=== PATIENT | female | born 1940 | race Caucasian/White ===

== ENCOUNTER 2019-02-17 14:20 | Emergency (ER) | payer MEDICARE, BC ==
[2019-02-17 14:28] VITALS: TEMP 98.3
[2019-02-17] MEDS ORDERED: MORPHINE SULFATE 4 MG/ML SYRINGE IV STA (14:51)
[2019-02-17] MEDS ORDERED: ONDANSETRON 4 MG/2 ML VIAL IVP STA (14:51)
[2019-02-17] MEDS ORDERED: SODIUM CHLORIDE 0.9% 1,000 ML IV STA ×2 (14:51)
[2019-02-17 15:17] LABS: Basophils # (A) 0.1 k/uL (0-0.2); Basophils % (A) 2 %; Eosinophils # (A) 0.2 k/uL (0-0.7); Eosinophils % (A) 4 %; HCT 33.6 % (34.0-46.0); HGB 11.4 gm/dL (11.4-16.0); Lymphocytes # (A) 0.8 k/uL (1.0-4.8); Lymphocytes % (A) 13 %; MCH 28.1 pg (25.0-35.0); MCHC 33.8 g/dL (31.0-37.0); Mean Platelet Volume 5.8; Monocytes # (A) 0.7 k/uL (0-1.0); Monocytes % (A) 10 %; Neutrophils # (A) 4.2 k/uL (1.3-7.7); Neutrophils % (A) 67 %; Platelet Count 335 k/uL (150-450); RBC 4.05 m/uL (3.80-5.40); RDW 13.7 % (11.5-15.5); WBC 6.2 k/uL (3.8-10.6)
--- NOTE | 2019-02-17 15:23 | ED ---
Abdominal Pain HPI - General Chief Complaint: Abdominal Pain Stated Complaint: Abd pain Source: patient, RN notes reviewed, old records reviewed Mode of arrival: ambulatory Limitations: no limitations - History of Present Illness Initial Comments: Patient is a 78-year-old female, reece. She presents emergency department today with upper abdominal pain for one week. Patient prefers to be called "[place]". Patient reports that she seems to be feeling full very early. Patient states that she did have a bowel movement yesterday which seemed to be normal. She states she questions if she could be mildly constipated. She has been taking stool softeners, MiraLAX with no significant bowel movement afterwards. Patient states that she has had no specific fevers or chills. She does have a indwelling suprapubic catheter, with a history of chronic urinary tract infections. She reports that she recently moved here from [place], [place] to be closer to family. Patient urologist is Dr. Espino. Patient denies any recent fever, chills, shortness of breath, chest pain, back pain, numbness or tingling, dysuria or hematuria, diarrhea, headaches or visual changes, or any other current symptoms - Related Data Previous Rx's Medication Instructions Recorded Bisacodyl [Dulcolax] 10 mg PO ONCE #20 tablet. 02/17/19 Nitrofurantoin Monohyd/M-Cryst 100 mg PO Q12HR #14 cap 02/17/19 [Macrobid] Allergies Allergy/AdvReac Type Severity Reaction Status Date / Time atorvastatin [From Lipitor] Allergy Unknown Verified 02/17/19 14:29 Benzodiazepines Allergy Unknown Verified 02/17/19 14:29 Sulfa (Sulfonamide Allergy Unknown Verified 02/17/19 14:29 Antibiotics) Review of Systems ROS Statement: Those systems with pertinent positive or pertinent negative responses have been documented in the HPI. ROS Other: All systems not noted in ROS Statement are negative. Past Medical History Past Medical History: GERD/Reflux, Hyperlipidemia, Hypertension, Thyroid Disorder History of Any Multi-Drug Resistant Organisms: None Reported Past Surgical History: Unable to Obtain, Joint Replacement Additional Past Surgical History / Comment(s): parathyroid gland, suprapubic tube insertion Past Psychological History: Depression Smoking Status: Never smoker Past Alcohol Use History: None Reported Past Drug Use History: None Reported General Exam - General Exam Comments Initial Comments: Alert and oriented 78-year-old female. Pleasant. Patient appears in no distress. General: Well appearing, well nourished, in no distress. Oriented x 3, normal mood and affect . Ambulating without difficulty. Skin: Good turgor, no rash, unusual bruising or prominent lesions Hair: Normal texture and distribution. HEENT: Head: Normocephalic, atraumatic, no visible or palpable masses, depressions, or scaring. Eyes: Visual acuity intact, conjunctiva clear, sclera non-icteric, EOM intact, PERRL. Ears: EACs clear, TMs translucent & cone of light visualized. hearing intact. Nose: No external lesions, mucosa non-inflamed, septum and turbinates normal Mouth: Mucous membranes moist, no mucosal lesions. Neck: Supple, without lesions, bruits, or adenopathy, thyroid non-enlarged and non-tender Heart: No cardiomegaly or thrills; regular rate and rhythm, no murmur or gallop Lungs: Clear to auscultation and percussion Abdomen: Bowel sounds normal, epigastric tenderness. Indwelling suprapubic catheter. No erythema around the site. Catheter appears well. Back: Spine normal without deformity or tenderness, no CVA tenderness Extremities: No amputations or deformities, cyanosis, edema or varicosities, peripheral pulses intact Musculoskeletal: Normal gait and station. No misalignment, asymmetry, crepitation, defects, tenderness, masses, effusions, decreased range of motion, instability, atrophy or abnormal strength or tone in the head, neck, spine, ribs, pelvis or extremities. Neurologic: CN 2-12 normal. Sensation to pain, touch, and proprioception normal. DTRs normal in upper and lower extremities. No pathologic reflexes. Psychiatric: Oriented X3, intact recent and remote memory, judgment and insight, normal mood and affect. Limitations: no limitations General appearance: alert, in no apparent distress Head exam: Present: atraumatic, normocephalic, normal inspection Course Vital Signs 02/17/19 02/17/19 02/17/19 14:23 16:07 17:47 Temperature 98.3 F Pulse Rate 76 75 89 Respiratory 18 18 19 Rate Blood Pressure 121/57 158/76 124/56 O2 Sat by Pulse 97 98 94 L Oximetry 02/17/19 18:10 Temperature 98.3 F Pulse Rate 89 Respiratory 19 Rate Blood Pressure 124/56 O2 Sat by Pulse 94 L Oximetry Medical Decision Making - Medical Decision Making 78-year-old female. Presents today for epigastric abdominal pain times one week. Patient reports that she has an indwelling suprapubic catheter due to history of chronic urinary tract infections. At this time Patient was given IV fluids and lab work are obtained. At this time Patient labwork was reviewed. Blood work was unremarkable. Urinalysis obtained from patient's indwelling catheter is positive for infection. We will culture this. She is given 1 g of Rocephin and ED. KUB shows evidence of mild to moderate constipation with some dilated air-fluid levels possible ileus. Computed tomography scan was performed. There is negative for any acute injury or abdominal abnormality. I discussed patient's pain is likely secondary to some constipation. Given a dose of mag citrate to take home as well as stool softeners. Patient will be started on Macrobid and she states that has worked well for her urinary tract infections in the past. I discussed the Patient is follow-up with her urologist have indwelling catheter removed and replaced. Patient understands treatment plan will comply. Return parameters were discussed. Discussed the case with Dr. Johnston. - Lab Data Result diagrams: 02/17/19 15:04 02/17/19 15:04 Lab Results 02/17/19 02/17/19 02/17/19 Range/Units 15:04 15:04 15:04 WBC 6.2 (3.8-10.6) k/uL RBC 4.05 (3.80-5.40) m/uL Hgb 11.4 (11.4-16.0) gm/dL Hct 33.6 L (34.0-46.0) % MCV 83.0 (80.0-100.0) fL MCH 28.1 (25.0-35.0) pg MCHC 33.8 (31.0-37.0) g/dL RDW 13.7 (11.5-15.5) % Plt Count 335 (150-450) k/uL Neutrophils % 67 % Lymphocytes % 13 % Monocytes % 10 % Eosinophils % 4 % Basophils % 2 % Neutrophils # 4.2 (1.3-7.7) k/uL Lymphocytes # 0.8 L (1.0-4.8) k/uL Monocytes # 0.7 (0-1.0) k/uL Eosinophils # 0.2 (0-0.7) k/uL Basophils # 0.1 (0-0.2) k/uL PT (9.0-12.0) sec INR (<1.2) APTT (22.0-30.0) sec Sodium 133 L (137-145) mmol/L Potassium 3.9 (3.5-5.1) mmol/L Chloride 96 L (98-107) mmol/L Carbon Dioxide 28 (22-30) mmol/L Anion Gap 9 mmol/L BUN 11 (7-17) mg/dL Creatinine 0.61 (0.52-1.04) mg/dL Est GFR (CKD-EPI)AfAm >90 (>60 ml/min/1.73 sqM) Est GFR (CKD-EPI)NonAf 87 (>60 ml/min/1.73 sqM) Glucose 91 (74-99) mg/dL Plasma Lactic Acid Christian 1.2 (0.7-2.0) mmol/L Calcium 9.4 (8.4-10.2) mg/dL Total Bilirubin 0.5 (0.2-1.3) mg/dL AST 34 (14-36) U/L ALT 29 (9-52) U/L Alkaline Phosphatase 106 (38-126) U/L Total Protein 7.7 (6.3-8.2) g/dL Albumin 4.1 (3.5-5.0) g/dL Amylase 32 (30-110) U/L Lipase 97 (23-300) U/L Urine Color Urine Appearance (Clear) Urine pH (5.0-8.0) Ur Specific Jefferson (1.001-1.035) Urine Protein (Negative) Urine Glucose (UA) (Negative) Urine Ketones (Negative) Urine Blood (Negative) Urine Nitrite (Negative) Urine Bilirubin (Negative) Urine Urobilinogen (<2.0) mg/dL Ur Leukocyte Esterase (Negative) Urine RBC (0-5) /hpf Urine WBC (0-5) /hpf Urine WBC Clumps (None) /hpf Urine Bacteria (None) /hpf Urine Mucus (None) /hpf Urine Yeast (Budding) (None) /hpf 02/17/19 02/17/19 Range/Units 15:04 15:46 WBC (3.8-10.6) k/uL RBC (3.80-5.40) m/uL Hgb (11.4-16.0) gm/dL Hct (34.0-46.0) % MCV (80.0-100.0) fL MCH (25.0-35.0) pg MCHC (31.0-37.0) g/dL RDW (11.5-15.5) % Plt Count (150-450) k/uL Neutrophils % % Lymphocytes % % Monocytes % % Eosinophils % % Basophils % % Neutrophils # (1.3-7.7) k/uL Lymphocytes # (1.0-4.8) k/uL Monocytes # (0-1.0) k/uL Eosinophils # (0-0.7) k/uL Basophils # (0-0.2) k/uL PT 9.4 (9.0-12.0) sec INR 0.8 (<1.2) APTT 23.2 (22.0-30.0) sec Sodium (137-145) mmol/L Potassium (3.5-5.1) mmol/L Chloride (98-107) mmol/L Carbon Dioxide (22-30) mmol/L Anion Gap mmol/L BUN (7-17) mg/dL Creatinine (0.52-1.04) mg/dL Est GFR (CKD-EPI)AfAm (>60 ml/min/1.73 sqM) Est GFR (CKD-EPI)NonAf (>60 ml/min/1.73 sqM) Glucose (74-99) mg/dL Plasma Lactic Acid Christian (0.7-2.0) mmol/L Calcium (8.4-10.2) mg/dL Total Bilirubin (0.2-1.3) mg/dL AST (14-36) U/L ALT (9-52) U/L Alkaline Phosphatase (38-126) U/L Total Protein (6.3-8.2) g/dL Albumin (3.5-5.0) g/dL Amylase (30-110) U/L Lipase (23-300) U/L Urine Color Yellow Urine Appearance Cloudy H (Clear) Urine pH 7.5 (5.0-8.0) Ur Specific Jefferson 1.013 (1.001-1.035) Urine Protein 1+ H (Negative) Urine Glucose (UA) Negative (Negative) Urine Ketones Negative (Negative) Urine Blood Small H (Negative) Urine Nitrite Positive H (Negative) Urine Bilirubin Negative (Negative) Urine Urobilinogen <2.0 (<2.0) mg/dL Ur Leukocyte Esterase Large H (Negative) Urine RBC 15 H (0-5) /hpf Urine WBC >182 H (0-5) /hpf Urine WBC Clumps Moderate H (None) /hpf Urine Bacteria Moderate H (None) /hpf Urine Mucus Rare H (None) /hpf Urine Yeast (Budding) Few H (None) /hpf - Radiology Data Radiology results: report reviewed CT of the abdomen and pelvis shows no acute intra-abdominal process. No obstruction. Read by Kati Springer DO. KUB shows distended small bowel without evidence of small bowel traction may relate ileus. Greater than average colonic stool burn. Disposition Clinical Impression: UTI (urinary tract infection), Constipation Disposition: HOME SELF-CARE Condition: Good Instructions (If sedation given, give patient instructions): Constipation (ED), Catheter-associated Urinary Tract Infection (ED) Additional Instructions: Please use medication as discussed. Follow up With urologist to have the catheter replaced. Please follow up with family doctor if symptoms have not improved over the next two days. Please return to the emergency room if your symptoms increase or worsen or for any other concerns. Prescriptions: Bisacodyl [Dulcolax] 10 mg PO ONCE #20 tablet. Nitrofurantoin Monohyd/M-Cryst [Macrobid] 100 mg PO Q12HR #14 cap Is patient prescribed a controlled substance at d/c from ED?: No Referrals: Franki Bright MD [Primary Care Provider] - 1-2 days James Espino MD [STAFF PHYSICIAN] - 1-2 days Time of Disposition: 17:45
[2019-02-17 15:29] LABS: ALT 29 U/L (9-52); AST 34 U/L (14-36); African American GFR (CKD) >90 (>60 ml/min/1.73 sqM); Albumin 4.1 g/dL (3.5-5.0); Alkaline Phosphatase 106 U/L (38-126); Amylase 32 U/L (30-110); Anion Gap 9 mmol/L; Blood Urea Nitrogen 11 mg/dL (7-17); Calcium 9.4 mg/dL (8.4-10.2); Carbon Dioxide 28 mmol/L (22-30); Chloride 96 mmol/L (98-107); Glucose 91 mg/dL (74-99); Non-African American GFR(CKD) 87 (>60 ml/min/1.73 sqM); Potassium 3.9 mmol/L (3.5-5.1); Sodium 133 mmol/L (137-145); Total Bilirubin 0.5 mg/dL (0.2-1.3); Total Protein 7.7 g/dL (6.3-8.2)
[2019-02-17 16:02] LABS: INR 0.8 (<1.2); Partial Thromboplastin Time 23.2 sec (22.0-30.0); Prothrombin Time 9.4 sec (9.0-12.0)
--- NOTE | 2019-02-17 16:03 | XR ---
EXAMINATION TYPE: XR KUB DATE OF EXAM: 02/17/2019 3:29 PM CLINICAL HISTORY: Abdominal pain, nausea TECHNIQUE: Single upright KUB image of the abdomen is obtained. COMPARISON: None. FINDINGS: Scattered gas is seen in mildly distended small bowel loops, notably left lower quadrant me asuring up to 3 cm in diameter. Gas and fecal material is seen in non-distended colon. Greater than a verage stool burden. There is no visceromegaly, pneumoperitoneum, or abnormal calcification appreciat ed. Degenerative changes of the axial spine. Left total hip prosthesis. IMPRESSION: 1. Distended small bowel loops without evidence of small bowel obstruction may relate to ileus. 2. Greater than average colonic stool burden.
[2019-02-17 16:07] LABS: Appearance,Urine Cloudy (Clear); Bacteria,Urine Moderate /hpf; Bilirubin,Urine Negative (Negative); Blood,Urine Small (Negative); Budding Yeast,Urine Few /hpf; Color,Urine Yellow; Glucose,Urine (UA) Negative (Negative); Ketones,Urine Negative (Negative); Leukocyte Esterase,Urine Large (Negative); Mucus,Urine Rare /hpf; Nitrite,Urine Positive (Negative); PH, Urine 7.5 (5.0-8.0); Protein,Urine 1+ (Negative); RBC,Urine 15 /hpf (0-5); Specific Gravity,Urine 1.013 (1.001-1.035); Urobilinogen,Urine <2.0 mg/dL (<2.0); WBC,Urine >182 /hpf (0-5)
[2019-02-17] MEDS ORDERED: cefTRIAXone IN SWFI 1,000 MG/10 ML SYRINGE IVP STA (16:12)
[2019-02-17] MEDS ORDERED: MAGNESIUM CITRATE 296 ML BOTTLE PO ONE (16:50)
--- NOTE | 2019-02-17 17:18 | CT ---
EXAMINATION TYPE: CT abdomen pelvis w con DATE OF EXAM: 02/17/2019 COMPARISON: KUB same day. HISTORY: Abdominal pain and distention with nausea. CT DLP: 905.7 mGycm Automated exposure control for dose reduction was used. TECHNIQUE: Helical acquisition of images was performed from the lung bases through the pelvis. CONTRAST: Performed without Oral Contrast and with IV Contrast, patient injected with 100 mL of Isovue 300. FINDINGS: LUNG BASES: Bibasilar subsegmental atelectasis. LIVER/GB: Scattered subcentimeter hypoattenuation hypoattenuated hepatic lesions are too small to act ually characterize. No calcified gallstones. No intra or retroperitoneal ductal dilatation. PANCREAS: No significant abnormality is seen. SPLEEN: No significant abnormality is seen. ADRENALS: No significant abnormality is seen. KIDNEYS AND URINARY BLADDER: Left renal hypoattenuating lesion measuring 3.3 cm measures internal flu id density, compatible with cyst. There are additional bilateral subcentimeter renal lesions which ar e too small to accurately characterize. No hydronephrosis. Suprapubic catheter terminates in the urin fabiola bladder. REPRODUCTIVE ORGANS: The uterus is not definitively visualized. No adnexal mass. RETROPERITONEAL ADENOPATHY: None visualized. BOWEL AND MESENTERY: No dilated bowel, free air, or suspicious free fluid. No mesenteric inflammator y changes. OSSEOUS STRUCTURES: Left total hip prosthesis. Degenerative changes throughout the imaged spine. Gra de 1 anterolisthesis of L3 over L4, likely degenerative in etiology. IMPRESSION: No acute intra-abdominal process. No bowel obstruction.
[2019-02-17 17:50] VITALS: BP 124/56; PULSE 89; RESP 19
== END 2019-02-17 18:10 | disposition home or self-care (01) ==
LOC: EC 14:20
DX: K59.00 Constipation, unspecified (principal); N39.0 Urinary tract infection, site not specified; Z96.0 Presence of urogenital implants; Z88.2 Allergy status to sulfonamides; Z88.8 Allergy status to other drugs, medicaments and biological substances; Z87.19 Personal history of other diseases of the digestive system
CPT/HCPCS: 99285; 96374; 96375 ×2; 96361 ×3; 36415; 80053; 82150; 83605; 83690; 85025; 85610; 85730; 81001; 87086; 87077; 87186; 74018; 74177; J2270; J2405; J0696; Q9967

== ENCOUNTER 2020-04-10 11:42 | Emergency (ER) | payer MEDICARE ==
[2020-04-10 11:54] VITALS: RESP 18; TEMP 98.2
[2020-04-10] MEDS ORDERED: DEXAMETHASONE SOD PHOSPHATE 10 MG/ML 1 ML VIAL IV STA (12:24)
[2020-04-10] MEDS ORDERED: hydrOXYzine HCL 25 MG TAB PO STA (12:26)
--- NOTE | 2020-04-10 12:28 | ED ---
General Adult HPI - General Chief complaint: Chest Pain Stated complaint: chest pain/itchy all over Time Seen by Provider: 04/10/20 12:08 Source: patient Mode of arrival: wheelchair Limitations: no limitations - History of Present Illness Initial comments: Dictation was produced using [employer] dictation software. please excuse any grammatical, word or spelling errors. This patient was cared for during a federal and state declared state of emergen cy secondary to Covid 19 Chief Complaint: 80-year-old female past medical history dyslipidemia hypertension and thyroid disorder presents with itching and chest pain. History of Present Illness: She is 80-year-old female she is here today for total body itching. She reports that her symptoms are so bad from medical to the emergency department. Last week patient was seen by results technician where she was told that her symptoms may be secondary to psoriasis. She was prescribed ointment for triamcinolone. She states that over the course of the last couple days her symptoms of pruritus have been exponentially worse from. To the emergency department. She was not given any antipruritic medications by her results technician. She has a follow-up appointment scheduled for next Monday. She states that the rash is localized to her upper back, upper chest. She also complains of some mild chest pain. She states is like a pressure. She has history of anxiety. She denies any associated diaphoresis. No nausea or vomiting. She does not have any history of cardiac disease. She reports that she gets chest symptoms whenever she feels anxious. She takes anxiolytic medications on a regular basis. Denies any shortness of breath. The ROS documented in this emergency department record has been reviewed and confirmed by me. Those systems with pertinent positive or negative responses have been documented in the HPI. All other systems are other negative and/or noncontributory. PHYSICAL EXAM: General Impression: Alert and oriented x3, not in acute distress HEENT: Normocephalic atraumatic, extra-ocular movements intact, pupils equal and reactive to light bilaterally, mucous membranes moist. Cardiovascular: Heart regular rate and rhythm Chest: Able to complete full sentences, no retractions, no tachypnea Abdomen: abdomen soft, non-tender, non-distended, no organomegaly Musculoskeletal: Pulses present and equal in all extremities, no peripheral edema Motor: no focal deficits noted Neurological: CN II-XII grossly intact, no focal motor or sensory deficits noted Skin: Erythematous macular rash localized to the upper back, upper chest. Palms and soles are spared. Conjunctivae were clear. Psych: Anxious ED course: 80 yo Female presents to the emergency department for atypical chest pain and total body pruritus. She's been managed outpatient by dermatology. Return evaluation obtained. CBC unremarkable. Coag panel is unremarkable. Sodium is 128. Patient is generally hyponatremic at baseline. Rest of labs unremarkable. Troponins negative. Chest x-ray is nonacute. Patient reevaluated after administration of Atarax, Ativan and Decadron. She reports s ymptoms are significantly improved. Patient given prescription for Atarax per she is told to follow-up with her results technician. EKG interpretation: Ventricular rate 82, normal sinus rhythm, PA interval 202, QRS 104, QTC 511. No PA prolongation, no ST or T-wave changes noted. No old EKG for comparison. - Related Data Home Medications Medication Instructions Recorded Confirmed Aspirin EC [Ecotrin Low Dose] 81 mg PO DAILY 04/10/20 04/10/20 Escitalopram [Lexapro] 10 mg PO DAILY 04/10/20 04/10/20 Esomeprazole Magnesium [NexIUM] 40 mg PO BID 04/10/20 04/10/20 Latanoprost/Pf [Latanoprost 0.005% 1 drop BOTH EYES HS 04/10/20 04/10/20 Eye Drop] Levothyroxine Sodium [Synthroid] 75 mcg PO DAILY 04/10/20 04/10/20 Losartan/Hydrochlorothiazide 1 tab PO DAILY 04/10/20 04/10/20 [Losartan-Hctz 100-25 mg Tab] Mirtazapine 30 mg PO HS 04/10/20 04/10/20 Polyethylene Glycol 3350 [Miralax] 17 gm PO DAILY 04/10/20 04/10/20 Zolpidem [Ambien] 5 mg PO HS PRN 04/10/20 04/10/20 Previous Rx's Medication Instructions Recorded hydrOXYzine HCL [Atarax] 25 mg PO TID PRN #20 tab 04/10/20 Allergies Allergy/AdvReac Type Severity Reaction Status Date / Time atorvastatin [From Lipitor] Allergy Unknown-brand Verified 04/10/20 13:50 OK brimonidine [From Combigan] Allergy Itching Verified 04/10/20 13:50 dicyclomine [From Bentyl] Allergy Dyspnea Verified 04/10/20 13:50 Sulfa (Sulfonamide Allergy Unknown Verified 04/10/20 13:50 Antibiotics) timolol [From Combigan] Allergy Itching Verified 04/10/20 13:50 Review of Systems ROS Statement: Those systems with pertinent positive or pertinent negative responses have been documented in the HPI. ROS Other: All systems not noted in ROS Statement are negative. Past Medical History Past Medical History: GERD/Reflux, Hyperlipidemia, Hypertension, Thyroid Disorder History of Any Multi-Drug Resistant Organisms: None Reported Past Surgical History: Unable to Obtain, Joint Replacement Additional Past Surgical History / Comment(s): parathyroid gland, suprapubic tube insertion Past Psychological History: Depression Past Alcohol Use History: None Reported Past Drug Use History: None Reported General Exam Limitations: no limitations Course Vital Signs 04/10/20 04/10/20 04/10/20 11:50 12:41 13:51 Temperature 98.2 F Pulse Rate 82 81 Pulse Rate [ 81 [employer] ] Respiratory 18 18 Rate Blood Pressure 133/69 146/72 O2 Sat by Pulse 97 93 L Oximetry Medical Decision Making - Lab Data Result diagrams: 04/10/20 12:15 04/10/20 12:15 Lab Results 04/10/20 04/10/20 04/10/20 Range/Units 12:15 12:15 12:15 WBC 7.6 (3.8-10.6) k/uL RBC 4.37 (3.80-5.40) m/uL Hgb 11.4 (11.4-16.0) gm/dL Hct 33.9 L (34.0-46.0) % MCV 77.6 L (80.0-100.0) fL MCH 26.0 (25.0-35.0) pg MCHC 33.6 (31.0-37.0) g/dL RDW 16.0 H (11.5-15.5) % Plt Count 374 (150-450) k/uL MPV 6.3 Neutrophils % 68 % Lymphocytes % 11 % Monocytes % 10 % Eosinophils % 5 % Basophils % 1 % Neutrophils # 5.2 (1.3-7.7) k/uL Lymphocytes # 0.8 L (1.0-4.8) k/uL Monocytes # 0.7 (0-1.0) k/uL Eosinophils # 0.4 (0-0.7) k/uL Basophils # 0.1 (0-0.2) k/uL Microcytosis Slight PT 9.5 (9.0-12.0) sec INR 0.9 (<1.2) APTT 21.4 L (22.0-30.0) sec Sodium 128 L (137-145) mmol/L Potassium 3.7 (3.5-5.1) mmol/L Chloride 94 L (98-107) mmol/L Carbon Dioxide 28 (22-30) mmol/L Anion Gap 6 mmol/L BUN 19 H (7-17) mg/dL Creatinine 1.04 (0.52-1.04) mg/dL Est GFR (CKD-EPI)AfAm 58 (>60 ml/min/1.73 sqM) Est GFR (CKD-EPI)NonAf 51 (>60 ml/min/1.73 sqM) Glucose 106 H (74-99) mg/dL Calcium 9.2 (8.4-10.2) mg/dL Magnesium 2.2 (1.6-2.3) mg/dL Total Bilirubin 0.5 (0.2-1.3) mg/dL AST 26 (14-36) U/L ALT 23 (4-34) U/L Alkaline Phosphatase 85 (38-126) U/L Troponin I (0.000-0.034) ng/mL Total Protein 7.4 (6.3-8.2) g/dL Albumin 4.0 (3.5-5.0) g/dL 04/10/20 Range/Units 12:15 WBC (3.8-10.6) k/uL RBC (3.80-5.40) m/uL Hgb (11.4-16.0) gm/dL Hct (34.0-46.0) % MCV (80.0-100.0) fL MCH (25.0-35.0) pg MCHC (31.0-37.0) g/dL RDW (11.5-15.5) % Plt Count (150-450) k/uL MPV Neutrophils % % Lymphocytes % % Monocytes % % Eosinophils % % Basophils % % Neutrophils # (1.3-7.7) k/uL Lymphocytes # (1.0-4.8) k/uL Monocytes # (0-1.0) k/uL Eosinophils # (0-0.7) k/uL Basophils # (0-0.2) k/uL Microcytosis PT (9.0-12.0) sec INR (<1.2) APTT (22.0-30.0) sec Sodium (137-145) mmol/L Potassium (3.5-5.1) mmol/L Chloride (98-107) mmol/L Carbon Dioxide (22-30) mmol/L Anion Gap mmol/L BUN (7-17) mg/dL Creatinine (0.52-1.04) mg/dL Est GFR (CKD-EPI)AfAm (>60 ml/min/1.73 sqM) Est GFR (CKD-EPI)NonAf (>60 ml/min/1.73 sqM) Glucose (74-99) mg/dL Calcium (8.4-10.2) mg/dL Magnesium (1.6-2.3) mg/dL Total Bilirubin (0.2-1.3) mg/dL AST (14-36) U/L ALT (4-34) U/L Alkaline Phosphatase (38-126) U/L Troponin I <0.012 (0.000-0.034) ng/mL Total Protein (6.3-8.2) g/dL Albumin (3.5-5.0) g/dL Disposition Clinical Impression: Pruritus Disposition: HOME SELF-CARE Condition: Good Instructions (If sedation given, give patient instructions): Itchy Skin (ED) Additional Instructions: Today your sodium level was found to be slightly depressed at 128. It is secondary to some mild dehydration. Please maintain hydration and lighly salt your foods Prescriptions: hydrOXYzine HCL [Atarax] 25 mg PO TID PRN #20 tab PRN Reason: skin itching Is patient prescribed a controlled substance at d/c from ED?: No Referrals: Salvatore Marcano MD [Primary Care Provider] - 1-2 days Time of Disposition: 14:04
[2020-04-10] MEDS ORDERED: LORazepam 2 MG/ML INJ IV STA (12:31)
[2020-04-10 12:43] VITALS: PULSE 81
[2020-04-10 12:43] LABS: Basophils # (A) 0.1 k/uL (0-0.2); Basophils % (A) 1 %; Eosinophils # (A) 0.4 k/uL (0-0.7); Eosinophils % (A) 5 %; HCT 33.9 % (34.0-46.0); HGB 11.4 gm/dL (11.4-16.0); Lymphocytes # (A) 0.8 k/uL (1.0-4.8); Lymphocytes % (A) 11 %; MCHC 33.6 g/dL (31.0-37.0); MCV 77.6 fL (80.0-100.0); Mean Platelet Volume 6.3; Microcytosis Slight; Monocytes # (A) 0.7 k/uL (0-1.0); Monocytes % (A) 10 %; Neutrophils # (A) 5.2 k/uL (1.3-7.7); Neutrophils % (A) 68 %; Platelet Count 374 k/uL (150-450); RBC 4.37 m/uL (3.80-5.40); WBC 7.6 k/uL (3.8-10.6)
[2020-04-10 13:00] LABS: Calcium 9.2 mg/dL (8.4-10.2); Magnesium 2.2 mg/dL (1.6-2.3); Potassium 3.7 mmol/L (3.5-5.1); Total Bilirubin 0.5 mg/dL (0.2-1.3); Total Protein 7.4 g/dL (6.3-8.2)
--- NOTE | 2020-04-10 13:11 | XR ---
EXAMINATION TYPE: XR chest 1V portable DATE OF EXAM: 04/10/2020 COMPARISON: NONE HISTORY: Chest pain. TECHNIQUE: Single AP portable frontal upright view of the chest is obtained. FINDINGS: There is chronic parenchymal change with bibasilar opacities. The cardiac silhouette size is mildly enlarged and atherosclerotic thoracic aorta. Retrocardiac opacity consistent with moderat e to large size hiatal hernia. The osseous structures are demineralized. IMPRESSION: Chronic parenchymal changes and cardiomegaly with bibasilar acute infiltrate and/or atel ectasis.
[2020-04-10 13:28] LABS: INR 0.9 (<1.2); Partial Thromboplastin Time 21.4 sec (22.0-30.0); Prothrombin Time 9.5 sec (9.0-12.0)
[2020-04-10 14:05] VITALS: BP 136/69
--- NOTE | 2020-04-10 14:06 | ED ---
Medical Decision Making - Lab Data Result diagrams: 04/10/20 12:15 12 12:15 Lab Results 04/10/20 04/10/20 04/10/20 Range/Units 12:15 12:15 12:15 WBC 7.6 (3.8-10.6) k/uL RBC 4.37 (3.80-5.40) m/uL Hgb 11.4 (11.4-16.0) gm/dL Hct 33.9 L (34.0-46.0) % MCV 77.6 L (80.0-100.0) fL MCH 26.0 (25.0-35.0) pg MCHC 33.6 (31.0-37.0) g/dL RDW 16.0 H (11.5-15.5) % Plt Count 374 (150-450) k/uL MPV 6.3 Neutrophils % 68 % Lymphocytes % 11 % Monocytes % 10 % Eosinophils % 5 % Basophils % 1 % Neutrophils # 5.2 (1.3-7.7) k/uL Lymphocytes # 0.8 L (1.0-4.8) k/uL Monocytes # 0.7 (0-1.0) k/uL Eosinophils # 0.4 (0-0.7) k/uL Basophils # 0.1 (0-0.2) k/uL Microcytosis Slight PT 9.5 (9.0-12.0) sec INR 0.9 (<1.2) APTT 21.4 L (22.0-30.0) sec Sodium 128 L (137-145) mmol/L Potassium 3.7 (3.5-5.1) mmol/L Chloride 94 L (98-107) mmol/L Carbon Dioxide 28 (22-30) mmol/L Anion Gap 6 mmol/L BUN 19 H (7-17) mg/dL Creatinine 1.04 (0.52-1.04) mg/dL Est GFR (CKD-EPI)AfAm 58 (>60 ml/min/1.73 sqM) Est GFR (CKD-EPI)NonAf 51 (>60 ml/min/1.73 sqM) Glucose 106 H (74-99) mg/dL Calcium 9.2 (8.4-10.2) mg/dL Magnesium 2.2 (1.6-2.3) mg/dL Total Bilirubin 0.5 (0.2-1.3) mg/dL AST 26 (14-36) U/L ALT 23 (4-34) U/L Alkaline Phosphatase 85 (38-126) U/L Troponin I (0.000-0.034) ng/mL Total Protein 7.4 (6.3-8.2) g/dL Albumin 4.0 (3.5-5.0) g/dL 04/10/20 Range/Units 12:15 WBC (3.8-10.6) k/uL RBC (3.80-5.40) m/uL Hgb (11.4-16.0) gm/dL Hct (34.0-46.0) % MCV (80.0-100.0) fL MCH (25.0-35.0) pg MCHC (31.0-37.0) g/dL RDW (11.5-15.5) % Plt Count (150-450) k/uL MPV Neutrophils % % Lymphocytes % % Monocytes % % Eosinophils % % Basophils % % Neutrophils # (1.3-7.7) k/uL Lymphocytes # (1.0-4.8) k/uL Monocytes # (0-1.0) k/uL Eosinophils # (0-0.7) k/uL Basophils # (0-0.2) k/uL Microcytosis PT (9.0-12.0) sec INR (<1.2) APTT (22.0-30.0) sec Sodium (137-145) mmol/L Potassium (3.5-5.1) mmol/L Chloride (98-107) mmol/L Carbon Dioxide (22-30) mmol/L Anion Gap mmol/L BUN (7-17) mg/dL Creatinine (0.52-1.04) mg/dL Est GFR (CKD-EPI)AfAm (>60 ml/min/1.73 sqM) Est GFR (CKD-EPI)NonAf (>60 ml/min/1.73 sqM) Glucose (74-99) mg/dL Calcium (8.4-10.2) mg/dL Magnesium (1.6-2.3) mg/dL Total Bilirubin (0.2-1.3) mg/dL AST (14-36) U/L ALT (4-34) U/L Alkaline Phosphatase (38-126) U/L Troponin I <0.012 (0.000-0.034) ng/mL Total Protein (6.3-8.2) g/dL Albumin (3.5-5.0) g/dL Disposition Clinical Impression: Pruritus Disposition: HOME SELF-CARE Condition: Good Instructions (If sedation given, give patient instructions): Itchy Skin (ED) Additional Instructions: Today your sodium level was found to be slightly depressed at 128. It is secondary to some mild dehydration. Please maintain hydration and lighly salt your foods Prescriptions: hydrOXYzine HCL [Atarax] 25 mg PO TID PRN #20 tab PRN Reason: skin itching Triamcinolone 0.1% Ointment [Kenalog 0.1% Ointment] 1 applic TOPICAL BID #1 tube Is patient prescribed a controlled substance at d/c from ED?: No Referrals: Salvatore Marcano MD [Primary Care Provider] - 1-2 days Time of Disposition: 14:06
== END 2020-04-10 14:15 | disposition home or self-care (01) ==
LOC: EC 11:42
DX: L29.9 Pruritus, unspecified (principal); R07.89 Other chest pain; E87.1 Hypo-osmolality and hyponatremia; F41.9 Anxiety disorder, unspecified; I10 Essential (primary) hypertension; K21.9 Gastro-esophageal reflux disease without esophagitis; E78.5 Hyperlipidemia, unspecified; E07.9 Disorder of thyroid, unspecified; F32.9 Major depressive disorder, single episode, unspecified; Z79.82 Long term (current) use of aspirin; Z79.899 Other long term (current) drug therapy; Z79.890 Hormone replacement therapy
CPT/HCPCS: 36415; 93005; 80053; 83735; 84484; 85025; 85610; 85730; 71045; 99285; 96374; 96375; J2060; J1100

== ENCOUNTER 2020-04-13 18:26 | Emergency (ER) | payer MEDICARE ==
[2020-04-13 18:33] VITALS: PULSE 85
[2020-04-13] MEDS ORDERED: methylPREDNISolone SOD SUCCI 125 MG/2 ML VIAL IM ONE (19:13)
[2020-04-13] MEDS ORDERED: diphenhydrAMINE 50 MG/ML 1 ML VIAL IM STA (19:13)
--- NOTE | 2020-04-13 19:29 | ED ---
Skin/Abscess/FB HPI - General Chief complaint: Skin/Abscess/Foreign Body Stated complaint: Poss Rash on back Time Seen by Provider: 04/13/20 18:37 Source: patient Mode of arrival: wheelchair Limitations: no limitations - History of Present Illness Initial comments: Patient is an 80-year-old female presenting to the emergency Department with complaints of itchy rash on her back that has been going on for 2 weeks now. Patient states she was in the ER a few days ago for same complaint. Patient states she was given a medicine but it is not helping. She states she has been also trying Benadryl at home without relief. She states the rash is not painful itches super itchy and she cannot stand it any longer. She denies any fever, chills, nausea, vomiting, diarrhea. She denies any chest pain or shortness of breath. She states she did call her lace tearing supervisor and has an appointment at the end of this week. Patient states she has not changed any wound or detergent, soaps, lotions. She has not been taking any new medications. The patient's states he has nothing like this on him. Patient has no further complaints at this time. Upon arrival to the ER, her vitals are stable. - Related Data Home Medications Medication Instructions Recorded Confirmed Aspirin EC [Ecotrin Low Dose] 81 mg PO DAILY 04/10/20 04/13/20 Atorvastatin Calcium [Lipitor] 40 mg PO DAILY 04/10/20 04/13/20 Escitalopram [Lexapro] 10 mg PO DAILY 04/10/20 04/13/20 Esomeprazole Magnesium [NexIUM] 40 mg PO BID 04/10/20 04/13/20 Istalol 0.5% 1 drop BOTH EYES DAILY 04/10/20 04/13/20 Latanoprost/Pf [Latanoprost 0.005% 1 drop BOTH EYES HS 04/10/20 04/13/20 Eye Drop] Levothyroxine Sodium [Synthroid] 75 mcg PO DAILY 04/10/20 04/13/20 Losartan/Hydrochlorothiazide 1 tab PO DAILY 04/10/20 04/13/20 [Losartan-Hctz 100-25 mg Tab] Mirtazapine 30 mg PO HS 04/10/20 04/13/20 NIFEdipine [Procardia XL] 30 mg PO DAILY 04/10/20 04/13/20 Polyethylene Glycol 3350 [Miralax] 17 gm PO DAILY 04/10/20 04/13/20 Zolpidem [Ambien] 5 mg PO HS PRN 04/10/20 04/13/20 Previous Rx's Medication Instructions Recorded Triamcinolone 0.1% Ointment 1 applic TOPICAL BID #1 tube 04/10/20 [Kenalog 0.1% Ointment] hydrOXYzine HCL [Atarax] 25 mg PO TID PRN #20 tab 04/10/20 predniSONE [Deltasone] 20 mg PO BID 5 Days #10 tab 04/13/20 Allergies Allergy/AdvReac Type Severity Reaction Status Date / Time atorvastatin [From Lipitor] Allergy Unknown-brand Verified 04/13/20 19:01 OK brimonidine [From Combigan] Allergy Itching Verified 04/13/20 19:01 dicyclomine [From Bentyl] Allergy Dyspnea Verified 04/13/20 19:01 Sulfa (Sulfonamide Allergy Unknown Verified 04/13/20 19:01 Antibiotics) timolol [From Combigan] Allergy Itching Verified 04/13/20 19:01 Review of Systems ROS Statement: Those systems with pertinent positive or pertinent negative responses have been documented in the HPI. ROS Other: All systems not noted in ROS Statement are negative. Past Medical History Past Medical History: GERD/Reflux, Hyperlipidemia, Hypertension, Thyroid Disorder History of Any Multi-Drug Resistant Organisms: None Reported Past Surgical History: Unable to Obtain, Joint Replacement Additional Past Surgical History / Comment(s): parathyroid gland, suprapubic tube insertion Past Psychological History: Depression Smoking Status: Never smoker Past Alcohol Use History: None Reported Past Drug Use History: None Reported General Exam - General Exam Comments Initial Comments: GENERAL: Patient is well-developed and well-nourished. Patient is nontoxic and in no acute distress. HEAD: Atraumatic, normocephalic. EYES: Pupils equal round and reactive to light, extraocular movements intact, sclera anicteric, conjunctiva are normal. Eyelids were unremarkable. ENT: TMs normal, nares patent, oropharynx clear without exudates. Moist mucous membranes. NECK: Normal range of motion, supple without lymphadenopathy or JVD. LUNGS: Unlabored respirations. Breath sounds clear to auscultation bilaterally and equal. No wheezes rales or rhonchi. HEART: Regular rate and rhythm without murmurs, rubs or gallops. ABDOMEN: Soft, nontender, normoactive bowel sounds. No guarding, no rebound. No masses appreciated. : Deferred MUSCULOSKELETAL: Normal extremities with adequate strength and normal range of motion, no pitting or edema. No clubbing or cyanosis. NEUROLOGICAL: Patient is alert and oriented x 3. Motor and sensory are also intact. Cranial nerves II through XII grossly intact. Symmetrical smile. Normal speech, normal gait. PSYCH: Normal mood, normal affect. SKIN: Warm, Dry, normal turgor. Patient has a few small erythematous, macules papules on her upper back, bilateral as well as a few small little papules on her chest. This is not appear infectious, does not resemble shingles. Limitations: no limitations Course Vital Signs 04/13/20 04/13/20 18:31 20:30 Temperature 98.5 F 98.4 F Pulse Rate 85 85 Respiratory 18 16 Rate Blood Pressure 124/72 136/67 O2 Sat by Pulse 99 96 Oximetry Medical Decision Making - Medical Decision Making Patient is an 80-year-old female here with a rash is extremely itchy on her upper back and chest for the past 2 weeks. She was here in the ER a few days ago for same complaint. She states the oral medications he is trying is not helping. She has an appointment with a lace tearing supervisor and of this week. Her vitals are stable. She does not appear to be infectious or shingles. I gave patient a dose of Benadryl and Solu-Medrol in the ER, she reports very mild improvement, so complaining about itching. I discussed with patient that she needs follow-up with her lace tearing supervisor, continue with Atarax that she has at home. I also recommended making sure she is moisturizing twice a day with the Eucerin or Aquaphor. Patient is demanding to see a lace tearing supervisor, I did explain that we do not have a lace tearing supervisor in the ER and this is not an urgent condition where we need to keep the patient in the hospital. Patient is stable for discharge. Patient is in agreement with this plan of care. She was given 2 referrals for local lace tearing supervisor. I also sent patient home with a prescription for a small dose of steroids over the next few days. Case discussed with Dr. Johnston. Disposition Clinical Impression: Pruritus Disposition: HOME SELF-CARE Condition: Stable Instructions (If sedation given, give patient instructions): Itchy Skin (ED) Additional Instructions: Please return to the Emergency Department if symptoms worsen or any other concerns. Continue with already prescribed medications. Trial of a steroid to start tomorrow. Make sure to moisturize the skin twice daily with a simple moisturizer, such as Eucerin and Aquaphor with no dyes. Follow-up with dermatology as discussed. Prescriptions: predniSONE [Deltasone] 20 mg PO BID 5 Days #10 tab Is patient prescribed a controlled substance at d/c from ED?: No Referrals: Salvatore Marcano MD [Primary Care Provider] - 1-2 days Jen Richey MD [STAFF PHYSICIAN] - 1-2 days Jatinder Bazzi MD [STAFF PHYSICIAN] - 1-2 days
[2020-04-13 20:32] VITALS: BP 136/67; RESP 16; TEMP 98.4
[2020-04-13] MEDS ORDERED: ONDANSETRON 4 MG ODT STARTER PACK 2 TAB BTL PO STA (21:05)
== END 2020-04-13 21:15 | disposition home or self-care (01) ==
LOC: EC 18:26
DX: L29.9 Pruritus, unspecified (principal); I10 Essential (primary) hypertension; E78.5 Hyperlipidemia, unspecified; F32.9 Major depressive disorder, single episode, unspecified; K21.9 Gastro-esophageal reflux disease without esophagitis; Z79.82 Long term (current) use of aspirin; Z79.899 Other long term (current) drug therapy; Z88.2 Allergy status to sulfonamides; Z88.8 Allergy status to other drugs, medicaments and biological substances
CPT/HCPCS: 99282 ×2; 96372 ×3; J1200; J2930; S0119

== ENCOUNTER 2020-08-15 16:50 | Emergency (ER) | payer MEDICARE ==
[2020-08-15 17:05] VITALS: BP 106/54; PULSE 86; RESP 18; TEMP 97.8
--- NOTE | 2020-08-15 18:13 | XR ---
Result: History: Pain. Comparison: None available. Technique: 3 views of the left foot. Findings: The bone mineralization is appropriate for age. No acute fracture or dislocation is seen. Hallux valgus is seen. There is lesser toe claw deformity. Otherwise the joint spaces are preserved. Impression: No acute fracture.
--- NOTE | 2020-08-15 18:23 | ED ---
General Adult HPI - General Chief complaint: Extremity Injury, Lower Stated complaint: Fall, ankle pain Time Seen by Provider: 08/15/20 17:50 Source: patient Mode of arrival: ambulatory Limitations: no limitations - History of Present Illness Initial comments: 80-year-old female with a past medical history of hyperlipidemia, hypertension presents to the emergency room for a chief complaint of left ankle pain. Patient reports that she was getting out of the shower yesterday and slipped and fell. No dizziness or lightheadedness preceding this fall. Fall was mechanical. Patient fell on her left ankle. She did not hit her head neck or back. She has no other complaints. There was no loss of consciousness. Patient does not take blood thinners. Patient's only complaint is her left ankle.Patient has no other complaints at this time including shortness of breath, chest pain, abdominal pain, nausea or vomiting, headache, or visual changes. - Related Data Home Medications Medication Instructions Recorded Confirmed Aspirin EC [Ecotrin Low Dose] 81 mg PO DAILY 04/10/20 04/13/20 Atorvastatin Calcium [Lipitor] 40 mg PO DAILY 04/10/20 04/13/20 Escitalopram [Lexapro] 10 mg PO DAILY 04/10/20 04/13/20 Esomeprazole Magnesium [NexIUM] 40 mg PO BID 04/10/20 04/13/20 Istalol 0.5% 1 drop BOTH EYES DAILY 04/10/20 04/13/20 Latanoprost/Pf [Latanoprost 0.005% 1 drop BOTH EYES HS 04/10/20 04/13/20 Eye Drop] Levothyroxine Sodium [Synthroid] 75 mcg PO DAILY 04/10/20 04/13/20 Losartan/Hydrochlorothiazide 1 tab PO DAILY 04/10/20 04/13/20 [Losartan-Hctz 100-25 mg Tab] Mirtazapine 30 mg PO HS 04/10/20 04/13/20 NIFEdipine [Procardia XL] 30 mg PO DAILY 04/10/20 04/13/20 Polyethylene Glycol 3350 [Miralax] 17 gm PO DAILY 04/10/20 04/13/20 Zolpidem [Ambien] 5 mg PO HS PRN 04/10/20 04/13/20 Previous Rx's Medication Instructions Recorded Triamcinolone 0.1% Ointment 1 applic TOPICAL BID #1 tube 04/10/20 [Kenalog 0.1% Ointment] hydrOXYzine HCL [Atarax] 25 mg PO TID PRN #20 tab 04/10/20 predniSONE [Deltasone] 20 mg PO BID 5 Days #10 tab 04/13/20 Allergies Allergy/AdvReac Type Severity Reaction Status Date / Time atorvastatin [From Lipitor] Allergy Unknown-brand Verified 08/15/20 17:06 [place] brimonidine [From Combigan] Allergy Itching Verified 08/15/20 17:06 dicyclomine [From Bentyl] Allergy Dyspnea Verified 08/15/20 17:06 Sulfa (Sulfonamide Allergy Unknown Verified 08/15/20 17:06 Antibiotics) timolol [From Combigan] Allergy Itching Verified 08/15/20 17:06 Review of Systems ROS Statement: Those systems with pertinent positive or pertinent negative responses have been documented in the HPI. ROS Other: All systems not noted in ROS Statement are negative. Past Medical History Past Medical History: GERD/Reflux, Hyperlipidemia, Hypertension, Thyroid Disorder History of Any Multi-Drug Resistant Organisms: None Reported Past Surgical History: Unable to Obtain, Joint Replacement Additional Past Surgical History / Comment(s): parathyroid gland, suprapubic tube insertion Past Psychological History: Depression Smoking Status: Never smoker Past Alcohol Use History: None Reported Past Drug Use History: None Reported General Exam Limitations: no limitations General appearance: alert, in no apparent distress Head exam: Present: atraumatic, normocephalic, normal inspection Eye exam: Present: normal appearance, PERRL, EOMI. Absent: scleral icterus, conjunctival injection, periorbital swelling ENT exam: Present: normal exam, mucous membranes moist Neck exam: Present: normal inspection. Absent: tenderness, meningismus, lymphadenopathy Respiratory exam: Present: normal lung sounds bilaterally. Absent: respiratory distress, wheezes, rales, rhonchi, stridor Cardiovascular Exam: Present: regular rate, normal rhythm, normal heart sounds. Absent: systolic murmur, diastolic murmur, rubs, gallop, clicks GI/Abdominal exam: Present: soft, normal bowel sounds. Absent: distended, tenderness, guarding, rebound, rigid Extremities exam: Present: full ROM (Full range of motion of the left ankle), tenderness (Tenderness to the lateral malleolus of the left ankle. No foot tenderness.), normal capillary refill (Capillary refill less than 2 seconds, DP pulse 2+ in the left lower extremity), joint swelling (Mild edema noted of the l eft ankle.), other (Sensation intact left lower extremity.). Absent: calf tenderness (Negative Homans sign, no calf tenderness or edema.) Back exam: Absent: CVA tenderness (R), CVA tenderness (L), vertebral tenderness Course Vital Signs 08/15/20 17:02 Temperature 97.8 F Pulse Rate 86 Respiratory 18 Rate Blood Pressure 106/54 O2 Sat by Pulse 95 Oximetry Procedures - Orthopedic Splinting/Casting Injury #1 Side: left Lower Extremity Injury Location: ankle Lower Extremity Immobilizer: stirrup splint Medical Decision Making - Medical Decision Making HPI physical exam is documented. Pertinent for tenderness to the lateral malleolus with mild edema of the left ankle. Neurovascular status intact in the left lower extremity. X-ray of the left foot is negative.X-ray of the left ankle does show suspicion for a small fracture of the lateral malleoli are tender. Patient placed in an ankle stirrup OCL. Referred to orthopedics. She will return here for any worsening symptoms. Disposition Clinical Impression: Fracture of lateral malleolus Disposition: HOME SELF-CARE Condition: Good Instructions (If sedation given, give patient instructions): Ankle Fracture (ED) Additional Instructions: Please take Motrin and Tylenol for pain. Please rest ice and elevate the left ankle. Follow-up with orthopedics in 1 to 2 days. Return to the emergency room for any worsening symptoms. Is patient prescribed a controlled substance at d/c from ED?: No Referrals: Salvatore Marcano MD [Primary Care Provider] - 1-2 days Gallito Zhu DO [Doctor of Osteopathic Medicine] - 1-2 days Time of Disposition: 18:37
--- NOTE | 2020-08-15 18:34 | XR ---
Result: History: Pain. Comparison: None available. Technique: 3 views of the left ankle. Findings: There is mild cortical irregularity of the lateral malleolus tip with overlying soft tissue edema. No evidence of dislocation. The joint spaces are otherwise preserved. Impression: Suspicious small fracture of the lateral malleolar tip.
== END 2020-08-15 18:51 | disposition home or self-care (01) ==
LOC: EC 16:50
DX: S82.62XA Displaced fracture of lateral malleolus of left fibula, initial encounter for closed fracture (principal); I10 Essential (primary) hypertension; E78.5 Hyperlipidemia, unspecified; K21.9 Gastro-esophageal reflux disease without esophagitis; F32.9 Major depressive disorder, single episode, unspecified; Z79.82 Long term (current) use of aspirin; Z79.899 Other long term (current) drug therapy; W01.0XXA Fall on same level from slipping, tripping and stumbling without subsequent striking against object, initial encounter
CPT/HCPCS: 99284

== ENCOUNTER → 2020-09-11 | Outpatient (CLI) | payer MEDICARE ==
--- NOTE | 2020-09-11 08:36 | US ---
EXAMINATION TYPE: US venous doppler duplex LE RT DATE OF EXAM: 09/11/2020 8:07 AM COMPARISON: NONE CLINICAL HISTORY: R22.41 Swelling right leg. SIDE PERFORMED: Right TECHNIQUE: The lower extremity deep venous system is examined utilizing real time linear array sonog laruel with graded compression, doppler sonography and color-flow sonography. VESSELS IMAGED: Common Femoral Vein Deep Femoral Vein Greater Saphenous Vein * Femoral Vein Popliteal Vein Small Saphenous Vein * Proximal Calf Veins (* superficial vessels) Right Leg: Negative for DVT Grayscale, color doppler, spectral doppler imaging performed of the deep veins of the right lower ext remity. There is normal flow, compressibility, vascular waveforms. IMPRESSION: No ultrasound evidence for acute DVT in the right lower extremity.
== END | disposition home or self-care (01) ==
LOC: RADUSWWP 07:41
PROVIDERS: ATTEND Family Medicine
DX: R22.41 Localized swelling, mass and lump, right lower limb (principal)

== ENCOUNTER → 2020-10-14 | Outpatient (CLI) | payer MEDICARE ==
--- NOTE | 2020-10-14 08:43 | XR ---
EXAMINATION TYPE: XR abdomen 1V DATE OF EXAM: 10/14/2020 COMPARISON: 02/17/2019 HISTORY: Pain TECHNIQUE: One view abdominal series FINDINGS: The osseous structures are intact. The bowel gas pattern is nonspecific. Hypertrophic and degenerati ve change of the spine. There is a right paraspinal calcification is indeterminate. Vascular calcific ations in pelvis. Severe arthropathy right hip and postsurgical change left. Severe degenerative wells ge lumbar spine. Bilateral subsegmental areas of infiltrate. Nodular contour of the right superior pu bic ramus could be positional or related to trauma correlate clinically. IMPRESSION: 1. Nonspecific abdomen correlate for constipation. 2. Bibasilar infiltrate or atelectasis. 3. Right paraspinal calcification could be in the course of the right ureter correlate with CT scan a s clinically warranted.
== END | disposition home or self-care (01) ==
LOC: LABWHC1 07:57
PROVIDERS: ATTEND Nurse Practitioner Family
DX: R10.9 Unspecified abdominal pain (principal)
CPT/HCPCS: 74018

== ENCOUNTER → 2020-10-27 | Outpatient (CLI) | payer MEDICARE ==
--- NOTE | 2020-10-27 10:17 | US ---
EXAMINATION TYPE: US carotid duplex BILAT DATE OF EXAM: 10/27/2020 COMPARISON: NONE CLINICAL HISTORY: I65.23 ADALBERTO CAROTID ARTERY STENOSIS. no h/o stroke, stenosis EXAM MEASUREMENTS: RIGHT: Peak Systolic Velocity (PSV) cm/sec ----- Right CCA: 66.44 ----- Right ICA: 92.2 ----- Right ECA: 66.4 ICA/CCA ratio: 1.4 RIGHT: End Diastole cm/sec ----- Right CCA: 20.1 ----- Right ICA: 31.1 ----- Right ECA: 10.2 LEFT: Peak Systolic Velocity (PSV) cm/sec ----- Left CCA: 66.7 ----- Left ICA: 93.0 ----- Left ECA: 79.1 ICA/CCA ratio: 1.4 LEFT: End Diastole cm/sec ----- Left CCA: 30.4 ----- Left ICA: 32.0 ----- Left ECA: 11.9 VERTEBRALS (direction of flow): Right Vertebral: Antegrade Left Vertebral: Antegrade Rhythm: Normal Heterogenous plaque of the bilateral bulbs with no significant stenosis IMPRESSION: No sonographic evidence for hemodynamically significant stenosis of the carotid arteries. Criteria for Assigning % of Stenosis / Diameter reduction (Estimation based on the indirect measurements of the internal carotid artery velocities (ICA PSV). 1. Normal (no stenosis)=ICA PSV < 125 cm/s: ratio < 2.0: ICA EDV<40 cm/s. 2. Less than 50% stenosis=ICA PSV < 125 cm/s: ratio < 2.0: ICA EDV<40 cm/s. 3. 50 to 69% stenosis=ICA PSV of 125 to 230 cm/s: ration 2.0 ? 4.0: ICA EDV 40-100 cm/s. 4. Greater than 70% stenosis to near occlusion= ICA PSV > 230 cm/s: ratio > 4.0: ICA EDV > 100 cm/s. 5. Near occlusion= ICA PSV velocities may be low or undetectable: variable ratio and ICA EDV. 6. Total occlusion=unable to detect flow.
== END | disposition home or self-care (01) ==
LOC: RADUSWWP 09:35
PROVIDERS: ATTEND Internal Medicine
DX: I65.23 Occlusion and stenosis of bilateral carotid arteries (principal)
CPT/HCPCS: 93880

== ENCOUNTER 2020-12-06 15:20 | Emergency (ER) | payer MEDICARE, OTHER ==
[2020-12-06] MEDS ORDERED: SODIUM CHLORIDE 0.9% 500 ML 500 ML IV STA (15:39)
--- NOTE | 2020-12-06 15:40 | ED ---
General Adult HPI - General Chief complaint: Dizziness Stated complaint: Dizziness Time Seen by Provider: 12/06/20 15:24 Source: patient, EMS Mode of arrival: EMS Limitations: no limitations - History of Present Illness Initial comments: Dictation was produced using [employer] dictation software. please excuse any grammatical, word or spelling errors. Chief Complaint: 80-year-old female with past medical history of GERD dyslipidemia hypertension this emergency department for dizziness and left shoulder pain History of Present Illness: 80-year-old female she states for the last several days she's been experiencing worsening dizziness. Patient is a poor historian. at the bedside also a poor historian. States that she denies symptoms of the room spinning. She does feel lightheaded. She also has some left-sided shoulder pain it's worse with movement of the left shoulder palpation to the area. Patient denies any chest pressure. No associated diaphoresis or nausea. Denies any vomiting. No diarrhea. Denies any respiratory infectious symptoms. The ROS documented in this emergency department record has been reviewed and confirmed by me. Those systems with pertinent positive or negative responses have been documented in the HPI. All other systems are other negative and/or noncontributory. PHYSICAL EXAM: General Impression: Alert and oriented x3, not in acute distress HEENT: Normocephalic atraumatic, extra-ocular movements intact, pupils equal and reactive to light bilaterally, mucous membranes moist. Cardiovascular: Heart regular rate and rhythm Chest: Able to complete full sentences, no retractions, no tachypnea Abdomen: abdomen soft, non-tender, non-distended, no organomegaly Musculoskeletal: Pulses present and equal in all extremities, no peripheral edema, tenderness to palpation of the left anterior shoulder and left pectoralis muscle area. Denies any symptoms with manipulation of the right shoulder Motor: no focal deficits noted Neurological: CN II-XII grossly intact, no focal motor or sensory deficits noted Skin: Intact with no visualized rashes Psych: Normal affect and mood ED course: 80-year-old feel presents to the emergency department with dizziness and left shoulder pain. Vital signs upon arrival shows 93% on room air, rest of vital signs within acceptable limits. EKGs benign. Laboratory evaluation obtained. CBC, coag panel, metabolic panel is unremarkable. Urinalysis positive for nitrates with 12 white blood cells. Clinical presentation consistent with urinary tract infection. Patient's well- appearing at the bedside. Patient given 1 g of ceftriaxone. Patient has history of polymicrobial. Tract infections in the past. Urine will be sent for culture. Patient reevaluated at 5 PM 5 in stable medical condition. EKG interpretation: Ventricular rate 80, sinus rhythm,. Interval to 4, care is 90, QTC 465. No CO prolongation, no QTC prolongation, no ST or T-wave changes noted. EKG compared to April showing no changes. Overall, this EKG is unremarkable Patient given prescription for oral analgesics to treat her musculoskeletal shoulder pain. As I was trying to exit the room patient began complaining of forehead twitching. Denies any headache.. She is told to follow-up with her primary care doctor regarding this. - Related Data Home Medications Medication Instructions Recorded Confirmed Aspirin EC [Ecotrin Low Dose] 81 mg PO DAILY 04/10/20 04/13/20 Atorvastatin Calcium [Lipitor] 40 mg PO DAILY 04/10/20 04/13/20 Escitalopram [Lexapro] 10 mg PO DAILY 04/10/20 04/13/20 Esomeprazole Magnesium [NexIUM] 40 mg PO BID 04/10/20 04/13/20 Istalol 0.5% 1 drop BOTH EYES DAILY 04/10/20 04/13/20 Latanoprost/Pf [Latanoprost 0.005% 1 drop BOTH EYES HS 04/10/20 04/13/20 Eye Drop] Levothyroxine Sodium [Synthroid] 75 mcg PO DAILY 04/10/20 04/13/20 Losartan/Hydrochlorothiazide 1 tab PO DAILY 04/10/20 04/13/20 [Losartan-Hctz 100-25 mg Tab] Mirtazapine 30 mg PO HS 04/10/20 04/13/20 NIFEdipine [Procardia XL] 30 mg PO DAILY 04/10/20 04/13/20 Polyethylene Glycol 3350 [Miralax] 17 gm PO DAILY 04/10/20 04/13/20 Zolpidem [Ambien] 5 mg PO HS PRN 04/10/20 04/13/20 Previous Rx's Medication Instructions Recorded Triamcinolone 0.1% Ointment 1 applic TOPICAL BID #1 tube 04/10/20 [Kenalog 0.1% Ointment] hydrOXYzine HCL [Atarax] 25 mg PO TID PRN #20 tab 04/10/20 predniSONE [Deltasone] 20 mg PO BID 5 Days #10 tab 04/13/20 Cephalexin [Keflex] 500 mg PO Q6HR 7 Days #28 cap 12/06/20 HYDROcodone/APAP 5-325MG [[place] 1 tab PO Q6HR PRN 3 Days #12 tab 12/06/20 5-325] Allergies Allergy/AdvReac Type Severity Reaction Status Date / Time atorvastatin [From Lipitor] Allergy Unknown-brand Verified 08/15/20 17:06 OK brimonidine [From Combigan] Allergy Itching Verified 08/15/20 17:06 dicyclomine [From Bentyl] Allergy Dyspnea Verified 08/15/20 17:06 Sulfa (Sulfonamide Allergy Unknown Verified 08/15/20 17:06 Antibiotics) timolol [From Combigan] Allergy Itching Verified 08/15/20 17:06 Review of Systems ROS Statement: Those systems with pertinent positive or pertinent negative responses have been documented in the HPI. ROS Other: All systems not noted in ROS Statement are negative. Past Medical History Past Medical History: GERD/Reflux, Hyperlipidemia, Hypertension, Thyroid Disorder History of Any Multi-Drug Resistant Organisms: None Reported Past Surgical History: Unable to Obtain, Joint Replacement Additional Past Surgical History / Comment(s): parathyroid gland, suprapubic tube insertion Past Psychological History: Depression Smoking Status: Never smoker Past Alcohol Use History: None Reported Past Drug Use History: None Reported General Exam Limitations: no limitations Course Vital Signs 12/06/20 15:24 Temperature 98.2 F Pulse Rate 81 Respiratory 16 Rate Blood Pressure 164/82 O2 Sat by Pulse 93 L Oximetry Medical Decision Making - Lab Data Result diagrams: 12/06/20 15:50 12/06/20 15:50 Lab Results 12/06/20 12/06/20 12/06/20 Range/Units 15:50 15:50 15:50 WBC 9.6 (3.8-10.6) k/uL RBC 4.23 (3.80-5.40) m/uL Hgb 10.7 L (11.4-16.0) gm/dL Hct 33.9 L (34.0-46.0) % MCV 80.3 (80.0-100.0) fL MCH 25.4 (25.0-35.0) pg MCHC 31.6 (31.0-37.0) g/dL RDW 15.3 (11.5-15.5) % Plt Count 361 (150-450) k/uL MPV 7.4 Neutrophils % 77 % Lymphocytes % 10 % Monocytes % 9 % Eosinophils % 2 % Basophils % 0 % Neutrophils # 7.5 (1.3-7.7) k/uL Lymphocytes # 0.9 L (1.0-4.8) k/uL Monocytes # 0.8 (0-1.0) k/uL Eosinophils # 0.2 (0-0.7) k/uL Basophils # 0.0 (0-0.2) k/uL Hypochromasia Slight PT 9.7 (9.0-12.0) sec INR 0.9 (<1.2) APTT 20.7 L (22.0-30.0) sec Sodium (137-145) mmol/L Potassium (3.5-5.1) mmol/L Chloride (98-107) mmol/L Carbon Dioxide (22-30) mmol/L Anion Gap mmol/L BUN (7-17) mg/dL Creatinine (0.52-1.04) mg/dL Est GFR (CKD-EPI)AfAm (>60 ml/min/1.73 sqM) Est GFR (CKD-EPI)NonAf (>60 ml/min/1.73 sqM) Glucose (74-99) mg/dL Plasma Lactic Acid Christian (0.7-2.0) mmol/L Calcium (8.4-10.2) mg/dL Magnesium (1.6-2.3) mg/dL Troponin I (0.000-0.034) ng/mL Urine Color Light Yellow Urine Appearance Cloudy H (Clear) Urine pH 7.5 (5.0-8.0) Ur Specific [place] 1.007 (1.001-1.035) Urine Protein Negative (Negative) Urine Glucose (UA) Negative (Negative) Urine Ketones Negative (Negative) Urine Blood Negative (Negative) Urine Nitrite Positive H (Negative) Urine Bilirubin Negative (Negative) Urine Urobilinogen <2.0 (<2.0) mg/dL Ur Leukocyte Esterase Large H (Negative) Urine RBC 2 (0-5) /hpf Urine WBC 12 H (0-5) /hpf Ur Squamous Epith Cells <1 (0-4) /hpf Triple Phos Crystals Occasional H (None) /hpf Amorphous Sediment Rare H (None) /hpf Urine Mucus Rare H (None) /hpf 12/06/20 12/06/20 12/06/20 Range/Units 15:50 15:50 15:50 WBC (3.8-10.6) k/uL RBC (3.80-5.40) m/uL Hgb (11.4-16.0) gm/dL Hct (34.0-46.0) % MCV (80.0-100.0) fL MCH (25.0-35.0) pg MCHC (31.0-37.0) g/dL RDW (11.5-15.5) % Plt Count (150-450) k/uL MPV Neutrophils % % Lymphocytes % % Monocytes % % Eosinophils % % Basophils % % Neutrophils # (1.3-7.7) k/uL Lymphocytes # (1.0-4.8) k/uL Monocytes # (0-1.0) k/uL Eosinophils # (0-0.7) k/uL Basophils # (0-0.2) k/uL Hypochromasia PT (9.0-12.0) sec INR (<1.2) APTT (22.0-30.0) sec Sodium 138 (137-145) mmol/L Potassium 3.9 (3.5-5.1) mmol/L Chloride 103 (98-107) mmol/L Carbon Dioxide 26 (22-30) mmol/L Anion Gap 9 mmol/L BUN 15 (7-17) mg/dL Creatinine 0.77 (0.52-1.04) mg/dL Est GFR (CKD-EPI)AfAm 84 (>60 ml/min/1.73 sqM) Est GFR (CKD-EPI)NonAf 73 (>60 ml/min/1.73 sqM) Glucose 100 H (74-99) mg/dL Plasma Lactic Acid Hcristian 0.9 (0.7-2.0) mmol/L Calcium 9.4 (8.4-10.2) mg/dL Magnesium 2.2 (1.6-2.3) mg/dL Troponin I <0.012 (0.000-0.034) ng/mL Urine Color Urine Appearance (Clear) Urine pH (5.0-8.0) Ur Specific [place] (1.001-1.035) Urine Protein (Negative) Urine Glucose (UA) (Negative) Urine Ketones (Negative) Urine Blood (Negative) Urine Nitrite (Negative) Urine Bilirubin (Negative) Urine Urobilinogen (<2.0) mg/dL Ur Leukocyte Esterase (Negative) Urine RBC (0-5) /hpf Urine WBC (0-5) /hpf Ur Squamous Epith Cells (0-4) /hpf Triple Phos Crystals (None) /hpf Amorphous Sediment (None) /hpf Urine Mucus (None) /hpf Disposition Clinical Impression: UTI (urinary tract infection) Disposition: HOME SELF-CARE Condition: Fair Instructions (If sedation given, give patient instructions): Dizziness (ED), Urinary Tract Infection in Women (DC) Prescriptions: Cephalexin [Keflex] 500 mg PO Q6HR 7 Days #28 cap HYDROcodone/APAP 5-325MG [[place] 5-325] 1 tab PO Q6HR PRN 3 Days #12 tab PRN Reason: Severe Pain Is patient prescribed a controlled substance at d/c from ED?: Yes If prescribed controlled substance>3 days was MAPS reviewed?: Prescribed <3 Days Referrals: Naseem Motley MD [Primary Care Provider] - 1-2 days Time of Disposition: 16:53
[2020-12-06] MEDS ORDERED: MORPHINE SULFATE 4 MG/ML SYRINGE IV STA (16:04)
[2020-12-06] MEDS ORDERED: METOCLOPRAMIDE 5 MG/ML 2 ML VIAL IVP STA (16:04)
[2020-12-06 16:09] LABS: Basophils % (A) 0 %; Eosinophils # (A) 0.2 k/uL (0-0.7); Eosinophils % (A) 2 %; HCT 33.9 % (34.0-46.0); HGB 10.7 gm/dL (11.4-16.0); Hypochromasia Slight; Lymphocytes # (A) 0.9 k/uL (1.0-4.8); Lymphocytes % (A) 10 %; MCH 25.4 pg (25.0-35.0); MCHC 31.6 g/dL (31.0-37.0); MCV 80.3 fL (80.0-100.0); Mean Platelet Volume 7.4; Monocytes # (A) 0.8 k/uL (0-1.0); Monocytes % (A) 9 %; Neutrophils # (A) 7.5 k/uL (1.3-7.7); Neutrophils % (A) 77 %; Platelet Count 361 k/uL (150-450); RBC 4.23 m/uL (3.80-5.40); RDW 15.3 % (11.5-15.5); WBC 9.6 k/uL (3.8-10.6)
[2020-12-06 16:21] LABS: Amorphous Sediment,Urine Rare /hpf; Appearance,Urine Cloudy (Clear); Bilirubin,Urine Negative (Negative); Blood,Urine Negative (Negative); Color,Urine Light Yellow; Glucose,Urine (UA) Negative (Negative); Ketones,Urine Negative (Negative); Leukocyte Esterase,Urine Large (Negative); Mucus,Urine Rare /hpf; Nitrite,Urine Positive (Negative); PH, Urine 7.5 (5.0-8.0); Protein,Urine Negative (Negative); RBC,Urine 2 /hpf (0-5); Specific Gravity,Urine 1.007 (1.001-1.035); Squamous Epithelial Cell,Urine <1 /hpf (0-4); Triple Phosphate Crystal,Urine Occasional /hpf; Urobilinogen,Urine <2.0 mg/dL (<2.0); WBC,Urine 12 /hpf (0-5)
[2020-12-06 16:25] LABS: INR 0.9 (<1.2)
[2020-12-06 16:26] LABS: Calcium 9.4 mg/dL (8.4-10.2); Magnesium 2.2 mg/dL (1.6-2.3); Potassium 3.9 mmol/L (3.5-5.1); Prothrombin Time 9.7 sec (9.0-12.0)
[2020-12-06 16:28] LABS: Partial Thromboplastin Time 20.7 sec (22.0-30.0)
[2020-12-06] MEDS ORDERED: cefTRIAXone IN SWFI 1,000 MG/10 ML SYRINGE IVP STA (16:43)
[2020-12-06 17:35] VITALS: BP 146/78; PULSE 79; RESP 18; TEMP 97.9
== END 2020-12-06 17:35 | disposition home or self-care (01) ==
LOC: EC 15:20
DX: N39.0 Urinary tract infection, site not specified (principal); R42 Dizziness and giddiness; M25.512 Pain in left shoulder; I10 Essential (primary) hypertension; E78.5 Hyperlipidemia, unspecified; E07.9 Disorder of thyroid, unspecified; K21.9 Gastro-esophageal reflux disease without esophagitis; Z79.899 Other long term (current) drug therapy; Z88.8 Allergy status to other drugs, medicaments and biological substances; Z88.2 Allergy status to sulfonamides; Z79.890 Hormone replacement therapy
CPT/HCPCS: 36415; 93005; 80048; 83605; 83735; 84484; 85025; 85610; 85730; 81001; 87086; 96374; 96375; 96361; 99284; J2270; J2765; J0696

== ENCOUNTER 2020-12-07 10:20 | Inpatient (IN) | payer MEDICARE ==
[2020-12-07] MEDS ORDERED: HYDROcodone/APAP 5-325MG 1 EACH TAB PO STA (10:46)
--- NOTE | 2020-12-07 10:57 | ED ---
General Adult HPI - General Chief complaint: Neck Pain/Injury Stated complaint: Neck Pain Time Seen by Provider: 12/07/20 10:28 Source: patient, EMS Mode of arrival: EMS - History of Present Illness Initial comments: Patient is a 80-year-old female with history of hypertension, thyroid disorder, presenting to the emergency department via EMS with complaints of neck pain after falling asleep in her chair last night. Patient was in the ER yesterday, diagnosed with the UTI, is currently on Keflex for an infection. She has a Oliver. She denies any chest pain or shortness of breath, no abdominal pain, nausea or vomiting. She is complaining of feeling a little weakness had a hard time holding her water bottle today. She states when she holds her water bottle she feels more pain in the right side of her neck. She describes as tightness. She denies any previous neck injuries or surgeries. She denies any fevers or chills. She has no further complaints. Patient's son arrived and provided more history, patient has been having confusion episodes that started yesterday and again throughout today, not knowing where she sat or that she does not live in [place] anymore. She has not been eating or drinking very well either. Even though patient is complaining of neck pain and there has been confusion aspect. Her vitals are stable upon arrival. - Related Data Home Medications Medication Instructions Recorded Confirmed Aspirin EC [Ecotrin Low Dose] 81 mg PO DAILY 04/10/20 12/07/20 Atorvastatin Calcium [Lipitor] 40 mg PO HS 04/10/20 12/07/20 Esomeprazole Magnesium [NexIUM] 40 mg PO BID 04/10/20 12/07/20 Istalol 0.5% 1 drop BOTH EYES DAILY 04/10/20 12/07/20 Levothyroxine Sodium [Synthroid] 75 mcg PO DAILY 04/10/20 12/07/20 Losartan/Hydrochlorothiazide 1 tab PO DAILY 04/10/20 12/07/20 [Losartan-Hctz 100-25 mg Tab] Mirtazapine 30 mg PO HS 04/10/20 12/07/20 NIFEdipine [Procardia XL] 30 mg PO DAILY 04/10/20 12/07/20 Zolpidem [Ambien] 5 mg PO HS PRN 04/10/20 12/07/20 Baclofen [Lioresal] 10 mg PO TID PRN 12/07/20 12/07/20 Dupilumab [Dupixent Syringe] 300 mg SQ Q14D 12/07/20 12/07/20 Gabapentin 300 mg PO BID 12/07/20 12/07/20 Mirabegron [Myrbetriq] 25 mg PO DAILY 12/07/20 12/07/20 Montelukast [Singulair] 10 mg PO HS 12/07/20 12/07/20 Tolterodine Tartrate [Detrol LA] 4 mg PO HS 12/07/20 12/07/20 Previous Rx's Medication Instructions Recorded Cephalexin [Keflex] 500 mg PO Q6HR 7 Days #28 cap 12/06/20 HYDROcodone/APAP 5-325MG [[place] 1 tab PO Q6HR PRN 3 Days #12 tab 12/06/20 5-325] Allergies Allergy/AdvReac Type Severity Reaction Status Date / Time atorvastatin [From Lipitor] Allergy Migraine--brand Verified 12/07/20 13:23 OK brimonidine [From Combigan] Allergy Itching Verified 12/07/20 13:23 dicyclomine [From Bentyl] Allergy Swelling Verified 12/07/20 13:23 Sulfa (Sulfonamide Allergy Swelling Verified 12/07/20 13:23 Antibiotics) timolol [From Combigan] Allergy Itching Verified 12/07/20 13:23 Review of Systems ROS Statement: Those systems with pertinent positive or pertinent negative responses have been documented in the HPI. ROS Other: All systems not noted in ROS Statement are negative. Past Medical History Past Medical History: GERD/Reflux, Hyperlipidemia, Hypertension, Thyroid Disorder History of Any Multi-Drug Resistant Organisms: None Reported Past Surgical History: Unable to Obtain, Joint Replacement Additional Past Surgical History / Comment(s): parathyroid gland, suprapubic t ube insertion Past Psychological History: Depression Smoking Status: Never smoker Past Alcohol Use History: None Reported Past Drug Use History: None Reported General Exam - General Exam Comments Initial Comments: GENERAL: Patient is well-developed and well-nourished. Patient is nontoxic and in no acute distress. HEAD: Atraumatic, normocephalic. EYES: Pupils equal round and reactive to light, extraocular movements intact, sclera anicteric, conjunctiva are normal. Eyelids were unremarkable. ENT: TMs normal, nares patent, oropharynx clear without exudates. Moist mucous membranes. NECK: Normal range of motion, supple without lymphadenopathy or JVD. Patient has tenderness with palpation of the right side of the neck, cervical paraspinals. LUNGS: Unlabored respirations. Breath sounds clear to auscultation bilaterally and equal. No wheezes rales or rhonchi. HEART: Regular rate and rhythm without murmurs, rubs or gallops. ABDOMEN: Soft, nontender, normoactive bowel sounds. No guarding, no rebound. No masses appreciated. : Deferred MUSCULOSKELETAL: Normal extremities with adequate strength and normal range of motion, no pitting or edema. No clubbing or cyanosis. NEUROLOGICAL: Patient is alert and oriented x 3. Motor and sensory are also intact. Cranial nerves II through XII grossly intact. Symmetrical smile. Normal speech, normal gait. PSYCH: Normal mood, normal affect. SKIN: Warm, Dry, normal turgor, no rashes or lesions noted. Course Vital Signs 12/07/20 12/07/20 12/07/20 10:22 15:21 15:34 Temperature 98.0 F Pulse Rate 95 84 Respiratory 20 18 Rate Blood Pressure 145/77 133/51 O2 Sat by Pulse 96 92 L 86 L Oximetry 12/07/20 15:40 Temperature Pulse Rate Respiratory Rate Blood Pressure O2 Sat by Pulse 94 L Oximetry - Reevaluation(s) Reevaluation #1: 12/07/20 16:24 Patient was going to be discharged home with close follow-up with PCP tomorrow morning. Patient and patient's family were on board with this plan of care. Upon discharging the patient, her oxygen levels have been falling into the 80s, 80% on room air. She is not normally on home O2. I did order a chest x-ray which is pending at this time. She is currently on 2 L at 96%. 12/07/20 18:43 X-ray showed minimal pleural fluid, no other acute abnormalities, no signs of heart failure. Rapid Covid is negative. We did another trial of patient without oxygen, she dropped down to 8485%. She is asymptomatic, no shortness of breath, no chest pain no coughing. She is afebrile still. Patient will be admitted for hypoxia. EKG Findings - EKG Comments: EKG Findings:: Sinus rhythm with premature atrial complexes, inferior infarct, age undetermined, no signs of acute ST segment elevation. This is similar to previous on 12/06/2020. Ventricular rate 81, NV interval 182, QTC 420. Medical Decision Making - Medical Decision Making Patient is an 80-year-old female here with complaints of some right-sided neck pain started after she fell asleep in her chair last night. Patient was seen in the ER yesterday diagnosed with a UTI started on Keflex also given pain med ication which she had not picked up yet. Patient's initial vitals were stable, lab work showed no acute abnormalities. Patient's son was worried that she had some confusion yesterday morning and again this morning. During patient's stay in the ER, she's had no confusion she has no acute neuro deficits on exam, she has had negative Kernig's, negative Brudzinski sign. Patient was going to be sent home and follow up with PCP tomorrow. I did speak to her PCP who was agreeable to this. Upon checking patient's vital signs at discharge, she was hypoxic in the low 80s. We put her on 2 L and she is comfortable at 94%. Chest x-ray shows minimal fluid, no signs of heart failure or pneumonia. Rapid Covid is negative. Patient continued to be hypoxic without oxygen. Patient will be admitted for hypoxia. I will continue her on her Keflex for UTI. Dr. Edwards is accepting. We did add oon D-dimer and BNP which are pending at this time. Case discussed with Dr. Siegel. - Lab Data Result diagrams: 12/07/20 12:10 12/07/20 12:10 Lab Results 12/07/20 12/07/20 12/07/20 Range/Units 12:10 12:10 17:17 WBC 11.7 H (3.8-10.6) k/uL RBC 4.20 (3.80-5.40) m/uL Hgb 10.5 L (11.4-16.0) gm/dL Hct 34.1 (34.0-46.0) % MCV 81.1 (80.0-100.0) fL MCH 25.0 (25.0-35.0) pg MCHC 30.8 L (31.0-37.0) g/dL RDW 15.3 (11.5-15.5) % Plt Count 324 (150-450) k/uL MPV 7.4 Neutrophils % 82 % Lymphocytes % 6 % Monocytes % 9 % Eosinophils % 1 % Basophils % 0 % Neutrophils # 9.5 H (1.3-7.7) k/uL Lymphocytes # 0.7 L (1.0-4.8) k/uL Monocytes # 1.0 (0-1.0) k/uL Eosinophils # 0.1 (0-0.7) k/uL Basophils # 0.0 (0-0.2) k/uL Hypochromasia Moderate Sodium 138 (137-145) mmol/L Potassium 3.7 (3.5-5.1) mmol/L Chloride 104 (98-107) mmol/L Carbon Dioxide 24 (22-30) mmol/L Anion Gap 10 mmol/L BUN 16 (7-17) mg/dL Creatinine 0.78 (0.52-1.04) mg/dL Est GFR (CKD-EPI)AfAm 83 (>60 ml/min/1.73 sqM) Est GFR (CKD-EPI)NonAf 72 (>60 ml/min/1.73 sqM) Glucose 112 H (74-99) mg/dL Calcium 9.4 (8.4-10.2) mg/dL Total Bilirubin 0.4 (0.2-1.3) mg/dL AST 27 (14-36) U/L ALT 13 (4-34) U/L Alkaline Phosphatase 85 (38-126) U/L Total Protein 7.5 (6.3-8.2) g/dL Albumin 4.2 (3.5-5.0) g/dL Coronavirus (PCR) Not Detected (Not Detectd) Disposition Clinical Impression: UTI (urinary tract infection), Hypoxia Disposition: ADMITTED IP TO THIS HOSP Condition: Stable Is patient prescribed a controlled substance at d/c from ED?: No Decision Date: 12/07/20 Decision Time: 18:09
--- NOTE | 2020-12-07 11:46 | XR ---
EXAMINATION TYPE: XR cervical spine comp DATE OF EXAM: 12/07/2020 COMPARISON: NONE HISTORY: Stiff neck with pain TECHNIQUE: Four views are submitted. FINDINGS: The odontoid is intact. There are no compression deformities. The prevertebral soft tissue structur es are within normal limits. Severe degenerative disc disease levels C3-T1. Multilevel facet arthrop athy and posterior spondylosis. Anterior hypertrophic spur formation. Multilevel foraminal encroachme nt suspected. Calcifications in the soft tissue the neck is incidentally noted. IMPRESSION: 1. Multilevel severe degenerative disc disease and facet arthropathy. Suspect multilevel foraminal en croachment and canal stenosis recommend follow-up MRI..
[2020-12-07 12:35] LABS: Basophils % (A) 0 %; Eosinophils # (A) 0.1 k/uL (0-0.7); Eosinophils % (A) 1 %; HCT 34.1 % (34.0-46.0); HGB 10.5 gm/dL (11.4-16.0); Hypochromasia Moderate; Lymphocytes # (A) 0.7 k/uL (1.0-4.8); Lymphocytes % (A) 6 %; MCHC 30.8 g/dL (31.0-37.0); MCV 81.1 fL (80.0-100.0); Mean Platelet Volume 7.4; Monocytes % (A) 9 %; Neutrophils # (A) 9.5 k/uL (1.3-7.7); Neutrophils % (A) 82 %; Platelet Count 324 k/uL (150-450); RDW 15.3 % (11.5-15.5); WBC 11.7 k/uL (3.8-10.6)
[2020-12-07 12:49] LABS: Albumin 4.2 g/dL (3.5-5.0); Calcium 9.4 mg/dL (8.4-10.2); Potassium 3.7 mmol/L (3.5-5.1); Total Bilirubin 0.4 mg/dL (0.2-1.3); Total Protein 7.5 g/dL (6.3-8.2)
[2020-12-07] MEDS ORDERED: KETOROLAC 15 MG/ML 1 ML VIAL IVP STA (14:30)
--- NOTE | 2020-12-07 16:49 | XR ---
EXAMINATION TYPE: XR chest 2V DATE OF EXAM: 12/07/2020 COMPARISON: 04/10/2020 HISTORY: Difficulty breathing TECHNIQUE: 2 views FINDINGS: There is large hiatal hernia. There is no gross heart failure. There is slight blunting of the costophrenic angles. There is linear density at the lung bases. IMPRESSION: Basilar atelectasis and minimal pleural fluid is improved compared to old exam. No obviou s heart failure.
[2020-12-07] MEDS ORDERED: IBUPROFEN 400 MG TAB PO PRN (18:06)
[2020-12-07] MEDS ORDERED: KETOROLAC 15 MG/ML 1 ML VIAL IVP PRN (18:06)
[2020-12-07] MEDS ORDERED: ACETAMINOPHEN TAB 325 MG TAB PO PRN (18:06)
[2020-12-07] MEDS ORDERED: ONDANSETRON 4 MG/2 ML VIAL IVP PRN (18:06)
[2020-12-07] MEDS ORDERED: NALOXONE 0.4 MG/ML 1 ML VIAL IV PRN (18:06)
[2020-12-07] MEDS ORDERED: CEPHALEXIN 500 MG CAP PO SCH (18:15)
[2020-12-07] MEDS: SODIUM CHLORIDE 0.9% 1,000 ML IV SCH (19:13)
--- NOTE | 2020-12-07 20:30 | P.HPIM ---
History of Present Illness H&P Date: 12/07/20 Patient is an 80-year-old female with a PMH of hypertension, hyperlipidemia, hypothyroidism who presented to the emergency room with complaints of neck pain. The patient reports that last night she fell asleep in her chair, and upon waking up, she noticed that the right side of her neck was tight and painful. She reports that performing any strenuous tasks with her upper extremities cause her neck to hurt more. The patient however denied fever, chills, headaches, visual disturbances, extremity numbness or tingling. As per the ED documentation, the patient's son had reported that the patient has been intermittently confused at home, not knowing where she was. Of note, the patient had presented to the emergency room yesterday and was diagnosed with UTI and discharged home on Keflex. At time of interview, the patient denied experiencing urinary complaints or abdominal pain. She reports chronic unchanged bilateral lower extremity pitting edema. She however denied lower extremity pain or redness. Also denied prolonged immobilization or recent travel. Denied chest pain, shortness of breath, cough, nausea, vomiting. In the emergency room, the patient was noted to be hypoxic with SpO2 86% on room air, pulse 95, BP 145/77, and temp 98.0F. EKG had revealed sinus rhythm with APCs at 81 bpm with no acute ST/T-wave changes noted as reviewed by me. Chest x-ray had revealed bibasilar atelectasis with no obvious heart failure noted. Cervical spine x-ray revealed severe degenerative disc disease with multilevel foraminal encroachment and canal stenosis with follow-up MRI recommended. Laboratory evaluation was remarkable for leukocytosis of 11.7, hemoglobin 10.5, d-dimer 1.3, proBNP 774, and coronavirus PCR negative. Review of systems: Pertinent positives and negatives as discussed in HPI, a complete review of systems was performed and all other systems are negative. Physical examination: General: non toxic, no distress, appears at stated age, normal weight Derm: no unusual rashes/lesions no unusual ecchymoses, warm, dry Head: atraumatic, normocephalic, symmetric Eyes: EOMI, no lid lag, anicteric sclera, pupils equal round reactive to light ENT: Nose and ears atraumatic, no thrush, no pharyngeal erythema Neck: No thyromegaly, no cervical lymphadenopathy, trachea midline, supple, right cervical paravertebral tenderness Mouth: no lip lesion, mucus membranes moist Cardiovascular: S1S2 reg, no murmur, positive posterior tibial pulse bilateral, 1+ bilateral lower extremity pitting edema, capillary refill less than 2 seconds Lungs: CTA bilateral, no rhonchi, no rales , no accessory muscle use Abdominal: soft, nontender to palpation, no guarding, no appreciable organomegaly, normal bowel sounds Ext: no gross muscle atrophy, muscle strength 5 out of 5 in all 4 extremities grossly, no contractures, no calf erythema or tenderness noted Neuro: CN II-XI grossly intact, light touch intact all 4 extremities, finger to nose within normal limits, negative kernigs and brudzinskis Psych: Alert, oriented, appropriate affect Assessment/plan Hypoxia, unclear etiology -D-dimer elevated. CT angiogram of chest ordered -Borderline proBNP with bilateral lower extremity pitting edema. Obtain echocardiogram -Patient may need outpatient PFTs and sleep study if no clear etiology found R side neck pain, likely musculoskeletal in nature -C/w NSAIDs for pain control -Baclofen prn -PT consult Leukocytosis -No clear signs of active infection -Likely due to recent UTI and acute stressors -Monitor for now Chronic conditions: HTN, HLD, Hypothyroidism -C/w home meds DVT prophylaxis -Heparin subq The patient is admitted with an anticipated greater than 2 midnight stay for evaluation of hypoxia CODE STATUS: No Code Discussed with: Patient Anticipated discharge date: 2-[address]: Home Past Medical History Past Medical History: GERD/Reflux, Hyperlipidemia, Hypertension, Thyroid Disorder History of Any Multi-Drug Resistant Organisms: None Reported Past Surgical History: Unable to Obtain, Joint Replacement Additional Past Surgical History / Comment(s): parathyroid gland, suprapubic tube insertion Past Psychological History: Depression Smoking Status: Never smoker Past Alcohol Use History: None Reported Past Drug Use History: None Reported - Past Family History Sister(s) Family Medical History: Myocardial Infarction ([place]) Medications and Allergies Home Medications Medication Instructions Recorded Confirmed Type Aspirin EC [Ecotrin Low Dose] 81 mg PO DAILY 04/10/20 12/07/20 History Atorvastatin Calcium [Lipitor] 40 mg PO HS 04/10/20 12/07/20 History Esomeprazole Magnesium [NexIUM] 40 mg PO BID 04/10/20 12/07/20 History Istalol 0.5% 1 drop BOTH EYES DAILY 04/10/20 12/07/20 History Levothyroxine Sodium [Synthroid] 75 mcg PO DAILY 04/10/20 12/07/20 History Losartan/Hydrochlorothiazide 1 tab PO DAILY 04/10/20 12/07/20 History [Losartan-Hctz 100-25 mg Tab] Mirtazapine 30 mg PO HS 04/10/20 12/07/20 History NIFEdipine [Procardia XL] 30 mg PO DAILY 04/10/20 12/07/20 History Zolpidem [Ambien] 5 mg PO HS PRN 04/10/20 12/07/20 History Cephalexin [Keflex] 500 mg PO Q6HR 7 Days #28 cap 12/06/20 12/07/20 Rx HYDROcodone/APAP 5-325MG [[place] 1 tab PO Q6HR PRN 3 Days #12 tab 12/06/20 12/07/20 Rx 5-325] Baclofen [Lioresal] 10 mg PO TID PRN 12/07/20 12/07/20 History Dupilumab [Dupixent Syringe] 300 mg SQ Q14D 12/07/20 12/07/20 History Gabapentin 300 mg PO BID 12/07/20 12/07/20 History Mirabegron [Myrbetriq] 25 mg PO DAILY 12/07/20 12/07/20 History Montelukast [Singulair] 10 mg PO HS 12/07/20 12/07/20 History Tolterodine Tartrate [Detrol LA] 4 mg PO HS 12/07/20 12/07/20 History Allergies Allergy/AdvReac Type Severity Reaction Status Date / Time atorvastatin [From Lipitor] Allergy Migraine--brand Verified 12/07/20 13:23 [place] brimonidine [From Combigan] Allergy Itching Verified 12/07/20 13:23 dicyclomine [From Bentyl] Allergy Swelling Verified 12/07/20 13:23 Sulfa (Sulfonamide Allergy Swelling Verified 12/07/20 13:23 Antibiotics) timolol [From Combigan] Allergy Itching Verified 12/07/20 13:23 Physical Exam Vitals: Vital Signs Temp Pulse Resp BP Pulse Ox 12/07/20 19:00 74 18 127/89 98 12/07/20 15:40 94 L 12/07/20 15:34 86 L 12/07/20 15:21 84 18 133/51 92 L 12/07/20 10:22 98.0 F 95 20 145/77 96 Intake and Output 12/07/20 12/07/20 12/07/20 06:59 14:59 22:59 Other: Weight 63.503 kg Results CBC & Chem 7: 12/07/20 12:10 12/07/20 12:10 Labs: Abnormal Lab Results - Last 24 Hours (Table) 12/07/20 12/07/20 12/07/20 Range/Units 12:10 12:10 19:00 WBC 11.7 H (3.8-10.6) k/uL Hgb 10.5 L (11.4-16.0) gm/dL MCHC 30.8 L (31.0-37.0) g/dL Neutrophils # 9.5 H (1.3-7.7) k/uL Lymphocytes # 0.7 L (1.0-4.8) k/uL D-Dimer 1.30 H (<0.60) mg/L FEU Glucose 112 H (74-99) mg/dL
--- NOTE | 2020-12-07 20:34 | P.PN ---
Progress Note - Text Progress Note Date: 12/07/20 Advanced Care Planning: Diagnoses: Hypoxia Discussion: Person(s) present and participating in discussion: Patient Summary: Discussed the patient's goals of care in detail. The patient notes that she has previously filled out paperwork outlining her wishes. She reports that she does not wish to undergo CPR or be placed on any form of life support for any reason. She explicitly stated that she does not wish to be placed on dialysis, ventilators, IV pressors, or have feeding tubes. She notes that her family is well aware of her wishes. Discussed the different forms of life- support offered and the caveats of CPR. Will make the patient No-Code. A total of 16 minutes of face to face time was spent discussing advanced care planning.
--- NOTE | 2020-12-07 22:32 | CT ---
EXAMINATION TYPE: CT angio chest DATE OF EXAM: 12/07/2020 COMPARISON: None HISTORY: elevated d-dimer CT DLP: 409.7 mGycm Automated exposure control for dose reduction was used. CONTRAST: Performed with IV Contrast, patient injected with 80 mL of Isovue 370. There are 3-D post processed images. There is bilateral lower lobe pulmonary airspace infiltrate and atelectasis. There is large hiatal he rnia. There are mild bilateral pleural effusions. Heart size is normal. There is no pericardial effus ion. Thoracic aorta is atheromatous. There are enlarged right bronchial lymph nodes measuring 13 mm. There is no mediastinal adenopathy. T horacic aorta is atheromatous. Ascending aorta measures 3.3 cm. There is no aneurysm or dissection. There is no evidence of filling defect in the pulmonary arteries. There is intact thoracic spine. The re is no compression fracture of the thoracic vertebra. The sternum is intact. IMPRESSION: Large hiatal hernia. No evidence of pulmonary embolism. Bilateral lower lobe pneumonia and atelectasis.
[2020-12-07] MEDS: GABAPENTIN 300 MG CAP PO SCH (22:56)
[2020-12-07] MEDS: MONTELUKAST 10 MG TAB PO SCH (22:57)
[2020-12-07] MEDS ORDERED: AZITHROMYCIN 500 MG TAB PO ONE (23:30)
[2020-12-08] MEDS: ZOLPIDEM 5 MG TAB PO PRN (00:53)
[2020-12-08] MEDS: HEPARIN SODIUM,PORCINE/PF 5,000 UNIT/0.5 ML SYRINGE SQ SCH ×3 (01:09→14:59)
[2020-12-08] MEDS: ATORVASTATIN PO SCH ×2 (01:27→22:35)
[2020-12-08] MEDS: LEVOTHYROXINE 75 MCG TAB PO SCH (06:15)
[2020-12-08] MEDS: ASPIRIN 81 MG PO SCH (09:09)
[2020-12-08] MEDS: GABAPENTIN 300 MG CAP PO SCH ×2 (09:09→21:11)
[2020-12-08] MEDS: AZITHROMYCIN 250 MG TAB PO SCH (09:09)
[2020-12-08] MEDS: LOSARTAN-HCTZ 50-12.5 MG 1 EACH TAB PO SCH (09:10)
[2020-12-08] MEDS: NIFEdipine XL 30 MG TAB.ER.24 PO SCH (09:11)
[2020-12-08] MEDS: BACLOFEN 10 MG TAB PO PRN ×2 (09:14→14:59)
[2020-12-08] MEDS: TIMOLOL 0.5% OPHTH DROPS 5 ML BTL BOTH EYES SCH (09:18)
[2020-12-08] MEDS: SODIUM CHLORIDE 0.9% 1,000 ML IV SCH ×2 (10:31→21:11)
[2020-12-08 11:43] LABS: HCT 28.4 % (37.2-46.3); HGB 8.4 g/dL (12.0-15.0); MCH 24.3 pg (27.0-32.0); MCHC 29.6 g/dL (32.0-37.0); MCV 82.1 fL (80.0-97.0); Mean Platelet Volume 10.3 fL (9.5-12.2); Platelet Count 282 X 10*3/uL (140-440); RBC 3.46 X 10*6/uL (4.10-5.20); RDW 15.7 % (11.5-14.5); WBC 8.33 X 10*3/uL (4.50-10.00)
--- NOTE | 2020-12-08 13:53 | P.PN ---
Subjective Progress Note Date: 12/08/[address] complaints today. CT angio found evidence of pneumonia yesterday in b/l lower lobes. Stared on ceftriaxone/azithromycin. Objective - Vital Signs Vital signs: Vital Signs Temp 98.5 F 12/08/20 07:57 Pulse 77 12/08/20 07:57 Resp 17 12/08/20 07:57 BP 147/70 12/08/20 07:57 Pulse Ox 95 12/08/20 07:57 Intake & Output 12/07/20 12/08/20 12/08/20 18:59 06:59 18:59 Output Total 1300 Balance -1300 Weight 63.503 kg 63.503 kg Output: Urine 1300 Other: Voiding Method Ileal Conduit (Left) - Exam Acute Hypoxemic Respiratory Failure Community Acquired Pneumonia -D-dimer elevated. CT angiogram of chest ordered -Borderline proBNP with bilateral lower extremity pitting edema. Obtain echocardiogram -ceftriaxone/azithromycin day 05/14 R side neck pain, likely musculoskeletal in nature -C/w NSAIDs for pain control -Baclofen prn -PT consult Chronic conditions: HTN, HLD, Hypothyroidism -C/w home meds DVT prophylaxis -Heparin subq The patient is admitted with an anticipated greater than 2 midnight stay for evaluation of hypoxia CODE STATUS: No Code Discussed with: Patient Anticipated discharge date: 2-[address]: Home - Labs CBC & Chem 7: 12/08/20 06:53 12/07/20 12:10 Labs: Abnormal Lab Results - Last 24 Hours (Table) 12/07/20 12/08/20 Range/Units 19:00 06:53 RBC 3.46 L (4.10-5.20) X 10*6/uL Hgb 8.4 L (12.0-15.0) g/dL Hct 28.4 L (37.2-46.3) % MCH 24.3 L (27.0-32.0) pg MCHC 29.6 L (32.0-37.0) g/dL RDW 15.7 H (11.5-14.5) % D-Dimer 1.30 H (<0.60) mg/L FEU
[2020-12-08 14:32] LABS: African American GFR (CKD) 80.1 (60.0-200.0); Anion Gap 9.5 mmol/L (4.00-12.00); BUN/Creat Ratio 17.5 Ratio (12.00-20.00); Calcium 8.5 mg/dL (8.7-10.3); Carbon Dioxide 26.5 mmol/L (21.6-31.8); Non-African American GFR(CKD) 69.1 (60.0-200.0); Potassium 3.4 mmol/L (3.5-5.5)
[2020-12-08] MEDS: MONTELUKAST 10 MG TAB PO SCH (21:11)
[2020-12-08] MEDS: HYDROcodone/APAP 5-325MG 1 EACH TAB PO PRN (21:15)
[2020-12-09] MEDS: HEPARIN SODIUM,PORCINE/PF 5,000 UNIT/0.5 ML SYRINGE SQ SCH ×3 (01:00→15:22)
[2020-12-09] MEDS: ZOLPIDEM 5 MG TAB PO PRN (01:56)
[2020-12-09] MEDS: LEVOTHYROXINE 75 MCG TAB PO SCH (05:52)
[2020-12-09] MEDS: BACLOFEN 10 MG TAB PO PRN ×2 (08:31→15:22)
[2020-12-09] MEDS: ASPIRIN 81 MG PO SCH (08:47)
[2020-12-09] MEDS: TIMOLOL 0.5% OPHTH DROPS 5 ML BTL BOTH EYES SCH (08:47)
[2020-12-09] MEDS: LOSARTAN-HCTZ 50-12.5 MG 1 EACH TAB PO SCH (08:48)
[2020-12-09] MEDS: AZITHROMYCIN 250 MG TAB PO SCH (08:48)
[2020-12-09] MEDS: NIFEdipine XL 30 MG TAB.ER.24 PO SCH (08:48)
[2020-12-09] MEDS: GABAPENTIN 300 MG CAP PO SCH ×2 (08:48→21:51)
[2020-12-09] MEDS: HYDROcodone/APAP 5-325MG 1 EACH TAB PO PRN ×2 (12:32→17:54)
[2020-12-09] MEDS: SODIUM CHLORIDE 0.9% 1,000 ML IV SCH (12:33)
[2020-12-09] MEDS ORDERED: POTASSIUM CHLORIDE ER 20 MEQ TAB.ER PO STA (17:30)
--- NOTE | 2020-12-09 17:30 | P.PN ---
Subjective Progress Note Date: 12/09/20 Hospital course: Patient is a very pleasant 80-year-old female with a past medical history of hypertension, hyperlipidemia, and hypothyroidism. she presented to the hospital on 12/07/20 with a chief complaint of neck pain and was found to be hypoxic at 86% on room air requiring oxygen supplementation. An EKG was completed revealing normal sinus rhythm at 81 bpm with no noted T-wave or ST abnormalities. Chest x-ray revealed basilar atelectasis. Cervical spine x-ray revealing severe degenerative disc disease. CTA chest negative for PE showing large hiatal hernia and bilateral lower lobe pneumonia. Patient being treated for bilateral lower lobe pneumonia with Rocephin and azithromycin. Orthospine specialist consulted for persistent neck pain. Physical exam: Patient seen and fully evaluated at the bedside this morning. She reports continued persistent neck pain. Order placed for lidocaine patch along with consult to Dr. Gannon, orthospine specialist. Patient denies having any headache, lightheadedness, dizziness, changes in vision or hearing, dysphagia or sore throat, chest pain or palpitations, shortness of breath, abdominal pain, nausea, vomiting, or experiencing any numbness/tingling/weakness in her extremities. Vital signs reviewed and stable. General: Nontoxic, no distress and appears stated age. Derm: Skin warm and dry, normal coloration for ethnicity. Head: Atraumatic, normocephalic and symmetric. Eyes: EOMs intact, no lid lag, and anicteric sclera Mouth: no lip lesions, mucus membranes moist Cardiovascular: regular rate and rhythm with normal S1S2, no murmur, positive posterior tibial pulses bilaterally, and cap refill < 2 seconds. Lungs: Respirations even, regular, and unlabored on room air. Lungs CTA bilaterally, no rhonchi, no rales, no wheezing, and no accessory muscle usage. Abdominal: soft, nontender to palpation, no guarding, no appreciable organomegaly Ext: ROM intact. No gross muscle atrophy, no edema, no contractures Neuro: Speech clear, face symmetrical and CN II-XII grossly intact with no noted focal neuro deficits Psych: Alert and oriented to person, place, time, and situation. Appropriate and pleasant affect. Assessment and Plan of Care: Acute hypoxic respiratory failure secondary to community acquired pneumonia -Oxygenation to be administered and titrated as needed to maintain SPO2 equal to or greater than 92% -Telemetry monitoring. -Jose Martinbs as needed for SOB and/or wheezing -Incentive Spirometry -Antibiotics: Rocephin and azithromycin Neck pain -Symptomatic care and pain management with NSAIDs and as needed baclofen, add lidocaine patch -Consult PT -Consult orthospine specialist Hypertension -monitor vital signs and continue daily medication regimen. Hyperlipidemia -Continue daily medication regimen. Hypothyroidism -Continue daily medication regimen with Synthroid 75 g each morning. CODE STATUS: Full code DVT prophylaxis: heparin Discussed with: patient and RN Anticipated discharge date: clinical course to determine Anticipated discharge place: home A total of 45 minutes was spent on the care of this complex patient more than 50% of the time was spent in counseling and care coordination. Objective - Vital Signs Vital signs: Vital Signs Temp 98.5 F 12/09/20 07:52 Pulse 69 12/09/20 07:52 Resp 16 12/09/20 07:52 BP 132/73 12/09/20 07:52 Pulse Ox 96 12/09/20 08:53 Intake & Output 12/08/20 12/09/20 12/09/20 18:59 06:59 18:59 Intake Total 1960 Output Total 1200 2500 Balance -1200 -540 Intake: Intake, IV Titration 1000 Amount Sodium Chloride 0.9% 1, 900 000 ml @ 75 mls/hr IV . [id number] [facility] Rx#:[id number] 1 gm In 100 Sodium Chloride 0.9% 50 ml @ 100 mls/hr IVPB Q24H [facility] Rx#:[id number] Oral 960 Output: Urine 1200 2500 Suprapubic 1950 Other: Voiding Method Ileal Conduit (Left) Ileal Conduit (Left) - Labs CBC & Chem 7: 12/08/20 06:53 12/08/20 06:53 Labs: Abnormal Lab Results - Last 24 Hours (Table) 12/08/20 12/08/20 Range/Units 06:53 06:53 RBC 3.46 L (4.10-5.20) X 10*6/uL Hgb 8.4 L (12.0-15.0) g/dL Hct 28.4 L (37.2-46.3) % MCH 24.3 L (27.0-32.0) pg MCHC 29.6 L (32.0-37.0) g/dL RDW 15.7 H (11.5-14.5) % Potassium 3.4 L (3.5-5.5) mmol/L Glucose 133 H (70-110) mg/dL Calcium 8.5 L (8.7-10.3) mg/dL
[2020-12-09] MEDS: LIDOCAINE 5% PATCH TOPICAL SCH (17:56)
[2020-12-09] MEDS: MONTELUKAST 10 MG TAB PO SCH (21:51)
[2020-12-09] MEDS: ATORVASTATIN PO SCH (21:52)
[2020-12-10] MEDS: PANTOPRAZOLE 40 MG TABLET PO SCH ×2 (01:02→08:23)
[2020-12-10] MEDS: ZOLPIDEM 5 MG TAB PO PRN (01:03)
[2020-12-10] MEDS: HEPARIN SODIUM,PORCINE/PF 5,000 UNIT/0.5 ML SYRINGE SQ SCH ×3 (01:03→15:37)
[2020-12-10] MEDS: HYDROcodone/APAP 5-325MG 1 EACH TAB PO PRN ×3 (01:05→19:55)
[2020-12-10] MEDS: SODIUM CHLORIDE 0.9% 1,000 ML IV SCH (04:48)
[2020-12-10] MEDS: LEVOTHYROXINE 75 MCG TAB PO SCH (05:52)
[2020-12-10] MEDS: GABAPENTIN 300 MG CAP PO SCH ×2 (08:20→19:55)
[2020-12-10] MEDS: TIMOLOL 0.5% OPHTH DROPS 5 ML BTL BOTH EYES SCH (08:20)
[2020-12-10] MEDS: NIFEdipine XL 30 MG TAB.ER.24 PO SCH (08:20)
[2020-12-10] MEDS: AZITHROMYCIN 250 MG TAB PO SCH (08:20)
[2020-12-10] MEDS: ASPIRIN 81 MG PO SCH (08:20)
[2020-12-10] MEDS: LOSARTAN-HCTZ 50-12.5 MG 1 EACH TAB PO SCH (08:20)
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
[2020-12-10 11:44] LABS: HGB 8.5 g/dL (12.0-15.0); MCH 23.9 pg (27.0-32.0); MCHC 29.3 g/dL (32.0-37.0); MCV 81.7 fL (80.0-97.0); Mean Platelet Volume 11.1 fL (9.5-12.2); Platelet Count 259 X 10*3/uL (140-440); RBC 3.55 X 10*6/uL (4.10-5.20); RDW 15.3 % (11.5-14.5); WBC 5.94 X 10*3/uL (4.50-10.00)
[2020-12-10] MEDS: LIDOCAINE 5% PATCH TOPICAL SCH (12:03)
--- NOTE | 2020-12-10 13:49 | P.PN ---
Subjective Progress Note Date: 12/10/20 Hospital course: Patient is a very pleasant 80-year-old female with a past medical history of hypertension, hyperlipidemia, and hypothyroidism. she presented to the hospital on 12/07/20 with a chief complaint of neck pain and was found to be hypoxic at 86% on room air requiring oxygen supplementation. An EKG was completed revealing normal sinus rhythm at 81 bpm with no noted T-wave or ST abnormalities. Chest x-ray revealed basilar atelectasis. Cervical spine x-ray revealing severe degenerative disc disease. CTA chest negative for PE showing large hiatal hernia and bilateral lower lobe pneumonia. Patient being treated for bilateral lower lobe pneumonia with Rocephin and azithromycin. Orthospine specialist consulted for persistent neck pain recommended conservative treatment at this time with anti-inflammatory pain medications, physical therapy, and muscle relaxers. They discussed with patient to follow-up outpatient if pain persists for possible MRI or CT for further evaluation and possible future surgical intervention. Physical exam: Patient seen and fully evaluated at the bedside this morning. She reports continued persistent neck pain. Order placed for lidocaine patch along with consult to Dr. Gannon, orthospine specialist. Patient denies having any headache, lightheadedness, dizziness, changes in vision or hearing, dysphagia or sore throat, chest pain or palpitations, shortness of breath, abdominal pain, nausea, vomiting, or experiencing any numbness/tingling/weakness in her extremit ies. Vital signs reviewed and stable. General: Nontoxic, no distress and appears stated age. Derm: Skin warm and dry, normal coloration for ethnicity. Head: Atraumatic, normocephalic and symmetric. Eyes: EOMs intact, no lid lag, and anicteric sclera Mouth: no lip lesions, mucus membranes moist Cardiovascular: regular rate and rhythm with normal S1S2, no murmur, positive posterior tibial pulses bilaterally, and cap refill < 2 seconds. Lungs: Respirations even, regular, and unlabored on room air. Lungs CTA bilaterally, no rhonchi, no rales, no wheezing, and no accessory muscle usage. Abdominal: soft, nontender to palpation, no guarding, no appreciable organomegaly. Suprapubic catheter in place. Ext: ROM intact. No gross muscle atrophy, trace edema on bilateral lower extremities, no contractures Neuro: Speech clear, face symmetrical and CN II-XII grossly intact with no noted focal neuro deficits Psych: Alert and oriented to person, place, time, and situation. Appropriate and pleasant affect. Assessment and Plan of Care: Acute hypoxic respiratory failure secondary to community acquired pneumonia -Oxygenation to be administered and titrated as needed to maintain SPO2 equal to or greater than 92% -Telemetry monitoring. -Duonebs as needed for SOB and/or wheezing -Incentive Spirometry -Antibiotics: Rocephin and azithromycin Neck pain -Symptomatic care and pain management with NSAIDs and as needed baclofen, add lidocaine patch -Consult PT -Orthospine specialist consulted for persistent neck pain recommended conservative treatment at this time with anti-inflammatory pain medications, physical therapy, and muscle relaxers. They discussed with patient to follow-up outpatient if pain persists for possible MRI or CT for further evaluation and p ossible future surgical intervention. Hypertension -monitor vital signs and continue daily medication regimen. Hyperlipidemia -Continue daily medication regimen. Hypothyroidism -Continue daily medication regimen with Synthroid 75 g each morning. CODE STATUS: Full code DVT prophylaxis: heparin Discussed with: patient and RN Anticipated discharge date: Likely tomorrow morning Anticipated discharge place: home/return to assisted living facility A total of 45 minutes was spent on the care of this complex patient more than 50% of the time was spent in counseling and care coordination. Objective - Vital Signs Vital signs: Vital Signs Temp 97.6 F 12/10/20 07:35 Pulse 78 12/10/20 08:20 Resp 15 12/10/20 08:20 BP 136/87 12/10/20 07:35 Pulse Ox 94 L 12/10/20 07:36 Intake & Output 12/09/20 12/10/20 12/10/20 18:59 06:59 18:59 Output Total 1500 1000 Balance -1500 -1000 Output: Urine 1500 1000 Other: Voiding Method Ileal Conduit (Left) Ileal Conduit (Left) Ileal Conduit (Left) - Labs CBC & Chem 7: 12/10/20 07:10 12/08/20 06:53 Labs: Abnormal Lab Results - Last 24 Hours (Table) 12/10/20 Range/Units 07:10 RBC 3.55 L (4.10-5.20) X 10*6/uL Hgb 8.5 L (12.0-15.0) g/dL Hct 29.0 L (37.2-46.3) % MCH 23.9 L (27.0-32.0) pg MCHC 29.3 L (32.0-37.0) g/dL RDW 15.3 H (11.5-14.5) %
[2020-12-10 14:16] LABS: African American GFR (CKD) 99.1 (60.0-200.0); Anion Gap 8.6 mmol/L (4.00-12.00); BUN/Creat Ratio 16.67 Ratio (12.00-20.00); Calcium 8.8 mg/dL (8.7-10.3); Carbon Dioxide 23.4 mmol/L (21.6-31.8); Magnesium 1.6 mg/dL (1.5-2.4); Non-African American GFR(CKD) 85.5 (60.0-200.0); Potassium 3.9 mmol/L (3.5-5.5)
[2020-12-10] MEDS: MONTELUKAST 10 MG TAB PO SCH (19:55)
[2020-12-10] MEDS: ATORVASTATIN PO SCH (19:55)
[2020-12-10] MEDS: CEFDINIR 300 MG CAP PO SCH (19:55)
[2020-12-11] MEDS: ZOLPIDEM 5 MG TAB PO PRN (00:31)
[2020-12-11] MEDS: HEPARIN SODIUM,PORCINE/PF 5,000 UNIT/0.5 ML SYRINGE SQ SCH ×2 (00:31→07:43)
[2020-12-11] MEDS: HYDROcodone/APAP 5-325MG 1 EACH TAB PO PRN ×2 (02:08→07:43)
[2020-12-11 03:20] VITALS: RESP 16
[2020-12-11] MEDS: LEVOTHYROXINE 75 MCG TAB PO SCH (05:51)
[2020-12-11] MEDS: ASPIRIN 81 MG PO SCH (07:43)
[2020-12-11] MEDS: PANTOPRAZOLE 40 MG TABLET PO SCH (07:43)
[2020-12-11] MEDS: CEFDINIR 300 MG CAP PO SCH (07:43)
[2020-12-11] MEDS: GABAPENTIN 300 MG CAP PO SCH (07:43)
[2020-12-11] MEDS: AZITHROMYCIN 250 MG TAB PO SCH (07:44)
[2020-12-11] MEDS: LOSARTAN-HCTZ 50-12.5 MG 1 EACH TAB PO SCH (07:44)
[2020-12-11] MEDS: TIMOLOL 0.5% OPHTH DROPS 5 ML BTL BOTH EYES SCH (07:44)
[2020-12-11] MEDS: NIFEdipine XL 30 MG TAB.ER.24 PO SCH (07:44)
[2020-12-11 08:23] VITALS: TEMP 97.9
--- NOTE | 2020-12-11 13:03 | P.DS ---
Providers Date of admission: 12/07/20 18:08 Expected date of discharge: 12/11/20 Attending physician: Ashanti Pan DO Consults: 12/09/20 17:16 Consult Physician Routine Consulting Provider: Roby Gannon Consult Reason/Comments: PERSISTENT NECK PAIN Do you want consulting provider notified?: Yes Primary care physician: Naseem Motley MD Hospital Course: Discharge Diagnosis: Community-acquired pneumonia Acute hypoxic respiratory failure secondary to community acquired pneumonia, patient has been successfully weaned from oxygen and was 92% on room air at rest and 95% on room air with activity Neck pain resulting from severe degenerative disc disease of cervical spine Hiatal hernia Hypertension Hyperlipidemia Hypothyroidism Hospital Course: Patient is a very pleasant 80-year-old female with a past medical history of hypertension, hyperlipidemia, and hypothyroidism. She presented to the hospital on 12/07/20 with a chief complaint of neck pain and was found to be hypoxic at 86% on room air requiring oxygen supplementation. An EKG was completed revealing normal sinus rhythm at 81 bpm with no noted T-wave or ST abnormalities. Chest x-ray revealed basilar atelectasis. Cervical spine x-ray revealing severe degenerative disc disease . CTA chest negative for PE showing large hiatal hernia and bilateral lower lobe pneumonia. Patient being treated for bilateral lower lobe pneumonia with Rocephin and azithromycin. Orthospine specialist consulted for persistent neck pain and after evaluation they recommended continued conservative treatment at this time with anti-inflammatory pain medications, physical therapy, and muscle relaxers. They discussed with patient to follow-up outpatient in their office if pain persists for possible MRI or CT as well as further evaluation and possible future surgical intervention. During hospitalization patient received treatment for her community-acquired pneumonia with antibiotics Rocephin and azithromycin. She initially required supplemental oxygenation, but has since been weaned off oxygen and was 92% on room air at r est and upon ambulation and pulse ox was 95% on room air with activity. Patient is stable for discharge home at this time. She is being discharged home on oral antibiotics azithromycin and Cefidiner for an additional 6 days totaling a treatment course of 10 days of antibiotic therapy. Patient instructed she will need to follow up outpatient with her PCP and if neck pain does not improve she will need to follow up outpatient with orthospine specialist as discussed. Physical exam: Patient seen and fully evaluated at the bedside this morning. She reports improvement in her neck pain and feeling ready to go home. She continues to deny having any headache, lightheadedness, dizziness, changes in vision or hearing, dysphagia or sore throat, chest pain or palpitations, shortness of breath, abdominal pain, nausea, vomiting, or experiencing any numbness/tingling/weakness in her extremities. Patient has been successfully weaned off oxygen and is stable for discharge home. Vital signs reviewed and stable. General: Nontoxic, no distress and appears stated age. Derm: Skin warm and dry, normal coloration for ethnicity. Head: Atraumatic, normocephalic and symmetric. Eyes: EOMs intact, no lid lag, and anicteric sclera Mouth: no lip lesions, mucus membranes moist Cardiovascular: regular rate and rhythm with normal S1S2, no murmur, positive posterior tibial pulses bilaterally, and cap refill < 2 seconds. Lungs: Respirations even, regular, and unlabored on room air. Lungs CTA bilaterally, no rhonchi, no rales, no wheezing, and no accessory muscle usage. Abdominal: soft, nontender to palpation, no guarding, no appreciable organomegaly. Suprapubic catheter in place. Ext: ROM intact. No gross muscle atrophy, trace edema on bilateral lower extremities, no contractures Neuro: Speech clear, face symmetrical and CN II-XII grossly intact with no noted focal neuro deficits Psych: Alert and oriented to person, place, time, and situation. Appropriate and pleasant affect. A total of 45 minutes of time were spent preparing this complex discharge summary. Patient Condition at Discharge: Stable Plan - Discharge Summary Discharge Rx Participant: Yes New Discharge Prescriptions: New Lidocaine 5% Patch [Lidoderm 5% Patch] 1 patch TOPICAL Q24H 30 Days #30 patch Cefdinir [Omnicef] 300 mg PO BID 6 Days #12 cap Acetaminophen Tab [Tylenol] 650 mg PO Q6HR PRN tab PRN Reason: Mild Pain Or Fever > 100.5 Azithromycin [Zithromax] 250 mg PO DAILY 6 Days #6 tab Levothyroxine Sodium [Synthroid] 75 mcg PO DAILY 30 Days #30 tab Ibuprofen [Motrin] 400 mg PO Q6HR PRN tab PRN Reason: Mild Pain Or Fever > 100.5 Continue Esomeprazole Magnesium [NexIUM] 40 mg PO BID Aspirin EC [Ecotrin Low Dose] 81 mg PO DAILY Zolpidem [Ambien] 5 mg PO HS PRN PRN Reason: Insomnia Losartan/Hydrochlorothiazide [Losartan-Hctz 100-25 mg Tab] 1 tab PO DAILY Mirtazapine 30 mg PO HS NIFEdipine [Procardia XL] 30 mg PO DAILY Atorvastatin Calcium [Lipitor] 40 mg PO HS Istalol 0.5% 1 drop BOTH EYES DAILY Montelukast [Singulair] 10 mg PO HS Mirabegron [Myrbetriq] 25 mg PO DAILY Tolterodine Tartrate [Detrol LA] 4 mg PO HS Dupilumab [Dupixent Syringe] 300 mg SQ Q14D Gabapentin 300 mg PO BID Baclofen [Lioresal] 10 mg PO TID PRN PRN Reason: Muscle Spasm Discontinued Levothyroxine Sodium [Synthroid] 75 mcg PO DAILY Cephalexin [Keflex] 500 mg PO Q6HR 7 Days #28 cap No Action HYDROcodone/APAP 5-325MG [[place] 5-325] 1 tab PO Q6HR PRN 3 Days #12 tab PRN Reason: Severe Pain Discharge Medication List Aspirin EC [Ecotrin Low Dose] 81 mg PO DAILY 04/10/20 [History] Atorvastatin Calcium [Lipitor] 40 mg PO HS 04/10/20 [History] Esomeprazole Magnesium [NexIUM] 40 mg PO BID 04/10/20 [History] Istalol 0.5% 1 drop BOTH EYES DAILY 04/10/20 [History] Losartan/Hydrochlorothiazide [Losartan-Hctz 100-25 mg Tab] 1 tab PO DAILY 04/10/20 [History] Mirtazapine 30 mg PO HS 04/10/20 [History] NIFEdipine [Procardia XL] 30 mg PO DAILY 04/10/20 [History] Zolpidem [Ambien] 5 mg PO HS PRN 04/10/20 [History] HYDROcodone/APAP 5-325MG [[place] 5-325] 1 tab PO Q6HR PRN 3 Days #12 tab 12/06/20 [Rx] Baclofen [Lioresal] 10 mg PO TID PRN 12/07/20 [History] Dupilumab [Dupixent Syringe] 300 mg SQ Q14D 12/07/20 [History] Gabapentin 300 mg PO BID 12/07/20 [History] Mirabegron [Myrbetriq] 25 mg PO DAILY 12/07/20 [History] Montelukast [Singulair] 10 mg PO HS 12/07/20 [History] Tolterodine Tartrate [Detrol LA] 4 mg PO HS 12/07/20 [History] Acetaminophen Tab [Tylenol] 650 mg PO Q6HR PRN tab 12/11/20 [Rx] Azithromycin [Zithromax] 250 mg PO DAILY 6 Days #6 tab 12/11/20 [Rx] Cefdinir [Omnicef] 300 mg PO BID 6 Days #12 cap 12/11/20 [Rx] Ibuprofen [Motrin] 400 mg PO Q6HR PRN tab 12/11/20 [Rx] Levothyroxine Sodium [Synthroid] 75 mcg PO DAILY 30 Days #30 tab 12/11/20 [Rx] Lidocaine 5% Patch [Lidoderm 5% Patch] 1 patch TOPICAL Q24H 30 Days #30 patch 12/11/20 [Rx] Follow up Appointment(s)/Referral(s): Naseem Motley MD [Primary Care Provider] - 1-2 days Roby Gannon DO [Doctor of Osteopathic Medicine] - 2 Weeks Activity/Diet/Wound Care/Special Instructions: Activity: As tolerated, take breaks as needed. Diet: Continue with your heart healthy diet. Special Instructions: You are being discharged home on antibiotics, azithromycin and Cefdiner for treatment of her pneumonia. It is very important to take these medications as directed. He will need to take these medications for the next 6 days for a total of 10 days of antibiotic therapy. It is important to follow-up with your primary care doctor, Dr. Motley in his office early next week. You were evaluated by the orthospine specialist, Dr. Gannon for your neck pain, he has recommended that you continue taking anti-inflammatory pain medications such as Motrin for treatment along with muscle relaxers and follow- up outpatient in his office if this pain persists for possible further testing such as MRI or CT to evaluate further for potential future surgical interventions. Thank you for allowing us to participate in your care, it was a pleasure having used for our patient. Discharge Disposition: HOME SELF-CARE
--- NOTE | 2020-12-11 13:31 | P.PN ---
Progress Note - Text Progress Note Date: 12/11/20 Patient seen and examined she is doing well seated in her bed. She complains of no new issues at this time due to some neck pain. She states no other issues. Be discharged today. Exam is stable she has good motion and motor of her upper extremities bilaterally as well as lower extremity is bilaterally at this time. No pathologic reflexes sensation is intact in all facets she is neurovascular intact distally. We will see patient in follow-up post hospitalization. At this point we can d iscuss further imaging as well as treatment. She was comfortable with this plan of care.
[2020-12-11 15:59] VITALS: BP 117/66; PULSE 74
== END 2020-12-11 16:21 | disposition home or self-care (01) | DRG 193 ==
LOC: EC 10:20 → 4SSUR 18:08
PROVIDERS: ADMIT Internal Medicine; ATTEND Internal Medicine
DX: J18.9 Pneumonia, unspecified organism (principal); J96.01 Acute respiratory failure with hypoxia; N39.0 Urinary tract infection, site not specified; J98.11 Atelectasis; Z66 Do not resuscitate; Z20.822 Contact with and (suspected) exposure to COVID-19; M50.30 Other cervical disc degeneration, unspecified cervical region; M47.813 Spondylosis without myelopathy or radiculopathy, cervicothoracic region; G89.29 Other chronic pain; K44.9 Diaphragmatic hernia without obstruction or gangrene; I10 Essential (primary) hypertension; E78.5 Hyperlipidemia, unspecified; E03.9 Hypothyroidism, unspecified; K21.9 Gastro-esophageal reflux disease without esophagitis; Z79.82 Long term (current) use of aspirin; Z79.890 Hormone replacement therapy; Z79.899 Other long term (current) drug therapy; Z86.19 Personal history of other infectious and parasitic diseases; Z96.642 Presence of left artificial hip joint; Z90.710 Acquired absence of both cervix and uterus; Z87.42 Personal history of other diseases of the female genital tract; Z86.59 Personal history of other mental and behavioral disorders; Z98.890 Other specified postprocedural states; Z88.2 Allergy status to sulfonamides; Z88.8 Allergy status to other drugs, medicaments and biological substances; Z82.49 Family history of ischemic heart disease and other diseases of the circulatory system
CPT/HCPCS: 36415; 71046; 71275; 72050; 80048; 80053; 81001; 83605; 83735; 83880; 84484; 85025; 85027; 85379; 85610; 85730; 87077; 87086; 87186; 87635; 93005; 94760; 96361; 96374; 96375; 99284; 99285

== ENCOUNTER 2021-03-29 11:47 | Observation (INO) | payer BC ==
[2021-03-29 12:25] LABS: Basophils % (A) 1 %; Eosinophils # (A) 0.1 k/uL (0-0.7); Eosinophils % (A) 2 %; HCT 33.1 % (34.0-46.0); HGB 10.2 gm/dL (11.4-16.0); Hypochromasia Slight; Lymphocytes # (A) 0.7 k/uL (1.0-4.8); Lymphocytes % (A) 13 %; MCH 23.8 pg (25.0-35.0); MCHC 30.9 g/dL (31.0-37.0); MCV 77.2 fL (80.0-100.0); Mean Platelet Volume 7.2; Microcytosis Slight; Monocytes # (A) 0.5 k/uL (0-1.0); Monocytes % (A) 8 %; Neutrophils # (A) 4.1 k/uL (1.3-7.7); Neutrophils % (A) 73 %; Platelet Count 312 k/uL (150-450); RBC 4.28 m/uL (3.80-5.40); RDW 15.2 % (11.5-15.5); WBC 5.6 k/uL (3.8-10.6)
[2021-03-29 12:37] LABS: Calcium 9.2 mg/dL (8.4-10.2); Potassium 4.2 mmol/L (3.5-5.1)
--- NOTE | 2021-03-29 12:40 | ED ---
General Adult HPI - General Chief complaint: Shortness of Breath Stated complaint: SOB Time Seen by Provider: 03/29/21 11:55 Source: patient Mode of arrival: ambulatory Limitations: no limitations - History of Present Illness Initial comments: Dictation was produced using mYwindow dictation software. please excuse any grammatical, word or spelling errors. Chief Complaint: 81-year-old female presents with episodes of shortness of breat h History of Present Illness: 81-year-old female last night she was sleeping when all of a sudden she felt really short of breath. It was approximately 3:30 AM. Patient felt like she couldn't catch her breath and was gasping. Rollover tell about it. This morning she took her to his primary care doctor appointment for checkup. While there she mentioned to the office staff that she had these episodes. They ambulated her on the office and patient decided to 80-85% with ambulation. At rest patient denies any issues. Is not short of breath at rest. The ROS documented in this emergency department record has been reviewed and confirmed by me. Those systems with pertinent positive or negative responses have been documented in the HPI. All other systems are other negative and/or noncontributory. PHYSICAL EXAM: General Impression: Alert and oriented x3, not in acute distress HEENT: Normocephalic atraumatic, extra-ocular movements intact, pupils equal and reactive to light bilaterally, mucous membranes moist. Cardiovascular: Heart regular rate and rhythm Chest: Able to complete full sentences, no retractions, no tachypnea Abdomen: abdomen soft, non-tender, non-distended, no organomegaly Musculoskeletal: Pulses present and equal in all extremities, no peripheral edema Motor: no focal deficits noted Neurological: CN II-XII grossly intact, no focal motor or sensory deficits noted Skin: Intact with no visualized rashes Psych: Normal affect and mood ED course: 81-year-old well-appearing female presents with episode of dyspnea 3:30 AM last night and alleged ambulatory hypoxia at primary care physician's office. Vital signs upon arrival are within acceptable limits. Ambulatory pulse ox dropped down to 88%. laboratory evaluation obtained. CBC and BMP within exceptablel limits. trop and bnp negative.. elevated d-dimer. Covid [address] angios shows no CT evidence for acute pulmonary embolism. There is a large hiatal hernia or intrathoracic stomach redemonstrated. Is concerned that perhaps this is causing limited expansion of the lungs causing hypoxia. Nonetheless with supplemental oxygen she is well-appearing. it is not entirely clear what is causing patient desaturations. she will be admitted to [facility]. spoke with Dr. Espinoza. pulmonology on consult. EKG interpretation: Ventricular rate 66, normal sinus rhythm,. Interval to 4, QRS 106, QTC 467. No FL prolongation, no QTC prolongation, no ST or T-wave changes noted. . Overall, this EKG is unremarkable - Related Data Home Medications Medication Instructions Recorded Confirmed Aspirin EC [Ecotrin Low Dose] 81 mg PO DAILY 04/10/20 12/07/20 Atorvastatin Calcium [Lipitor] 40 mg PO HS 04/10/20 12/07/20 Esomeprazole Magnesium [NexIUM] 40 mg PO BID 04/10/20 12/07/20 Istalol 0.5% 1 drop BOTH EYES DAILY 04/10/20 12/07/20 Losartan/Hydrochlorothiazide 1 tab PO DAILY 04/10/20 12/07/20 [Losartan-Hctz 100-25 mg Tab] Mirtazapine 30 mg PO HS 04/10/20 12/07/20 NIFEdipine [Procardia XL] 30 mg PO DAILY 04/10/20 12/07/20 Zolpidem [Ambien] 5 mg PO HS PRN 04/10/20 12/07/20 Baclofen [Lioresal] 10 mg PO TID PRN 12/07/20 12/07/20 Dupilumab [Dupixent Syringe] 300 mg SQ Q14D 12/07/20 12/07/20 Gabapentin 300 mg PO BID 12/07/20 12/07/20 Mirabegron [Myrbetriq] 25 mg PO DAILY 12/07/20 12/07/20 Montelukast [Singulair] 10 mg PO HS 12/07/20 12/07/20 Tolterodine Tartrate [Detrol LA] 4 mg PO HS 12/07/20 12/07/20 Previous Rx's Medication Instructions Recorded HYDROcodone/APAP 5-325MG [[place] 1 tab PO Q6HR PRN 3 Days #12 tab 12/06/20 5-325] Acetaminophen Tab [Tylenol] 650 mg PO Q6HR PRN tab 08/06/21 Azithromycin [Zithromax] 250 mg PO DAILY 6 Days #6 tab 12/11/20 Cefdinir [Omnicef] 300 mg PO BID 6 Days #12 cap 12/11/20 Ibuprofen [Motrin] 400 mg PO Q6HR PRN tab 12/11/20 Levothyroxine Sodium [Synthroid] 75 mcg PO DAILY 30 Days #30 tab 12/11/20 Lidocaine 5% Patch [Lidoderm 5% 1 patch TOPICAL Q24H 30 Days #30 12/11/20 Patch] patch Allergies Allergy/AdvReac Type Severity Reaction Status Date / Time atorvastatin [From Lipitor] Allergy Migraine--brand Verified 12/07/20 13:23 [place] brimonidine [From Combigan] Allergy Itching Verified 12/07/20 13:23 dicyclomine [From Bentyl] Allergy Swelling Verified 12/07/20 13:23 Sulfa (Sulfonamide Allergy Swelling Verified 12/07/20 13:23 Antibiotics) timolol [From Combigan] Allergy Itching Verified 12/07/20 13:23 Review of Systems ROS Statement: Those systems with pertinent positive or pertinent negative responses have been documented in the HPI. ROS Other: All systems not noted in ROS Statement are negative. Past Medical History Past Medical History: GERD/Reflux, Hyperlipidemia, Hypertension, Thyroid Disorder History of Any Multi-Drug Resistant Organisms: ESBL Date of last positivie culture/infection: 12/06/20 MDRO Source:: ESBL URINE Past Surgical History: Unable to Obtain, Joint Replacement Additional Past Surgical History / Comment(s): parathyroid gland, suprapubic tube insertion Past Anesthesia/Blood Transfusion Reactions: No Reported Reaction Past Psychological History: Depression Smoking Status: Never smoker Past Alcohol Use History: None Reported Past Drug Use History: None Reported - Past Family History Sister(s) Family Medical History: Myocardial Infarction (SC) General Exam Limitations: no limitations Course Vital Signs 03/29/21 03/29/21 03/29/21 11:51 11:55 14:13 Temperature 97.6 F Pulse Rate 72 78 Respiratory 20 20 Rate Blood Pressure 157/71 O2 Sat by Pulse 97 97 99 Oximetry Medical Decision Making - Lab Data Result diagrams: 03/29/21 12:19 03/29/21 12:19 Lab Results 03/29/21 03/29/21 03/29/21 Range/Units 12:10 12:19 12:19 WBC 5.6 (3.8-10.6) k/uL RBC 4.28 (3.80-5.40) m/uL Hgb 10.2 L (11.4-16.0) gm/dL Hct 33.1 L (34.0-46.0) % MCV 77.2 L (80.0-100.0) fL MCH 23.8 L (25.0-35.0) pg MCHC 30.9 L (31.0-37.0) g/dL RDW 15.2 (11.5-15.5) % Plt Count 312 (150-450) k/uL MPV 7.2 Neutrophils % 73 % Lymphocytes % 13 % Monocytes % 8 % Eosinophils % 2 % Basophils % 1 % Neutrophils # 4.1 (1.3-7.7) k/uL Lymphocytes # 0.7 L (1.0-4.8) k/uL Monocytes # 0.5 (0-1.0) k/uL Eosinophils # 0.1 (0-0.7) k/uL Basophils # 0.0 (0-0.2) k/uL Hypochromasia Slight Microcytosis Slight D-Dimer (<0.60) mg/L FEU Sodium 135 L (137-145) mmol/L Potassium 4.2 (3.5-5.1) mmol/L Chloride 100 (98-107) mmol/L Carbon Dioxide 28 (22-30) mmol/L Anion Gap 7 mmol/L BUN 16 (7-17) mg/dL Creatinine 0.74 (0.52-1.04) mg/dL Est GFR (CKD-EPI)AfAm 88 (>60 ml/min/1.73 sqM) Est GFR (CKD-EPI)NonAf 76 (>60 ml/min/1.73 sqM) Glucose 90 (74-99) mg/dL Calcium 9.2 (8.4-10.2) mg/dL Troponin I (0.000-0.034) ng/mL NT-Pro-B Natriuret Pep pg/mL Coronavirus (PCR) Not Detected (Not Detectd) 03/29/21 03/29/21 03/29/21 Range/Units 12:19 12:19 12:19 WBC (3.8-10.6) k/uL RBC (3.80-5.40) m/uL Hgb (11.4-16.0) gm/dL Hct (34.0-46.0) % MCV (80.0-100.0) fL MCH (25.0-35.0) pg MCHC (31.0-37.0) g/dL RDW (11.5-15.5) % Plt Count (150-450) k/uL MPV Neutrophils % % Lymphocytes % % Monocytes % % Eosinophils % % Basophils % % Neutrophils # (1.3-7.7) k/uL Lymphocytes # (1.0-4.8) k/uL Monocytes # (0-1.0) k/uL Eosinophils # (0-0.7) k/uL Basophils # (0-0.2) k/uL Hypochromasia Microcytosis D-Dimer 1.25 H (<0.60) mg/L FEU Sodium (137-145) mmol/L Potassium (3.5-5.1) mmol/L Chloride (98-107) mmol/L Carbon Dioxide (22-30) mmol/L Anion Gap mmol/L BUN (7-17) mg/dL Creatinine (0.52-1.04) mg/dL Est GFR (CKD-EPI)AfAm (>60 ml/min/1.73 sqM) Est GFR (CKD-EPI)NonAf (>60 ml/min/1.73 sqM) Glucose (74-99) mg/dL Calcium (8.4-10.2) mg/dL Troponin I <0.012 (0.000-0.034) ng/mL NT-Pro-B Natriuret Pep 429 pg/mL Coronavirus (PCR) (Not Detectd) Disposition Clinical Impression: Acute respiratory failure with hypoxia Disposition: ADMITTED IP TO THIS HOSP Condition: Critical Referrals: Naseem Motley MD [Primary Care Provider] - 1-2 days
--- NOTE | 2021-03-29 12:43 | XR ---
EXAMINATION TYPE: XR chest 2V DATE OF EXAM: 03/29/2021 COMPARISON: Chest x-ray and CTA chest December 07, 2020 HISTORY: Dyspnea TECHNIQUE: Frontal and lateral views of the chest are obtained. FINDINGS: There are chronic parenchymal changes without suspicious new focal air space opacity, pleu ral effusion, or pneumothorax seen. The cardiac silhouette size is stable and enlarged with large hi atal hernia or intrathoracic stomach and atherosclerotic thoracic aorta redemonstrated. The osseous structures are intact. IMPRESSION: Chronic changes and cardiomegaly without new acute pulmonary process.
[2021-03-29] MEDS ORDERED: PANTOPRAZOLE 40 MG/10 ML VIAL IVP SCH (14:30)
[2021-03-29] MEDS ORDERED: NALOXONE 0.4 MG/ML 1 ML VIAL IV PRN (15:09)
--- NOTE | 2021-03-29 15:09 | CT ---
EXAMINATION TYPE: CT angio chest DATE OF EXAM: 03/29/2021 COMPARISON: CTA chest December 07, 2020 HISTORY: Mid Chest pain and shortness of breath. CT DLP: 310.7 mGycm. Automated Exposure Control for Dose Reduction was Utilized. CONTRAST: CTA scan of the thorax is performed with IV Contrast, patient injected with 100 mL of Isovue 370, pul monary embolism protocol. MIP Images are created on CT scanner and reviewed. 3D reconstructed image s are created on an independent workstation and reviewed. FINDINGS: LUNGS: Atelectasis and/or consolidation surrounding large hiatal hernia are less prominent than prior study. There is additional [id number] linear atelectasis and/or scarring slightly more promine nt on current study. Upper lungs remain clear There is no pleural effusion or pneumothorax seen. Th e tracheobronchial tree is patent. MEDIASTINUM: There is satisfactory enhancement of the pulmonary artery and its branches, there is no CT evidence for pulmonary embolism. There are and stable prominent but subcentimeter bilateral hilar lymph nodes. Stable mild cardiomegaly. No pericardial effusion is seen. Stable large hiatal hernia o r intrathoracic stomach with abnormal twisting and air-fluid level. The esophagus proximal to this sh ows mild to moderate wall thickening without suspicious dilatation or air-fluid level currently. Mode rate calcified plaque of the descending aorta. OTHER: Underlying scoliotic curvature redemonstrated. IMPRESSION: No CT evidence for acute pulmonary embolism. Large hiatal hernia or intrathoracic stoma ch with abnormal twisting redemonstrated. Associated bibasilar atelectasis and/or consolidation less prominent from prior.
[2021-03-29] MEDS ORDERED: HYDROcodone/APAP 5-325MG 1 EACH TAB PO PRN (16:22)
[2021-03-29] MEDS ORDERED: BACLOFEN 10 MG TAB PO PRN (16:41)
--- NOTE | 2021-03-29 16:41 | P.HPIM ---
<Ever Merritt - Last Filed: 03/29/21 15:48> History of Present Illness H&P Date: 03/29/21 History of Presenting Illness: Patient is a very pleasant 81-year-old female with a past medical history of hypertension, hyperlipidemia, hypothyroidism, GERD, and chronic neck pain secondary to severe degenerative disc disease of cervical spine. She presented to the hospital on 03/29/21 with a chief complaint of shortness of breath/dyspnea with exertion. Patient reports that this shortness of breath came on suddenly and awoken her from sleep around 3:30 this morning. Patient states she was lying flat with a single towel rolled up beneath her neck and suddenly awoken feeling as though she was gasping for air and unable to catch her breath. She reports that up until this occurred this morning, she has been in her typical good health with the exception of pretty significant gastric reflux in which she states that she takes Nexium to treat and a bout of pneumonia back in December in which she reports having had a full recovery. Pt states that she notified her when this occurred and later that morning he took her to her PCPs for evaluation. During her appointment with her primary doctor, the office staff attempted to obtain an ambulatory pulse ox in which patient's oxygen saturations reportedly dropped to 80%. Patient states prior to awakening with this shortness of breath she had not had any dyspnea with exertion and has been functioning at her normal baseline level. She denies having recent any recent infections or exposure to known ill contacts, fevers, chills, diaphoresis, headache, lightheadedness, dizziness, chest pain, cough, congestion, palpitations, nausea, vomiting, abdominal pain, or experiencing any numbness/tingling/swelling of her extremities. She denies history of chronic pulmonary or cardiac disease including CHF. Patient reports she received Moderna Covid vaccination x2, but has not yet received the booster. She is currently on room air with SpO2 of 99%. She underwent a full evaluation in the emergency department. CBC revealed macrocytic microchromic anemia with hemoglobin of 10.2 above baseline levels and slightly elevated d-dimer of 1.25. Troponin negative at less than 0.012 and pro-BNP 429. Covid PCR negative. Chest x-ray showing chronic changes and cardiomegaly and negative for acute cardiopulmonary process. CTA negative for acute PE revealing stable large hiatal hernia or intrathoracic stomach with abnormal twisting redemonstrated as well as mild to moderate wall thickening of proximal esophagus without susp icious dilation, and moderate calcified plaque of the descending aorta. EKG showing normal sinus rhythm at 66 bpm with no noted T-wave or ST abnormalities. Patient was admitted to our services with consultation to pulmonology secondary to hypoxic respiratory failure of unclear etiology and consult to Gen. surgery secondary to large hiatal hernia with recurrent episodes of reflux and concerns of possible aspiration. Review of systems: Pertinent positives and negatives as discussed in HPI, a complete review of systems was performed and all other systems are negative. Physical exam: Vital signs reviewed and stable. General: Nontoxic, no distress and appears stated age. Derm: Skin warm and dry, normal coloration for ethnicity. Head: Atraumatic, normocephalic and symmetric. Decreased ROM with neck s econdary to chronic pain and severe DDD of cervical spine. Eyes: EOMs intact, no lid lag, and anicteric sclera Mouth: no lip lesions, mucus membranes moist Cardiovascular: regular rate and rhythm with normal S1S2, no murmur, positive posterior tibial pulses bilaterally, and cap refill < 2 seconds. Lungs: Respirations even, regular, and unlabored on room air. Lungs CTA bilaterally, no rhonchi, no rales, no wheezing, and no accessory muscle usage. Abdominal: soft, nontender to palpation, no guarding, no appreciable organomegaly Ext: ROM intact. No gross muscle atrophy, no edema, no contractures Neuro: Speech clear, face symmetrical and CN II-XII grossly intact with no noted focal neuro deficits Psych: Alert and oriented to person, place, time, and situation. Appropriate and pleasant affect. Assessment and Plan of Care: Acute hypoxic respiratory failure, etiology unclear -Chest x-ray showing chronic changes and cardiomegaly and negative for acute cardiopulmonary process. -CTA negative for acute PE revealing stable large hiatal hernia or intrathoracic stomach with abnormal twisting redemonstrated as well as mild to moderate wall thickening of proximal esophagus without suspicious dilation, and moderate calcified plaque of the descending aorta. -Oxygenation to be administered and titrated as needed to maintain SPO2 equal to or greater than 92%, patient currently on room air with SpO2 of 99% and reportedly desaturating down into low 80's with ambulation. -Orders placed for repeat ambulatory pulse ox to be obtained. -Consultation to pulmonology secondary to hypoxic respiratory failure of unclear etiology -Consult to Gen. surgery secondary to large hiatal hernia with reported recurrent episodes of reflux and concerns of possible aspiration. -Telemetry monitoring. -Duonebs as needed for SOB and/or wheezing -Encourage use of Incentive Spirometry 10-15 times hourly while awake. GERD with reports of "significant" gastric reflux -Protonix 40 mg IVP twice daily -Consult to Gen. surgery secondary to large hiatal hernia with reported recurrent episodes of reflux and concerns of possible aspiration Chronic Neck pain secondary to severe degenerative disc disease of cervical spine -Symptomatic care and pain management. Hypertension -Monitor vital signs and continue daily medication regimen. Hyperlipidemia -Continue daily medication regimen. Hypothyroidism -Continue daily medication regimen with Synthroid 75 g each morning. The patient is admitted with an anticipated less than 2 midnight stay for evaluation of acute hypoxic respiratory failure. CODE STATUS: DO NOT RESUSCITATE/DO NOT INTUBATE DVT prophylaxis: heparin Discussed with: patient and RN Anticipated discharge date: clinical course to determine Anticipated discharge place: home A total of 45 minutes was spent on the care of this complex patient more than 50% of the time was spent in counseling and care coordination. Past Medical History Past Medical History: GERD/Reflux, Hyperlipidemia, Hypertension, Thyroid Disorder History of Any Multi-Drug Resistant Organisms: ESBL Date of last positivie culture/infection: 12/06/20 MDRO Source:: ESBL URINE Past Surgical History: Unable to Obtain, Joint Replacement Additional Past Surgical History / Comment(s): parathyroid gland, suprapubic tube insertion Past Anesthesia/Blood Transfusion Reactions: No Reported Reaction Past Psychological History: Depression Smoking Status: Never smoker Past Alcohol Use History: None Reported Past Drug Use History: None Reported - Past Family History Sister(s) Family Medical History: Myocardial Infarction ([place]) Medications and Allergies Home Medications Medication Instructions Recorded Confirmed Type Aspirin EC [Ecotrin Low Dose] 81 mg PO DAILY 04/10/20 03/29/21 History Atorvastatin Calcium [Lipitor] 40 mg PO HS 04/10/20 03/29/21 History Esomeprazole Magnesium [NexIUM] 40 mg PO BID 04/10/20 03/29/21 History Istalol 0.5% 1 drop BOTH EYES DAILY 04/10/20 03/29/21 History Losartan/Hydrochlorothiazide 1 tab PO DAILY 04/10/20 03/29/21 History [Losartan-Hctz 100-25 mg Tab] Mirtazapine 30 mg PO HS 04/10/20 03/29/21 History NIFEdipine [Procardia XL] 30 mg PO DAILY 04/10/20 03/29/21 History Zolpidem [Ambien] 5 mg PO HS PRN 04/10/20 03/29/21 History Baclofen [Lioresal] 10 mg PO TID PRN 12/07/20 03/29/21 History Gabapentin 300 mg PO BID 12/07/20 03/29/21 History Mirabegron [Myrbetriq] 25 mg PO DAILY 12/07/20 03/29/21 History Montelukast [Singulair] 10 mg PO HS 12/07/20 03/29/21 History Tolterodine Tartrate [Detrol LA] 4 mg PO HS 12/07/20 03/29/21 History Levothyroxine Sodium [Synthroid] 75 mcg PO DAILY 30 Days #30 tab 12/11/20 03/29/21 Rx Escitalopram [Lexapro] 20 mg PO DAILY 03/29/21 03/29/21 History dexAMETHasone [Decadron Elixir] 0.5 mg PO TID 03/29/21 03/29/21 History Allergies Allergy/AdvReac Type Severity Reaction Status Date / Time atorvastatin [From Lipitor] Allergy Migraine--brand Verified 12/07/20 13:23 [place] brimonidine [From Combigan] Allergy Itching Verified 12/07/20 13:23 dicyclomine [From Bentyl] Allergy Swelling Verified 12/07/20 13:23 Sulfa (Sulfonamide Allergy Swelling Verified 12/07/20 13:23 Antibiotics) timolol [From Combigan] Allergy Itching Verified 12/07/20 13:23 Physical Exam Vitals: Vital Signs Temp Pulse Resp BP Pulse Ox 03/29/21 14:13 78 20 99 03/29/21 11:55 97 03/29/21 11:51 97.6 F 72 20 157/71 97 Intake and Output 03/29/21 03/29/21 03/29/21 06:59 14:59 22:59 Other: Weight 68.946 kg Results CBC & Chem 7: 03/29/21 12:19 03/29/21 12:19 Labs: Abnormal Lab Results - Last 24 Hours (Table) 1103/29/21 03/29/21 Range/Units 12:19 12:19 12:19 Hgb 10.2 L (11.4-16.0) gm/dL Hct 33.1 L (34.0-46.0) % MCV 77.2 L (80.0-100.0) fL MCH 23.8 L (25.0-35.0) pg MCHC 30.9 L (31.0-37.0) g/dL Lymphocytes # 0.7 L (1.0-4.8) k/uL D-Dimer 1.25 H (<0.60) mg/L FEU Sodium 135 L (137-145) mmol/L <Nhung Espinoza - Last Filed: 03/29/21 17:25> Physical Exam Vitals: Vital Signs Temp Pulse Resp BP Pulse Ox 03/29/21 15:00 20 95 03/29/21 14:13 78 20 99 03/29/21 13:00 18 160/77 99 03/29/21 11:55 97 03/29/21 11:51 97.6 F 72 20 157/71 97 Intake and Output 03/29/21 03/29/21 03/29/21 06:59 14:59 22:59 Other: Weight 68.946 kg Results CBC & Chem 7: 03/29/21 12:19 03/29/21 12:19 Labs: Abnormal Lab Results - Last 24 Hours (Table) 03/29/21 03/29/21 03/29/21 Range/Units 12:19 12:19 12:19 Hgb 10.2 L (11.4-16.0) gm/dL Hct 33.1 L (34.0-46.0) % MCV 77.2 L (80.0-100.0) fL MCH 23.8 L (25.0-35.0) pg MCHC 30.9 L (31.0-37.0) g/dL Lymphocytes # 0.7 L (1.0-4.8) k/uL D-Dimer 1.25 H (<0.60) mg/L FEU Sodium 135 L (137-145) mmol/L
[2021-03-29] MEDS: SODIUM CHLORIDE 0.9% 1,000 ML IV SCH (18:18)
[2021-03-29] MEDS: LIPITOR 40 MG PO SCH (19:41)
[2021-03-29] MEDS: MIRTAZAPINE 15 MG TAB PO SCH (20:14)
[2021-03-29] MEDS: GABAPENTIN 300 MG CAP PO SCH (20:14)
[2021-03-29] MEDS: OXYBUTYNIN 10 MG TAB.ER.24 PO SCH (20:14)
[2021-03-29] MEDS: MONTELUKAST 10 MG TAB PO SCH (20:14)
[2021-03-29] MEDS: PANTOPRAZOLE 40 MG/10 ML VIAL IVP SCH (20:15)
[2021-03-29] MEDS: prednisoLONE ACETATE 1% OPHTH DROPS 5 ML BTL LEFT EYE SCH (20:15)
[2021-03-29] MEDS: HEPARIN SODIUM,PORCINE/PF 5,000 UNIT/0.5 ML SYRINGE SQ SCH (20:15)
[2021-03-29] MEDS: LATANOPROST 0.005% OPHTH DROPS 2.5 ML BTL BOTH EYES SCH (20:16)
[2021-03-29] MEDS ORDERED: FLUTICASONE 50MCG/SPRAY NASAL 16GM EA NOSTRIL PRN (21:53)
[2021-03-29] MEDS: ZOLPIDEM 5 MG TAB PO PRN (22:11)
[2021-03-30] MEDS: LEVOTHYROXINE 75 MCG TAB PO SCH (05:48)
[2021-03-30] MEDS: HEPARIN SODIUM,PORCINE/PF 5,000 UNIT/0.5 ML SYRINGE SQ SCH ×2 (07:51→20:03)
[2021-03-30] MEDS: GABAPENTIN 300 MG CAP PO SCH ×2 (07:52→23:05)
[2021-03-30] MEDS: NIFEdipine XL 30 MG TAB.ER.24 PO SCH (07:52)
[2021-03-30] MEDS: ASPIRIN 81 MG PO SCH (07:52)
[2021-03-30] MEDS: ESCITALOPRAM 20 MG TAB PO SCH (07:52)
[2021-03-30] MEDS: PANTOPRAZOLE 40 MG/10 ML VIAL IVP SCH (07:52)
[2021-03-30] MEDS: LOSARTAN-HCTZ 50-12.5 MG 1 EACH TAB PO SCH (07:52)
[2021-03-30] MEDS: prednisoLONE ACETATE 1% OPHTH DROPS 5 ML BTL LEFT EYE SCH ×3 (07:53→20:06)
[2021-03-30] MEDS: TIMOLOL 0.5% OPHTH DROPS 5 ML BTL BOTH EYES SCH (07:53)
[2021-03-30] MEDS: NON FORMULARY DRUG (Mirabegron [Myrbetriq] 25 MG Tab.Er.24h) PO SCH (08:06)
[2021-03-30 09:20] LABS: HGB 9.9 g/dL (12.0-15.0); MCH 23.2 pg (27.0-32.0); MCHC 29.1 g/dL (32.0-37.0); MCV 79.6 fL (80.0-97.0); Mean Platelet Volume 9.8 fL (9.5-12.2); Platelet Count 309 X 10*3/uL (140-440); RBC 4.27 X 10*6/uL (4.10-5.20); RDW 15.8 % (11.5-14.5); WBC 4.65 X 10*3/uL (4.50-10.00)
[2021-03-30 10:00] LABS: African American GFR (CKD) 93.5 (60.0-200.0); Anion Gap 11.2 mmol/L (4.00-12.00); BUN/Creat Ratio 14.14 Ratio (12.00-20.00); Blood Urea Nitrogen 9.9 mg/dL (9.0-27.0); Calcium 9.3 mg/dL (8.7-10.3); Carbon Dioxide 27.8 mmol/L (21.6-31.8); Magnesium 2.6 mg/dL (1.5-2.4); Non-African American GFR(CKD) 80.7 (60.0-200.0); Potassium 3.9 mmol/L (3.5-5.5)
--- NOTE | 2021-03-30 14:21 | P.CNPUL ---
History of Present Illness Consult date: 03/30/21 Requesting physician: Nhung Espinoza Reason for consult: dyspnea Chief complaint: Shortness of breath History of present illness: This is a very pleasant 81-year-old female patient with a known history of hypertension, hyperlipidemia, hypothyroidism, gastroesophageal reflux disease, ESBL in urine with a history of suprapubic tube placement. She is a lifelong nonsmoker. No history of asthma. No oxygen or inhalers in the outpatient setting. She came into the emergency room yesterday from her PCPs office after being found to be heart cocci make with O2 saturations in the 80s while ambulati ng in the office. She had gone to see her doctor because at 3:30 that same morning she woke up gasping. She had difficulty and catching her breath. No cough or congestion. No fever chills or night sweats. No hemoptysis. No chest pain or palpitations. He's to 7 onset of occult heme breathing. CT angiogram ruled out pulmonary embolism. There is a large hiatal hernia or intrathoracic stomach with abnormal twisting noted in the thoracic cavity. There is some mild linear atelectasis or scarring. No acute pulmonary process. She is seen today in the regular medical floor. She is currently sitting up in bed. Awake and alert in no acute distress. No further episodes of shortness of breath. No cough or congestion. No pulmonary complaints. He is maintaining O2 saturations in the 90s on room air. She's been afebrile. White count 4.6. Hemoglobin 9.9. Sodium 138. Potassium 3.9. Creatinine 0.7. Gu virus by PCR not detected. Review of Systems REVIEW OF SYSTEMS: CONSTITUTIONAL: Denies any recent significant weight loss or weight gain. EYES: Denies change in vision. EARS, NOSE, MOUTH, THROAT: Denies headaches, denies sore throat. CARDIOVASCULAR: Denies chest pain, palpitations or syncopal episodes. RESPIRATORY: Positive for shortness of breath, no cough, congestion or hemoptysis. GASTROINTESTINAL: Denies change in appetite, denies abdominal pain GENITOURINARY: Denies hematuria, denies infections. MUSKULOSKELETAL: Denies pain, denies swelling. INTEGUMENTARY: Denies rash, denies eczema. NEUROLOGICAL: Denies recent memory loss, no recent seizure activity. PSYCHIATRIC: Denies anxiety, denies depression. HEMATOLOGIC/LYMPHATIC: Denies anemia, denies enlarged lymph nodes. Past Medical History Past Medical History: GERD/Reflux, Hyperlipidemia, Hypertension, Thyroid Disorder History of Any Multi-Drug Resistant Organisms: ESBL Date of last positivie culture/infection: 12/06/20 MDRO Source:: ESBL URINE Past Surgical History: Unable to Obtain, Joint Replacement Additional Past Surgical History / Comment(s): parathyroid gland, suprapubic tube insertion Past Anesthesia/Blood Transfusion Reactions: No Reported Reaction Past Psychological History: Depression Smoking Status: Never smoker Past Alcohol Use History: None Reported Past Drug Use History: None Reported - Past Family History Sister(s) Family Medical History: Myocardial Infarction ([place]) Medications and Allergies Home Medications Medication Instructions Recorded Confirmed Type Aspirin EC [Ecotrin Low Dose] 81 mg PO DAILY 04/10/20 03/29/21 History Atorvastatin Calcium [Lipitor] 40 mg PO HS 04/10/20 03/29/21 History Esomeprazole Magnesium [NexIUM] 40 mg PO BID 04/10/20 03/29/21 History Istalol 0.5% 1 drop BOTH EYES DAILY 04/10/20 03/29/21 History Losartan/Hydrochlorothiazide 1 tab PO DAILY 04/10/20 03/29/21 History [Losartan-Hctz 100-25 mg Tab] Mirtazapine 30 mg PO HS 04/10/20 03/29/21 History NIFEdipine [Procardia XL] 30 mg PO DAILY 04/10/20 03/29/21 History Zolpidem [Ambien] 5 mg PO HS PRN 04/10/20 03/29/21 History Baclofen [Lioresal] 10 mg PO TID PRN 12/07/20 03/29/21 History Gabapentin 300 mg PO BID 12/07/20 03/29/21 History Mirabegron [Myrbetriq] 25 mg PO DAILY 12/07/20 03/29/21 History Montelukast [Singulair] 10 mg PO HS 12/07/20 03/29/21 History Tolterodine Tartrate [Detrol LA] 4 mg PO HS 12/07/20 03/29/21 History Levothyroxine Sodium [Synthroid] 75 mcg PO DAILY 30 Days #30 tab 12/11/20 03/29/21 Rx Escitalopram [Lexapro] 20 mg PO DAILY 03/29/21 03/29/21 History Travoprost [Travoprost 0.004%] 1 drop BOTH EYES HS 03/29/21 03/29/21 History dexAMETHasone [Decadron Elixir] 0.5 mg PO TID 03/29/21 03/29/21 History prednisoLONE ACETATE 1% OPHTH 1 drop LEFT EYE TID 03/29/21 03/29/21 History [Pred Forte 1%] Allergies Allergy/AdvReac Type Severity Reaction Status Date / Time atorvastatin [From Lipitor] Allergy Migraine--brand Verified 03/29/21 17:55 [place] brimonidine [From Combigan] Allergy Itching Verified 03/29/21 17:55 dicyclomine [From Bentyl] Allergy Swelling Verified 03/29/21 17:55 Sulfa (Sulfonamide Allergy Swelling Verified 03/29/21 17:55 Antibiotics) timolol [From Combigan] Allergy Itching Verified 03/29/21 17:55 Physical Exam Vitals: Vital Signs Temp Pulse Pulse Resp BP Pulse Ox 03/30/21 08:00 63 18 03/30/21 07:00 97.5 F L 63 18 186/72 99 03/30/21 02:00 17 03/30/21 01:24 96.3 F L 61 14 137/75 91 L 03/29/21 20:00 18 03/29/21 19:35 98.4 F 77 18 153/80 94 L 03/29/21 17:18 17 03/29/21 15:00 20 95 03/29/21 14:13 78 20 99 Intake and Output 03/29/21 03/30/21 03/30/21 22:59 06:59 14:59 Intake Total 222 Output Total 200 Balance 222 -200 Intake: Oral 222 Output: Urine 200 Other: Voiding Method Indwelling Catheter # Voids 1 Weight 68.946 kg GENERAL EXAM: Alert, active, pleasant 81-year-old female patient, on room air, comfortable in no apparent distress. HEAD: Normocephalic. EYES: Normal reaction of pupils, equal size. NOSE: Clear with pink turbinates. THROAT: No erythema or exudates. NECK: No masses, no JVD. CHEST: No chest wall deformity. LUNGS: Equal air entry with no crackles, wheeze, rhonchi or dullness. CVS: S1 and S2 normal with no audible murmur, regular rhythm. ABDOMEN: No hepatosplenomegaly, normal bowel sounds, no guarding or rigidity. SPINE: No scoliosis or deformity SKIN: No rashes CENTRAL NERVOUS SYSTEM: No focal deficits, tone is normal in all 4 extremities. EXTREMITIES: There is no peripheral edema. No clubbing, no cyanosis. Peripheral pulses are intact. Results - Laboratory Findings CBC and BMP: 03/30/21 06:11 03/30/21 06:11 PT/INR, D-dimer D-Dimer 1.25 mg/L FEU (<0.60) H 03/29/21 12:19 Abnormal lab findings: Abnormal Labs 03/29/21 03/29/21 03/29/21 12:19 12:19 12:19 Hgb 10.2 L Hct 33.1 L MCV 77.2 L MCH 23.8 L MCHC 30.9 L RDW Lymphocytes # 0.7 L D-Dimer 1.25 H Sodium 135 L Magnesium 03/30/21 03/30/21 06:11 06:11 Hgb 9.9 L Hct 34.0 L MCV 79.6 L MCH 23.2 L MCHC 29.1 L RDW 15.8 H Lymphocytes # D-Dimer Sodium Magnesium 2.6 H - Diagnostic Findings Chest x-ray: image reviewed CT scan - chest: image reviewed Assessment and Plan Assessment: 1 Acute episode of dyspnea at 3:30 in the morning on 03/29/2021. CT angiogram here ruled out any acute pulmonary process. There was however a large hiatal hernia or intrathoracic stomach twisted into the thoracic cavity. 2 History of gastroesophageal reflux disease related to above 3 Hypertension 4 Hyperlipidemia 5 Hypothyroidism 6 History of ESBL in the urine with previous suprapubic catheter insertion 7 History of depression 8 Lifelong nonsmoker and no previous pulmonary issues 9 Anemia Plan: The patient was seen and evaluated by Dr. Santiago Chest x-ray, CAT scan and labs reviewed Acute dyspnea secondary to suspected hiatal hernia Instructed to sleep with head of the bed elevated May be considered for laparoscopic Niesen fundoplication Continue Protonix twice a day I, the cosigning physician, performed a history & physical examination of the patient. Lungs sounds are clear. Maintaining good O2 saturations in the 90s on room air. I discussed the assessment and plan of care with my nurse practitioner, Zarina Guthrie. I attest to the above consultation as dictated by her. Time with Patient: Greater than 30
--- NOTE | 2021-03-30 14:41 | P.GSCN ---
History of Present Illness Consult date: 03/30/21 History of present illness: CHIEF COMPLAINT: Shortness of breath HISTORY OF PRESENT ILLNESS: This is a 81-year-old female with a known history of hiatal hernia. She presented to the emergency room with complaints of waking up Monday night and unable to catch her breath. Patient went to see her PCP. They checked her oxygen saturation with ambulating which was down to 80-85%. And recommended that she comes into the ER to be evaluated. Patient does have issues with acid reflux. She has been taking Nexium at home. She admits that at times she will have some coughing or choking after eating. She reports being diagnosed with a hiatal hernia over 10 years ago. Patient had a CTA of the chest done which was negative for PE but did show a large hiatal hernia with abnormal twisting of the stomach. Surgical services consult in regards to patient's large hiatal hernia. She denies any nausea or vomiting. Patient had swallow evaluation with no signs of aspiration. Speech therapy did recommend regular diet with thin liquids. Patient seen and examined with Dr. murrell PAST MEDICAL HISTORY: GERD, hyperlipidemia, hypertension, thyroid disorder, depression PAST SURGICAL HISTORY: Suprapubic tube insertion MEDICATIONS: See list. ALLERGIES: See list. SOCIAL HISTORY: No illicit drug use. REVIEW OF SYSTEMS: CONSTITUTIONAL: Denies fever or chills. HEENT: Denies blurred vision, vision changes, or eye pain. Denies hemoptysis CARDIOVASCULAR: Denies chest pain or pressure. RESPIRATORY: No shortness of breath. GASTROINTESTINAL: See HPI for pertinent findings HEMATOLOGIC: Denies bleeding disorders. GENITOURINARY: Denies any blood in urine or increased urinary frequency. SKIN: Denies pruitis. Denies rash. PHYSICAL EXAM: VITAL SIGNS: Reviewed GENERAL: Well-developed in no acute distress. HEENT: No sclera icterus. Extraocular movements grossly intact. Moist buccal mucosa. Head is atraumatic, normocephalic. No nasal drainage. ABDOMEN: Soft. Nondistended. Mild tenderness to palpation of epigastric area NEUROLOGIC: Alert and oriented. Cranial nerves II through XII grossly intact. LABORATORY DATA: WBC 4.65 Hgb 9.9 platelets 309 Sodium 138 potassium 3.9 creatinine 0.7 Troponin negative IMAGING: Chest CTA no evidence of acute pulmonary embolism. Large hiatal hernia or intrathoracic stomach with abnormal twisting redemonstrated. Associated bibasilar atelectasis and/or consolidation less prominent from primary care ASSESSMENT: 1. Large hiatal hernia with intrathoracic stomach and abnormal twisting. Patient's hiatal hernia likely contributed to dyspnea episode PLAN: -check esophagram -EGD scheduled for 04/05/[address] Murrell -Patient can continue regular diet -Continue Protonix -Further recommendations forthcoming per esophagram results Thank you for this consultation Physician Boat Loader Helper note has been reviewed by physician. Signing provider agrees with the documented findings, assessment, and plan of care. Past Medical History Past Medical History: GERD/Reflux, Hyperlipidemia, Hypertension, Thyroid Disorder History of Any Multi-Drug Resistant Organisms: ESBL Year Discovered:: 12/06/20 MDRO Source:: ESBL URINE Past Surgical History: Unable to Obtain, Joint Replacement Additional Past Surgical History / Comment(s): parathyroid gland, suprapubic tube insertion Past Anesthesia/Blood Transfusion Reactions: No Reported Reaction Past Psychological History: Depression Smoking Status: Never smoker Past Alcohol Use History: None Reported Past Drug Use History: None Reported - Past Family History Sister(s) Family Medical History: Myocardial Infarction ([place]) Medications and Allergies Home Medications Medication Instructions Recorded Confirmed Type Aspirin EC [Ecotrin Low Dose] 81 mg PO DAILY 04/10/20 03/29/21 History Atorvastatin Calcium [Lipitor] 40 mg PO HS 04/10/20 03/29/21 History Esomeprazole Magnesium [NexIUM] 40 mg PO BID 04/10/20 03/29/21 History Istalol 0.5% 1 drop BOTH EYES DAILY 04/10/20 03/29/21 History Losartan/Hydrochlorothiazide 1 tab PO DAILY 04/10/20 03/29/21 History [Losartan-Hctz 100-25 mg Tab] Mirtazapine 30 mg PO HS 04/10/20 03/29/21 History NIFEdipine [Procardia XL] 30 mg PO DAILY 04/10/20 03/29/21 History Zolpidem [Ambien] 5 mg PO HS PRN 04/10/20 03/29/21 History Baclofen [Lioresal] 10 mg PO TID PRN 12/07/20 03/29/21 History Gabapentin 300 mg PO BID 12/07/20 03/29/21 History Mirabegron [Myrbetriq] 25 mg PO DAILY 12/07/20 03/29/21 History Montelukast [Singulair] 10 mg PO HS 12/07/20 03/29/21 History Tolterodine Tartrate [Detrol LA] 4 mg PO HS 12/07/20 03/29/21 History Levothyroxine Sodium [Synthroid] 75 mcg PO DAILY 30 Days #30 tab 12/11/20 03/29/21 Rx Escitalopram [Lexapro] 20 mg PO DAILY 03/29/21 03/29/21 History Travoprost [Travoprost 0.004%] 1 drop BOTH EYES HS 03/29/21 03/29/21 History dexAMETHasone [Decadron Elixir] 0.5 mg PO TID 03/29/21 03/29/21 History prednisoLONE ACETATE 1% OPHTH 1 drop LEFT EYE TID 03/29/21 03/29/21 History [Pred Forte 1%] Allergies Allergy/AdvReac Type Severity Reaction Status Date / Time atorvastatin [From Lipitor] Allergy Migraine--brand Verified 03/29/21 17:55 OK brimonidine [From Combigan] Allergy Itching Verified 03/29/21 17:55 dicyclomine [From Bentyl] Allergy Swelling Verified 03/29/21 17:55 Sulfa (Sulfonamide Allergy Swelling Verified 03/29/21 17:55 Antibiotics) timolol [From Combigan] Allergy Itching Verified 03/29/21 17:55 Surgical - Exam Vital Signs Temp Pulse Resp BP Pulse Ox 97.6 F 72 20 157/71 97 03/29/21 11:51 03/29/21 11:51 03/29/21 11:51 03/29/21 11:51 03/29/21 11:51 Results - Labs 03/30/21 06:11 03/30/21 06:11 Abnormal Lab Results - Last 24 Hours (Table) 03/30/21 03/30/21 Range/Units 06:11 06:11 Hgb 9.9 L (12.0-15.0) g/dL Hct 34.0 L (37.2-46.3) % MCV 79.6 L (80.0-97.0) fL MCH 23.2 L (27.0-32.0) pg MCHC 29.1 L (32.0-37.0) g/dL RDW 15.8 H (11.5-14.5) % Magnesium 2.6 H (1.5-2.4) mg/dL Diabetes panel 03/30/21 Range/Units 06:11 Sodium 138 (135-145) mmol/L Potassium 3.9 (3.5-5.5) mmol/L Chloride 99 (96-109) mmol/L Carbon Dioxide 27.8 (21.6-31.8) mmol/L BUN 9.9 (9.0-27.0) mg/dL Creatinine 0.7 (0.6-1.5) mg/dL Glucose 84 (70-110) mg/dL Calcium 9.3 (8.7-10.3) mg/dL Calcium panel 03/30/21 Range/Units 06:11 Calcium 9.3 (8.7-10.3) mg/dL Pituitary panel 03/30/21 Range/Units 06:11 Sodium 138 (135-145) mmol/L Potassium 3.9 (3.5-5.5) mmol/L Chloride 99 (96-109) mmol/L Carbon Dioxide 27.8 (21.6-31.8) mmol/L BUN 9.9 (9.0-27.0) mg/dL Creatinine 0.7 (0.6-1.5) mg/dL Glucose 84 (70-110) mg/dL Calcium 9.3 (8.7-10.3) mg/dL Adrenal panel 03/30/21 Range/Units 06:11 Sodium 138 (135-145) mmol/L Potassium 3.9 (3.5-5.5) mmol/L Chloride 99 (96-109) mmol/L Carbon Dioxide 27.8 (21.6-31.8) mmol/L BUN 9.9 (9.0-27.0) mg/dL Creatinine 0.7 (0.6-1.5) mg/dL Glucose 84 (70-110) mg/dL Calcium 9.3 (8.7-10.3) mg/dL
[2021-03-30 16:14] VITALS: RESP 16
--- NOTE | 2021-03-30 16:16 | FL ---
EXAMINATION TYPE: FL UGI w esophagus DATE OF EXAM: 03/30/2021 COMPARISON: CTA chest from yesterday. CT abdomen and pelvis from 2019 HISTORY: Large hiatal hernia with reflux symptoms, rule out obstruction TECHNIQUE: A double contrast UGI study is performed. A total of 22 seconds of fluoroscopic time was utilized during procedure and 45 images obtained. FINDINGS: Laborer Operator image of the abdomen deferred. Patient is able to drink contrast. The esophagus shows normal motility and emptying into the known la rge hiatal hernia or intrathoracic stomach with abnormal twisting redemonstrated. There is good flow of contrast through the diaphragmatic hiatus into small portion of stomach below diaphragm extending into duodenal sweep. At this point exam is terminated. IMPRESSION: Redemonstration of known large hiatal hernia or intrathoracic stomach. No obstruction.
[2021-03-30] MEDS: PANTOPRAZOLE 40 MG TABLET PO SCH (18:01)
[2021-03-30] MEDS: SODIUM CHLORIDE 0.9% 1,000 ML IV SCH (18:09)
--- NOTE | 2021-03-30 19:02 | P.PN ---
Subjective Progress Note Date: 03/30/21 81-year-old female patient with a known history of hypertension, hyperlipidemia, hypothyroidism, gastroesophageal reflux disease, ESBL in urine with a history of suprapubic tube placement. She is a lifelong nonsmoker. No history of asthma. No oxygen or inhalers in the outpatient setting. She came into the emergency room yesterday from her PCPs office after being found to be heart cocci make with O2 saturations in the 80s while ambulating in the office. She had gone to see her doctor because at 3:30 that same morning she woke up gasping. She had difficulty and catching her breath. No cough or congestion. No fever chills or night sweats. No hemoptysis. No chest pain or palpitations.CT angiogram ruled out pulmonary embolism. There is a large hiatal hernia or intrathoracic stomach with abnormal twisting noted in the thoracic cavity. Patient seen and evaluated at bedside, today patient does not report any worsening of his breathing or report any new significant chest pain. Patient remains in no acute distress. Patient questions and concerns addressed at bedside, proper counseling done. Plan discussed with nursing staff. Objective - Vital Signs Vital signs: Vital Signs Temp 97.7 F 03/30/21 15:00 Pulse 73 03/30/21 15:00 Resp 16 03/30/21 15:00 BP 145/66 03/30/21 15:00 Pulse Ox 94 L 03/30/21 15:00 Intake & Output 03/30/21 03/30/21 03/31/21 06:59 18:59 06:59 Output Total 200 1000 Balance -200 -1000 Output: Urine 200 1000 Other: Voiding Method Indwelling Catheter # Voids 1 General: non toxic, no acute distress, alert oriented to time place and person Head: atraumatic, normocephalic, symmetric Eyes: no lid lesion], anicteric sclera Mouth: no lip lesion, mucus membranes moist Cardiovascular: S1S2 reg rate and rhythm, no murmur, no gallop Lungs: Bilateral equal air entry, no wheezing no rhonchi no crackles. Abdominal: soft, nontender to palpation, no guarding, no appreciable organomegaly Ext: no gross muscle atrophy, no edema extremities warm to suppose a positive Neuro: Alert oriented to time place and person, exam grossly nonfocal Psych: Mood and affect appropriate, patient not so certain Skin exam: No rashes no jaundice. - Labs CBC & Chem 7: 03/30/21 06:11 03/30/21 06:11 Labs: Abnormal Lab Results - Last 24 Hours (Table) 03/30/21 03/30/21 Range/Units 06:11 06:11 Hgb 9.9 L (12.0-15.0) g/dL Hct 34.0 L (37.2-46.3) % MCV 79.6 L (80.0-97.0) fL MCH 23.2 L (27.0-32.0) pg MCHC 29.1 L (32.0-37.0) g/dL RDW 15.8 H (11.5-14.5) % Magnesium 2.6 H (1.5-2.4) mg/dL Assessment and Plan Assessment: Acute episode of dyspnea at 3:30 AM in the morning CT angiogram here ruled out any acute pulmonary process. CT angiogram did show large hiatal hernia. Thoracic surgery consulted, pending esophageal gram, EGD on 04/05/2021 Continue Protonix, regular diet Further recommendation from thoracic surgery pending esophageal gram results History of tobacco abuse Lifelong smoker, no formal diagnosis of COPD. History of anxiety and depression. Continue Lexapro, baclofen, zolpidem, mirtazapine History of hypertension Continue losartan, hydrochlorothiazide, Procardia History of hypothyroidism. Continue home dose of Synthyroid CODE STATUS: Full code Due to prophylaxis: Lovenox Disposition plan/next site of care: Back to home in excellent 2 days
[2021-03-30] MEDS: OXYBUTYNIN 10 MG TAB.ER.24 PO SCH (20:04)
[2021-03-30] MEDS: LATANOPROST 0.005% OPHTH DROPS 2.5 ML BTL BOTH EYES SCH (20:05)
[2021-03-30] MEDS: MONTELUKAST 10 MG TAB PO SCH (20:05)
[2021-03-30] MEDS: MIRTAZAPINE 15 MG TAB PO SCH (23:05)
[2021-03-30] MEDS: ZOLPIDEM 5 MG TAB PO PRN (23:05)
[2021-03-30] MEDS: LIPITOR 40 MG PO SCH (23:33)
[2021-03-31] MEDS: LEVOTHYROXINE 75 MCG TAB PO SCH (05:32)
[2021-03-31] MEDS: LOSARTAN-HCTZ 50-12.5 MG 1 EACH TAB PO SCH (08:44)
[2021-03-31] MEDS: PANTOPRAZOLE 40 MG TABLET PO SCH ×2 (08:45→16:55)
[2021-03-31] MEDS: HEPARIN SODIUM,PORCINE/PF 5,000 UNIT/0.5 ML SYRINGE SQ SCH (08:45)
[2021-03-31] MEDS: NIFEdipine XL 30 MG TAB.ER.24 PO SCH (08:45)
[2021-03-31] MEDS: ASPIRIN 81 MG PO SCH (08:45)
[2021-03-31] MEDS: ESCITALOPRAM 20 MG TAB PO SCH (08:45)
[2021-03-31] MEDS: GABAPENTIN 300 MG CAP PO SCH (08:45)
[2021-03-31] MEDS: prednisoLONE ACETATE 1% OPHTH DROPS 5 ML BTL LEFT EYE SCH ×2 (08:46→16:56)
[2021-03-31] MEDS: TIMOLOL 0.5% OPHTH DROPS 5 ML BTL BOTH EYES SCH (08:46)
[2021-03-31] MEDS: NON FORMULARY DRUG (Mirabegron [Myrbetriq] 25 MG Tab.Er.24h) PO SCH (10:19)
--- NOTE | 2021-03-31 11:32 | P.PN ---
Progress Note - Text Progress Note Date: 03/31/21 Patient's esophagram upper GI shows a large hiatal hernia with paraesophageal hernia with approximately two thirds of the stomach and the patient's chest. On exam her vital signs are stable. Abdomen soft. Patient is scheduled for EGD on Monday. She'll be scheduled for repair of paraesophageal hernia on Monday. Patient may be discharged home if medically stable prior to her EGD.
--- NOTE | 2021-03-31 12:01 | ECHOF ---
Referral Reason:dyspnea MEASUREMENTS -------- HEIGHT: 157.5 cm WEIGHT: 68.9 kg BP: 110/68 RVIDd: 2.4 cm (< 3.3) IVSd: 1.3 cm (0.6 - 1.1) LVIDd: 3.4 cm (3.9 - 5.3) LVPWd: 1.4 cm (0.6 - 1.1) IVSs: 1.4 cm LVIDs: 2.2 cm LVPWs: 1.5 cm LAESV Index (A-L): 47.56 ml/m Ao Diam: 3.3 cm (2.0 - 3.7) AV Cusp: 1.6 cm (1.5 - 2.6) MV EXCURSION: 18.270 mm (> 18.000) MV EF SLOPE: 35 mm/s (70 - 150) EPSS: 0.1 cm MV E Abad: 1.34 m/s MV DecT: 141 ms MV A Abad: 1.38 m/s MV E/A Ratio: 0.97 RAP: 5.00 mmHg RVSP: 43.16 mmHg FINDINGS -------- This was a technically adequate study. The left ventricular size is normal. There is mild concentric left ventricular hypertrophy. Overa ll left ventricular systolic function is low-normal with, an EF between 50 - 55 %. The right ventricle is normal in size. LA is severely dilated >40 ml/m2 The right atrium was not well visualized. Interatrial and interventricular septum intact. There is mild aortic valve sclerosis. There is no evidence of aortic regurgitation. There is no e vidence of aortic stenosis. Moderate mitral annular calcification present. Moderate mitral regurgitation is present. [id number] tricuspid regurgitation present. There is mild to moderate pulmonary hypertension. The right ventricular systolic pressure, as measured by Doppler, is 43.16mmHg. There is no pulmonic regurgitation present. The aortic root size is normal. IVC Not well visulized. There is no pericardial effusion. CONCLUSIONS -------- 1. The left ventricular size is normal. 2. There is mild concentric left ventricular hypertrophy. 3. Overall left ventricular systolic function is low-normal with, an EF between 50 - 55 %. 4. LA is severely dilated >40 ml/m2 5. There is mild aortic valve sclerosis. 6. Moderate mitral annular calcification present. 7. Moderate mitral regurgitation is present. 8. [id number] tricuspid regurgitation present. 9. There is mild to moderate pulmonary hypertension. 10. The right ventricular systolic pressure, as measured by Doppler, is 43.16mmHg. SHIRT IRONER: Jennifer Isaac RDCS
--- NOTE | 2021-03-31 13:42 | P.DS ---
Providers Date of admission: 03/29/21 15:46 Expected date of discharge: 03/31/21 Attending physician: Nhung Espinoza MD Consults: 03/29/21 15:10 Consult Physician Routine Consulting Provider: Jarrell Santiago Consult Reason/Comments: hypoxic respiratory failure Do you want consulting provider notified?: Yes 03/29/21 15:25 Consult Physician Routine Consulting Provider: Valdo Abarca Consult Reason/Comments: large hiatal hernia, pt having hypoxia possible r/t aspiration Do you want consulting provider notified?: Yes Primary care physician: Naseem Motley MD Hospital Course: Discharge Diagnosis: Symptomatic Hiatal hernia GERD Acute hypoxic respiratory failure suspect secondary to obstructive lung disease, probable underlying COPD versus restrictive disease secondary to hiatal hernia patient will require home oxygen with ambulation Hypertension Hypothyroidism Dyslipidemia Hospital Course: Patient is a very pleasant 81-year-old female who presented from her primary care physician's office secondary to decreased oxygen levels with ambulation. On arrival to the ER she was placed on nasal cannula area she is on have an elevated d-dimer. She underwent a CTA of the chest showing a large hiatal hernia, it was negative for pulmonary embolism. She is admitted for further monitoring. She underwent a barium esophagram which again redemonstrated her large hiatal hernia. She underwent echocardiogram which showed a preserved ejection fraction. Surgery was recommended outpatient EGD as well as surgical repair of the hiatal hernia. It was felt that her oxygenation dropping was secondary to obstructive/restrictive disease due to the large hiatal hernia. Patient was determined stable for discharge. She'll continue with her Nexium twice daily and at her Mylanta as needed. She will discuss with Dr. Chandler results. Plans are for EGD on 04/[address] Abarca, he tentatively has her scheduled for surgery on 04/07. Patient seen and examined at bedside. Vital signs reviewed and stable. General: non toxic, no distress, appears at stated age Derm: warm, dry Head: atraumatic, normocephalic, symmetric Eyes: EOMI, no lid lag, anicteric sclera Mouth: no lip lesion, mucus membranes moist Cardiovascular: S1S2 reg, no murmur, positive posterior tibial pulse bilateral, Lungs: Decreased bs bilateral, no rhonchi, no rales , no accessory muscle use Abdominal: soft, nontender to palpation, no guarding, no appreciable organomegaly Ext: no gross muscle atrophy, no edema, no contractures Neuro: CN II-XI grossly intact, no focal neuro deficits Psych: Alert, oriented, appropriate affect A total of 25 minutes of time were spent preparing this complex discharge summary . Patient Condition at Discharge: Stable Plan - Discharge Summary Discharge Rx Participant: Yes New Discharge Prescriptions: No Action Esomeprazole Magnesium [NexIUM] 40 mg PO BID Aspirin EC [Ecotrin Low Dose] 81 mg PO DAILY Zolpidem [Ambien] 5 mg PO HS PRN PRN Reason: Insomnia Losartan/Hydrochlorothiazide [Losartan-Hctz 100-25 mg Tab] 1 tab PO DAILY Mirtazapine 30 mg PO HS NIFEdipine [Procardia XL] 30 mg PO DAILY Atorvastatin Calcium [Lipitor] 40 mg PO HS Istalol 0.5% 1 drop BOTH EYES DAILY Montelukast [Singulair] 10 mg PO HS Mirabegron [Myrbetriq] 25 mg PO DAILY Levothyroxine Sodium [Synthroid] 75 mcg PO DAILY 30 Days #30 tab Escitalopram [Lexapro] 20 mg PO DAILY prednisoLONE ACETATE 1% OPHTH [Pred Forte 1%] 1 drop LEFT EYE TID Tolterodine Tartrate [Detrol LA] 4 mg PO HS Gabapentin 300 mg PO BID Baclofen [Lioresal] 10 mg PO TID PRN PRN Reason: Muscle Spasm dexAMETHasone [Decadron Elixir] 0.5 mg PO TID Travoprost [Travoprost 0.004%] 1 drop BOTH EYES HS Discharge Medication List Aspirin EC [Ecotrin Low Dose] 81 mg PO DAILY 04/10/20 [History] Atorvastatin Calcium [Lipitor] 40 mg PO HS 04/10/20 [History] Esomeprazole Magnesium [NexIUM] 40 mg PO BID 04/10/20 [History] Istalol 0.5% 1 drop BOTH EYES DAILY 04/10/20 [History] Losartan/Hydrochlorothiazide [Losartan-Hctz 100-25 mg Tab] 1 tab PO DAILY 04/10/20 [History] Mirtazapine 30 mg PO HS 04/10/20 [History] NIFEdipine [Procardia XL] 30 mg PO DAILY 04/10/20 [History] Zolpidem [Ambien] 5 mg PO HS PRN 04/10/20 [History] Baclofen [Lioresal] 10 mg PO TID PRN 12/07/20 [History] Gabapentin 300 mg PO BID 12/07/20 [History] Mirabegron [Myrbetriq] 25 mg PO DAILY 12/07/20 [History] Montelukast [Singulair] 10 mg PO HS 12/07/20 [History] Tolterodine Tartrate [Detrol LA] 4 mg PO HS 12/07/20 [History] Levothyroxine Sodium [Synthroid] 75 mcg PO DAILY 30 Days #30 tab 12/11/20 [Rx] Escitalopram [Lexapro] 20 mg PO DAILY 03/29/21 [History] Travoprost [Travoprost 0.004%] 1 drop BOTH EYES HS 03/29/21 [History] dexAMETHasone [Decadron Elixir] 0.5 mg PO TID 03/29/21 [History] prednisoLONE ACETATE 1% OPHTH [Pred Forte 1%] 1 drop LEFT EYE TID 03/29/21 [History] Follow up Appointment(s)/Referral(s): Naseem Motley MD [Primary Care Provider] - 1-2 days Valdo Abarca MD [STAFF PHYSICIAN] - 04/05/21 Activity/Diet/Wound Care/Special Instructions: Activity: as tolerated Diet: heart healthy Special Instructions: Require oxygenation with ambulation as she dropped to 77% with ambulation, likely due to obstructive lung disease Discharge Disposition: HOME SELF-CARE
--- NOTE | 2021-03-31 15:28 | P.PN ---
Subjective Progress Note Date: 03/31/21 Principal diagnosis: Evidence of breath secondary to large intrathoracic hernia This is a very pleasant 81-year-old female patient with a known history of hypertension, hyperlipidemia, hypothyroidism, gastroesophageal reflux disease, ESBL in urine with a history of suprapubic tube placement. She is a lifelong nonsmoker. No history of asthma. No oxygen or inhalers in the outpatient setting. She came into the emergency room yesterday from her PCPs office after being found to be heart cocci make with O2 saturations in the 80s while ambulating in the office. She had gone to see her doctor because at 3:30 that same morning she woke up gasping. She had difficulty and catching her breath. No cough or congestion. No fever chills or night sweats. No hemoptysis. No chest pain or palpitations. He's to 7 onset of occult heme breathing. CT angiogram ruled out pulmonary embolism. There is a large hiatal hernia or intrathoracic stomach with abnormal twisting noted in the thoracic cavity. There is some mild linear atelectasis or scarring. No acute pulmonary process. She is seen today in the regular medical floor. She is currently sitting up in bed. Awake and alert in no acute distress. No further episodes of shortness of breath. No cough or congestion. No pulmonary complaints. He is maintaining O2 saturations in the 90s on room air. She's been afebrile. White count 4.6. Hemoglobin 9.9. Sodium 138. Potassium 3.9. Creatinine 0.7. Gu virus by PCR not detected. The patient is seen today 03/31/2021 in follow-up on the regular medical floor. She is currently sitting up in bed. Awake and alert in no acute distress. She denies any worsening shortness of breath cough or congestion. No nausea. Good O2 saturation in the 90s on 2 L/m per nasal cannula. She did qualify for home oxygen with O2 saturation 73% on room air. Echocardiogram revealed preserved left ventricular systolic function with ejection fraction 50-55%. Moderate mitral regurgitation. Objective - Vital Signs Vital signs: Vital Signs Temp 97.5 F L 03/31/21 07:00 Pulse 75 03/31/21 07:00 Resp 16 03/31/21 07:00 BP 137/70 03/31/21 07:00 Pulse Ox 92 L 03/31/21 13:07 Intake & Output 03/30/21 03/31/21 03/31/21 18:59 06:59 18:59 Output Total 1000 900 Balance -1000 -900 Output: Urine 1000 900 Other: Voiding Method Indwelling Catheter Indwelling Catheter - Exam GENERAL EXAM: Alert, active, pleasant 81-year-old female patient, on 2 L nasal cannula, comfortable in no apparent distress. HEAD: Normocephalic. EYES: Normal reaction of pupils, equal size. NOSE: Clear with pink turbinates. THROAT: No erythema or exudates. NECK: No masses, no JVD. CHEST: No chest wall deformity. LUNGS: Equal air entry with no crackles, wheeze, rhonchi or dullness. CVS: S1 and S2 normal with no audible murmur, regular rhythm. ABDOMEN: No hepatosplenomegaly, normal bowel sounds, no guarding or rigidity. SPINE: No scoliosis or deformity SKIN: No rashes CENTRAL NERVOUS SYSTEM: No focal deficits, tone is normal in all 4 extremities. EXTREMITIES: There is no peripheral edema. No clubbing, no cyanosis. Peripheral pulses are intact. - Labs CBC & Chem 7: 03/30/21 06:11 03/30/21 06:11 Assessment and Plan Assessment: 1 Acute episode of dyspnea at 3:30 in the morning on 03/29/2021. CT angiogram here ruled out any acute pulmonary process. There was however a large hiatal hernia or intrathoracic stomach twisted into the thoracic cavity. 2 History of gastroesophageal reflux disease related to above 3 Hypertension 4 Hyperlipidemia 5 Hypothyroidism 6 History of ESBL in the urine with previous suprapubic catheter insertion 7 History of depression 8 Lifelong nonsmoker and no previous pulmonary issues 9 Anemia Plan: The patient was seen and evaluated by Dr. Santiago For discharge from the pulmonary standpoint Qualified for home oxygen Plan is for outpatient EGD May be considered for laparoscopic Niesen fundoplication I, the cosigning physician, performed a history & physical examination of the patient. Lungs sounds are clear. Maintaining good O2 saturations in the 90s on 2 L/m per nasal cannula. I discussed the assessment and plan of care with my nurse practitioner, Zarina Guthrie. I attest to the above note as dictated by her.
[2021-03-31 15:39] VITALS: BP 129/70; PULSE 72; TEMP 97.4
[2021-03-31] MEDS: SODIUM CHLORIDE 0.9% 1,000 ML IV SCH (16:56)
== END 2021-03-31 18:20 | disposition home or self-care (01) ==
LOC: EC 11:47 → 6NMEDSUR 15:46
PROVIDERS: ADMIT Internal Medicine; ATTEND Internal Medicine
DX: J96.01 Acute respiratory failure with hypoxia (principal); J96.11 Chronic respiratory failure with hypoxia; K44.9 Diaphragmatic hernia without obstruction or gangrene; K21.9 Gastro-esophageal reflux disease without esophagitis; I10 Essential (primary) hypertension; E03.9 Hypothyroidism, unspecified; E78.5 Hyperlipidemia, unspecified; R79.89 Other specified abnormal findings of blood chemistry; F32.A Depression, unspecified; F41.9 Anxiety disorder, unspecified; M50.30 Other cervical disc degeneration, unspecified cervical region; I27.20 Pulmonary hypertension, unspecified; I08.3 Combined rheumatic disorders of mitral, aortic and tricuspid valves; D64.9 Anemia, unspecified; Z20.822 Contact with and (suspected) exposure to COVID-19; Z87.01 Personal history of pneumonia (recurrent); Z86.19 Personal history of other infectious and parasitic diseases; Z16.24 Resistance to multiple antibiotics; Z66 Do not resuscitate; Z71.9 Counseling, unspecified; Z79.890 Hormone replacement therapy; Z79.82 Long term (current) use of aspirin; Z79.52 Long term (current) use of systemic steroids; Z79.899 Other long term (current) drug therapy; Z88.8 Allergy status to other drugs, medicaments and biological substances; Z88.2 Allergy status to sulfonamides; Z82.49 Family history of ischemic heart disease and other diseases of the circulatory system
CPT/HCPCS: 96376 ×2; 96372 ×3; 96374; 99285; 36415; 93005; 93306; 92610; 85379; 83880; 80048 ×2; 83735; 84484; 85025; 85027; 87635; 74240; 71046; 71275; G0378 ×3; C9113 ×2; Q9967; J1644 ×3

== ENCOUNTER 2021-04-05 11:37 | Day surgery (SDC) | payer BC, MEDICARE ==
[2021-04-02 10:44] VITALS: BMI 27.8
[~2021-04-05 11:37] MED LIST: LIDOCAINE 1% (10MG/ML) FOR IV START INTRADERMA PRN
[2021-04-05 12:14] VITALS: TEMP 97
[2021-04-05] MEDS: LACTATED RINGERS 1,000 ML IV SCH ×2 (12:18→14:50)
[2021-04-05 12:21] LABS: Glucose,Whole Blood 104 mg/dL (75-99)
[2021-04-05] MEDS ORDERED: PROPOFOL 10 MG/ML 20 ML VIAL IV ONE (14:53)
--- NOTE | 2021-04-05 14:57 | P.GSHP ---
History of Present Illness H&P Date: 04/05/21 Chief Complaint: dysphagia, paraesophageal hiatal hernia was an 81-year-old female who has had chronic issues with dysphagia and GERD. Patient has had recent aspiration. Patient underwent esophagram found have a largeparaesophageal hiatal hernia. Patient resents today for EGD Past Medical History Past Medical History: GERD/Reflux, Hyperlipidemia, Hypertension, Thyroid Disorder Additional Past Medical History / Comment(s): recent admission to [facility] for large hiatal hernia,hypoxia,has suprapubic catheter placed History of Any Multi-Drug Resistant Organisms: ESBL Date of last positivie culture/infection: 12/06/20 MDRO Source:: ESBL URINE Past Surgical History: Joint Replacement Additional Past Surgical History / Comment(s): parathyroid gland, suprapubic catheter insertion Past Anesthesia/Blood Transfusion Reactions: No Reported Reaction Past Psychological History: Depression Smoking Status: Never smoker Past Alcohol Use History: None Reported Past Drug Use History: None Reported - Past Family History Sister(s) Family Medical History: Myocardial Infarction ([place]) Mother Family Medical History: Cancer Additional Family Medical History / Comment(s): pancreatic Medications and Allergies Home Medications Medication Instructions Recorded Confirmed Type Aspirin EC [Ecotrin Low Dose] 81 mg PO DAILY 04/10/20 04/02/21 History Atorvastatin Calcium [Lipitor] 40 mg PO HS 04/10/20 04/02/21 History Esomeprazole Magnesium [NexIUM] 40 mg PO BID 04/10/20 04/02/21 History Istalol 0.5% 1 drop BOTH EYES QAM 04/10/20 04/02/21 History Losartan/Hydrochlorothiazide 1 tab PO QAM 04/10/20 04/02/21 History [Losartan-Hctz 100-25 mg Tab] Mirtazapine 30 mg PO HS 04/10/20 04/02/21 History NIFEdipine [Procardia XL] 30 mg PO QAM 04/10/20 04/02/21 History Zolpidem [Ambien] 5 mg PO HS PRN 04/10/20 04/02/21 History Baclofen [Lioresal] 10 mg PO TID PRN 12/07/20 04/02/21 History Gabapentin 300 mg PO BID 12/07/20 04/02/21 History Mirabegron [Myrbetriq] 25 mg PO HS 12/07/20 04/02/21 History Montelukast [Singulair] 10 mg PO HS 12/07/20 04/02/21 History Tolterodine Tartrate [Detrol LA] 4 mg PO HS 12/07/20 04/02/21 History Escitalopram [Lexapro] 20 mg PO QAM 03/29/21 04/02/21 History dexAMETHasone [Decadron Elixir] 0.5 mg PO TID 03/29/21 04/02/21 History prednisoLONE ACETATE 1% OPHTH 1 drop LEFT EYE TID 03/29/21 04/02/21 History [Pred Forte 1%] Levothyroxine Sodium [Synthroid] 75 mcg PO QAM 04/02/21 04/02/21 History Allergies Allergy/AdvReac Type Severity Reaction Status Date / Time atorvastatin [From Lipitor] Allergy Migraine--brand Verified 04/02/21 10:46 OK brimonidine [From Combigan] Allergy Itching Verified 04/02/21 10:46 dicyclomine [From Bentyl] Allergy Swelling Verified 04/02/21 10:46 Sulfa (Sulfonamide Allergy Swelling Verified 04/02/21 10:46 Antibiotics) timolol [From Combigan] Allergy Itching Verified 04/02/21 10:46 Surgical - Exam Vital Signs Temp Pulse Resp BP Pulse Ox 97 F L 79 20 141/64 92 L 04/05/21 12:12 04/05/21 12:12 04/05/21 12:12 04/05/21 12:12 04/05/21 12:12 - General well developed, well nourished, no distress - Eyes PERRL - ENT normal pinna - Neck no masses - Respiratory normal expansion - Cardiovascular Rhythm: regular - Abdomen Abdomen: soft, non tender Results - Labs Abnormal Lab Results - Last 24 Hours (Table) 04/05/21 Range/Units 12:15 POC Glucose (mg/dL) 104 H (75-99) mg/dL Assessment and Plan Assessment: large paraesophageal hiatal hernia. We'll perform EGD.
--- NOTE | 2021-04-05 15:03 | P.OP ---
Date of Procedure: 04/05/21 Preoperative Diagnosis: large paraesophageal hernia Postoperative Diagnosis: large intrathoracic paraesophageal hiatal hernia Procedure(s) Performed: EGD Anesthesia: MAC Surgeon: Valdo Abarca Pathology: none sent Condition: stable Disposition: PACU Description of Procedure: the patient's placed on the endoscopy table lateral position. She received IV sedation. The gastroscope placed oropharynx passed in the esophagus into the stomach. Patient had a large intrathoracic hiatal hernia. There was a severe angulation of the stomach. Tthe gastroscope could not and through the outlet of the stomach due to the severe angulation. At this point the scope was withdrawn. The GE junction was at 336 cm. The distal esophagus appeared normal. The proximal esophagus appeared normal. The scope was withdrawn for patient.
[2021-04-05 16:01] VITALS: BP 170/84; PULSE 72; RESP 16
== END 2021-04-05 16:13 | disposition home or self-care (01) ==
LOC: ORWHC2ENDO 11:37
PROVIDERS: ATTEND Surgery
DX: K44.9 Diaphragmatic hernia without obstruction or gangrene (principal); K21.9 Gastro-esophageal reflux disease without esophagitis; E78.5 Hyperlipidemia, unspecified; I10 Essential (primary) hypertension; Z96.0 Presence of urogenital implants; Z86.19 Personal history of other infectious and parasitic diseases; Z96.60 Presence of unspecified orthopedic joint implant; F32.A Depression, unspecified; Z82.49 Family history of ischemic heart disease and other diseases of the circulatory system; Z80.0 Family history of malignant neoplasm of digestive organs; Z97.2 Presence of dental prosthetic device (complete) (partial); Z79.82 Long term (current) use of aspirin; Z79.890 Hormone replacement therapy; Z79.899 Other long term (current) drug therapy; Z88.2 Allergy status to sulfonamides; Z88.8 Allergy status to other drugs, medicaments and biological substances
CPT/HCPCS: 43235; J2704

== ENCOUNTER 2021-05-08 21:30 | Inpatient (IN) | payer BC, MEDICARE ==
[2021-05-08] MEDS ORDERED: SODIUM CHLORIDE 0.9% 500 ML 500 ML IV STA ×2 (22:05→22:57)
--- NOTE | 2021-05-08 22:22 | XR ---
EXAMINATION TYPE: XR chest 1V portable DATE OF EXAM: 05/08/2021 COMPARISON: 03/29/2021 HISTORY: Short of breath TECHNIQUE: FINDINGS: There is very large hiatal hernia. Lungs are clear of consolidation. There is no heart fail ure. Heart appears enlarged. There is no definite pleural effusion. IMPRESSION: Large hiatal hernia. Cardiomegaly. No definite acute lung disease. No change.
--- NOTE | 2021-05-08 22:25 | XR ---
EXAMINATION TYPE: XR KUB DATE OF EXAM: 05/08/2021 COMPARISON: 10/14/2020 HISTORY: Abdominal pain TECHNIQUE: 2 views FINDINGS: There is a large hiatal hernia. There is no sign of intestinal obstruction or pneumoperiton eum. Fecal pattern is normal. There is left hip prosthesis. There are no calcifications over the kidn eys. IMPRESSION: Nonacute abdomen. Large hiatal hernia. No significant change.
[2021-05-08 22:40] LABS: Amorphous Sediment,Urine Rare /hpf; Appearance,Urine Cloudy (Clear); Bacteria,Urine Rare /hpf; Bilirubin,Urine Negative (Negative); Blood,Urine Negative (Negative); Color,Urine Yellow; Glucose,Urine (UA) Negative (Negative); Hyaline Casts,Urine 7 /lpf (0-2); Ketones,Urine Negative (Negative); Leukocyte Esterase,Urine Large (Negative); Mucus,Urine Rare /hpf; Nitrite,Urine Negative (Negative); PH, Urine 6.5 (5.0-8.0); Protein,Urine Trace (Negative); RBC,Urine 12 /hpf (0-5); Specific Gravity,Urine 1.015 (1.001-1.035); Urobilinogen,Urine <2.0 mg/dL (<2.0); WBC,Urine 64 /hpf (0-5)
[2021-05-08 22:41] LABS: Basophils % (A) 0 %; Eosinophils # (A) 0.1 k/uL (0-0.7); Eosinophils % (A) 2 %; HGB 10.1 gm/dL (11.4-16.0); Hypochromasia Marked; Lymphocytes # (A) 0.7 k/uL (1.0-4.8); Lymphocytes % (A) 10 %; MCHC 30.7 g/dL (31.0-37.0); MCV 78.3 fL (80.0-100.0); Mean Platelet Volume 7.4; Microcytosis Slight; Monocytes # (A) 0.7 k/uL (0-1.0); Monocytes % (A) 9 %; Neutrophils # (A) 5.2 k/uL (1.3-7.7); Neutrophils % (A) 75 %; Platelet Count 348 k/uL (150-450); RBC 4.21 m/uL (3.80-5.40); RDW 15.5 % (11.5-15.5); WBC 6.9 k/uL (3.8-10.6)
[2021-05-08 22:48] LABS: Albumin 3.9 g/dL (3.5-5.0); Calcium 8.8 mg/dL (8.4-10.2); Potassium 4.1 mmol/L (3.5-5.1); Total Bilirubin 0.4 mg/dL (0.2-1.3); Total Protein 7.3 g/dL (6.3-8.2)
--- NOTE | 2021-05-08 23:03 | ED ---
General Adult HPI - General Chief complaint: Abdominal Pain Stated complaint: Dizziness, nausea Time Seen by Provider: 05/08/21 21:34 Source: patient, EMS Mode of arrival: EMS - History of Present Illness Initial comments: This patient is an 81-year-old woman presenting with complaint of feeling "dizzy" going back a couple of days now. The patient states she is not taking much to eat or drink going on 24 hours now. When the symptoms were not improving family persuaded her to be evaluated here. The patient is also noted a little bit of epigastric discomfort. She attributes this to hiatal hernia that she has. No radiation of the pain. She has not noted worsening or re lieving factors. She has had some nausea nor vomiting. Onset/Timin -: days(s) Location: abdomen Radiation: non-radiation Quality: dull Consistency: constant Improves with: none Worsens with: none Associated Symptoms: denies other symptoms, loss of appetite Treatments Prior to Arrival: none - Related Data Home Medications Medication Instructions Recorded Confirmed Aspirin EC [Ecotrin Low Dose] 81 mg PO DAILY 04/10/20 04/02/21 Atorvastatin Calcium [Lipitor] 40 mg PO HS 04/10/20 04/02/21 Esomeprazole Magnesium [NexIUM] 40 mg PO BID 04/10/20 04/02/21 Istalol 0.5% 1 drop BOTH EYES QAM 04/10/20 04/02/21 Losartan/Hydrochlorothiazide 1 tab PO QAM 04/10/20 04/02/21 [Losartan-Hctz 100-25 mg Tab] Mirtazapine 30 mg PO HS 04/10/20 04/02/21 NIFEdipine [Procardia XL] 30 mg PO QAM 04/10/20 04/02/21 Zolpidem [Ambien] 5 mg PO HS PRN 04/10/20 04/02/21 Baclofen [Lioresal] 10 mg PO TID PRN 12/07/20 04/02/21 Gabapentin 300 mg PO BID 12/07/20 04/02/21 Mirabegron [Myrbetriq] 25 mg PO HS 12/07/20 04/02/21 Montelukast [Singulair] 10 mg PO HS 12/07/20 04/02/21 Tolterodine Tartrate [Detrol LA] 4 mg PO HS 12/07/20 04/02/21 Escitalopram [Lexapro] 20 mg PO QAM 03/29/21 04/02/21 dexAMETHasone [Decadron Elixir] 0.5 mg PO TID 03/29/21 04/02/21 prednisoLONE ACETATE 1% OPHTH 1 drop LEFT EYE TID 03/29/21 04/02/21 [Pred Forte 1%] Levothyroxine Sodium [Synthroid] 75 mcg PO QAM 04/02/21 04/02/21 Allergies Allergy/AdvReac Type Severity Reaction Status Date / Time atorvastatin [From Lipitor] Allergy Migraine--brand Verified 04/02/21 10:46 OK brimonidine [From Combigan] Allergy Itching Verified 04/02/21 10:46 dicyclomine [From Bentyl] Allergy Swelling Verified 04/02/21 10:46 Sulfa (Sulfonamide Allergy Swelling Verified 04/02/21 10:46 Antibiotics) timolol [From Combigan] Allergy Itching Verified 04/02/21 10:46 Review of Systems ROS Statement: Those systems with pertinent positive or pertinent negative responses have been documented in the HPI. ROS Other: All systems not noted in ROS Statement are negative. Constitutional: Reports: weakness. Denies: fever, chills ENT: Denies: throat pain, congestion Respiratory: Denies: cough, dyspnea Cardiovascular: Reports: syncope (Near syncope). Denies: chest pain, palpitations, orthopnea, edema Gastrointestinal: Reports: as per HPI, abdominal pain, nausea. Denies: vomiting, diarrhea, constipation, melena, hematochezia Genitourinary: Denies: dysuria, hematuria Musculoskeletal: Denies: back pain Skin: Denies: rash Neurological: Denies: headache, weakness, numbness Past Medical History Past Medical History: GERD/Reflux, Hyperlipidemia, Hypertension, Thyroid Disorder Additional Past Medical History / Comment(s): recent admission to [facility] for large hiatal hernia,hypoxia,has suprapubic catheter placed History of Any Multi-Drug Resistant Organisms: ESBL Date of last positivie culture/infection: 12/06/20 MDRO Source:: ESBL URINE Past Surgical History: Joint Replacement Additional Past Surgical History / Comment(s): parathyroid gland, suprapubic catheter insertion Past Anesthesia/Blood Transfusion Reactions: No Reported Reaction Past Psychological History: Depression Smoking Status: Never smoker Past Alcohol Use History: None Reported Past Drug Use History: None Reported - Past Family History Sister(s) Family Medical History: Myocardial Infarction ([place]) Mother Family Medical History: Cancer Additional Family Medical History / Comment(s): pancreatic General Exam General appearance: alert, in no apparent distress Head exam: Present: atraumatic, normocephalic Eye exam: Present: normal appearance. Absent: scleral icterus, conjunctival injection ENT exam: Present: normal oropharynx, mucous membranes dry Neck exam: Present: normal inspection, full ROM. Absent: tenderness, meningismus Respiratory exam: Present: normal lung sounds bilaterally. Absent: respiratory distress, wheezes, rales, rhonchi, stridor Cardiovascular Exam: Present: regular rate, normal rhythm, systolic murmur (Grade 1/6 systolic ejection murmur). Absent: diastolic murmur, rubs, gallop GI/Abdominal exam: Present: soft, tenderness (Mild epigastric tenderness no rebound or guarding), hyperactive bowel sounds, other (Suprapubic catheter present otherwise unremarkable). Absent: distended, guarding, rebound, rigid, mass, pulsatile mass, hernia Extremities exam: Present: normal inspection, normal capillary refill. Absent: pedal edema, calf tenderness Back exam: Present: normal inspection. Absent: CVA tenderness (R), CVA tenderness (L) Neurological exam: Present: alert, oriented X3. Absent: motor sensory deficit Skin exam: Present: warm, dry, intact, normal color. Absent: rash Course Vital Signs 05/08/21 21:32 Temperature 98.9 F Pulse Rate 77 Respiratory 18 Rate Blood Pressure 104/44 O2 Sat by Pulse 95 Oximetry EKG Findings - EKG Comments: EKG Findings:: Possible old anterior infarct. Possible old inferior infarct - EKG Results: EKG: interpreted by ERMD, sinus rhythm, normal axis - Blocks, [place], Hypertrophy, ST Abn: AV and intraventricular conduction: 1 AV block Procedures - Tiline Protocol (Time Out) Nurse: Jatinder Marroquin Medical Decision Making - Lab Data Result diagrams: 05/08/21 22:09 05/08/21 22:09 Lab Results 05/08/21 05/08/21 05/08/21 Range/Units 22:09 22:09 22:09 WBC 6.9 (3.8-10.6) k/uL RBC 4.21 (3.80-5.40) m/uL Hgb 10.1 L (11.4-16.0) gm/dL Hct 33.0 L (34.0-46.0) % MCV 78.3 L (80.0-100.0) fL MCH 24.0 L (25.0-35.0) pg MCHC 30.7 L (31.0-37.0) g/dL RDW 15.5 (11.5-15.5) % Plt Count 348 (150-450) k/uL MPV 7.4 Neutrophils % 75 % Lymphocytes % 10 % Monocytes % 9 % Eosinophils % 2 % Basophils % 0 % Neutrophils # 5.2 (1.3-7.7) k/uL Lymphocytes # 0.7 L (1.0-4.8) k/uL Monocytes # 0.7 (0-1.0) k/uL Eosinophils # 0.1 (0-0.7) k/uL Basophils # 0.0 (0-0.2) k/uL Hypochromasia Marked Microcytosis Slight Sodium 127 L (137-145) mmol/L Potassium 4.1 (3.5-5.1) mmol/L Chloride 90 L (98-107) mmol/L Carbon Dioxide 23 (22-30) mmol/L Anion Gap 14 mmol/L BUN 27 H (7-17) mg/dL Creatinine 0.94 (0.52-1.04) mg/dL Est GFR (CKD-EPI)AfAm 66 (>60 ml/min/1.73 sqM) Est GFR (CKD-EPI)NonAf 57 (>60 ml/min/1.73 sqM) Glucose 143 H (74-99) mg/dL Plasma Lactic Acid Christian (0.7-2.0) mmol/L Calcium 8.8 (8.4-10.2) mg/dL Total Bilirubin 0.4 (0.2-1.3) mg/dL AST 25 (14-36) U/L ALT 17 (4-34) U/L Alkaline Phosphatase 104 (38-126) U/L Troponin I (0.000-0.034) ng/mL Total Protein 7.3 (6.3-8.2) g/dL Albumin 3.9 (3.5-5.0) g/dL Amylase 44 (30-110) U/L Lipase 113 (23-300) U/L Urine Color Yellow Urine Appearance Cloudy H (Clear) Urine pH 6.5 (5.0-8.0) Ur Specific [place] 1.015 (1.001-1.035) Urine Protein Trace H (Negative) Urine Glucose (UA) Negative (Negative) Urine Ketones Negative (Negative) Urine Blood Negative (Negative) Urine Nitrite Negative (Negative) Urine Bilirubin Negative (Negative) Urine Urobilinogen <2.0 (<2.0) mg/dL Ur Leukocyte Esterase Large H (Negative) Urine RBC 12 H (0-5) /hpf Urine WBC 64 H (0-5) /hpf Urine WBC Clumps Occasional H (None) /hpf Amorphous Sediment Rare H (None) /hpf Urine Bacteria Rare H (None) /hpf Hyaline Casts 7 H (0-2) /lpf Urine Mucus Rare H (None) /hpf 05/08/21 05/08/21 Range/Units 22:09 22:09 WBC (3.8-10.6) k/uL RBC (3.80-5.40) m/uL Hgb (11.4-16.0) gm/dL Hct (34.0-46.0) % MCV (80.0-100.0) fL MCH (25.0-35.0) pg MCHC (31.0-37.0) g/dL RDW (11.5-15.5) % Plt Count (150-450) k/uL MPV Neutrophils % % Lymphocytes % % Monocytes % % Eosinophils % % Basophils % % Neutrophils # (1.3-7.7) k/uL Lymphocytes # (1.0-4.8) k/uL Monocytes # (0-1.0) k/uL Eosinophils # (0-0.7) k/uL Basophils # (0-0.2) k/uL Hypochromasia Microcytosis Sodium (137-145) mmol/L Potassium (3.5-5.1) mmol/L Chloride (98-107) mmol/L Carbon Dioxide (22-30) mmol/L Anion Gap mmol/L BUN (7-17) mg/dL Creatinine (0.52-1.04) mg/dL Est GFR (CKD-EPI)AfAm (>60 ml/min/1.73 sqM) Est GFR (CKD-EPI)NonAf (>60 ml/min/1.73 sqM) Glucose (74-99) mg/dL Plasma Lactic Acid Christian 2.3 H* (0.7-2.0) mmol/L Calcium (8.4-10.2) mg/dL Total Bilirubin (0.2-1.3) mg/dL AST (14-36) U/L ALT (4-34) U/L Alkaline Phosphatase (38-126) U/L Troponin I <0.012 (0.000-0.034) ng/mL Total Protein (6.3-8.2) g/dL Albumin (3.5-5.0) g/dL Amylase (30-110) U/L Lipase (23-300) U/L Urine Color Urine Appearance (Clear) Urine pH (5.0-8.0) Ur Specific [place] (1.001-1.035) Urine Protein (Negative) Urine Glucose (UA) (Negative) Urine Ketones (Negative) Urine Blood (Negative) Urine Nitrite (Negative) Urine Bilirubin (Negative) Urine Urobilinogen (<2.0) mg/dL Ur Leukocyte Esterase (Negative) Urine RBC (0-5) /hpf Urine WBC (0-5) /hpf Urine WBC Clumps (None) /hpf Amorphous Sediment (None) /hpf Urine Bacteria (None) /hpf Hyaline Casts (0-2) /lpf Urine Mucus (None) /hpf Disposition Clinical Impression: Dehydration, Hyponatremia Condition: Fair Referrals: Naseem Motley MD [Primary Care Provider] - 1-2 days
[2021-05-08] MEDS ORDERED: cefTRIAXone IN SWFI 1,000 MG/10 ML SYRINGE IVP STA (23:23)
[2021-05-08] MEDS ORDERED: NALOXONE 0.4 MG/ML 1 ML VIAL IV PRN (23:23)
[2021-05-08] MEDS: SODIUM CHLORIDE 0.9% 1,000 ML IV SCH (23:35)
[2021-05-09] MEDS ORDERED: ZOLPIDEM 5 MG TAB PO PRN (01:26)
[2021-05-09] MEDS ORDERED: BACLOFEN 10 MG TAB PO PRN (01:26)
--- NOTE | 2021-05-09 01:58 | P.HPIM ---
History of Present Illness H&P Date: 05/08/21 Chief Complaint: dizziness 81 year old female with Hypertension, GERD with hiatal hernia patient comes in with couple day history of dizziness, that is not improving, over past two days she reports dizziness, and poor PO intake , no tinnitus no vomiting, but today she started feeling nauseous and full to the stomach. she has scheduled time soon to have her hiatal hernia operated on. she denies any diarrhea or bloody bowel movements. denies any fever, chills, abd pain , chest pain , shortness of breath, syncope, falls. denies any changes in hearing or other focal neuro deficits she is struggling with her GERD and hiatal hernia and was hoping to get the surgery soon she denies any recent travel or sick contact. denies any URI symptoms . in the ED , blood work showed microcytic anemia, hyponatremia and lactic acidosis vital signs were stable Review of Systems Pertinent positives as noted in HPI. All other systems were reviewed and are negative Past Medical History Past Medical History: GERD/Reflux, Hyperlipidemia, Hypertension, Thyroid Disorder Additional Past Medical History / Comment(s): recent admission to [facility] for large hiatal hernia,hypoxia,has suprapubic catheter placed History of Any Multi-Drug Resistant Organisms: ESBL Date of last positivie culture/infection: 12/06/20 MDRO Source:: ESBL URINE Past Surgical History: Joint Replacement Additional Past Surgical History / Comment(s): parathyroid gland, suprapubic catheter insertion Past Anesthesia/Blood Transfusion Reactions: No Reported Reaction Past Psychological History: Depression Smoking Status: Never smoker Past Alcohol Use History: None Reported Past Drug Use History: None Reported - Past Family History Sister(s) Family Medical History: Myocardial Infarction ([place]) Mother Family Medical History: Cancer Additional Family Medical History / Comment(s): pancreatic Medications and Allergies Home Medications Medication Instructions Recorded Confirmed Type Aspirin EC [Ecotrin Low Dose] 81 mg PO DAILY 04/10/20 05/08/21 History Atorvastatin Calcium [Lipitor] 40 mg PO HS 04/10/20 05/08/21 History Esomeprazole Magnesium [NexIUM] 40 mg PO DAILY 04/10/20 05/08/21 History Istalol 0.5% 1 drop BOTH EYES DAILY 04/10/20 05/08/21 History Mirtazapine 30 mg PO HS 04/10/20 05/08/21 History NIFEdipine [Procardia XL] 30 mg PO DAILY 04/10/20 05/08/21 History Zolpidem [Ambien] 5 mg PO HS PRN 04/10/20 05/08/21 History Baclofen [Lioresal] 10 mg PO TID PRN 12/07/20 05/08/21 History Gabapentin 300 mg PO BID 12/07/20 05/08/21 History Mirabegron [Myrbetriq] 25 mg PO HS 12/07/20 05/08/21 History Montelukast [Singulair] 10 mg PO HS 12/07/20 05/08/21 History Tolterodine Tartrate [Detrol LA] 4 mg PO HS 12/07/20 05/08/21 History Escitalopram [Lexapro] 20 mg PO DAILY 03/29/21 05/08/21 History prednisoLONE ACETATE 1% OPHTH 1 drop LEFT EYE TID 03/29/21 05/08/21 History [Pred Forte 1%] Levothyroxine Sodium [Synthroid] 75 mcg PO DAILY 04/02/21 05/08/21 History Doxycycline Monohydrate 50 mg PO BID 05/08/21 05/08/21 History Ofloxacin 0.3% Ophth Soln [Ocuflox 1 drop RIGHT EYE QID 05/08/21 05/08/21 History Ophth Soln] Valsartan/Hydrochlorothiazide 1 tab PO DAILY 05/08/21 05/08/21 History [Diovan Hct 160-25 mg Tablet] Allergies Allergy/AdvReac Type Severity Reaction Status Date / Time atorvastatin [From Lipitor] Allergy Migraine--brand Verified 05/08/21 23:47 OK brimonidine [From Combigan] Allergy Itching Verified 05/08/21 23:47 dicyclomine [From Bentyl] Allergy Swelling Verified 05/08/21 23:47 Sulfa (Sulfonamide Allergy Swelling Verified 05/08/21 23:47 Antibiotics) timolol [From Combigan] Allergy Itching Verified 05/08/21 23:47 Physical Exam Vitals: Vital Signs Temp Pulse Resp BP Pulse Ox 05/08/21 21:32 98.9 F 77 18 104/44 95 Intake and Output 05/08/21 05/08/21 05/09/21 14:59 22:59 06:59 Other: Weight 68.039 kg Constitutional: No acute distress, conversant, pleasant Eyes: Anicteric sclerae, moist conjunctiva, Pupils equal round reactive to light ENMT: NC/AT Oropharynx clear, no erythema, or exudates Neck: Supple, no masses, or JVD No carotid bruits No thyromegaly Lungs: Clear to auscultation Clear to percussion Normal respiratory effort, no accessory muscle use Cardiovascular: Heart regular in rate and rhythm, systolic murmurs, gallops, or rubs No peripheral edema Abdominal: Soft, slightly distended over epigastric region Nontender, no guarding, rebound or rigidity Abdomen moving with respiration Normoactive bowel sounds No hepatomegaly, No splenomegaly No palpable mass No abdominal wall hernia noted supra pubic catheter in place Skin: Normal temperature, tone, texture, turgor No induration No subcutaneous nodules No rash, lesions No ulcers Extremities: No digital cyanosis No clubbing Pedal pulses intact and symmetrical Radial pulses intact and symmetrical No calf tenderness Psychiatric: Alert and oriented to person, place Appropriate affect fair judgement Neuro Muscles Strength 4/5 in all 4 extremities Sensation to light touch grossly present throughout Cranial nerves II-XII grossly intact No focal sensory deficits Lymphatics: no palpable cervical or supraclavicular , or inguinal lymph nodes Results CBC & Chem 7: 05/08/21 22:09 05/08/21 22:09 Labs: Abnormal Lab Results - Last 24 Hours (Table) 05/08/21 05/08/21 05/08/21 Range/Units 22:09 22:09 22:09 Hgb 10.1 L (11.4-16.0) gm/dL Hct 33.0 L (34.0-46.0) % MCV 78.3 L (80.0-100.0) fL MCH 24.0 L (25.0-35.0) pg MCHC 30.7 L (31.0-37.0) g/dL Lymphocytes # 0.7 L (1.0-4.8) k/uL Sodium 127 L (137-145) mmol/L Chloride 90 L (98-107) mmol/L BUN 27 H (7-17) mg/dL Glucose 143 H (74-99) mg/dL Plasma Lactic Acid Christian (0.7-2.0) mmol/L Urine Appearance Cloudy H (Clear) Urine Protein Trace H (Negative) Ur Leukocyte Esterase Large H (Negative) Urine RBC 12 H (0-5) /hpf Urine WBC 64 H (0-5) /hpf Urine WBC Clumps Occasional H (None) /hpf Amorphous Sediment Rare H (None) /hpf Urine Bacteria Rare H (None) /hpf Hyaline Casts 7 H (0-2) /lpf Urine Mucus Rare H (None) /hpf 05/08/21 Range/Units 22:09 Hgb (11.4-16.0) gm/dL Hct (34.0-46.0) % MCV (80.0-100.0) fL MCH (25.0-35.0) pg MCHC (31.0-37.0) g/dL Lymphocytes # (1.0-4.8) k/uL Sodium (137-145) mmol/L Chloride (98-107) mmol/L BUN (7-17) mg/dL Glucose (74-99) mg/dL Plasma Lactic Acid Christian 2.3 H* (0.7-2.0) mmol/L Urine Appearance (Clear) Urine Protein (Negative) Ur Leukocyte Esterase (Negative) Urine RBC (0-5) /hpf Urine WBC (0-5) /hpf Urine WBC Clumps (None) /hpf Amorphous Sediment (None) /hpf Urine Bacteria (None) /hpf Hyaline Casts (0-2) /lpf Urine Mucus (None) /hpf Assessment and Plan Assessment: dehydration and hyponatremia IVF hydration with normal saline check orthostatic vitals monitor electrolytes , avoid overcorrection of Na goal 8 meq/24 hours neuro checks fall precautions chronic conditions microcytic anemia , denies GI bleeding hypertension , resume cardiac meds insomnia , ambien PRN home meds chronic hypoxic respiratory failure , continue with home oxygen 2 L PM hyperlipidemia , resume statin GERD with hiatal hernia , resume PPI full code DVT PPX heparin sc tid anticipated length of stay <2 midnights
[2021-05-09] MEDS: LEVOTHYROXINE 75 MCG TAB PO SCH (06:52)
[2021-05-09] MEDS ORDERED: VALSARTAN 160 MG TAB PO SCH (09:00)
[2021-05-09] MEDS ORDERED: hydroCHLOROthiazide 25 MG TAB PO SCH (09:00)
[2021-05-09] MEDS: ASPIRIN 81 MG PO SCH (10:20)
[2021-05-09] MEDS: HEPARIN SODIUM,PORCINE/PF 5,000 UNIT/0.5 ML SYRINGE SQ SCH ×2 (10:20→15:36)
[2021-05-09] MEDS: GABAPENTIN 300 MG CAP PO SCH ×2 (10:20→22:07)
[2021-05-09] MEDS: PANTOPRAZOLE 40 MG TABLET PO SCH (10:20)
[2021-05-09] MEDS: NIFEdipine XL 30 MG TAB.ER.24 PO SCH (10:21)
[2021-05-09 11:32] LABS: African American GFR (CKD) 93.5 (60.0-200.0); Anion Gap 9.7 mmol/L (10.00-18.00); BUN/Creat Ratio 22.14 Ratio (12.00-20.00); Blood Urea Nitrogen 15.5 mg/dL (9.0-27.0); Calcium 8.5 mg/dL (8.7-10.3); Carbon Dioxide 25.3 mmol/L (20.0-27.5); Non-African American GFR(CKD) 80.7 (60.0-200.0); Potassium 3.6 mmol/L (3.5-5.5)
[2021-05-09] MEDS: ESCITALOPRAM 20 MG TAB PO SCH (11:39)
[2021-05-09] MEDS: SODIUM CHLORIDE 0.9% 1,000 ML IV SCH ×2 (13:35→15:35)
--- NOTE | 2021-05-09 13:50 | P.PN ---
Subjective Progress Note Date: 05/09/21 Feels better this morning UTI continue Rocephin Hyponatremia. As I continue gentle IV hydration dehydration and hyponatremia IVF hydration with normal saline check orthostatic vitals monitor electrolytes , avoid overcorrection of Na goal 8 meq/24 hours neuro checks fall precautions chronic conditions microcytic anemia , denies GI bleeding hypertension , resume cardiac meds insomnia , ambien PRN home meds chronic hypoxic respiratory failure , continue with home oxygen 2 L PM hyperlipidemia , resume statin GERD with hiatal hernia , resume PPI Constitutional: No acute distress, conversant, pleasant Eyes: Anicteric sclerae, moist conjunctiva, no lid-lag PERRLA ENMT: NC/AT Oropharynx clear, no erythema, exudates Neck: Supple, FROM, no masses, or JVD No carotid bruits No thyromegaly Lungs: Clear to auscultation Clear to percussion Normal respiratory effort, no accessory muscle use Cardiovascular: Heart regular in rate and rhythm, No murmurs, gallops, or rubs No peripheral edema Abdominal: Soft Nontender, no guarding, rebound or rigidity Abdomen moving with respiration Normoactive bowel sounds No hepatomegaly, No splenomegaly No palpable mass No abdominal wall hernia noted Skin: Normal temperature, tone, texture, turgor No induration No subcutaneous nodules No rash, lesions No ulcers Extremities: No digital cyanosis No clubbing Pedal pulses intact and symmetrical Radial pulses intact and symmetrical Normal gait and station No calf tenderness Psychiatric:Alert and oriented to person, place and time Appropriate affect Intact judgement Neuro: Muscles Strength 5/5 in all 4 extremities Sensation to light touch grossly present throughout Cranial nerves II-XII grossly intact No focal sensory deficits Objective - Vital Signs Vital signs: Vital Signs Temp 98.2 F 05/09/21 08:00 Pulse 70 05/09/21 08:00 Resp 18 05/09/21 08:00 BP 131/67 05/09/21 08:00 Pulse Ox 96 05/09/21 08:00 Intake & Output 05/08/21 05/09/21 05/09/21 18:59 06:59 18:59 Output Total 1000 Balance -1000 Weight 68.039 kg Output: Urine 1000 - Labs CBC & Chem 7: 05/08/21 22:09 05/09/21 05:49 Labs: Abnormal Lab Results - Last 24 Hours (Table) 05/08/21 05/08/21 05/08/21 Range/Units 22:09 22:09 22:09 Hgb 10.1 L (11.4-16.0) gm/dL Hct 33.0 L (34.0-46.0) % MCV 78.3 L (80.0-100.0) fL MCH 24.0 L (25.0-35.0) pg MCHC 30.7 L (31.0-37.0) g/dL Lymphocytes # 0.7 L (1.0-4.8) k/uL Sodium 127 L (137-145) mmol/L Chloride 90 L (98-107) mmol/L Anion Gap (10.00-18.00) mmol/L BUN 27 H (7-17) mg/dL BUN/Creatinine Ratio (12.00-20.00) Ratio Glucose 143 H (74-99) mg/dL Plasma Lactic Acid Christian (0.7-2.0) mmol/L Calcium (8.7-10.3) mg/dL Urine Appearance Cloudy H (Clear) Urine Protein Trace H (Negative) Ur Leukocyte Esterase Large H (Negative) Urine RBC 12 H (0-5) /hpf Urine WBC 64 H (0-5) /hpf Urine WBC Clumps Occasional H (None) /hpf Amorphous Sediment Rare H (None) /hpf Urine Bacteria Rare H (None) /hpf Hyaline Casts 7 H (0-2) /lpf Urine Mucus Rare H (None) /hpf 05/08/21 05/09/21 Range/Units 22:09 05:49 Hgb (11.4-16.0) gm/dL Hct (34.0-46.0) % MCV (80.0-100.0) fL MCH (25.0-35.0) pg MCHC (31.0-37.0) g/dL Lymphocytes # (1.0-4.8) k/uL Sodium 129 L (137-145) mmol/L Chloride 94 L (98-107) mmol/L Anion Gap 9.70 L (10.00-18.00) mmol/L BUN (7-17) mg/dL BUN/Creatinine Ratio 22.14 H (12.00-20.00) Ratio Glucose (74-99) mg/dL Plasma Lactic Acid Christian 2.3 H* (0.7-2.0) mmol/L Calcium 8.5 L (8.7-10.3) mg/dL Urine Appearance (Clear) Urine Protein (Negative) Ur Leukocyte Esterase (Negative) Urine RBC (0-5) /hpf Urine WBC (0-5) /hpf Urine WBC Clumps (None) /hpf Amorphous Sediment (None) /hpf Urine Bacteria (None) /hpf Hyaline Casts (0-2) /lpf Urine Mucus (None) /hpf Microbiology - Last 24 Hours (Table) 05/08/21 22:09 Urine Culture - Preliminary Urine,Voided
[2021-05-09] MEDS ORDERED: MIRTAZAPINE 15 MG TAB PO SCH (21:00)
[2021-05-09] MEDS ORDERED: NON FORMULARY DRUG (Mirabegron [Myrbetriq] 25 MG Tab.Er.24h) PO SCH (21:00)
[2021-05-09] MEDS ORDERED: MONTELUKAST 10 MG TAB PO SCH (21:00)
[2021-05-10 07:18] LABS: Basophils % (A) 0 %; Eosinophils # (A) 0.2 k/uL (0-0.7); Eosinophils % (A) 3 %; HCT 35.2 % (34.0-46.0); Hypochromasia Slight; Lymphocytes # (A) 0.9 k/uL (1.0-4.8); Lymphocytes % (A) 16 %; MCH 24.2 pg (25.0-35.0); MCHC 31.1 g/dL (31.0-37.0); MCV 77.7 fL (80.0-100.0); Mean Platelet Volume 7.4; Microcytosis Slight; Monocytes # (A) 0.6 k/uL (0-1.0); Monocytes % (A) 11 %; Neutrophils # (A) 3.6 k/uL (1.3-7.7); Neutrophils % (A) 68 %; Platelet Count 260 k/uL (150-450); RBC 4.53 m/uL (3.80-5.40); RDW 15.4 % (11.5-15.5); WBC 5.3 k/uL (3.8-10.6)
[2021-05-10] MEDS: HEPARIN SODIUM,PORCINE/PF 5,000 UNIT/0.5 ML SYRINGE SQ SCH ×2 (07:34→07:37)
[2021-05-10] MEDS: PANTOPRAZOLE 40 MG TABLET PO SCH (07:35)
[2021-05-10] MEDS: GABAPENTIN 300 MG CAP PO SCH (07:35)
[2021-05-10] MEDS: LEVOTHYROXINE 75 MCG TAB PO SCH (07:36)
[2021-05-10] MEDS: ASPIRIN 81 MG PO SCH (07:36)
[2021-05-10] MEDS: ESCITALOPRAM 20 MG TAB PO SCH (07:36)
[2021-05-10] MEDS: SODIUM CHLORIDE 0.9% 1,000 ML IV SCH (07:37)
[2021-05-10] MEDS: NIFEdipine XL 30 MG TAB.ER.24 PO SCH (07:38)
[2021-05-10 08:23] VITALS: TEMP 97.6
[2021-05-10] MEDS ORDERED: VALSARTAN 160 MG TAB PO SCH (09:00)
[2021-05-10] MEDS ORDERED: LOSARTAN-HCTZ 50-12.5 MG 1 EACH TAB PO SCH (09:00)
[2021-05-10 09:46] LABS: African American GFR (CKD) 93.5 (60.0-200.0); Albumin 3.8 g/dL (3.8-4.9); Albumin/Globulin Ratio 1.36 (1.60-3.17); Anion Gap 12.4 mmol/L (10.00-18.00); BUN/Creat Ratio 11.14 Ratio (12.00-20.00); Blood Urea Nitrogen 7.8 mg/dL (9.0-27.0); Carbon Dioxide 24.6 mmol/L (20.0-27.5); Globulin 2.8 g/dL (1.6-3.3); Non-African American GFR(CKD) 80.7 (60.0-200.0); Potassium 3.6 mmol/L (3.5-5.5); Total Bilirubin 0.3 mg/dL (0.30-1.20); Total Protein 6.6 g/dL (6.2-8.2)
[2021-05-10 12:03] VITALS: BP 147/71; PULSE 70; RESP 18
[2021-05-10] MEDS ORDERED: ACETAMINOPHEN TAB 325 MG TAB PO PRN (12:26)
--- NOTE | 2021-05-10 12:28 | P.DS ---
Providers Date of admission: 05/08/21 23:23 Expected date of discharge: 05/10/21 Attending physician: Vince Stinson MD Primary care physician: Naseem Motley MD Hospital Course: Discharge Diagnosis: Hyponatremia Asymptomatic bacteriuria Microcytic anemia Hypertension Insomnia Chronic hypoxic respiratory failure on 2 L home O2 Hyperlipidemia GERD with hiatal hernia Hospital Course: 81 year old female with Hypertension, GERD with hiatal hernia patient comes in with couple day history of dizziness, that is not improving, over past two days she reports dizziness, and poor PO intake , no tinnitus no vomiting, but today she started feeling nauseous and full to the stomach. she has scheduled time soon to have her hiatal hernia operated on. she denies any diarrhea or bloody bowel movements. denies any fever, chills, abd pain , chest pain , shortness of breath, syncope, falls. denies any changes in hearing or other focal neuro deficits she is struggling with her GERD and hiatal hernia and was hoping to get the surgery soon she denies any recent travel or sick contact. denies any URI symptoms . in the ED , blood work showed microcytic anemia, hyponatremia and lactic acidosis Patient's dizziness is likely due to dehydration from decreased by mouth intake. Patient was started on fluids. At the time of discharge patient reported that her dizziness had improved. She was tolerating oral intake well without any nausea vomiting. She is looking forward to going home. Per nurse patient walking without issues and not complaining of dizziness with ambulation. Patient's sodium had also improved. She denies any UTI symptoms so antibiotics will be discontinued. General examination - Alert and Oriented 3 in NAD Heart - + S1S2 no murmurs Lungs - Clear to auscultation Abdomen soft NT ND +ve BS Extremities - No edema JAVA SDET - Moving all 4 extremities spontaneously Psych - Calm and cooperative A total of [30] minutes of time were spent preparing this complex discharge summary . Patient Condition at Discharge: Fair Plan - Discharge Summary Discharge Rx Participant: No New Discharge Prescriptions: Continue Esomeprazole Magnesium [NexIUM] 40 mg PO DAILY Aspirin EC [Ecotrin Low Dose] 81 mg PO DAILY Zolpidem [Ambien] 5 mg PO HS PRN PRN Reason: Insomnia Mirtazapine 30 mg PO HS NIFEdipine [Procardia XL] 30 mg PO DAILY Atorvastatin Calcium [Lipitor] 40 mg PO HS Istalol 0.5% 1 drop BOTH EYES DAILY Montelukast [Singulair] 10 mg PO HS Mirabegron [Myrbetriq] 25 mg PO HS Escitalopram [Lexapro] 20 mg PO DAILY prednisoLONE ACETATE 1% OPHTH [Pred Forte 1%] 1 drop LEFT EYE TID Tolterodine Tartrate [Detrol LA] 4 mg PO HS Gabapentin 300 mg PO BID Baclofen [Lioresal] 10 mg PO TID PRN PRN Reason: Muscle Spasm Levothyroxine Sodium [Synthroid] 75 mcg PO DAILY Ofloxacin 0.3% Ophth Soln [Ocuflox Ophth Soln] 1 drop RIGHT EYE QID Losartan/Hydrochlorothiazide [Losartan-Hctz 100-25 mg Tab] 1 tab PO DAILY Discontinued Doxycycline Monohydrate 50 mg PO BID Discharge Medication List Aspirin EC [Ecotrin Low Dose] 81 mg PO DAILY 04/10/20 [History] Atorvastatin Calcium [Lipitor] 40 mg PO HS 04/10/20 [History] Esomeprazole Magnesium [NexIUM] 40 mg PO DAILY 04/10/20 [History] Istalol 0.5% 1 drop BOTH EYES DAILY 04/10/20 [History] Mirtazapine 30 mg PO HS 04/10/20 [History] NIFEdipine [Procardia XL] 30 mg PO DAILY 04/10/20 [History] Zolpidem [Ambien] 5 mg PO HS PRN 04/10/20 [History] Baclofen [Lioresal] 10 mg PO TID PRN 12/07/20 [History] Gabapentin 300 mg PO BID 12/07/20 [History] Mirabegron [Myrbetriq] 25 mg PO HS 12/07/20 [History] Montelukast [Singulair] 10 mg PO HS 12/07/20 [History] Tolterodine Tartrate [Detrol LA] 4 mg PO HS 12/07/20 [History] Escitalopram [Lexapro] 20 mg PO DAILY 03/29/21 [History] prednisoLONE ACETATE 1% OPHTH [Pred Forte 1%] 1 drop LEFT EYE TID 03/29/21 [History] Levothyroxine Sodium [Synthroid] 75 mcg PO DAILY 04/02/21 [History] Ofloxacin 0.3% Ophth Soln [Ocuflox Ophth Soln] 1 drop RIGHT EYE QID 05/08/21 [History] Losartan/Hydrochlorothiazide [Losartan-Hctz 100-25 mg Tab] 1 tab PO DAILY 05/10/21 [History] Follow up Appointment(s)/Referral(s): Naseem Motley MD [Primary Care Provider] - 1-2 days Discharge Disposition: HOME WITH HOME HEALTH SERVICES
== END 2021-05-10 13:48 | disposition home health service (06) | DRG 641 ==
LOC: EC 21:30 → 5NMEDONC 23:23
PROVIDERS: ADMIT Internal Medicine; ATTEND Internal Medicine
DX: E87.1 Hypo-osmolality and hyponatremia (principal); J96.11 Chronic respiratory failure with hypoxia; N39.0 Urinary tract infection, site not specified; Z20.822 Contact with and (suspected) exposure to COVID-19; R11.0 Nausea; D50.9 Iron deficiency anemia, unspecified; E78.5 Hyperlipidemia, unspecified; E86.0 Dehydration; K44.9 Diaphragmatic hernia without obstruction or gangrene; E87.2 Acidosis; F32.A Depression, unspecified; G47.00 Insomnia, unspecified; I10 Essential (primary) hypertension; K21.9 Gastro-esophageal reflux disease without esophagitis; Z79.82 Long term (current) use of aspirin; Z79.890 Hormone replacement therapy; Z79.899 Other long term (current) drug therapy; Z99.81 Dependence on supplemental oxygen; Z82.49 Family history of ischemic heart disease and other diseases of the circulatory system; Z88.2 Allergy status to sulfonamides; Z88.8 Allergy status to other drugs, medicaments and biological substances; Z96.60 Presence of unspecified orthopedic joint implant
CPT/HCPCS: 36415; 71045; 74018; 80048; 80053; 81001; 82150; 83605; 83690; 84484; 85025; 87086; 87635; 93005; 96361; 96365; 96372; 96375; 99285

== ENCOUNTER 2021-06-10 23:26 | Emergency (ER) | payer MEDICARE ==
[2021-06-10] MEDS ORDERED: SODIUM CHLORIDE 0.9% 500 ML 500 ML IV STA (23:39)
[2021-06-10] MEDS ORDERED: MAGNESIUM SULFATE-D5W PMX 1 GM in DEXTROSE/WATER 1 100ML.BAG IVPB ONE (23:40)
[2021-06-10 23:49] LABS: Anisocytosis Slight; HCT 36.2 % (34.0-46.0); HGB 11.2 gm/dL (11.4-16.0); Hypochromasia Moderate; MCH 25.2 pg (25.0-35.0); MCHC 30.9 g/dL (31.0-37.0); MCV 81.6 fL (80.0-100.0); Mean Platelet Volume 7.3; Microcytosis Slight; Platelet Count 284 k/uL (150-450); RBC 4.44 m/uL (3.80-5.40); RDW 18.1 % (11.5-15.5); WBC 6.9 k/uL (3.8-10.6)
[2021-06-11 00:02] LABS: ALT 15 U/L (4-34); AST 28 U/L (14-36); African American GFR (CKD) >90 (>60 ml/min/1.73 sqM); Albumin 4.2 g/dL (3.5-5.0); Alkaline Phosphatase 103 U/L (38-126); Anion Gap 10 mmol/L; Blood Urea Nitrogen 15 mg/dL (7-17); Calcium 9.1 mg/dL (8.4-10.2); Carbon Dioxide 23 mmol/L (22-30); Chloride 104 mmol/L (98-107); Glucose 147 mg/dL (74-99); Lipase 74 U/L (23-300); Non-African American GFR(CKD) 81 (>60 ml/min/1.73 sqM); Potassium 3.4 mmol/L (3.5-5.1); Sodium 137 mmol/L (137-145); Total Bilirubin 0.5 mg/dL (0.2-1.3); Total Protein 7.8 g/dL (6.3-8.2)
[2021-06-11 00:15] LABS: Monocytes # (M) 0.28 k/uL (0-1.0); Neutrophils # (M) 5.52 k/uL (1.3-7.7); Neutrophils % (M) 80 %; Nucleated Red Blood Cells 0 /100 WBC (0-0); Total Cells Counted 100
[2021-06-11 00:16] LABS: Ovalocytes Present; Poikilocytosis (M) Present
--- NOTE | 2021-06-11 00:17 | XR ---
EXAMINATION TYPE: XR abdomen acute w cxr DATE OF EXAM: 06/10/2021 COMPARISON: May 08, 2021 HISTORY: Abdominal pain TECHNIQUE: 4 views FINDINGS: Heart is enlarged. There is large hiatal hernia. There is minimal pulmonary congestion. Tho racic aorta is atheromatous. There are chest leads. There is no sign of intestinal obstruction or pne umoperitoneum. Fecal pattern is normal. There is left hip prosthesis. There is no sign of an abdomina l mass. There is some mild pleural reaction at the lung bases. IMPRESSION: Moderate cardiomegaly. Large hiatal hernia. There is slight increased pulmonary vasculari ty compared to old exam. Minimal heart failure is possible. Nonacute abdomen.
--- NOTE | 2021-06-11 00:17 | ED ---
Nausea/Vomiting/Diarrhea HPI - General Chief complaint: Nausea/Vomiting/Diarrhea Stated complaint: Near syncope Time Seen by Provider: 06/10/21 23:29 Source: EMS, RN notes reviewed Mode of arrival: EMS - History of Present Illness Initial comments: This is a pleasant 81-year-old female with a history of hyperlipidemia, hypertension, thyroid disorder, and acid reflux. Patient has chronic indwelling Oliver secondary to neurogenic bladder. Patient previously has had ESBL infected urine. Patient presents today stating that she felt lightheaded when she was sitting watching TV. She denied any chest pain or shortness of breath. No vertigo. No vision or hearing changes. Patient states she felt as if she is going to pass out. Patient states she went to stand up but felt generally weak. There is no focal weakness. No slurred speech. Patient currently feels fatigued. No fever or chills. No nausea or vomiting. No changes in bowel movements. - Related Data Home Medications Medication Instructions Recorded Confirmed Aspirin EC [Ecotrin Low Dose] 81 mg PO DAILY 04/10/20 05/08/21 Atorvastatin Calcium [Lipitor] 40 mg PO HS 04/10/20 05/08/21 Esomeprazole Magnesium [NexIUM] 40 mg PO DAILY 04/10/20 05/08/21 Istalol 0.5% 1 drop BOTH EYES DAILY 04/10/20 05/08/21 Mirtazapine 30 mg PO HS 04/10/20 05/08/21 NIFEdipine [Procardia XL] 30 mg PO DAILY 04/10/20 05/08/21 Zolpidem [Ambien] 5 mg PO HS PRN 04/10/20 05/08/21 Baclofen [Lioresal] 10 mg PO TID PRN 12/07/20 05/08/21 Gabapentin 300 mg PO BID 12/07/20 05/08/21 Mirabegron [Myrbetriq] 25 mg PO HS 12/07/20 05/08/21 Montelukast [Singulair] 10 mg PO HS 12/07/20 05/08/21 Tolterodine Tartrate [Detrol LA] 4 mg PO HS 12/07/20 05/08/21 Escitalopram [Lexapro] 20 mg PO DAILY 03/29/21 05/08/21 prednisoLONE ACETATE 1% OPHTH 1 drop LEFT EYE TID 03/29/21 05/08/21 [Pred Forte 1%] Levothyroxine Sodium [Synthroid] 75 mcg PO DAILY 04/02/21 05/08/21 Ofloxacin 0.3% Ophth Soln [Ocuflox 1 drop RIGHT EYE QID 05/08/21 05/08/21 Ophth Soln] Losartan/Hydrochlorothiazide 1 tab PO DAILY 05/10/21 05/10/21 [Losartan-Hctz 100-25 mg Tab] Previous Rx's Medication Instructions Recorded Acetaminophen [Tylenol] 500 mg PO Q4-6H PRN #24 tab 06/11/21 Potassium Chloride [Klor-Con 20 20 meq PO DAILY #5 packet 06/11/21 Packets] Allergies Allergy/AdvReac Type Severity Reaction Status Date / Time atorvastatin [From Lipitor] Allergy Migraine--brand Verified 06/10/21 23:38 OK brimonidine [From Combigan] Allergy Itching Verified 06/10/21 23:38 dicyclomine [From Bentyl] Allergy Swelling Verified 06/10/21 23:38 Sulfa (Sulfonamide Allergy Swelling Verified 06/10/21 23:38 Antibiotics) timolol [From Combigan] Allergy Itching Verified 06/10/21 23:38 Review of Systems ROS Statement: Those systems with pertinent positive or pertinent negative responses have been documented in the HPI. ROS Other: All systems not noted in ROS Statement are negative. Past Medical History Past Medical History: GERD/Reflux, Hyperlipidemia, Hypertension, Thyroid Disorder Additional Past Medical History / Comment(s): recent admission to [facility] for large hiatal hernia,hypoxia,has suprapubic catheter placed History of Any Multi-Drug Resistant Organisms: ESBL Date of last positivie culture/infection: 12/06/20 MDRO Source:: ESBL URINE Past Surgical History: Joint Replacement Additional Past Surgical History / Comment(s): parathyroid gland, suprapubic catheter insertion Past Anesthesia/Blood Transfusion Reactions: No Reported Reaction Additional Past Anesthesia/Blood Transfusion Reaction / Comment(s): Pt has received blood in past without reaction. Past Psychological History: Depression Smoking Status: Never smoker Past Alcohol Use History: None Reported Past Drug Use History: None Reported - Past Family History Sister(s) Family Medical History: Myocardial Infarction ([place]) Mother Family Medical History: Cancer Additional Family Medical History / Comment(s): pancreatic Father History Unknown: Yes Additional Family Medical History / Comment(s): Father in the war. General Exam General appearance: alert, in no apparent distress Head exam: Present: atraumatic, normocephalic, normal inspection Eye exam: Present: normal appearance, PERRL, EOMI. Absent: scleral icterus, conjunctival injection, periorbital swelling ENT exam: Present: normal exam, mucous membranes moist Neck exam: Present: normal inspection. Absent: tenderness, meningismus, lymphadenopathy Respiratory exam: Present: normal lung sounds bilaterally. Absent: respiratory distress, wheezes, rales, rhonchi, stridor Cardiovascular Exam: Present: regular rate, normal rhythm, normal heart sounds. Absent: systolic murmur, diastolic murmur, rubs, gallop, clicks GI/Abdominal exam: Present: soft, normal bowel sounds. Absent: distended, tenderness, guarding, rebound, rigid Extremities exam: Present: normal inspection, full ROM, normal capillary refill. Absent: tenderness, pedal edema, joint swelling, calf tenderness Back exam: Present: normal inspection Neurological exam: Present: alert, oriented X3, CN II-XII intact Expanded Patient oriented to: Present: person, place, time Speech: Present: fluid speech Cerebellar function: Finger to Nose: Normal, Heel to [place]: Normal Eye Response: (4) open spontaneously Motor Response: (6) obeys commands Verbal Response: (5) oriented Lennon Total: 15 Psychiatric exam: Present: normal affect, normal mood Skin exam: Present: warm, dry, intact, normal color. Absent: rash Course Vital Signs 06/10/21 23:31 Temperature 97.7 F Pulse Rate 89 Respiratory 19 Rate Blood Pressure 158/75 O2 Sat by Pulse 95 Oximetry - Reevaluation(s) Reevaluation #1: 06/11/21 00:55 Medical record is reviewed Symptoms are improved here in the emergency department Patient is informed of results and questions answered Patient in no distress Patient has developed abdominal pain which she states is consistent with her hiatal hernia. She states that she has had this pain many times in the past. Patient requesting pain medications. Reevaluation #2: 06/11/21 01:12 Medical record is reviewed Symptoms are improved here in the emergency department Patient is informed of results and questions answered Patient in no distress Reevaluation #3: 06/11/21 03:07 Patient reevaluated and is resting comfortably. Medical Decision Making - Medical Decision Making Patient presents after having a near syncopal episode. Patient did not lose consciousness. There is no fall. Patient had no pain. Patient's preceding symptomology was essentially lightheadedness and generalized weakness. There is no focal deficits. Patient had no shortness of breath or chest pain. No other presyncopal symptomology. Patient states she wears action which is secondary to hiatal hernia. Patient states she wears 2 L at night and sometimes during the day depending what she is doing. The case was discussed in detail with ED attending physician. Presentation, findings, treatment plan discussed in detail. - Lab Data Result diagrams: 06/10/21 23:41 06/10/21 23:41 Lab Results 06/10/21 06/10/21 06/10/21 Range/Units 23:41 23:41 23:41 WBC 6.9 (3.8-10.6) k/uL RBC 4.44 (3.80-5.40) m/uL Hgb 11.2 L (11.4-16.0) gm/dL Hct 36.2 (34.0-46.0) % MCV 81.6 (80.0-100.0) fL MCH 25.2 (25.0-35.0) pg MCHC 30.9 L (31.0-37.0) g/dL RDW 18.1 H (11.5-15.5) % Plt Count 284 (150-450) k/uL MPV 7.3 Neutrophils % (Manual) 80 % Lymphocytes % (Manual) 16 % Monocytes % (Manual) 4 % Neutrophils # (Manual) 5.52 (1.3-7.7) k/uL Lymphocytes # (Manual) 1.10 (1.0-4.8) k/uL Monocytes # (Manual) 0.28 (0-1.0) k/uL Nucleated RBCs 0 (0-0) /100 WBC Manual Slide Review Performed Hypochromasia Moderate Poikilocytosis (manual Present Anisocytosis Slight Microcytosis Slight Ovalocytes Present Sodium 137 (137-145) mmol/L Potassium 3.4 L (3.5-5.1) mmol/L Chloride 104 (98-107) mmol/L Carbon Dioxide 23 (22-30) mmol/L Anion Gap 10 mmol/L BUN 15 (7-17) mg/dL Creatinine 0.70 (0.52-1.04) mg/dL Est GFR (CKD-EPI)AfAm >90 (>60 ml/min/1.73 sqM) Est GFR (CKD-EPI)NonAf 81 (>60 ml/min/1.73 sqM) Glucose 147 H (74-99) mg/dL Plasma Lactic Acid Christian 1.0 (0.7-2.0) mmol/L Calcium 9.1 (8.4-10.2) mg/dL Total Bilirubin 0.5 (0.2-1.3) mg/dL AST 28 (14-36) U/L ALT 15 (4-34) U/L Alkaline Phosphatase 103 (38-126) U/L Troponin I (0.000-0.034) ng/mL NT-Pro-B Natriuret Pep pg/mL Total Protein 7.8 (6.3-8.2) g/dL Albumin 4.2 (3.5-5.0) g/dL Lipase 74 (23-300) U/L Urine Color Urine Appearance (Clear) Urine pH (5.0-8.0) Ur Specific [place] (1.001-1.035) Urine Protein (Negative) Urine Glucose (UA) (Negative) Urine Ketones (Negative) Urine Blood (Negative) Urine Nitrite (Negative) Urine Bilirubin (Negative) Urine Urobilinogen (<2.0) mg/dL Ur Leukocyte Esterase (Negative) Coronavirus (PCR) (Not Detectd) 06/10/21 06/10/21 06/11/21 Range/Units 23:41 23:41 00:21 WBC (3.8-10.6) k/uL RBC (3.80-5.40) m/uL Hgb (11.4-16.0) gm/dL Hct (34.0-46.0) % MCV (80.0-100.0) fL MCH (25.0-35.0) pg MCHC (31.0-37.0) g/dL RDW (11.5-15.5) % Plt Count (150-450) k/uL MPV Neutrophils % (Manual) % Lymphocytes % (Manual) % Monocytes % (Manual) % Neutrophils # (Manual) (1.3-7.7) k/uL Lymphocytes # (Manual) (1.0-4.8) k/uL Monocytes # (Manual) (0-1.0) k/uL Nucleated RBCs (0-0) /100 WBC Manual Slide Review Hypochromasia Poikilocytosis (manual Anisocytosis Microcytosis Ovalocytes Sodium (137-145) mmol/L Potassium (3.5-5.1) mmol/L Chloride (98-107) mmol/L Carbon Dioxide (22-30) mmol/L Anion Gap mmol/L BUN (7-17) mg/dL Creatinine (0.52-1.04) mg/dL Est GFR (CKD-EPI)AfAm (>60 ml/min/1.73 sqM) Est GFR (CKD-EPI)NonAf (>60 ml/min/1.73 sqM) Glucose (74-99) mg/dL Plasma Lactic Acid Christian (0.7-2.0) mmol/L Calcium (8.4-10.2) mg/dL Total Bilirubin (0.2-1.3) mg/dL AST (14-36) U/L ALT (4-34) U/L Alkaline Phosphatase (38-126) U/L Troponin I <0.012 (0.000-0.034) ng/mL NT-Pro-B Natriuret Pep 217 pg/mL Total Protein (6.3-8.2) g/dL Albumin (3.5-5.0) g/dL Lipase (23-300) U/L Urine Color Urine Appearance (Clear) Urine pH (5.0-8.0) Ur Specific [place] (1.001-1.035) Urine Protein (Negative) Urine Glucose (UA) (Negative) Urine Ketones (Negative) Urine Blood (Negative) Urine Nitrite (Negative) Urine Bilirubin (Negative) Urine Urobilinogen (<2.0) mg/dL Ur Leukocyte Esterase (Negative) Coronavirus (PCR) Not Detected (Not Detectd) 06/11/21 Range/Units 02:20 WBC (3.8-10.6) k/uL RBC (3.80-5.40) m/uL Hgb (11.4-16.0) gm/dL Hct (34.0-46.0) % MCV (80.0-100.0) fL MCH (25.0-35.0) pg MCHC (31.0-37.0) g/dL RDW (11.5-15.5) % Plt Count (150-450) k/uL MPV Neutrophils % (Manual) % Lymphocytes % (Manual) % Monocytes % (Manual) % Neutrophils # (Manual) (1.3-7.7) k/uL Lymphocytes # (Manual) (1.0-4.8) k/uL Monocytes # (Manual) (0-1.0) k/uL Nucleated RBCs (0-0) /100 WBC Manual Slide Review Hypochromasia Poikilocytosis (manual Anisocytosis Microcytosis Ovalocytes Sodium (137-145) mmol/L Potassium (3.5-5.1) mmol/L Chloride (98-107) mmol/L Carbon Dioxide (22-30) mmol/L Anion Gap mmol/L BUN (7-17) mg/dL Creatinine (0.52-1.04) mg/dL Est GFR (CKD-EPI)AfAm (>60 ml/min/1.73 sqM) Est GFR (CKD-EPI)NonAf (>60 ml/min/1.73 sqM) Glucose (74-99) mg/dL Plasma Lactic Acid Christian (0.7-2.0) mmol/L Calcium (8.4-10.2) mg/dL Total Bilirubin (0.2-1.3) mg/dL AST (14-36) U/L ALT (4-34) U/L Alkaline Phosphatase (38-126) U/L Troponin I (0.000-0.034) ng/mL NT-Pro-B Natriuret Pep pg/mL Total Protein (6.3-8.2) g/dL Albumin (3.5-5.0) g/dL Lipase (23-300) U/L Urine Color Colorless Urine Appearance Clear (Clear) Urine pH 7.5 (5.0-8.0) Ur Specific [place] 1.006 (1.001-1.035) Urine Protein Negative (Negative) Urine Glucose (UA) 1+ H (Negative) Urine Ketones Trace H (Negative) Urine Blood Negative (Negative) Urine Nitrite Negative (Negative) Urine Bilirubin Negative (Negative) Urine Urobilinogen <2.0 (<2.0) mg/dL Ur Leukocyte Esterase Negative (Negative) Coronavirus (PCR) (Not Detectd) - EKG Data EKG Comments: EKG done at 2232 and assessed by the ED attending physician reveals sinus rhythm with a first-degree AV block. Prolonged QTC of 514 ms. No evidence of acute ST or T wave changes. Left axis deviation. When compared to the previous study the only significant change is a mildly increased QT interval. Disposition Clinical Impression: Near syncope, Hypokalemia, History of hiatal hernia Disposition: HOME SELF-CARE Condition: Stable Instructions (If sedation given, give patient instructions): Near Syncope (ED), Hiatal Hernia (ED), Hypokalemia (ED) Additional Instructions: Coronary regular physician in the morning for follow-up. Take your home medications as directed. Follow-up with your regular physician as directed. Return to the ER immediately if any symptoms worsen, new symptoms arise, or any other problems develop. Prescriptions: Potassium Chloride [Klor-Con 20 Packets] 20 meq PO DAILY #5 packet Acetaminophen [Tylenol] 500 mg PO Q4-6H PRN #24 tab PRN Reason: Pain Is patient prescribed a controlled substance at d/c from ED?: No Referrals: Naseem Motley MD [Primary Care Provider] - 1-2 days Time of Disposition: 03:11
[2021-06-11] MEDS ORDERED: MORPHINE SULFATE 2 MG/ML SYRINGE IV STA ×2 (00:55→02:14)
[2021-06-11] MEDS ORDERED: POTASSIUM CHLORIDE ER 20 MEQ TAB.ER PO STA (01:11)
--- NOTE | 2021-06-11 01:46 | CT ---
EXAMINATION TYPE: CT angio thor/abd pel aorta DATE OF EXAM: 06/11/2021 COMPARISON: None HISTORY: abd pain CT DLP: 1276 mGycm Automated exposure control for dose reduction was used. CONTRAST: Performed with IV Contrast, patient injected with 100 mL of Isovue 370. Images obtained from the thoracic inlet to the floor of the pelvis without and with IV contrast. FINDINGS: There are 3-D post processed images. There is a large hiatal hernia. There is patchy infiltrate and atelectasis at the posterior lung base s. Heart is slightly enlarged. There is no pericardial effusion. There is no mediastinal adenopathy. There are no hilar masses. Thoracic aorta is intact. There is no aneurysm or dissection. The ascendin g aorta measures 3.2 cm. There is intact liver and spleen. There is no pancreatic mass. Gallbladder appears normal. The bile d ucts are not dilated. There is no evidence of gastric mass. There is no adrenal mass. Kidneys have normal size there are multiple cortical cysts that measure up to 3.3 cm. There is no hydronephrosis. There is no retroperitoneal adenopathy. Abdominal aorta is ath eromatous. There is suprapubic Oliver catheter in the urinary bladder. There is some retained fecal ma terial in the large bowel. There are spondylotic changes in the lumbar spine. There is a minimal L3-4 degenerative first-degree spondylolisthesis. 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 There is left hip pro sthesis. Sacroiliac joints are intact. Abdominal aorta is atheromatous. There is arterial flow in the celiac artery and superior mesenteric artery. There is approximate 50% stenosis at the origin of the superior mesenteric artery. There is a pproximate 50% stenosis origin right renal artery. There is approximate 75% stenosis origin of the le ft renal artery. There is arterial flow in the iliac and femoral arteries. There is moderate plaque a nd calcification in the internal iliac arteries bilaterally. There is no contrast extravasation. There is no mesenteric edema. There is no ascites or free air. There is no bowel obstruction. IMPRESSION: Atherosclerotic vascular disease. Variable stenosis as above in the renal and iliac and superior mese nteric artery. No aneurysm or dissection. No evidence of pulmonary embolism. Large hiatal hernia with basilar patchy atelectasis.
[2021-06-11] MEDS ORDERED: POTASSIUM BICARBONATE/CIT AC 20 MEQ TABLET.EFF PO ONE (02:00)
[2021-06-11 02:49] LABS: Appearance,Urine Clear (Clear); Bilirubin,Urine Negative (Negative); Blood,Urine Negative (Negative); Color,Urine Colorless; Glucose,Urine (UA) 1+ (Negative); Ketones,Urine Trace (Negative); Leukocyte Esterase,Urine Negative (Negative); Nitrite,Urine Negative (Negative); PH, Urine 7.5 (5.0-8.0); Protein,Urine Negative (Negative); Specific Gravity,Urine 1.006 (1.001-1.035); Urobilinogen,Urine <2.0 mg/dL (<2.0)
[2021-06-11] MEDS ORDERED: ACETAMINOPHEN TAB 500 MG TAB PO STA (03:09)
[2021-06-11 07:01] VITALS: BP 140/87; RESP 18
[2021-06-11 07:54] VITALS: PULSE 90; TEMP 97.6
== END 2021-06-11 07:55 | disposition home or self-care (01) ==
LOC: EC 23:26
DX: R55 Syncope and collapse (principal); E87.6 Hypokalemia; K21.9 Gastro-esophageal reflux disease without esophagitis; I10 Essential (primary) hypertension; E07.9 Disorder of thyroid, unspecified; E78.5 Hyperlipidemia, unspecified; Z87.19 Personal history of other diseases of the digestive system; Z20.822 Contact with and (suspected) exposure to COVID-19; Z88.8 Allergy status to other drugs, medicaments and biological substances; Z88.2 Allergy status to sulfonamides; Z79.82 Long term (current) use of aspirin; Z79.899 Other long term (current) drug therapy; Z79.890 Hormone replacement therapy
CPT/HCPCS: 36415; 93005; 83880; 80053; 83605; 83690; 84484; 85025; 81003; 87635; 74022; 71275; 74174; 99285; 96365; 96375; 96376; J2270; J3475; Q9967

== ENCOUNTER 2021-10-16 07:33 | Emergency (ER) | payer MEDICARE ==
[2021-10-16] MEDS ORDERED: Acetaminophen-Codeine 300-30mg TAB PO STA (07:51)
[2021-10-16 07:55] VITALS: RESP 16
--- NOTE | 2021-10-16 07:56 | ED ---
Back Pain HPI - General Chief Complaint: Back Pain/Injury Stated Complaint: Fall,Back pain Time Seen by Provider: 10/16/21 07:43 Source: patient, RN notes reviewed Limitations: no limitations - History of Present Illness Initial Comments: This is an 81-year-old female who presents to the emergency department with back pain after a fall. States that when she was going to bed last night, she set her walker to the side, and tripped over the wheel. Denies any chest pain, shortness of breath, dizziness, or lightheadedness prior to the fall. She landed on her back, and has since had pain to the mid back. Denies hitting her head or any loss of consciousness. She has no pain in the neck. She takes a baby aspirin daily. Denies any loss of bowel or bladder control. She has not taken Tylenol or anything for the pain. Denies any fevers, chills, sore throat, cough, dyspnea, chest pain, palpitations, abdominal pain, nausea, vomiting, diarrhea, or headaches. MD Complaint: back pain, back injury Onset/Timin -: days(s) Place: home Worsens With: movement Context: fall - Related Data Home Medications Medication Instructions Recorded Confirmed Aspirin EC [Ecotrin Low Dose] 81 mg PO DAILY 04/10/20 05/08/21 Atorvastatin Calcium [Lipitor] 40 mg PO HS 04/10/20 05/08/21 Esomeprazole Magnesium [NexIUM] 40 mg PO DAILY 04/10/20 05/08/21 Istalol 0.5% 1 drop BOTH EYES DAILY 04/10/20 05/08/21 Mirtazapine 30 mg PO HS 04/10/20 05/08/21 NIFEdipine [Procardia XL] 30 mg PO DAILY 04/10/20 05/08/21 Zolpidem [Ambien] 5 mg PO HS PRN 04/10/20 05/08/21 Baclofen [Lioresal] 10 mg PO TID PRN 12/07/20 05/08/21 Gabapentin 300 mg PO BID 12/07/20 05/08/21 Mirabegron [Myrbetriq] 25 mg PO HS 12/07/20 05/08/21 Montelukast [Singulair] 10 mg PO HS 12/07/20 05/08/21 Tolterodine Tartrate [Detrol LA] 4 mg PO HS 12/07/20 05/08/21 Escitalopram [Lexapro] 20 mg PO DAILY 03/29/21 05/08/21 prednisoLONE ACETATE 1% OPHTH 1 drop LEFT EYE TID 03/29/21 05/08/21 [Pred Forte 1%] Levothyroxine Sodium [Synthroid] 75 mcg PO DAILY 04/02/21 05/08/21 Ofloxacin 0.3% Ophth Soln [Ocuflox 1 drop RIGHT EYE QID 05/08/21 05/08/21 Ophth Soln] Losartan/Hydrochlorothiazide 1 tab PO DAILY 05/10/21 05/10/21 [Losartan-Hctz 100-25 mg Tab] Previous Rx's Medication Instructions Recorded Acetaminophen [Tylenol] 500 mg PO Q4-6H PRN #24 tab 06/11/21 Potassium Chloride [Klor-Con 20 20 meq PO DAILY #5 packet 06/11/21 Packets] Acetaminophen-Codeine 300-30mg 1 tab PO Q6H PRN 3 Days #12 tablet 10/16/21 [Tylenol w/codeine #3] Lidocaine 5% Oint [Xylocaine 5% 1 applic TOPICAL TID #50 gm 10/16/21 Oint] Allergies Allergy/AdvReac Type Severity Reaction Status Date / Time atorvastatin [From Lipitor] Allergy Migraine--brand Verified 10/16/21 07:42 OK brimonidine [From Combigan] Allergy Itching Verified 10/16/21 07:42 dicyclomine [From Bentyl] Allergy Swelling Verified 10/16/21 07:42 Sulfa (Sulfonamide Allergy Swelling Verified 10/16/21 07:42 Antibiotics) timolol [From Combigan] Allergy Itching Verified 10/16/21 07:42 Review of Systems ROS Statement: Those systems with pertinent positive or pertinent negative responses have been documented in the HPI. ROS Other: All systems not noted in ROS Statement are negative. Past Medical History Past Medical History: GERD/Reflux, Hyperlipidemia, Hypertension, Thyroid Disorder Additional Past Medical History / Comment(s): recent admission to [facility] for large hiatal hernia,hypoxia,has suprapubic catheter placed History of Any Multi-Drug Resistant Organisms: ESBL Date of last positivie culture/infection: 12/06/20 MDRO Source:: ESBL URINE Past Surgical History: Joint Replacement Additional Past Surgical History / Comment(s): parathyroid gland, suprapubic catheter insertion Past Anesthesia/Blood Transfusion Reactions: No Reported Reaction Additional Past Anesthesia/Blood Transfusion Reaction / Comment(s): Pt has received blood in past without reaction. Past Psychological History: Depression Smoking Status: Never smoker Past Alcohol Use History: None Reported Past Drug Use History: None Reported - Past Family History Sister(s) Family Medical History: Myocardial Infarction (NM) Mother Family Medical History: Cancer Additional Family Medical History / Comment(s): pancreatic Father History Unknown: Yes Additional Family Medical History / Comment(s): Father in the war. General Exam Limitations: no limitations General appearance: alert, in distress Head exam: Present: atraumatic, normocephalic, normal inspection Neck exam: Present: normal inspection, full ROM. Absent: tenderness, meningismus, lymphadenopathy Respiratory exam: Present: normal lung sounds bilaterally. Absent: respiratory distress, wheezes, rales, rhonchi, stridor Cardiovascular Exam: Present: regular rate, normal rhythm, normal heart sounds. Absent: systolic murmur, diastolic murmur, rubs, gallop, clicks Back exam: Present: normal inspection, other (Tenderness to the mid back starting around T4) Neurological exam: Present: alert, oriented X3, CN II-XII intact Psychiatric exam: Present: normal affect, normal mood Skin exam: Present: warm, dry, intact, normal color. Absent: rash Course Vital Signs 10/16/21 10/16/21 07:36 07:52 Temperature 97.8 F 97.7 F Pulse Rate 79 76 Respiratory 18 16 Rate Blood Pressure 156/75 150/70 O2 Sat by Pulse 94 L 93 L Oximetry Medical Decision Making - Medical Decision Making This is an 81-year-old female who presents to the emergency department for back pain after a fall. X-ray of the thoracic and lumbar spine obtained. X-rays identified no acute fractures. Patient noted substantial improvement with Tylenol #3. Given the patient's age and comorbidities, it is best to avoid anti-inflammatories. 3 day course of Tylenol #3 sent to the pharmacy. Advised she take this sparingly when the pain is the most severe, and to otherwise take Tylenol. Lidocaine cream sent to the pharmacy as well, which can be used up to 3 times daily for pain. Also instructed her to apply ice to the back for the first 2 days, followed by heat there afterwords. This case was discussed in detail with the attending ED physician. Presentation, findings, and treatment plan discussed in detail as well. Return precautions reviewed in depth, the patient is instructed to return to the emergency department with any new, worsening, or concerning symptoms. Patient verbalized understanding. - Radiology Data Radiology results: report reviewed, image reviewed Disposition Clinical Impression: Contusion of thoracic spine Disposition: HOME SELF-CARE Instructions (If sedation given, give patient instructions): Back Pain (ED) Additional Instructions: Return to the emergency department with any new, worsening, or concerning symptoms. Use the Tylenol #3 sparingly when the pain is the most severe, otherwise take Tylenol. Use the Lidocaine cream up to three times daily for pain as well. Ice the back for the first 2 days, followed by heat there afterwards. Prescriptions: Acetaminophen-Codeine 300-30mg [Tylenol w/codeine #3] 1 tab PO Q6H PRN 3 Days #12 tablet PRN Reason: Pain Lidocaine 5% Oint [Xylocaine 5% Oint] 1 applic TOPICAL TID #50 gm Is patient prescribed a controlled substance at d/c from ED?: Yes If prescribed controlled substance>3 days was MAPS reviewed?: Prescribed <3 Days Referrals: Naseem Motley MD [Primary Care Provider] - 1-2 days
--- NOTE | 2021-10-16 08:43 | XR ---
Thoracic spine HISTORY: Fall. COMPARISON: None. TECHNIQUE: 3 views of thoracic spine were obtained including AP and lateral views. The exam is limite d by technique. FINDINGS: Evaluation of the upper thoracic spine is somewhat limited but there is no definite evidence of acute fracture or subluxation. The paraspinal soft tissues are unremarkable. IMPRESSION: Somewhat limited study but no definite evidence of acute trauma.
--- NOTE | 2021-10-16 08:46 | XR ---
Lumbar spine. HISTORY: Fall. COMPARISON: None. TECHNIQUE: 3 views lumbar spine were obtained. Lumbar vertebral segments are normal in height and there is no evidence of acute fracture. There is marked degenerative disc disease throughout the lumbar region with marked disc space narrowi ng and mild spondylosis. There is a mild retrolisthesis of L1 on L2 and a mild to moderate anterolist hesis of L3 on L4. . There is diffuse calcification of the abdominal aorta without evidence of aneurysm. There is a left h ip prosthesis. The visualized sacrum and SI joints are normal. IMPRESSION: Marked degenerative changes as described above but no definite evidence of acute trauma.
[2021-10-16 09:16] VITALS: BP 154/76; PULSE 75; TEMP 97.6
== END 2021-10-16 09:16 | disposition home or self-care (01) ==
LOC: EC 07:33
DX: S20.224A Contusion of middle back wall of thorax, initial encounter (principal); I10 Essential (primary) hypertension; E78.5 Hyperlipidemia, unspecified; Z79.1 Long term (current) use of non-steroidal anti-inflammatories (NSAID); E07.9 Disorder of thyroid, unspecified; Z82.49 Family history of ischemic heart disease and other diseases of the circulatory system; Z88.2 Allergy status to sulfonamides; Z88.8 Allergy status to other drugs, medicaments and biological substances; Z88.1 Allergy status to other antibiotic agents; W19.XXXA Unspecified fall, initial encounter
CPT/HCPCS: 72072; 72100; 99283

== ENCOUNTER → 2021-12-01 | Outpatient (CLI) | payer MEDICARE ==
--- NOTE | 2021-12-01 11:40 | MR ---
EXAMINATION TYPE: MR lumbar spine wo con DATE OF EXAM: 12/01/2021 COMPARISON: NONE HISTORY: Back pain, spondylosis TECHNIQUE: T1 and T2 axial and sagittal images of the lumbar spine are submitted. FINDINGS: There is no abnormal signal seen within the visualized spinal cord or paraspinal soft tissu es. Bilateral simple appearing renal cysts. There is severe degenerative disc disease at all levels with complete loss of disc space at all level s of the lumbar spine. Aorta of normal caliber. Paraspinal muscular atrophy noted. Scoliotic curvatur e of the spine. Severe degenerative disc disease with facet arthropathy. Minimal right paracentral disc bulging but n o canal stenosis or foraminal encroachment. At L1-2 there is severe degenerative disc disease. There is mild circumferential disc bulging with hy pertrophic change of the facets. No canal stenosis. Mild bilateral foraminal encroachment. At L2-3 there is severe degenerative disc disease diffusely circumferential disc bulging. There is a focal right paracentral disc herniation with disc material seen on sagittal imaging extend posterior to the upper margin of the L3 vertebral segment. Facet arthropathy and ligamentum flavum hypertrophy noted. Moderate bilateral foraminal encroachment and mild canal stenosis. At L3-4 there is grade 1 anterolisthesis with severe degenerative disc disease and facet arthropathy. Ligamentum flavum hypertrophy with severe canal stenosis and bilateral foraminal encroachment. At L4-5 there is severe degenerative disc disease with discogenic marrow changes. Hypertrophic change of the facets and ligamentum flavum. Moderate to severe canal stenosis and bilateral foraminal encro achment. At L5-S1 there is severe degenerative disc disease with facet arthropathy and ligamentum flavum. Ther e is moderate to severe bilateral foraminal encroachment with moderate canal stenosis. Broad-based ce ntral disc bulging. IMPRESSION: 1. Severe degenerative disc disease with scoliosis. Near-complete loss of disc space at all levels wi th grade 1 anterior listhesis L3 and L4 likely degenerative. 2. Multilevel disc bulging and canal stenosis most marked at L3-L4. 3. There is a right paracentral focal disc herniation L-2-L3 with extrusion and disc material extendi ng along the upper margin of the L3 vertebral segment paracentral to the right. 4. Multilevel significant foraminal encroachment as discussed above.
== END | disposition home or self-care (01) ==
LOC: RADMRIMAIN 10:22
PROVIDERS: ATTEND Physical Medicine & Rehabilitation
DX: M47.817 Spondylosis without myelopathy or radiculopathy, lumbosacral region (principal)
CPT/HCPCS: 72148

== ENCOUNTER → 2022-09-19 | Outpatient (CLI) | payer BC, MEDICARE ==
--- NOTE | 2022-09-19 10:51 | CT ---
EXAMINATION TYPE: CT abdomen pelvis wo con DATE OF EXAM: 09/19/2022 COMPARISON: 02/17/2019 HISTORY: Epigastric abdominal pain and nausea. CT DLP: 399 mGycm Automated exposure control for dose reduction was used. TECHNIQUE: Helical acquisition of images was performed from the lung bases through the pelvis. FINDINGS: There is mild scattered strand-like density in the lung bases consistent with atelectasis or intersti tial scarring. There is no pleural effusion. The gallbladder is normal without distention, wall thickening, pericholecystic fluid or gallstones. There is no hepatomegaly or splenomegaly. The pancreas is atrophic and contains a few scattered calci fications consistent with chronic pancreatitis. There is a persistent there are no renal calcifications or hydronephrosis. There are scattered low-de nsity lesions within the kidneys which most likely represent cysts and were seen on the prior study. The caliber the abdominal aorta is normal is no aneurysm. The bowel loops are normal in caliber and there is no dilatation or obstruction. There is no free int raperitoneal air or fluid. No inflammatory changes are identified in the mesentery. There is a suprapubic catheter unchanged in position. There is no pelvic mass or adenopathy. There is a left hip prosthesis otherwise the osseous structures are intact. IMPRESSION: 1. No change in the bibasilar interstitial changes. 2. Chronic pancreatitis and mild pancreatic atrophy. 3. Suprapubic catheter unchanged in position. 4. No acute changes within the abdomen.
== END | disposition home or self-care (01) ==
LOC: RADCTMAIN 09:36
PROVIDERS: ATTEND Internal Medicine
DX: K86.1 Other chronic pancreatitis (principal); N20.0 Calculus of kidney; K86.89 Other specified diseases of pancreas; Z95.828 Presence of other vascular implants and grafts
CPT/HCPCS: 74176

== ENCOUNTER → 2022-12-02 | Outpatient (CLI) | payer MEDICARE ==
--- NOTE | 2022-12-02 22:45 | MR ---
EXAMINATION TYPE: MR kidney wo/w con DATE OF EXAM: 12/02/2022 2:46 PM INDICATION: Patient age:Female; 82 years old; Reason for study: N28.9 Kidney lesion; PHH. Abnormal CT, left side abdominal pain. COMPARISON: CT scan abdomen from 09/19/2022. TECHNIQUE: Multiplanar multi-sequence imaging was performed without contrast. Post contrast imaging was performed. Post IV contrast subtraction images were also submitted for review. IV Contrast: 7 cc Gadavist FINDINGS: LOWER CHEST: No gross irregularity. ABDOMEN Liver: Unremarkable. Gallbladder and Bile ducts: Unremarkable. Pancreas: Unremarkable. Spleen: Unremarkable. Adrenal glands: Unremarkable. Kidneys: Bilateral high T2 low T1 signal cysts. No suspicious masses bilaterally. No hydronephrosis. Left intrinsic high T1 signal 10 mm and and 6 mm lesions which do not demonstrate postcontrast enhanc ement. No suspicious solid renal neoplasms bilaterally. Stomach and Bowel: Unremarkable as visualized. Peritoneum: No evidence of pneumoperitoneum or free fluid. Vasculature: . No aortic aneurysm. Atherosclerosis of the arterial vasculature. Musculoskeletal: The osseous structures appear intact. Lymph Nodes: No gross evidence for lymphadenopathy. Abdominal wall: Unremarkable. IMPRESSION: Bilateral renal Bosniak type I and type II equivalent renal cysts no suspicious solid enhancing renal neoplasms.
--- NOTE | 2022-12-04 16:48 | CA ---
Transthoracic Echo Report Name: Argentina Blas Age: 82 Gender: F : 1940 Exam Date: 12/02/2022 14:50 Exam Location: [facility] Ht (in): 63 Wt (lb): 150 Ordering Physician: Naseem Motley MD Attending/Referring Phys: Superintendent Local Jennifer Isaac RDCS Procedure CPT: Indications: I87.2 Cardiac Hx: Technical Quality: Fair Contrast 1: Total Dose (mL): Contrast 2: Total Dose (mL): MEASUREMENTS (Male / Female) Normal Values 2D ECHO LV Diastolic Diameter PLAX 3.5 cm 4.2 - 5.9 / 3.9 - 5.3 cm LV Systolic Diameter PLAX 2.4 cm IVS Diastolic Thickness 1.1 cm 0.6 - 1.0 / 0.6 - 0.9 cm LVPW Diastolic Thickness 1.1 cm 0.6 - 1.0 / 0.6 - 0.9 cm LV Relative Wall Thickness 0.6 RV Internal Dim ED PLAX 2.6 cm M-MODE Aortic Root Diameter MM 3.0 cm LA Systolic Diameter MM 4.5 cm LA Ao Ratio MM 1.5 AV Cusp Separation MM 0.0 cm DOPPLER AV Peak Velocity 135.8 cm/s AV Peak Gradient 7.4 mmHg AV Mean Velocity 79.3 cm/s AV Mean Gradient 2.9 mmHg AV Velocity Time Integral 27.8 cm LVOT Peak Velocity 100.7 cm/s LVOT Peak Gradient 4.1 mmHg LVOT Velocity Time Integral 24.2 cm Mitral E Point Velocity 113.3 cm/s Mitral A Point Velocity 137.3 cm/s Mitral E to A Ratio 0.8 MV Deceleration Time 217.8 ms MV E' Velocity 4.7 cm/s Mitral E to MV E' Ratio 24.2 TR Peak Velocity 276.7 cm/s TR Peak Gradient 30.6 mmHg Right Ventricular Systolic Press 40.6 mmHg FINDINGS Left Ventricle Mildly increased left ventricular wall thickness. Normal left ventricular systolic function with no obvious regional wall motion abnormalities. Left ventricular ejection fraction is estimated at 55-60 %. Right Ventricle Normal right ventricular size and function. Mild pulmonary hypertension. Right ventricular systolic pressure estimated at 41 mm hg. Right Atrium Normal right atrial size. Left Atrium Mild left atrial dilatation. Mitral Valve Structurally normal mitral valve. Mitral valve thickened. Moderate mitral annular calcification. Mild mitral regurgitation. Centrally directed mitral regurgitation jet. Aortic Valve Trileaflet aortic valve. No aortic valve stenosis or regurgitation. Thickened aortic valve without stenosis. Aortic valve sclerosis. Tricuspid Valve Structurally normal tricuspid valve. Mild tricuspid regurgitation. Pulmonic Valve Structurally normal pulmonic valve. Trace to mild pulmonic regurgitation. Pericardium No pericardial effusion. Aorta Normal size aortic root and proximal ascending aorta. CONCLUSIONS Left ventricular ejection fraction is estimated at 55-60 %. No obvious regional wall motion abnormalities. Mitral annular calcification with mild mitral regurgitation Aortic valve sclerosis RVSP estimated at 41 mmHg Previewed by: Dr Anthony Dockery (Electronically Signed) Final Date: 04 December 2022 16:47
== END | disposition home or self-care (01) ==
LOC: RADMRIMAIN 13:17
PROVIDERS: ATTEND Internal Medicine
DX: I08.0 Rheumatic disorders of both mitral and aortic valves (principal); I87.2 Venous insufficiency (chronic) (peripheral); N28.1 Cyst of kidney, acquired
CPT/HCPCS: 93306; 74183; A9585

== ENCOUNTER 2023-08-18 20:49 | Observation (INO) | payer MEDICARE ==
--- NOTE | 2023-08-18 21:26 | ED ---
General Adult HPI - General Chief complaint: Fall Stated complaint: right leg pain Time Seen by Provider: 08/18/23 21:01 Source: patient, EMS, RN notes reviewed, old records reviewed Mode of arrival: EMS Limitations: no limitations - History of Present Illness Initial comments: 83-year-old female presents for evaluation of right hip pain and right knee pain. Patient states she was standing, felt sensation of pain predominantly in the right hip and then had fallen. She states she fell onto an air conditioning unit. She did not hit her head or or hurt her neck. Pain is isolated to the right leg. - Related Data Home Medications Medication Instructions Recorded Confirmed Aspirin EC [Ecotrin Low Dose] 81 mg PO DAILY 04/10/20 05/08/21 Atorvastatin Calcium [Lipitor] 40 mg PO HS 04/10/20 05/08/21 Esomeprazole Magnesium [NexIUM] 40 mg PO DAILY 04/10/20 05/08/21 Istalol 0.5% 1 drop BOTH EYES DAILY 04/10/20 05/08/21 Mirtazapine 30 mg PO HS 04/10/20 05/08/21 NIFEdipine [Procardia XL] 30 mg PO DAILY 04/10/20 05/08/21 Zolpidem [Ambien] 5 mg PO HS PRN 04/10/20 05/08/21 Baclofen [Lioresal] 10 mg PO TID PRN 12/07/20 05/08/21 Gabapentin 300 mg PO BID 12/07/20 05/08/21 Mirabegron [Myrbetriq] 25 mg PO HS 12/07/20 05/08/21 Montelukast [Singulair] 10 mg PO HS 12/07/20 05/08/21 Tolterodine Tartrate [Detrol LA] 4 mg PO HS 12/07/20 05/08/21 Escitalopram [Lexapro] 20 mg PO DAILY 03/29/21 05/08/21 prednisoLONE ACETATE 1% OPHTH 1 drop LEFT EYE TID 03/29/21 05/08/21 [Pred Forte 1%] Levothyroxine Sodium [Synthroid] 75 mcg PO DAILY 04/02/21 05/08/21 Ofloxacin 0.3% Ophth Soln [Ocuflox 1 drop RIGHT EYE QID 05/08/21 05/08/21 Ophth Soln] Losartan/Hydrochlorothiazide 1 tab PO DAILY 05/10/21 05/10/21 [Losartan-Hctz 100-25 mg Tab] Previous Rx's Medication Instructions Recorded Acetaminophen [Tylenol] 500 mg PO Q4-6H PRN #24 tab 06/11/21 Potassium Chloride [Klor-Con 20 20 meq PO DAILY #5 packet 06/11/21 Packets] Acetaminophen-Codeine 300-30mg 1 tab PO Q6H PRN 3 Days #12 tablet 10/16/21 [Tylenol w/codeine #3] Lidocaine 5% Oint [Xylocaine 5% 1 applic TOPICAL TID #50 gm 10/16/21 Oint] Allergies Allergy/AdvReac Type Severity Reaction Status Date / Time atorvastatin [From Lipitor] Allergy Migraine--brand Verified 10/16/21 07:42 OK brimonidine [From Combigan] Allergy Itching Verified 10/16/21 07:42 dicyclomine [From Bentyl] Allergy Swelling Verified 10/16/21 07:42 Sulfa (Sulfonamide Allergy Swelling Verified 10/16/21 07:42 Antibiotics) timolol [From Combigan] Allergy Itching Verified 10/16/21 07:42 Review of Systems ROS Statement: Those systems with pertinent positive or pertinent negative responses have been documented in the HPI. ROS Other: All systems not noted in ROS Statement are negative. Past Medical History Past Medical History: GERD/Reflux, Hyperlipidemia, Hypertension, Thyroid Disorder Additional Past Medical History / Comment(s): recent admission to [facility] for large hiatal hernia,hypoxia,has suprapubic catheter placed chronic pancreatitis History of Any Multi-Drug Resistant Organisms: ESBL Date of last positivie culture/infection: 12/06/20 MDRO Source:: ESBL URINE Past Surgical History: Joint Replacement Additional Past Surgical History / Comment(s): parathyroid gland, suprapubic catheter insertion Past Anesthesia/Blood Transfusion Reactions: No Reported Reaction Additional Past Anesthesia/Blood Transfusion Reaction / Comment(s): Pt has received blood in past without reaction. Past Psychological History: Depression Smoking Status: Never smoker Past Alcohol Use History: None Reported Past Drug Use History: None Reported - Past Family History Sister(s) Family Medical History: Myocardial Infarction ([place]) Mother Family Medical History: Cancer Additional Family Medical History / Comment(s): pancreatic Father History Unknown: Yes Additional Family Medical History / Comment(s): Father in the war. General Exam Limitations: no limitations General appearance: alert, in no apparent distress Head exam: Present: atraumatic, normocephalic Eye exam: Present: normal appearance, PERRL ENT exam: Present: normal exam Neck exam: Present: normal inspection. Absent: tenderness, meningismus Respiratory exam: Present: normal lung sounds bilaterally Cardiovascular Exam: Present: regular rate, normal rhythm GI/Abdominal exam: Present: soft. Absent: distended, tenderness Extremities exam: Present: other (Pain with range of motion of the right hip. Tenderness to palpation over the right knee with no gross deformity. There is a leg length discrepancy with the left leg being shorter than the right.) Neurological exam: Present: alert, oriented X3 Psychiatric exam: Present: normal affect, normal mood Skin exam: Present: warm, dry, intact Course Vital Signs 08/18/23 08/18/23 20:53 22:41 Temperature 98.1 F Pulse Rate 83 84 Respiratory 18 18 Rate Blood Pressure 168/83 169/81 O2 Sat by Pulse 95 97 Oximetry - Reevaluation(s) Reevaluation #1: 08/18/23 21:52 And had initially declined pain medication but after movement for x-ray she requested pain medication. Medical Decision Making - Medical Decision Making Was pt. sent in by a medical professional or institution ([facility], FAMILY DAY CARE PROVIDER, urgent care, hospital, or long-term...) When possible be specific @ -No Did you speak to anyone other than the patient for history (EMS, parent, family, police, friend...)? What history was obtained from this source @ -No Did you review nursing and triage notes (agree or disagree)? Why? @ -I reviewed and agree with nursing and triage notes Were old charts reviewed (outside hosp., previous admission, EMS record, old EKG, old radiological studies, urgent care reports/EKG's, long-term records)? Report findings @ -No old charts were reviewed Differential Diagnosis (chest pain, altered mental status, abdominal pain women, abdominal pain men, vaginal bleeding, weakness, fever, dyspnea, syncope, headache, dizziness, GI bleed, back pain, seizure, CVA, palpatations, mental health, musculoskeletal)? @ -Differential Musculoskeletal Muscular strain, contusion, ligament sprain, fracture, arthritis, septic arthritis, bursitis, cellulitis, muscle spasm, nerve compression, DVT, arterial occlusion, herpes zoster, electrolyte abnormality, tumor.... This is not meant to be in all inclusive list EKG interpreted by me (3pts min.). @ -As above X-rays interpreted by me (1pt min.). @X-rays of the right hip, right knee, negative for traumatic injury no fracture or dislocation CT interpreted by me (1pt min.). @CT of the right hip negative for fracture or dislocation. U/S interpreted by me (1pt. min.). @ -None done What testing was considered but not performed or refused? (CT, X-rays, U/S, labs)? Why? @ -None What meds were considered but not given or refused? Why? @ -None Did you discuss the management of the patient with other professionals (professionals i.e. , PA, FAMILY DAY CARE PROVIDER, lab, RT, psych nurse, health and social care teacher, tree loader meat, teacher, security police officer, case mgr)? Give summary @1 physician group. Was smoking cessation discussed for >3mins.? @ -No Was critical care preformed (if so, how long)? @ -No Were there social determinants of health that impacted care today? How? (Homelessness, low income, unemployed, alcoholism, drug addiction, transportation, low edu. Level, literacy, decrease access to med. care, nursing home, rehab)? @ -No Was there de-escalation of care discussed even if they declined (Discuss DNR or withdrawal of care, Hospice)? DNR status @ -No What co-morbidities impacted this encounter? (DM, HTN, Smoking, COPD, CAD, Cancer, CVA, ARF, Chemo, Hep., AIDS, mental health diagnosis, sleep apnea, morbid obesity)? @ -None Was patient admitted / discharged? Hospital course, mention meds given and route, prescriptions, significant lab abnormalities, going to OR and other pertinent info. @ -83-year-old female with acute right hip pain and fall. No traumatic injury identified on x-ray. Patient continued to have pain and was unable to bear weight, CT was ordered which was negative for fracture. Trials at weightbearing were unsuccessful. Patient lives alone and is currently unable to ambulate. She will be admitted with consult to physical therapy for evaluation. Undiagnosed new problem with uncertain prognosis? @ -No Drug Therapy requiring intensive monitoring for toxicity (Heparin, Nitro, Insulin, Cardizem)? @ -No Were any procedures done? @ -No Diagnosis/symptom? @Right hip pain, unable to bear weight Acute, or Chronic, or Acute on Chronic? @ -Acute Uncomplicated (without systemic symptoms) or Complicated (systemic symptoms)? @ -Default Side effects of treatment? @ -No Exacerbation, Progression, or Severe Exacerbation? @ -No Poses a threat to life or bodily function? How? (Chest pain, [place], NH, pneumonia, PE, COPD, DKA, ARF, appy, cholecystitis, CVA, Diverticulitis, Homicidal, Suicidal, threat to staff... and all critical care pts) @ -No Disposition Clinical Impression: Right hip pain, Deterioration in ability to walk Disposition: ADMITTED IP TO THIS [facility] Condition: Stable Is patient prescribed a controlled substance at d/c from ED?: No Referrals: Naseem Motley DO [Primary Care Provider] - 1-2 days Time of Disposition: 00:12
[2023-08-18] MEDS: HYDROmorphone 0.5 MG/0.5 ML SYRINGE IM PRN (21:57)
[2023-08-18] MEDS: HYDROmorphone 0.5 MG/0.5 ML SYRINGE IVP STA (21:59)
--- NOTE | 2023-08-18 23:12 | XR ---
EXAMINATION TYPE: XR knee complete RT DATE OF EXAM: 08/18/2023 9:26 PM CLINICAL INDICATION:Female, 83 years old with history of fall/pain; [facility] COMPARISON: None. TECHNIQUE: XR knee complete RT; examined in Frontal, lateral and oblique projections. FINDINGS: Osseous mineralization appears appropriate. No definite acute fracture lucency or dislocation. Joint spaces are rather well maintained. No sizable joint effusion is seen. Moderate arterial vascular calc ifications. No radiopaque foreign body. IMPRESSION: No acute fracture or dislocation.
--- NOTE | 2023-08-18 23:17 | XR ---
EXAMINATION TYPE: XR Hip RT and AP Pelvis DATE OF EXAM: 08/18/2023 9:26 PM CLINICAL INDICATION:Female, 83 years old with history of fall/pain; [facility] COMPARISON: None. TECHNIQUE: The right hip was examined in the frontal and lateral projections and a AP pelvis. FINDINGS: Osseous mineralization appears appropriate. Partially seen degenerative changes of the lower lumbar s pine and SI joints. Left total hip arthroplasty appears intact and normally aligned. No pelvic fractu re is suggested. There is moderate right hip osteoarthropathy with some osteophytic spurring about the hip joint. Ther e is no dislocation. No acute fracture is suggested by these views. If the patient's symptoms persist, and/or they cannot bear weight, the patient should be kept nonweig htbearing until cross-sectional imaging can be performed. IMPRESSION: 1. No radiographic evidence of fracture or dislocation. 2. Moderate right hip osteoarthropathy.
--- NOTE | 2023-08-18 23:30 | CT ---
EXAM: CT Right Lower Extremity Without Intravenous Contrast, Hip CLINICAL HISTORY: ITS.REASON CT Reason: fall TECHNIQUE: Axial computed tomography images of the right hip without intravenous contrast. CTDI is 18.3 mGy and DLP is 507.1 mGy-cm. This CT exam was performed using one or more of the following dose reduction techniques: automated exposure control, adjustment of the mA and/or kV according to patient size, and/or use of iterative reconstruction technique. COMPARISON: No relevant prior studies available. FINDINGS: No femoral neck or intertrochanteric hip fracture. Moderate osteoarthritis of the RIGHT hip joint, consisting of joint space narrowing, osteophytic spurring, and subchondral sclerosis. Intact RIGHT superior and inferior pubic rami. Degenerative change to the pubic symphysis. No tendinous avulsion injury within the RIGHT hip failed No soft tissue hematoma. Suprapubic catheter terminates in the urinary bladder which is decompressed. IMPRESSION: No femoral neck or intertrochanteric hip fracture. Moderate osteoarthritis of the RIGHT hip.
[2023-08-19] MEDS ORDERED: NALOXONE 0.4 MG/ML 1 ML VIAL IV PRN (00:09)
[2023-08-19 00:18] LABS: Basophils % (A) 0 %; Eosinophils # (A) 0.1 k/uL (0-0.7); Eosinophils % (A) 1 %; HCT 39.1 % (34.0-46.0); HGB 12.7 gm/dL (11.4-16.0); Lymphocytes # (A) 0.8 k/uL (1.0-4.8); Lymphocytes % (A) 16 %; MCH 29.3 pg (25.0-35.0); MCHC 32.6 g/dL (31.0-37.0); MCV 89.7 fL (80.0-100.0); Mean Platelet Volume 8.4; Monocytes # (A) 0.4 k/uL (0-1.0); Monocytes % (A) 8 %; Neutrophils # (A) 3.5 k/uL (1.3-7.7); Neutrophils % (A) 73 %; RBC 4.35 m/uL (3.80-5.40); RDW 13.5 % (11.5-15.5); WBC 4.8 k/uL (3.8-10.6)
[2023-08-19 00:32] LABS: ALT 24 U/L (4-34); AST 33 U/L (14-36); African American GFR (CKD) >90 (>60 ml/min/1.73 sqM); Albumin 3.9 g/dL (3.5-5.0); Alkaline Phosphatase 95 U/L (38-126); Anion Gap 6 mmol/L; Blood Urea Nitrogen 17 mg/dL (7-17); Calcium 8.7 mg/dL (8.4-10.2); Carbon Dioxide 26 mmol/L (22-30); Chloride 107 mmol/L (98-107); Glucose 127 mg/dL (74-99); Non-African American GFR(CKD) 85 (>60 ml/min/1.73 sqM); Sodium 139 mmol/L (137-145); Total Bilirubin 0.5 mg/dL (0.2-1.3); Total Protein 7.6 g/dL (6.3-8.2)
[2023-08-19 00:35] LABS: Potassium 4.8 mmol/L (3.5-5.1)
--- NOTE | 2023-08-19 02:45 | P.HPIM ---
History of Present Illness H&P Date: 08/19/23 Patient is a 83-year-old female with a PMH of hypertension, hyperlipidemia, and GERD who presents to the emergency room after a fall. The patient is a resident of an independent living facility when earlier today she was attempting to get up off of her chair when she lost her footing and fell onto her right side, hitting the right hip on the ground. She denied losing consciousness or experiencing head trauma. She was also denied experiencing dizziness, chest discomfort, shortness of breath, or palpitations. The patient had severe pain at the right hip since then and has been unable to ambulate. Reports ongoing 3 out of 10 right lateral hip pain which worsens to a 9 out of 10 with ambulation. She denied any additional complaints at the time of interview. She reports that she is otherwise independent in all her ADLs and has been doing well. Right hip CT and right knee x-rays were both unremarkable. Laboratory evaluation revealed WBC count of 4.8, hemoglobin 12.7, sodium 139, potassium 4.8, BUN 17, creatinine 0.58, glucose 127. ED documentation reviewed and case discussed with ED provider. Review of systems: Pertinent positives and negatives as discussed in HPI, a complete review of systems was performed and all other systems are negative. Physical examination: Vital signs reviewed General: non toxic, no distress, appears at stated age, normal weight Derm: no unusual rashes/lesions, warm Head: atraumatic, normocephalic, symmetric Eyes: EOMI, no lid lag, anicteric sclera, pupils equal round reactive to light ENT: Nose and ears atraumatic Neck: No cervical lymphadenopathy, trachea midline, supple Mouth: no lip lesion, mucus membranes moist Cardiovascular: S1S2 reg, no murmur, positive dorsalis pedis pulse bilateral, no edema Lungs: CTA bilateral, no rhonchi, no rales, no accessory muscle use Abdominal: soft, nontender to palpation, no guarding Ext: muscle strength 5 out of 5 in all extremities grossly except right lower extremity due to pain, distal RLE strength 5 out of 5, no gross muscle atrophy, no contractures, no right hip skin abnormalities noted Neuro: CN II-XI grossly intact, no gross focal neuro deficits Psych: Alert, oriented, appropriate affect Assessment: Right hip pain following mechanical fall Chronic conditions: Hypertension, hyperlipidemia, GERD Imaging: Right hip CT and right knee x-rays were both unremarkable. Data Review: Laboratory evaluation revealed WBC count of 4.8, hemoglobin 12.7, sodium 139, potassium 4.8, BUN 17, creatinine 0.58, glucose 127. Plan: PT consult Pain control Topical analgesic Fall precautions Continue with home medications once reconciled DVT prophylaxis: Lovenox subcu The patient is admitted with an anticipated less than 2 midnight stay for evaluation of R hip pain CODE STATUS: Full Code Discussed with: Patient Anticipated discharge place: Independent living Past Medical History Past Medical History: GERD/Reflux, Hyperlipidemia, Hypertension, Thyroid Disorder Additional Past Medical History / Comment(s): recent admission to [facility] for large hiatal hernia,hypoxia,has suprapubic catheter placed chronic pancreatitis History of Any Multi-Drug Resistant Organisms: ESBL Date of last positivie culture/infection: 12/06/20 MDRO Source:: ESBL URINE Past Surgical History: Joint Replacement Additional Past Surgical History / Comment(s): parathyroid gland, suprapubic catheter insertion Past Anesthesia/Blood Transfusion Reactions: No Reported Reaction Additional Past Anesthesia/Blood Transfusion Reaction / Comment(s): Pt has received blood in past without reaction. Past Psychological History: Depression Smoking Status: Never smoker Past Alcohol Use History: None Reported Past Drug Use History: None Reported - Past Family History Sister(s) Family Medical History: Myocardial Infarction ([place]) Mother Family Medical History: Cancer Additional Family Medical History / Comment(s): pancreatic Father History Unknown: Yes Family Medical History: Hyperlipidemia Additional Family Medical History / Comment(s): Father in the war. Medications and Allergies Home Medications Medication Instructions Recorded Confirmed Type Aspirin EC [Ecotrin Low Dose] 81 mg PO DAILY 04/10/20 05/08/21 History Atorvastatin Calcium [Lipitor] 40 mg PO HS 04/10/20 05/08/21 History Esomeprazole Magnesium [NexIUM] 40 mg PO DAILY 04/10/20 05/08/21 History Istalol 0.5% 1 drop BOTH EYES DAILY 04/10/20 05/08/21 History Mirtazapine 30 mg PO HS 04/10/20 05/08/21 History NIFEdipine [Procardia XL] 30 mg PO DAILY 04/10/20 05/08/21 History Zolpidem [Ambien] 5 mg PO HS PRN 04/10/20 05/08/21 History Baclofen [Lioresal] 10 mg PO TID PRN 12/07/20 05/08/21 History Gabapentin 300 mg PO BID 12/07/20 05/08/21 History Mirabegron [Myrbetriq] 25 mg PO HS 12/07/20 05/08/21 History Montelukast [Singulair] 10 mg PO HS 12/07/20 05/08/21 History Tolterodine Tartrate [Detrol LA] 4 mg PO HS 12/07/20 05/08/21 History Escitalopram [Lexapro] 20 mg PO DAILY 03/29/21 05/08/21 History prednisoLONE ACETATE 1% OPHTH 1 drop LEFT EYE TID 03/29/21 05/08/21 History [Pred Forte 1%] Levothyroxine Sodium [Synthroid] 75 mcg PO DAILY 04/02/21 05/08/21 History Ofloxacin 0.3% Ophth Soln [Ocuflox 1 drop RIGHT EYE QID 05/08/21 05/08/21 History Ophth Soln] Losartan/Hydrochlorothiazide 1 tab PO DAILY 05/10/21 05/10/21 History [Losartan-Hctz 100-25 mg Tab] Acetaminophen [Tylenol] 500 mg PO Q4-6H PRN #24 tab 06/11/21 Rx Potassium Chloride [Klor-Con 20 20 meq PO DAILY #5 packet 06/11/21 Rx Packets] Acetaminophen-Codeine 300-30mg 1 tab PO Q6H PRN 3 Days #12 tablet 10/16/21 Rx [Tylenol w/codeine #3] Lidocaine 5% Oint [Xylocaine 5% 1 applic TOPICAL TID #50 gm 10/16/21 Rx Oint] Allergies Allergy/AdvReac Type Severity Reaction Status Date / Time atorvastatin [From Lipitor] Allergy Migraine--brand Verified 10/16/21 07:42 OK brimonidine [From Combigan] Allergy Itching Verified 10/16/21 07:42 dicyclomine [From Bentyl] Allergy Swelling Verified 10/16/21 07:42 Sulfa (Sulfonamide Allergy Swelling Verified 10/16/21 07:42 Antibiotics) timolol [From Combigan] Allergy Itching Verified 10/16/21 07:42 Physical Exam Vitals: Vital Signs Temp Pulse Resp BP Pulse Ox 08/18/23 22:41 84 18 169/81 97 04/12/24 20:53 98.1 F 83 18 168/83 95 Intake and Output 08/18/23 08/18/23 08/19/23 14:59 22:59 06:59 Other: Weight 68.039 kg Results CBC & Chem 7: 08/19/23 00:05 08/19/23 00:05 Labs: Abnormal Lab Results - Last 24 Hours (Table) 08/19/23 Range/Units 00:05 Glucose 127 H (74-99) mg/dL
[2023-08-19] MEDS: DICLOFENAC SODIUM GEL 50 GM TUBE TOPICAL SCH (03:52)
[2023-08-19 04:10] LABS: Platelet Count 84 k/uL (150-450)
[2023-08-19] MEDS: HYDROmorphone 0.5 MG/0.5 ML SYRINGE IVP PRN (06:11)
[2023-08-19] MEDS: ONDANSETRON 4 MG/2 ML VIAL IVP PRN (09:26)
[2023-08-19] MEDS: ENOXAPARIN 40 MG/0.4 ML SYRINGE SQ SCH (10:23)
[2023-08-19] MEDS: GABAPENTIN 300 MG CAP PO SCH (11:24)
[2023-08-19] MEDS: HYDROcodone/APAP 7.5-325MG 1 EACH TAB PO SCH (11:24)
[2023-08-19] MEDS: ASPIRIN 81 MG PO SCH (11:25)
[2023-08-19] MEDS: NIFEdipine XL 30 MG TAB.ER.24 PO SCH (12:25)
[2023-08-19] MEDS: SERTRALINE 100 MG TAB PO SCH (12:25)
[2023-08-19] MEDS: LIPASE 5,000/PROTEASE 17,000/AMYLASE 24,000 PO SCH (12:25)
[2023-08-19] MEDS ORDERED: NITROGLYCERIN SL TABS 0.4 MG TAB SUBLINGUAL PRN (13:17)
[2023-08-19] MEDS: ASPIRIN 325 MG TAB PO STA (13:38)
--- NOTE | 2023-08-19 13:57 | XR ---
EXAMINATION TYPE: XR chest 1V portable DATE OF EXAM: 08/19/2023 1:27 PM CLINICAL INDICATION:Female, 83 years old with history of chest pain; [facility] COMPARISON: Chest radiographs from 09/19/2022, 05/08/2021 TECHNIQUE: XR chest 1V portable Frontal view of the chest. FINDINGS: Lungs/Pleura: There is no evidence of pleural effusion, focal consolidation, or pneumothorax. Pulmonary vascularity: Unremarkable. Heart/mediastinum: Cardiomediastinal silhouette is enlarged and stable. Musculoskeletal: No acute osseous pathology. Large hiatal hernia no longer visualized. IMPRESSION: Cardiomegaly without evidence for acute heart failure.
[2023-08-19] MEDS: lisinopriL 10 MG TAB PO SCH (17:35)
--- NOTE | 2023-08-19 18:16 | P.GSCN ---
History of Present Illness Consult date: 08/19/23 Reason for Consult: right hip pain/weakness History of present illness: Patient is a 83-year-old female with a PMH of hypertension, hyperlipidemia, and GERD who presents to the emergency room after a fall. The patient is a resident of an independent living facility when earlier today she was attempting to get up off of her chair when she lost her footing and fell onto her right side, hitting the right hip on the ground. She denied losing consciousness or experiencing head trauma. She was also denied experiencing dizziness, chest discomfort, shortness of breath, or palpitations. The patient had severe pain at the right hip since then and has been unable to ambulate. Reports ongoing 3 out of 10 right lateral hip pain which worsens to a 9 out of 10 with ambulation. She denied any additional complaints at the time of interview. She reports that she is otherwise independent in all her ADLs and has been doing well. Right hip CT and right knee x-rays were both unremarkable. Laboratory evaluation revealed WBC count of 4.8, hemoglobin 12.7, sodium 139, potassium 4.8, BUN 17, creatinine 0.58, glucose 127. ED documentation reviewed and case discussed with ED provider. Review of Systems Review of systems: Pertinent positives and negatives as discussed in HPI, a complete review of systems was performed and all other systems are negative. Past Medical History Past Medical History: GERD/Reflux, Hyperlipidemia, Hypertension, Thyroid Disorder Additional Past Medical History / Comment(s): recent admission to [facility] for large hiatal hernia,hypoxia,has suprapubic catheter placed chronic pancreatitis History of Any Multi-Drug Resistant Organisms: ESBL Year Discovered:: 12/06/20 MDRO Source:: ESBL URINE Past Surgical History: Joint Replacement Additional Past Surgical History / Comment(s): parathyroid gland, suprapubic catheter insertion, Left hip replacement, right shoulder surgery, total hysterectomy Past Anesthesia/Blood Transfusion Reactions: No Reported Reaction Additional Past Anesthesia/Blood Transfusion Reaction / Comm: Pt has received blood in past without reaction. Past Psychological History: Depression Additional Psychological History / Comment(s): Pt resides with spouse at [facility]. She manages her own medications. She uses a walker. She no longer drives, she uses the [facility]. She has home oxygen and a suprapubic cath. Smoking Status: Never smoker Past Alcohol Use History: None Reported Past Drug Use History: None Reported - Past Family History Sister(s) Family Medical History: Myocardial Infarction ([place]) Mother Family Medical History: Cancer Additional Family Medical History / Comment(s): pancreatic Father History Unknown: Yes Family Medical History: Hyperlipidemia Additional Family Medical History / Comment(s): Father in the war. Medications and Allergies Home Medications Medication Instructions Recorded Confirmed Type Aspirin EC [Ecotrin Low Dose] 81 mg PO DAILY 04/10/20 08/19/23 History Atorvastatin Calcium [Lipitor] 40 mg PO HS 04/10/20 08/19/23 History Mirtazapine 30 mg PO HS 04/10/20 08/19/23 History NIFEdipine [Procardia XL] 30 mg PO DAILY 04/10/20 08/19/23 History Gabapentin 300 mg PO TID 12/07/20 08/19/23 History Mirabegron [Myrbetriq] 25 mg PO HS 12/07/20 08/19/23 History Levothyroxine Sodium [Synthroid] 75 mcg PO DAILY 04/02/21 08/19/23 History Ferrous Sulfate [Feosol] 325 mg PO DAILY 08/19/23 08/19/23 History Fluocinolone/Shower Cap 1 applic TOPICAL HS PRN 08/19/23 08/19/23 History [Fluocinolone 0.01% Scalp Oil] Fluticasone Nasal [place] [Flonase 1 spray EA NOSTRIL BID PRN 08/19/23 08/19/23 History Nasal [place]] HYDROcodone/APAP 7.5-325MG [[place] 1 tab PO Q12H 08/19/23 08/19/23 History 7.5-325] Ketoconazole 2% Shampoo [Nizoral] 1 applic TOPICAL DIRECTED 08/19/23 08/19/23 History Latanoprostene Bunod [Vyzulta] 1 drop RIGHT EYE Q48H 08/19/23 08/19/23 History Lidocaine Viscous 2% [Xylocaine 5 ml MUCOUS MEM Q4H PRN 08/19/23 08/19/23 History Viscous] Lipase/Protease/Amylase [Creon Dr 1 cap PO TID 08/19/23 08/19/23 History 6,000 Unit Capsule] Melatonin 20 mg PO HS 08/19/23 08/19/23 History Ondansetron [Zofran] 4 mg PO TID PRN 08/19/23 08/19/23 History Sertraline [Zoloft] 100 mg PO DAILY 08/19/23 08/19/23 History Sodium Chloride 5% Ophth Oint 1 applic BOTH EYES QID 08/19/23 08/19/23 History [Jeffrey 128] Triamcinolone 0.1% Ointment 1 applic TOPICAL HS 08/19/23 08/19/23 History [Kenalog 0.1% Ointment] Zolpidem Tartrate [Ambien Cr] 6.25 mg PO HS PRN 08/19/23 08/19/23 History dexAMETHasone [Decadron Elixir] 0.5 ml PO TID PRN 08/19/23 08/19/23 History methylPREDNISolone Dose Pack See Taper PO DIRECTED 08/19/23 08/19/23 History [Medrol Dose Pack] Allergies Allergy/AdvReac Type Severity Reaction Status Date / Time atorvastatin [From Lipitor] Allergy Migraine Verified 08/19/23 09:11 (CAN TAKE BRAND NAME LIPITOR) brimonidine [From Combigan] Allergy Itching Verified 08/19/23 09:11 dicyclomine [From Bentyl] Allergy Swelling Verified 08/19/23 09:11 of tongue/lips/mouth Sulfa (Sulfonamide Allergy Swelling Verified 08/19/23 09:11 Antibiotics) of tongue/lips/mouth timolol [From Combigan] Allergy Itching Verified 08/19/23 09:11 Surgical - Exam Osteopathic Statement: *. No significant issues noted on an osteopathic structural exam other than those noted in the History and Physical/Consult. Vital Signs Temp Pulse Resp BP Pulse Ox 98.1 F 83 18 168/83 95 08/18/23 20:53 08/18/23 20:53 08/18/23 20:53 08/18/23 20:53 08/18/23 20:53 Physical examination: Vital signs reviewed General: non toxic, no distress, appears at stated age, normal weight Derm: no unusual rashes/lesions, warm Head: atraumatic, normocephalic, symmetric Eyes: EOMI, no lid lag, anicteric sclera, pupils equal round reactive to light ENT: Nose and ears atraumatic Neck: No cervical lymphadenopathy, trachea midline, supple Mouth: no lip lesion, mucus membranes moist Cardiovascular: S1S2 reg, no murmur, positive dorsalis pedis pulse bilateral, no edema Lungs: CTA bilateral, no rhonchi, no rales, no accessory muscle use Abdominal: soft, nontender to palpation, no guarding Ext: muscle strength 5 out of 5 in all extremities grossly except right lower extremity due to pain, distal RLE strength 5 out of 5, no gross muscle atrophy, no contractures, no right hip skin abnormalities noted Neuro: CN II-XI grossly intact, no gross focal neuro deficits Psych: Alert, oriented, appropriate affect Results - Labs 08/19/23 00:05 08/19/23 00:05 Abnormal Lab Results - Last 24 Hours (Table) 08/19/23 08/19/23 Range/Units 00:05 00:05 Plt Count 84 L (150-450) k/uL Lymphocytes # 0.8 L (1.0-4.8) k/uL Glucose 127 H (74-99) mg/dL Diabetes panel 08/19/23 Range/Units 00:05 Sodium 139 (137-145) mmol/L Potassium 4.8 (3.5-5.1) mmol/L Chloride 107 (98-107) mmol/L Carbon Dioxide 26 (22-30) mmol/L BUN 17 (7-17) mg/dL Creatinine 0.58 (0.52-1.04) mg/dL Glucose 127 H (74-99) mg/dL Calcium 8.7 (8.4-10.2) mg/dL AST 33 (14-36) U/L ALT 24 (4-34) U/L Alkaline Phosphatase 95 (38-126) U/L Total Protein 7.6 (6.3-8.2) g/dL Albumin 3.9 (3.5-5.0) g/dL Calcium panel 08/19/23 Range/Units 00:05 Calcium 8.7 (8.4-10.2) mg/dL Albumin 3.9 (3.5-5.0) g/dL Pituitary panel 08/19/23 Range/Units 00:05 Sodium 139 (137-145) mmol/L Potassium 4.8 (3.5-5.1) mmol/L Chloride 107 (98-107) mmol/L Carbon Dioxide 26 (22-30) mmol/L BUN 17 (7-17) mg/dL Creatinine 0.58 (0.52-1.04) mg/dL Glucose 127 H (74-99) mg/dL Calcium 8.7 (8.4-10.2) mg/dL Adrenal panel 08/19/23 Range/Units 00:05 Sodium 139 (137-145) mmol/L Potassium 4.8 (3.5-5.1) mmol/L Chloride 107 (98-107) mmol/L Carbon Dioxide 26 (22-30) mmol/L BUN 17 (7-17) mg/dL Creatinine 0.58 (0.52-1.04) mg/dL Glucose 127 H (74-99) mg/dL Calcium 8.7 (8.4-10.2) mg/dL Total Bilirubin 0.5 (0.2-1.3) mg/dL AST 33 (14-36) U/L ALT 24 (4-34) U/L Alkaline Phosphatase 95 (38-126) U/L Total Protein 7.6 (6.3-8.2) g/dL Albumin 3.9 (3.5-5.0) g/dL Assessment and Plan Assessment: Assessment: Right hip pain following mechanical fall Chronic conditions: Hypertension, hyperlipidemia, GERD Imaging: Right hip CT and right knee x-rays were both unremarkable. Plan: recommend neurology consult, patient complaining of sciatic and weakness PT consult Pain control no intervention from trauma surgery Time with Patient: Greater than 30
[2023-08-19] MEDS: MELATONIN 5 MG TABLET PO SCH (20:39)
[2023-08-19] MEDS: NON FORMULARY DRUG (Mirabegron [Myrbetriq] 25 MG Tab.Er.24h) PO SCH (20:39)
[2023-08-19] MEDS: LIPITOR 40 MG PO SCH (20:39)
[2023-08-19] MEDS: MIRTAZAPINE 15 MG TAB PO SCH (20:39)
[2023-08-19] MEDS: ZOLPIDEM 5 MG TAB PO PRN (22:24)
[2023-08-20] MEDS: LEVOTHYROXINE 75 MCG TAB PO SCH (05:38)
[2023-08-20 08:42] VITALS: RESP 16
[2023-08-20 09:19] LABS: Basophils # (A) 0.03 X 10*3/uL (0.00-0.10); Basophils % (A) 0.6 %; Eosinophils # (A) 0.22 X 10*3/uL (0.04-0.35); Eosinophils % (A) 4.1 %; HCT 39.3 % (37.2-46.3); HGB 12.6 g/dL (12.0-15.0); Lymphocytes # (A) 0.89 X 10*3/uL (0.90-5.00); Lymphocytes % (A) 16.7 %; MCH 28.5 pg (27.0-32.0); MCHC 32.1 g/dL (32.0-37.0); MCV 88.9 FL (80.0-97.0); Mean Platelet Volume 9.6 FL (9.5-12.2); Monocytes # (A) 0.98 X 10*3/uL (0.20-1.00); Monocytes % (A) 18.4 %; NRBC Per 100 WBC 0 X 10*3/uL (0.00-0.01); Platelet Count 232 X 10*3/uL (140-440); RBC 4.42 X 10*6/uL (4.10-5.20); RDW 13.1 % (11.5-14.5); WBC 5.33 X 10*3/uL (4.50-10.00)
[2023-08-20] MEDS: FERROUS SULFATE 325 MG TAB PO SCH (09:24)
[2023-08-20 09:27] LABS: BUN/Creat Ratio 17.11 Ratio (12.00-20.00); Blood Urea Nitrogen 15.4 mg/dL (9.0-27.0); Calcium 8.8 mg/dL (8.7-10.3); Carbon Dioxide 30.1 mmol/L (21.6-31.8); Chloride 99 mmol/L (96-109); Glucose 85 mg/dL (70-110); Potassium 3.9 mmol/L (3.5-5.5); Sodium 138 mmol/L (135-145)
--- NOTE | 2023-08-20 10:37 | P.PN ---
Subjective Progress Note Date: 08/20/23 Hospital Course: 83-year-old female with a PMH of right-sided sciatica, hypertension, hyperlipi demia, GERD, chronic Oliver who presents to the emergency room after a mechanical fall. Right hip CT and right knee x-rays were both unremarkable. Laboratory evaluation revealed WBC count of 4.8, hemoglobin 12.7, sodium 139, potassium 4.8, BUN 17, creatinine 0.58, glucose 127. Trauma surgery was consulted, recommending no interventions. Patient did complain of chest discomfort. Troponin negative. EKG did not show any significant ST-T wave changes. Cardio consulted. PT consulted as well. Subjective: Patient seen and examined at bedside. No acute events overnight. Still having chest discomfort which is occasional. Still has not gotten out of the bed. Has a chronic Oliver in place. Pertinent positives and negatives as discussed above, a complete review of systems was performed and all other systems are negative. Vitals Signs Reviewed. General: Nontoxic, no distress, appears at stated age Derm: Warm, dry Head: Atraumatic, normocephalic, symmetric Eyes: EOMI, no lid lag, anicteric sclera Mouth: No lip lesion, mucus membranes moist Cardiovascular: S1S2 reg, no murmur Lungs: CTA bilateral, no rhonchi, no rales, no accessory muscle use Abdominal: Soft, nontender to palpation, no guarding, no appreciable organomegaly Ext: No gross muscle atrophy, no edema, no contractures, right buttock pain with movement of right lower extremity. Neuro: CN II-XI grossly intact, no focal neuro deficits Psych: Alert, oriented, appropriate affect Data Reviewed Today: Pertinent Labs: WBC 5.33, hemoglobin 12.6, platelet 232, creatinine 0.9 Imaging: Chest x-ray independently interpreted, shows no opacities, EKG independently interpreted, shows sinus rhythm with occasional PACs, no si gnificant ST-T wave changes Assessment and Plan: Active: Chest pain, unlikely ACS Hypertensive urgency Troponin negative Cardiology consulted Telemetry monitoring Started on lisinopril 10 daily, cardiology starting lisinopril 20 at night, patient on nifedipine 30 daily Mechanical fall Right-sided sciatica Oral Tylenol as needed, gabapentin 300 3 times daily, oral [place] 7.5 every 12 hours, IV Dilaudid as needed, monitor for sedation Senna 8.6 daily PT consulted TSH, A1c, B12 pending Resolved: Thrombocytopenia Chronic: Hypothyroidism Depression Urine incontinence DVT ppx: Lovenox Code status: Full code Anticipated discharge place: Pending clinical course Anticipated discharge time: Pending clinical course Objective - Vital Signs Vital signs: Vital Signs Temp 97.8 F 08/20/23 08:00 Pulse 75 08/20/23 08:00 Resp 16 08/20/23 08:00 BP 207/91 08/20/23 08:00 Pulse Ox 97 08/20/23 08:00 FiO2 Intake & Output 08/19/23 08/20/23 08/20/23 18:59 06:59 18:59 Intake Total 400 Output Total 300 Balance 400 -300 Weight 68.039 kg Intake: Oral 400 Output: Stool 300 Other: Voiding Method Indwelling Catheter - Labs CBC & Chem 7: 08/20/23 05:59 08/20/23 05:59 Labs: Abnormal Lab Results - Last 24 Hours (Table) 08/20/23 Range/Units 05:59 Lymphocytes # 0.89 L (0.90-5.00) X 10*3/uL
--- NOTE | 2023-08-20 10:48 | P.CRDCN ---
History of Present Illness Consult date: 08/20/23 Consult reason: chest pain History of present illness: The patient is an 83-year-old female who presented to the hospital after mechanical fall. The patient states she was closing her blinds when her legs gave out and she fell against an air conditioning unit. She states there was no prodrome prior to her fall and she has not had episodes of dizziness and lightheadedness. She states she did not lose consciousness at the time of her fall. She presented initially with hip discomfort. Her blood pressure since admission has been extremely elevated and she has had some chest tightness when her blood pressure was 200 systolic. DIAGNOSTICS: EKG shows sinus mechanism with poor R wave progression Chest x-ray shows no acute cardiopulmonary process Echocardiogram from November 2022 shows preserved LV function and no significant valvular abnormalities Lab data: WBC 5.3, hemoglobin 12.6, hematocrit 39.3, platelet 232, sodium 138, potassium 3.9, BUN 15, creatinine 0.9, AST 33, ALT 24, troponin less than 0.01 REVIEW OF SYSTEMS: No fever or chills. No cough or expectoration. No diaphoresis. Patient denies headache, dizziness, blurred vision, double vision. Positive for abdominal pain, chronic no nausea, vomiting. No hematochezia. No hematemesis. Denies any black stools or blood in his stools. Denies dysuria or hematuria. No muscle weakness or numbness. No current chest pain or pressure. No difficulty breathing. PHYSICAL EXAMINATION: This is a 83-year-old female in no apparent distress at the time of my examination. HEENT: Head is atraumatic, normocephalic. Pupils are equal, round. There is no jugular venous distention. No carotid bruit is heard. CHEST EXAMINATION: Lungs are clear to auscultation. No chest wall tenderness is noted on palpation or with deep breathing. HEART EXAMINATION: Heart regular rate and rhythm. S1, S2 heard. No murmurs, gallops or rub. ABDOMEN: Soft, nontender. Bowel sounds are heard. No organomegaly noted. EXTREMITIES: 2+ peripheral pulses with no evidence of peripheral edema and no calf tenderness noted. NEUROLOGIC EXAMINATION: Patient is awake, alert and oriented x3. FINAL ASSESSMENT AND PLAN: Mechanical fall Hypertension History of hyperlipidemia History of chronic pancreatitis PLAN: Continue Procardia in the morning Increase lisinopril to 20 mg at bedtime Pain management per primary team Anticipate discharge tomorrow if blood pressure readings improved Outpatient follow-up with Dr. Rosales in 2 weeks I am dictating on behalf of Dr Kwaku Rosales's history/physical and assessme nt/plan. Past Medical History Past Medical History: GERD/Reflux, Hyperlipidemia, Hypertension, Thyroid Disorder Additional Past Medical History / Comment(s): recent admission to [facility] for large hiatal hernia,hypoxia,has suprapubic catheter placed chronic pancreatitis History of Any Multi-Drug Resistant Organisms: ESBL Date of last positivie culture/infection: 12/06/20 MDRO Source:: ESBL URINE Past Surgical History: Joint Replacement Additional Past Surgical History / Comment(s): parathyroid gland, suprapubic catheter insertion, Left hip replacement, right shoulder surgery, total hysterectomy Past Anesthesia/Blood Transfusion Reactions: No Reported Reaction Additional Past Anesthesia/Blood Transfusion Reaction / Comment(s): Pt has received blood in past without reaction. Past Psychological History: Depression Additional Psychological History / Comment(s): Pt resides with spouse at [facility]. She manages her own medications. She uses a walker. She no longer drives, she uses the [employer] shuttle. She has home oxygen and a suprapubic cath. Smoking Status: Never smoker Past Alcohol Use History: None Reported Past Drug Use History: None Reported - Past Family History Sister(s) Family Medical History: Myocardial Infarction ([place]) Mother Family Medical History: Cancer Additional Family Medical History / Comment(s): pancreatic Father History Unknown: Yes Family Medical History: Hyperlipidemia Additional Family Medical History / Comment(s): Father in the war. Medications and Allergies Home Medications Medication Instructions Recorded Confirmed Type Aspirin EC [Ecotrin Low Dose] 81 mg PO DAILY 04/10/20 08/19/23 History Atorvastatin Calcium [Lipitor] 40 mg PO HS 04/10/20 08/19/23 History Mirtazapine 30 mg PO HS 04/10/20 08/19/23 History NIFEdipine [Procardia XL] 30 mg PO DAILY 04/10/20 08/19/23 History Gabapentin 300 mg PO TID 12/07/20 08/19/23 History Mirabegron [Myrbetriq] 25 mg PO HS 12/07/20 08/19/23 History Levothyroxine Sodium [Synthroid] 75 mcg PO DAILY 04/02/21 08/19/23 History Ferrous Sulfate [Feosol] 325 mg PO DAILY 08/19/23 08/19/23 History Fluocinolone/Shower Cap 1 applic TOPICAL HS PRN 08/19/23 08/19/23 History [Fluocinolone 0.01% Scalp Oil] Fluticasone Nasal [place] [Flonase 1 spray EA NOSTRIL BID PRN 08/19/23 08/19/23 History Nasal [place]] HYDROcodone/APAP 7.5-325MG [[place] 1 tab PO Q12H 08/19/23 08/19/23 History 7.5-325] Ketoconazole 2% Shampoo [Nizoral] 1 applic TOPICAL DIRECTED 08/19/23 08/19/23 History Latanoprostene Bunod [Vyzulta] 1 drop RIGHT EYE Q48H 08/19/23 08/19/23 History Lidocaine Viscous 2% [Xylocaine 5 ml MUCOUS MEM Q4H PRN 08/19/23 08/19/23 History Viscous] Lipase/Protease/Amylase [Creon Dr 1 cap PO TID 08/19/23 08/19/23 History 6,000 Unit Capsule] Melatonin 20 mg PO HS 08/19/23 08/19/23 History Ondansetron [Zofran] 4 mg PO TID PRN 08/19/23 08/19/23 History Sertraline [Zoloft] 100 mg PO DAILY 08/19/23 08/19/23 History Sodium Chloride 5% Ophth Oint 1 applic BOTH EYES QID 08/19/23 08/19/23 History [Jeffrey 128] Triamcinolone 0.1% Ointment 1 applic TOPICAL HS 08/19/23 08/19/23 History [Kenalog 0.1% Ointment] Zolpidem Tartrate [Ambien Cr] 6.25 mg PO HS PRN 08/19/23 08/19/23 History dexAMETHasone [Decadron Elixir] 0.5 ml PO TID PRN 08/19/23 08/19/23 History methylPREDNISolone Dose Pack See Taper PO DIRECTED 08/19/23 08/19/23 History [Medrol Dose Pack] Allergies Allergy/AdvReac Type Severity Reaction Status Date / Time atorvastatin [From Lipitor] Allergy Migraine Verified 08/19/23 09:11 (CAN TAKE BRAND NAME LIPITOR) brimonidine [From Combigan] Allergy Itching Verified 08/19/23 09:11 dicyclomine [From Bentyl] Allergy Swelling Verified 08/19/23 09:11 of tongue/lips/mouth Sulfa (Sulfonamide Allergy Swelling Verified 08/19/23 09:11 Antibiotics) of tongue/lips/mouth timolol [From Combigan] Allergy Itching Verified 08/19/23 09:11 Physical Exam Vitals: Vital Signs Temp Pulse Pulse Resp BP BP BP 08/20/23 08:00 97.8 F 75 16 207/91 08/20/23 01:53 98.0 F 79 20 167/88 08/19/23 19:48 98.6 F 74 18 169/70 08/19/23 19:10 74 18 08/19/23 16:20 98.5 F 69 18 192/82 200/74 08/19/23 15:35 98.8 F 15 177/96 08/19/23 13:17 78 22 181/91 08/19/23 12:29 80 20 170/89 Pulse Ox 08/20/23 08:00 97 08/20/23 01:53 97 08/19/23 19:48 97 08/19/23 19:10 08/19/23 16:20 98 08/19/23 15:35 96 08/19/23 13:17 97 08/19/23 12:29 98 Intake and Output 08/19/23 08/20/23 08/20/23 22:59 06:59 14:59 Intake Total 400 Output Total 300 Balance 400 -300 Intake: Oral 400 Output: Stool 300 Other: Voiding Method Indwelling Catheter Results 08/20/23 05:59 08/20/23 05:59 Cardiac Enzymes 08/19/23 Range/Units 13:48 Troponin I <0.012 (0.000-0.034) ng/mL CBC 08/20/23 Range/Units 05:59 WBC 5.33 (4.50-10.00) X 10*3/uL RBC 4.42 (4.10-5.20) X 10*6/uL Hgb 12.6 (12.0-15.0) g/dL Hct 39.3 (37.2-46.3) % Plt Count 232 (140-440) X 10*3/uL Comprehensive Metabolic Panel 08/20/23 Range/Units 05:59 Sodium 138 (135-145) mmol/L Potassium 3.9 (3.5-5.5) mmol/L Chloride 99 (96-109) mmol/L Carbon Dioxide 30.1 (21.6-31.8) mmol/L BUN 15.4 (9.0-27.0) mg/dL Creatinine 0.9 (0.6-1.5) mg/dL Glucose 85 (70-110) mg/dL Calcium 8.8 (8.7-10.3) mg/dL Current Medications Generic Name Dose Route Start Last Admin Trade Name Freq PRN Reason Stop Dose Admin Acetaminophen 650 mg 08/19/23 00:09 Acetaminophen Tab 325 Mg Tab PO Q6HR PRN Mild Pain or Fever > 100.5 Hydrocodone Bitart/Acetaminophen 1 each 08/19/23 11:00 08/20/23 09:25 Hydrocodone/Apap 7.5-325mg 1 Each Tab PO 1 each Q12HR FERNANDA Administration Lipase/Protease/Amylase 1 each 08/19/23 12:30 08/20/23 09:25 Lipase 5,000/Protease 17,000/Amylase 24,000 PO 1 each AC-TID FERNANDA Administration Aspirin 81 mg 08/19/23 11:00 08/20/23 09:41 Aspirin 81 Mg PO 81 mg DAILY FERNANDA Administration Diclofenac Sodium 2 gm 08/19/23 03:00 08/20/23 09:27 Diclofenac Sodium Gel 100 Gm Tube TOPICAL 2 gm QID FERNANDA Administration Protocol Enoxaparin Sodium 40 mg 08/19/23 09:00 08/20/23 09:24 Enoxaparin 40 Mg/0.4 Ml Syringe SQ 40 mg DAILY FERNANDA Administration Ferrous Sulfate 325 mg 08/20/23 09:00 08/20/23 09:24 Ferrous Sulfate 325 Mg Tab PO 325 mg DAILY FERNANDA Administration Gabapentin 300 mg 08/19/23 11:00 08/20/23 09:25 Gabapentin 300 Mg Cap PO 300 mg TID FERNANDA Administration Hydromorphone HCl 0.5 mg 08/18/23 21:56 Hydromorphone 0.5 Mg/0.5 Ml Syringe IM ONCE PRN Pain Hydromorphone HCl 0.5 mg 08/19/23 00:09 08/19/23 06:11 Hydromorphone 0.5 Mg/0.5 Ml Syringe IVP 0.5 mg Q3HR PRN Administration Moderate Pain (Scale 4 to 6) Levothyroxine Sodium 75 mcg 08/20/23 06:30 08/20/23 05:38 Levothyroxine 75 Mcg Tab PO 75 mcg DAILY@0630 FERNANDA Administration Lisinopril 20 mg 08/20/23 21:00 Lisinopril 20 Mg Tab PO HS FERNANDA Melatonin 20 mg 08/19/23 21:00 08/19/23 20:39 Melatonin 5 Mg Tablet PO 20 mg HS FERNANDA Administration Mirtazapine 30 mg 08/19/23 21:00 08/19/23 20:39 Mirtazapine 15 Mg Tab PO 30 mg HS [facility] Administration Naloxone HCl 0.2 mg 08/19/23 00:09 Naloxone 0.4 Mg/Ml 1 Ml Vial IV Q2M PRN Opioid Reversal Nifedipine 30 mg 08/19/23 11:00 08/20/23 09:41 Nifedipine Xl 30 Mg Tab.Er.24 PO 30 mg DAILY [facility] Administration Nitroglycerin 0.4 mg 08/19/23 13:17 Nitroglycerin Sl Tabs 0.4 Mg Tab SUBLINGUAL Q5M PRN Chest Pain Lipitor 40mg Tab 1 each 08/19/23 21:00 08/19/23 20:39 PO Not Given HS [facility] Non-Formulary Medication 25 mg 08/19/23 21:00 08/19/23 20:39 Mirabegron [Myrbetriq] PO Not Given HS [facility] Ondansetron HCl 4 mg 08/19/23 09:08 08/19/23 18:08 Ondansetron 4 Mg/2 Ml Vial IVP 4 mg Q6HR PRN Administration Nausea And Vomiting Senna 8.6 mg 08/20/23 11:00 Sennosides 8.6 Mg Tab PO DAILY [facility] Sertraline HCl 100 mg 08/19/23 11:00 08/20/23 09:25 Sertraline 100 Mg Tab PO 100 mg DAILY [facility] Administration Zolpidem Tartrate 5 mg 08/19/23 21:18 08/19/23 22:24 Zolpidem 5 Mg Tab PO 5 mg HS PRN Administration Insomnia Intake and Output 08/19/23 08/20/23 08/20/23 22:59 06:59 14:59 Intake Total 400 Output Total 300 Balance 400 -300 Intake: Oral 400 Output: Stool 300 Other: Voiding Method Indwelling Catheter 08/20/23 05:59 08/20/23 05:59
[2023-08-20] MEDS: SENNOSIDES 8.6 MG TAB PO SCH (14:25)
[2023-08-20] MEDS: ACETAMINOPHEN TAB 325 MG TAB PO PRN (14:27)
--- NOTE | 2023-08-20 14:41 | P.GSCN ---
History of Present Illness Consult date: 08/20/23 History of present illness: Patient presents after ground level fall onto her air conditioning unit where her right leg gave out. Work-up for acute fracture is negative but still complains of right lower back to right hip to knee pain. She reports weakness of the right leg following the event. She denies prior episodes. STUDIES: CT hip demonstrates severe osteoarthritis of the right hip PLAN: 1. Orthopedic consultation for right back/hip/knee pain and physical therapy recommendations Past Medical History Past Medical History: GERD/Reflux, Hyperlipidemia, Hypertension, Thyroid Disorder Additional Past Medical History / Comment(s): recent admission to [facility] for large hiatal hernia,hypoxia,has suprapubic catheter placed chronic pancreatitis History of Any Multi-Drug Resistant Organisms: ESBL Year Discovered:: 12/06/20 MDRO Source:: ESBL URINE Past Surgical History: Joint Replacement Additional Past Surgical History / Comment(s): parathyroid gland, suprapubic catheter insertion, Left hip replacement, right shoulder surgery, total hysterectomy Past Anesthesia/Blood Transfusion Reactions: No Reported Reaction Additional Past Anesthesia/Blood Transfusion Reaction / Comm: Pt has received blood in past without reaction. Past Psychological History: Depression Additional Psychological History / Comment(s): Pt resides with spouse at [facility]. She manages her own medications. She uses a walker. She no longer drives, she uses the [employer] shuttle. She has home oxygen and a suprapubic cath. Smoking Status: Never smoker Past Alcohol Use History: None Reported Past Drug Use History: None Reported - Past Family History Sister(s) Family Medical History: Myocardial Infarction ([place]) Mother Family Medical History: Cancer Additional Family Medical History / Comment(s): pancreatic Father History Unknown: Yes Family Medical History: Hyperlipidemia Additional Family Medical History / Comment(s): Father in the war. Medications and Allergies Home Medications Medication Instructions Recorded Confirmed Type Aspirin EC [Ecotrin Low Dose] 81 mg PO DAILY 04/10/20 08/19/23 History Atorvastatin Calcium [Lipitor] 40 mg PO HS 04/10/20 08/19/23 History Mirtazapine 30 mg PO HS 04/10/20 08/19/23 History NIFEdipine [Procardia XL] 30 mg PO DAILY 04/10/20 08/19/23 History Gabapentin 300 mg PO TID 12/07/20 08/19/23 History Mirabegron [Myrbetriq] 25 mg PO HS 12/07/20 08/19/23 History Levothyroxine Sodium [Synthroid] 75 mcg PO DAILY 04/02/21 08/19/23 History Ferrous Sulfate [Feosol] 325 mg PO DAILY 08/19/23 08/19/23 History Fluocinolone/Shower Cap 1 applic TOPICAL HS PRN 08/19/23 08/19/23 History [Fluocinolone 0.01% Scalp Oil] Fluticasone Nasal [place] [Flonase 1 spray EA NOSTRIL BID PRN 08/19/23 08/19/23 History Nasal [place]] HYDROcodone/APAP 7.5-325MG [[place] 1 tab PO Q12H 08/19/23 08/19/23 History 7.5-325] Ketoconazole 2% Shampoo [Nizoral] 1 applic TOPICAL DIRECTED 08/19/23 08/19/23 History Latanoprostene Bunod [Vyzulta] 1 drop RIGHT EYE Q48H 08/19/23 08/19/23 History Lidocaine Viscous 2% [Xylocaine 5 ml MUCOUS MEM Q4H PRN 08/19/23 08/19/23 History Viscous] Lipase/Protease/Amylase [Creon Dr 1 cap PO TID 08/19/23 08/19/23 History 6,000 Unit Capsule] Melatonin 20 mg PO HS 08/19/23 08/19/23 History Ondansetron [Zofran] 4 mg PO TID PRN 08/19/23 08/19/23 History Sertraline [Zoloft] 100 mg PO DAILY 08/19/23 08/19/23 History Sodium Chloride 5% Ophth Oint 1 applic BOTH EYES QID 08/19/23 08/19/23 History [Jeffrey 128] Triamcinolone 0.1% Ointment 1 applic TOPICAL HS 08/19/23 08/19/23 History [Kenalog 0.1% Ointment] Zolpidem Tartrate [Ambien Cr] 6.25 mg PO HS PRN 08/19/23 08/19/23 History dexAMETHasone [Decadron Elixir] 0.5 ml PO TID PRN 08/19/23 08/19/23 History methylPREDNISolone Dose Pack See Taper PO DIRECTED 08/19/23 08/19/23 History [Medrol Dose Pack] Allergies Allergy/AdvReac Type Severity Reaction Status Date / Time atorvastatin [From Lipitor] Allergy Migraine Verified 08/19/23 09:11 (CAN TAKE BRAND NAME LIPITOR) brimonidine [From Combigan] Allergy Itching Verified 08/19/23 09:11 dicyclomine [From Bentyl] Allergy Swelling Verified 08/19/23 09:11 of tongue/lips/mouth Sulfa (Sulfonamide Allergy Swelling Verified 08/19/23 09:11 Antibiotics) of tongue/lips/mouth timolol [From Combigan] Allergy Itching Verified 08/19/23 09:11 Surgical - Exam Vital Signs Temp Pulse Resp BP Pulse Ox 98.1 F 83 18 168/83 95 08/18/23 20:53 08/18/23 20:53 08/18/23 20:53 08/18/23 20:53 08/18/23 20:53 Results - Labs 08/20/23 05:59 08/20/23 05:59 Abnormal Lab Results - Last 24 Hours (Table) 08/20/23 Range/Units 05:59 Lymphocytes # 0.89 L (0.90-5.00) X 10*3/uL Diabetes panel 08/20/23 Range/Units 05:59 Sodium 138 (135-145) mmol/L Potassium 3.9 (3.5-5.5) mmol/L Chloride 99 (96-109) mmol/L Carbon Dioxide 30.1 (21.6-31.8) mmol/L BUN 15.4 (9.0-27.0) mg/dL Creatinine 0.9 (0.6-1.5) mg/dL Glucose 85 (70-110) mg/dL Calcium 8.8 (8.7-10.3) mg/dL Calcium panel 08/20/23 Range/Units 05:59 Calcium 8.8 (8.7-10.3) mg/dL Pituitary panel 08/20/23 Range/Units 05:59 Sodium 138 (135-145) mmol/L Potassium 3.9 (3.5-5.5) mmol/L Chloride 99 (96-109) mmol/L Carbon Dioxide 30.1 (21.6-31.8) mmol/L BUN 15.4 (9.0-27.0) mg/dL Creatinine 0.9 (0.6-1.5) mg/dL Glucose 85 (70-110) mg/dL Calcium 8.8 (8.7-10.3) mg/dL Adrenal panel 08/20/23 Range/Units 05:59 Sodium 138 (135-145) mmol/L Potassium 3.9 (3.5-5.5) mmol/L Chloride 99 (96-109) mmol/L Carbon Dioxide 30.1 (21.6-31.8) mmol/L BUN 15.4 (9.0-27.0) mg/dL Creatinine 0.9 (0.6-1.5) mg/dL Glucose 85 (70-110) mg/dL Calcium 8.8 (8.7-10.3) mg/dL
[2023-08-20] MEDS: lisinopriL 20 MG TAB PO SCH (21:16)
[2023-08-21 08:23] LABS: Chol/HDL Ratio 2.77 Ratio; LDL Cholesterol,Calculated 54.9 mg/dL (0.0-131.0)
--- NOTE | 2023-08-21 09:58 | P.PN ---
Subjective Progress Note Date: 08/21/23 Consult reason: chest pain History of present illness: The patient is an 83-year-old female who presented to the hospital after mechanical fall. The patient states she was closing her blinds when her legs gave out and she fell against an air conditioning unit. She states there was no prodrome prior to her fall and she has not had episodes of dizziness and lightheadedness. She states she did not lose consciousness at the time of her fall. She presented initially with hip discomfort. Her blood pressure since admission has been extremely elevated and she has had some chest tightness when her blood pressure was 200 systolic. DIAGNOSTICS: EKG shows sinus mechanism with poor R wave progression Chest x-ray shows no acute cardiopulmonary process Echocardiogram from November 2022 shows preserved LV function and no significant valvular abnormalities Lab data: WBC 5.3, hemoglobin 12.6, hematocrit 39.3, platelet 232, sodium 138, potassium 3.9, BUN 15, creatinine 0.9, AST 33, ALT 24, troponin less than 0.01 08/20 Patient continues to have pain on the right side of her body from fall. Yesterday lisinopril was increased to 20 mg and this morning blood pressure is running 142/69, 156/80, heart rates in the 60s and 70s, pulse ox 96% on 2 L nasal cannula. Patient is hoping to go home today. PHYSICAL EXAMINATION: This is a 83-year-old female in no apparent distress at the time of my examination. HEENT: Head is atraumatic, normocephalic. Pupils are equal, round. There is no jugular venous distention. No carotid bruit is heard. CHEST EXAMINATION: Lungs are clear to auscultation. No chest wall tenderness is noted on palpation or with deep breathing. HEART EXAMINATION: Heart regular rate and rhythm. S1, S2 heard. No murmurs, gallops or rub. ABDOMEN: Soft, nontender. Bowel sounds are heard. No organomegaly noted. EXTREMITIES: 2+ peripheral pulses with no evidence of peripheral edema and no calf tenderness noted. NEUROLOGIC EXAMINATION: Patient is awake, alert and oriented x3. FINAL ASSESSMENT AND PLAN: Mechanical fall Hypertension History of hyperlipidemia History of chronic pancreatitis PLAN: Continue Procardia increased to 60 mg Continue increased dose of lisinopril 20 mg at bedtime Pain management per primary team Anticipate discharge home today Outpatient follow-up with Dr. Rosales in 2 weeks Nurse practitioner note has been reviewed, I agree with documented findings and plan of care. Patient was seen and examined. Objective - Vital Signs Vital signs: Vital Signs Temp 98.4 F 08/21/23 06:55 Pulse 66 08/21/23 06:55 Resp 16 08/21/23 06:55 BP 142/69 08/21/23 06:55 Pulse Ox 96 08/21/23 06:55 FiO2 Intake & Output 08/20/23 08/21/23 08/21/23 18:59 06:59 18:59 Intake Total 600 Output Total 700 2000 Balance -100 -1999 Intake: Oral 600 Output: Urine 700 2000 Other: Voiding Method Indwelling Catheter Indwelling Catheter - Labs CBC & Chem 7: 08/20/23 05:59 08/20/23 05:59 Labs: Abnormal Lab Results - Last 24 Hours (Table) 08/20/23 08/20/23 Range/Units 05:59 05:59 Lymphocytes # 0.89 L (0.90-5.00) X 10*3/uL Hemoglobin A1c 6.2 H (<=6.0) %
--- NOTE | 2023-08-21 13:08 | P.PN ---
Subjective Progress Note Date: 08/21/23 CHIEF COMPLAINT: Ground-level fall HISTORY OF PRESENT ILLNESS: Patient presents the hospital after a ground-level fall onto her air conditioning unit where her right leg gave out. Patient complains of right lower back and right hip pain. CT had reported severe osteoarthritis in the right hip. Orthopedics have been consulted for her back and right leg pain. Patient was seen and examined by orthopedic service. They have ordered further imaging of lumbar spine. No new labs PHYSICAL EXAM: VITAL SIGNS: Reviewed GENERAL: Well-developed in no acute distress. HEENT: No sclera icterus. Extraocular movements grossly intact. Moist buccal mucosa. Head is atraumatic, normocephalic. Hears conversational speech. No nasal drainage. NECK: Supple without lymphadenopathy. CHEST: Non-labored respirations and equal bilateral excursions. CARDIOVASCULAR: Palpable 2+ radial pulses. ABDOMEN: Soft. Nondistended. Nontender. MUSCULOSKELETAL: No clubbing or cyanosis. NEUROLOGIC: No focal or lateralizing signs. Cranial nerves II through XII grossly intact. PSYCH: Appropriate affect. Alert and oriented to person, place and time. SKIN: Well perfused. Good skin turgor. ASSESSMENT: 1. Ground-level fall 2. Lower back pain and right leg and hip pain PLAN: -Patient evaluated by orthopedic service. They have ordered further imaging. -No surgical intervention planned per trauma service -Continue workup per orthopedic service -Surgical service will sign off. Please call with any questions or concerns. Physician Ribbon Lap Machine Tender note has been reviewed by physician. Signing provider agrees with the documented findings, assessment, and plan of care. Objective - Vital Signs Vital signs: Vital Signs Temp 98.6 F 08/21/23 11:54 Pulse 64 08/21/23 11:54 Resp 16 08/21/23 11:54 BP 126/61 08/21/23 11:54 Pulse Ox 92 L 08/21/23 11:54 FiO2 Intake & Output 08/20/23 08/21/23 08/21/23 18:59 06:59 18:59 Intake Total 600 Output Total 700 2000 Balance -100 -2000 Intake: Oral 600 Output: Urine 700 2000 Other: Voiding Method Indwelling Catheter Indwelling Catheter Indwelling Catheter - Labs CBC & Chem 7: 08/20/23 05:59 08/20/23 05:59 Labs: Abnormal Lab Results - Last 24 Hours (Table) 08/20/23 08/20/23 Range/Units 05:59 05:59 Hemoglobin A1c 6.2 H (<=6.0) % Triglycerides 157.00 H (0.00-149.00) mg/dL
--- NOTE | 2023-08-21 14:23 | P.CNOR ---
History of Present Illness - [facility] Consult date: 08/21/23 Consult reason: joint pain (Right hip pain, low back pain.) History of present illness: This is an 83-year-old female who was admitted to [facility] on 08/18/2023 after falling when her right leg gave out on her. She states that she felt weakness in her leg and she fell forward, landing on her air conditioning unit. She has had hip x-rays which are negative. We are consulted for further orthopedic evaluation of the right hip. The patient states that her pain is located more posterior and lateral hip. She is having minimal groin pain. She is able to stand and ambulate with mild discomfort. She admits to some numbness and tingling down the leg. Past Medical History Past Medical History: GERD/Reflux, Hyperlipidemia, Hypertension, Thyroid Disor el Additional Past Medical History / Comment(s): recent admission to [facility] for large hiatal hernia,hypoxia,has suprapubic catheter placed chronic pancreatitis History of Any Multi-Drug Resistant Organisms: ESBL Year Discovered:: 12/06/20 MDRO Source:: ESBL URINE Past Surgical History: Joint Replacement Additional Past Surgical History / Comment(s): parathyroid gland, suprapubic catheter insertion, Left hip replacement, right shoulder surgery, total hysterectomy Past Anesthesia/Blood Transfusion Reactions: No Reported Reaction Additional Past Anesthesia/Blood Transfusion Reaction / Comm: Pt has received blood in past without reaction. Past Psychological History: Depression Additional Psychological History / Comment(s): Pt resides with spouse at [facility]. She manages her own medications. She uses a walker. She no longer drives, she uses the [employer]. She has home oxygen and a suprapubic cath. Smoking Status: Never smoker Past Alcohol Use History: None Reported Past Drug Use History: None Reported - Past Family History Sister(s) Family Medical History: Myocardial Infarction ([place]) Mother Family Medical History: Cancer Additional Family Medical History / Comment(s): pancreatic Father History Unknown: Yes Family Medical History: Hyperlipidemia Additional Family Medical History / Comment(s): Father in the war. Medications and Allergies Home Medications Medication Instructions Recorded Confirmed Type Aspirin EC [Ecotrin Low Dose] 81 mg PO DAILY 04/10/20 08/19/23 History Atorvastatin Calcium [Lipitor] 40 mg PO HS 04/10/20 08/19/23 History Mirtazapine 30 mg PO HS 04/10/20 08/19/23 History NIFEdipine [Procardia XL] 30 mg PO DAILY 04/10/20 08/19/23 History Gabapentin 300 mg PO TID 12/07/20 08/19/23 History Mirabegron [Myrbetriq] 25 mg PO HS 12/07/20 08/19/23 History Levothyroxine Sodium [Synthroid] 75 mcg PO DAILY 04/02/21 08/19/23 History Ferrous Sulfate [Feosol] 325 mg PO DAILY 08/19/23 08/19/23 History Fluocinolone/Shower Cap 1 applic TOPICAL HS PRN 08/19/23 08/19/23 History [Fluocinolone 0.01% Scalp Oil] Fluticasone Nasal [place] [Flonase 1 spray EA NOSTRIL BID PRN 08/19/23 08/19/23 History Nasal [place]] HYDROcodone/APAP 7.5-325MG [[place] 1 tab PO Q12H 08/19/23 08/19/23 History 7.5-325] Ketoconazole 2% Shampoo [Nizoral] 1 applic TOPICAL DIRECTED 08/19/23 08/19/23 History Latanoprostene Bunod [Vyzulta] 1 drop RIGHT EYE Q48H 08/19/23 08/19/23 History Lidocaine Viscous 2% [Xylocaine 5 ml MUCOUS MEM Q4H PRN 08/19/23 08/19/23 History Viscous] Lipase/Protease/Amylase [Creon Dr 1 cap PO TID 08/19/23 08/19/23 History 6,000 Unit Capsule] Melatonin 20 mg PO HS 08/19/23 08/19/23 History Ondansetron [Zofran] 4 mg PO TID PRN 08/19/23 08/19/23 History Sertraline [Zoloft] 100 mg PO DAILY 08/19/23 08/19/23 History Sodium Chloride 5% Ophth Oint 1 applic BOTH EYES QID 08/19/23 08/19/23 History [Jeffrey 128] Triamcinolone 0.1% Ointment 1 applic TOPICAL HS 08/19/23 08/19/23 History [Kenalog 0.1% Ointment] Zolpidem Tartrate [Ambien Cr] 6.25 mg PO HS PRN 08/19/23 08/19/23 History dexAMETHasone [Decadron Elixir] 0.5 ml PO TID PRN 08/19/23 08/19/23 History methylPREDNISolone Dose Pack See Taper PO DIRECTED 08/19/23 08/19/23 History [Medrol Dose Pack] Allergies Allergy/AdvReac Type Severity Reaction Status Date / Time atorvastatin [From Lipitor] Allergy Migraine Verified 08/19/23 09:11 (CAN TAKE BRAND NAME LIPITOR) brimonidine [From Combigan] Allergy Itching Verified 08/19/23 09:11 dicyclomine [From Bentyl] Allergy Swelling Verified 08/19/23 09:11 of tongue/lips/mouth Sulfa (Sulfonamide Allergy Swelling Verified 08/19/23 09:11 Antibiotics) of tongue/lips/mouth timolol [From Combigan] Allergy Itching Verified 08/19/23 09:11 Physical Examination This is a pleasant 83-year-old female in no acute distress. She is alert and oriented x 3. She is able to stand from a seated position on her own for evaluation. Exam of the thoracic and lumbar spine reveal no obvious deformity. She has no tenderness to palpation about the thoracic or lumbar spine. There is some right-sided paraspinal musculature tenderness in the lower lumbar region. Straight leg raise invokes pain to the right buttock. Exam of the lower extremities reveals no obvious deformity. No shortening or rotational deformity. She has full internal and external rotation of the hip with minimal discomfort. There is some tenderness along the right buttock and into the lateral hip. Neurovascular status to the lower extremities is intact. Results X-rays and CT scan of the pelvis and right hip reveal mild degenerative changes to the right hip. There is no acute fracture noted. - Labs Labs: Abnormal Lab Results - Last 24 Hours (Table) 08/20/23 08/20/23 Range/Units 05:59 05:59 Hemoglobin A1c 6.2 H (<=6.0) % Triglycerides 157.00 H (0.00-149.00) mg/dL H & H 08/19/23 08/20/23 Range/Units 00:05 05:59 Hgb 12.7 12.6 (11.4-16.0) gm/dL Hct 39.1 39.3 (34.0-46.0) % Result Diagrams: 08/20/23 05:59 08/20/23 05:59 Assessment and Plan (1) Lumbar radiculopathy, right Current Visit: Yes Status: Acute Code(s): M54.16 - RADICULOPATHY, LUMBAR REGION SNOMED Code(s): 356824794 (2) Right hip pain Current Visit: Yes Status: Acute Code(s): M25.551 - PAIN IN RIGHT HIP SNOMED Code(s): 48427979 Plan: The clinical and x-ray findings are discussed with the patient. It is recommended she have lumbar x-rays for further evaluation. I discussed with the patient that her symptoms are more consistent with a lumbar radiculopathy. Continue current care. I would recommend physical therapy for evaluation.
--- NOTE | 2023-08-21 15:33 | XR ---
EXAMINATION TYPE: XR lumbar spine 2 or 3V DATE OF EXAM: 08/21/2023 2:39 PM CLINICAL INDICATION:Female, 83 years old with history of Low back pain; [facility] COMPARISON: 10/16/2021. TECHNIQUE: XR lumbar spine 2 or 3V - Frontal, lateral and coned in L5-S1 lateral views of the spine. FINDINGS: No evidence of any acute osseous pathology. No evidence of loss of vertebral body height i s seen. There is dextroscoliosis alignment of the lumbar vertebral bodies grade 1 anterolisthesis of L3 on L4.. Mild scattered disc space narrowing. Multilevel marginal osteophyte formation throughout t he visualized spine. There is facet joint arthropathy throughout the spine. Scattered at least neural foraminal stenosis. Severe arthrosis course of the arterial vasculature. IMPRESSION: 1. No acute fracture. 2. Moderate to severe multilevel disc degeneration.
[2023-08-21] MEDS ORDERED: FLUTICASONE 50MCG/SPRAY NASAL 16GM EA NOSTRIL PRN (16:17)
[2023-08-21] MEDS ORDERED: ALPRAZolam 0.25 MG TAB PO PRN (16:19)
--- NOTE | 2023-08-21 16:26 | P.PN ---
Subjective Progress Note Date: 08/21/23 Hospital course: Patient is a very pleasant 83-year-old female with a past medical history of right-sided sciatica, hypertension, hyperlipidemia, GERD, hypothyroidism, large hiatal hernia, chronic suprapubic catheter. Patient presented to the hospital on 08/18/2023 after experiencing mechanical fall at independent living facility resulting in pain to her right hip. She underwent evaluation in the emergency department. Vital signs upon arrival show blood pressure 168/83, heart rate 83, respiratory rate 18, temp 98.1 F, and SpO2 of 95% on room air. EKG showing sinus rhythm at 74 bpm. X-ray right knee negative for acute fracture or dislocation. X-ray hip/pelvics showing moderate right hip osteoarthropathy but negative for acute fracture or dislocation. CT right hip negative for femoral neck or intertrochanteric hip fracture showing moderate osteoarthritis of the right hip. Chest x-ray showing cardiomegaly negative for acute cardiopulmonary process. Patient was admitted under our services with consultation to orthopedic surgery. Physical exam: Patient seen and fully evaluated at bedside this morning. She was sitting on edge of bed visiting with son at bedside. Patient reports pain is to mid to lower back this morning and reports radiculopathy down right lateral leg. Vital signs reviewed and stable. General: Nontoxic, no distress and appears stated age. Derm: Skin warm and dry, normal coloration for ethnicity. Head: Atraumatic, normocephalic and symmetric. Eyes: EOMs intact, no lid lag, and anicteric sclera Mouth: no lip lesions, mucus membranes moist Cardiovascular: regular rate and rhythm with normal S1S2, no murmur, positive posterior tibial pulses bilaterally, and cap refill < 2 seconds. Lungs: Respirations even, regular, and unlabored on room air. Lungs CTA bilaterally, no rhonchi, no rales, no wheezing, and no accessory muscle usage. Abdominal: soft, nontender to palpation, no guarding, no appreciable organomegaly Ext: ROM intact. No gross muscle atrophy, no edema, no contractures Neuro: Speech clear, face symmetrical and CN II-XII grossly intact with no noted focal neuro deficits Psych: Alert and oriented to person, place, time, and situation. Appropriate and pleasant affect. Assessment and Plan of Care: Acute on chronic mid and lower back pain with radiculopathy Right hip pain following mechanical fall -CT pelvis and x-ray right hip and knee were negative for acute process showing moderate osteoarthritis. -Orthopedic surgery team following, placed order for x-ray lumbar spine -Consult to PT/OT -Symptomatic care and pain management. -Fall precautions -Consult placed to pain management for evaluation, appreciate recommendations. Hypothyroidism Continue daily medication regimen with levothyroxine 75 mcg daily. Hypertension Continue daily medication regimen with lisinopril 20 mg nightly. Data and imaging reviewed: -Vital signs reviewed. Blood pressure 126/61, heart rate 64, respiratory rate 16, temp 98.6 F, and SpO2 of 92% on 2 L. -X-ray lumbar spine completed negative for acute fracture showing moderate to severe multilevel disc degeneration with mild scattered disc space narrowing. Discussed findings with orthopedic surgery PA, recommending consult to pain management and order was placed. CODE STATUS: Full code DVT prophylaxis: Lovenox Anticipated discharge date: Clinical course to determine, likely 24 to [address]: Home Patient was seen independently by Nurse Pracitioner. This document was prepared using [employer] dictation software. Please allow for errors in ice cream freezer assistant, while rare they do occur. Objective - Vital Signs Vital signs: Vital Signs Temp 98.4 F 08/21/23 06:55 Pulse 66 08/21/23 06:55 Resp 16 08/21/23 06:55 BP 142/69 08/21/23 06:55 Pulse Ox 96 08/21/23 06:55 FiO2 Intake & Output 08/20/23 08/21/23 08/21/23 18:59 06:59 18:59 Intake Total 600 Output Total 700 2000 Balance -100 -2000 Intake: Oral 600 Output: Urine 700 2000 Other: Voiding Method Indwelling Catheter Indwelling Catheter - Labs CBC & Chem 7: 08/20/23 05:59 08/20/23 05:59 Labs: Abnormal Lab Results - Last 24 Hours (Table) 08/20/23 08/20/23 08/20/23 Range/Units 05:59 05:59 05:59 Lymphocytes # 0.89 L (0.90-5.00) X 10*3/uL Hemoglobin A1c 6.2 H (<=6.0) % Triglycerides 157.00 H (0.00-149.00) mg/dL
--- NOTE | 2023-08-21 17:53 | CA ---
Transthoracic Echo Report Name: Argentina Blas Age: 83 Gender: F : 1940 Exam Date: 08/21/2023 14:53 Exam Location: [facility] Ht (in): 62 Wt (lb): 150 Ordering Physician: Lety Evangelista Attending/Referring Phys: [id number], Tonja 21 Dealer Vicky Almeida RCS Procedure CPT: Indications: LVF Cardiac Hx: Technical Quality: Fair Contrast 1: Total Dose (mL): Contrast 2: Total Dose (mL): MEASUREMENTS (Male / Female) Normal Values 2D ECHO LV Diastolic Diameter PLAX 3.9 cm 4.2 - 5.9 / 3.9 - 5.3 cm LV Systolic Diameter PLAX 3.0 cm IVS Diastolic Thickness 0.9 cm 0.6 - 1.0 / 0.6 - 0.9 cm LVPW Diastolic Thickness 0.7 cm 0.6 - 1.0 / 0.6 - 0.9 cm LV Relative Wall Thickness 0.4 LVOT Diameter 1.9 cm Aortic Root Diameter 3.4 cm LV Diastolic Volume MOD BP 78.5 cm??? 67 - 155 / 56 - 104 cm??? LV Systolic Volume MOD BP 33.2 cm??? 22 - 58 / 19 - 49 cm??? LV Ejection Fraction MOD BP 57.7 % >= 55 % LV Cardiac Index MOD BP 2052.1 cm???/min???m??? LV Diastolic Volume MOD 4C 80.1 cm??? LV Systolic Volume MOD 4C 33.5 cm??? LV Ejection Fraction MOD 4C 58.2 % LV Cardiac Index MOD 4C 2110.9 cm???/min???m??? LV Diastolic Length 4C 7.7 cm LV Systolic Length 4C 6.1 cm LV Diastolic Volume MOD 2C 76.2 cm??? LV Systolic Volume MOD 2C 32.3 cm??? LV Ejection Fraction MOD 2C 57.6 % LV Cardiac Index MOD 2C 1988.4 cm???/min???m??? LV Diastolic Length 2C 7.5 cm LV Systolic Length 2C 6.0 cm DOPPLER AV Peak Velocity 153.2 cm/s AV Peak Gradient 9.4 mmHg AV Mean Velocity 106.1 cm/s AV Mean Gradient 5.0 mmHg AV Velocity Time Integral 30.8 cm LVOT Peak Velocity 99.9 cm/s LVOT Peak Gradient 4.0 mmHg LVOT Velocity Time Integral 17.3 cm LVOT Stroke Volume 48.2 cm??? LVOT Stroke Volume Index 28.5 ml/m??? LVOT Cardiac Index 2183.9 cm???/min???m??? AV Area Cont Eq vti 1.6 cm??? AV Area Cont Eq pk 1.8 cm??? MV Peak Velocity 136.5 cm/s MV Peak Gradient 7.4 mmHg MV Mean Velocity 79.8 cm/s MV Mean Gradient 3.0 mmHg MV Velocity Time Integral 34.4 cm Mitral E Point Velocity 70.7 cm/s Mitral A Point Velocity 119.8 cm/s Mitral E to A Ratio 0.6 MV Deceleration Time 178.9 ms MV E' Velocity 4.0 cm/s Mitral E to MV E' Ratio 17.6 TR Peak Velocity 215.7 cm/s TR Peak Gradient 18.6 mmHg Right Atrial Pressure 5.0 mmHg Pulmonary Artery Systolic Pressu 23.6 mmHg Right Ventricular Systolic Press 23.6 mmHg FINDINGS Left Ventricle Left ventricular ejection fraction is estimated at 55-60 %. Left ventricular cavity size normal. Left ventricular wall thickness normal. No obvious regional wall motion abnormalities. Right Ventricle Normal right ventricular size and function. Right ventricular systolic pressure within normal limits. Right Atrium Normal right atrial size. Left Atrium Moderate left atrial dilatation. Mitral Valve Mitral valve thickened. Mitral annular calcification. No evidence for mitral valve prolapse. Mild mitral stenosis. Trace mitral regurgitation. Aortic Valve Aortic valve not well visualized. No aortic stenosis. No aortic regurgitation. Tricuspid Valve Structurally normal tricuspid valve. No tricuspid stenosis. Mild tricuspid regurgitation. Pulmonic Valve Pulmonic valve not well visualized. Pericardium No pericardial effusion. Aorta Aortic root and proximal ascending aorta not well visualized. CONCLUSIONS Normal LV function Thickened mitral valve with mitral annular calcification with mild mitral stenosis Left atrial enlargement Previewed by: Dr. Pavel Gibson MD (Electronically Signed) Final Date: 21 August 2023 17:52
--- NOTE | 2023-08-22 08:59 | P.PAINCN ---
History of Present Illness - Reason for Consult Consult date: 08/22/23 - History of Present Illness This Is 83 years old female who was admitted to [facility] on August 18, 2023 after she fell after her right leg gave out on her, patient started complaining of severe right buttock and right hip pain x-ray of the hip showed no fracture, and x-ray of the lumbar spine showed that she had severe degenerative disc disease in the lumbar spine, she reported that she had severe low back pain, with radiation mostly towards the right hip and right buttock area, is able to move her lower extremity bilaterally without any restriction, but she is not able to ambulate secondary to intensity of the pain, denies any fever or night sweats, Past Medical History Past Medical History: GERD/Reflux, Hyperlipidemia, Hypertension, Thyroid Disorder Additional Past Medical History / Comment(s): recent admission to [facility] for large hiatal hernia,hypoxia,has suprapubic catheter placed chronic pancreatitis History of Any Multi-Drug Resistant Organisms: ESBL Year Discovered:: 12/06/20 MDRO Source:: ESBL URINE Past Surgical History: Joint Replacement Additional Past Surgical History / Comment(s): parathyroid gland, suprapubic catheter insertion, Left hip replacement, right shoulder surgery, total hyst erectomy Past Anesthesia/Blood Transfusion Reactions: No Reported Reaction Additional Past Anesthesia/Blood Transfusion Reaction / Comm: Pt has received blood in past without reaction. Past Psychological History: Depression Additional Psychological History / Comment(s): Pt resides with spouse at [facility]. She manages her own medications. She uses a walker. She no longer drives, she uses the lodge shuttle. She has home oxygen and a suprapubic cath. Smoking Status: Never smoker Past Alcohol Use History: None Reported Past Drug Use History: None Reported - Past Family History Sister(s) Family Medical History: Myocardial Infarction (VT) Mother Family Medical History: Cancer Additional Family Medical History / Comment(s): pancreatic Father History Unknown: Yes Family Medical History: Hyperlipidemia Additional Family Medical History / Comment(s): Father in the war. Medications and Allergies Home Medications Medication Instructions Recorded Confirmed Type Aspirin EC [Ecotrin Low Dose] 81 mg PO DAILY 04/10/20 08/19/23 History Atorvastatin Calcium [Lipitor] 40 mg PO HS 04/10/20 08/19/23 History Mirtazapine 30 mg PO HS 04/10/20 08/19/23 History NIFEdipine [Procardia XL] 30 mg PO DAILY 04/10/20 08/19/23 History Gabapentin 300 mg PO TID 12/07/20 08/19/23 History Mirabegron [Myrbetriq] 25 mg PO HS 12/07/20 08/19/23 History Levothyroxine Sodium [Synthroid] 75 mcg PO DAILY 04/02/21 08/19/23 History Ferrous Sulfate [Feosol] 325 mg PO DAILY 08/19/23 08/19/23 History Fluocinolone/Shower Cap 1 applic TOPICAL HS PRN 08/19/23 08/19/23 History [Fluocinolone 0.01% Scalp Oil] Fluticasone Nasal Cascade [Flonase 1 spray EA NOSTRIL BID PRN 08/19/23 08/19/23 History Nasal Cascade] HYDROcodone/APAP 7.5-325MG [Gause 1 tab PO Q12H 08/19/23 08/19/23 History 7.5-325] Ketoconazole 2% Shampoo [Nizoral] 1 applic TOPICAL DIRECTED 08/19/23 08/19/23 History Latanoprostene Bunod [Vyzulta] 1 drop RIGHT EYE Q48H 08/19/23 08/19/23 History Lidocaine Viscous 2% [Xylocaine 5 ml MUCOUS MEM Q4H PRN 08/19/23 08/19/23 History Viscous] Lipase/Protease/Amylase [Creon Dr 1 cap PO TID 08/19/23 08/19/23 History 6,000 Unit Capsule] Melatonin 20 mg PO HS 08/19/23 08/19/23 History Ondansetron [Zofran] 4 mg PO TID PRN 08/19/23 08/19/23 History Sertraline [Zoloft] 100 mg PO DAILY 08/19/23 08/19/23 History Sodium Chloride 5% Ophth Oint 1 applic BOTH EYES QID 08/19/23 08/19/23 History [Jeffrey 128] Triamcinolone 0.1% Ointment 1 applic TOPICAL HS 08/19/23 08/19/23 History [Kenalog 0.1% Ointment] Zolpidem Tartrate [Ambien Cr] 6.25 mg PO HS PRN 08/19/23 08/19/23 History dexAMETHasone [Decadron Elixir] 0.5 ml PO TID PRN 08/19/23 08/19/23 History methylPREDNISolone Dose Pack See Taper PO DIRECTED 08/19/23 08/19/23 History [Medrol Dose Pack] Allergies Allergy/AdvReac Type Severity Reaction Status Date / Time atorvastatin [From Lipitor] Allergy Migraine Verified 08/19/23 09:11 (CAN TAKE BRAND NAME LIPITOR) brimonidine [From Combigan] Allergy Itching Verified 08/19/23 09:11 dicyclomine [From Bentyl] Allergy Swelling Verified 08/19/23 09:11 of tongue/lips/mouth Sulfa (Sulfonamide Allergy Swelling Verified 08/19/23 09:11 Antibiotics) of tongue/lips/mouth timolol [From Combigan] Allergy Itching Verified 08/19/23 09:11 Physical Exam Vitals: Vital Signs Temp Pulse Resp BP BP Pulse Ox 08/22/23 02:00 98.6 F 74 16 154/79 90 L 08/21/23 20:00 98.5 F 75 16 127/58 95 08/21/23 11:54 98.6 F 64 16 126/61 92 L Intake and Output 08/21/23 08/22/23 08/22/23 22:59 06:59 14:59 Output Total 400 Balance -400 Output: Urine 400 Other: Voiding Method Indwelling Catheter Physical Examinations : -Constitutiona : Cooperative , not in acute distress . -HEENT : nech : supple , no Lymphadenopathy , normal thyroid size . : eyes : no ptosis , no icterus, no photophobia . - neurologic : Cranial nerve II to XII intact , no focal neurological deffecit . -psychatric : alert , oriented X 3 , appropriate affect , intact judgment and insight . -Lymphatic : no Lymphadenopathy . - musculoskeltal : Lumber spine moter stegnth lower extremities ,thigh and legs 5/5 Right side , 5/5 Left side deep tendon reflexes : normal Knee Jerk , normal ankle Jerk lumber facet Loading Test =positive Rig ht , positive Left Range of motion of the lumbar spine Fl exion 30 degrees, extension 10 degrees strait leg raising test = positive at 45 degree bilateral Fabere test= positive Right , and positive LT . Sever tenderness over the Sacroiliac joint on the Right , and Left sides Gaenslen test= positive right ,and positive left . Seated flexion test= positive right ,and positive Left . Distraction test= positive bilaterally Sacroiliac compression test= positive bilaterally Results CBC & Chem 7: 08/20/23 05:59 08/20/23 05:59 Comments: X-ray of the lumbar spine= severe lumbar degenerative disc disease. CT scan of the pelvis= degenerative changes in the suprapubic, degeneration hip joint, no fracture Assessment and Plan Plan: Assessment and Plan 1-bilateral sacroiliitis (more prominent on the right side ) 2-lumbar degenerative disc disease. 3-lumbar radiculopathy. Patient could benefit from bilateral sacroiliac joint steroid injection. Will be done today And after discharge patient can follow-up in the pain clinic, and she needs lumber epidural steroid injection in the near future Time with Patient: Less than 30 PQRS Measure Charge Sheet - Pain Location Right Hip Pharmacological Interventions: Discuss Pain Med Options PQRS Narrative: Smoking Status Never smoker Blood Pressure [Left Arm] 154/79 Blood Pressure [Right Arm] 126/61 Blood Pressure 181/91 Pain Intensity [Right Hip] 0 Pain Intensity 3 Pain Scale Used Non Verbal Pain Indicator Scale Used Numeric (1 - 10) Home Medications: Ambulatory Orders Aspirin EC [Ecotrin Low Dose] 81 mg PO DAILY 04/10/20 Atorvastatin Calcium [Lipitor] 40 mg PO HS 04/10/20 Mirtazapine 30 mg PO HS 04/10/20 NIFEdipine [Procardia XL] 30 mg PO DAILY 04/10/20 Gabapentin 300 mg PO TID 12/07/20 Mirabegron [Myrbetriq] 25 mg PO HS 12/07/20 Levothyroxine Sodium [Synthroid] 75 mcg PO DAILY 04/02/21 Ferrous Sulfate [Feosol] 325 mg PO DAILY 08/19/23 Fluocinolone/Shower Cap [Fluocinolone 0.01% Scalp Oil] 1 applic TOPICAL HS PRN 08/19/23 Fluticasone Nasal Cascade [Flonase Nasal Cascade] 1 spray EA NOSTRIL BID PRN 08/19/23 HYDROcodone/APAP 7.5-325MG [Gause 7.5-325] 1 tab PO Q12H 08/19/23 Ketoconazole 2% Shampoo [Nizoral] 1 applic TOPICAL DIRECTED 08/19/23 Latanoprostene Bunod [Vyzulta] 1 drop RIGHT EYE Q48H 08/19/23 Lidocaine Viscous 2% [Xylocaine Viscous] 5 ml MUCOUS MEM Q4H PRN 08/19/23 Lipase/Protease/Amylase [Josu[address] Dr 6,000 Unit Capsule] 1 cap PO TID 08/19/23 Melatonin 20 mg PO HS 08/19/23 Ondansetron [Zofran] 4 mg PO TID PRN 08/19/23 Sertraline [Zoloft] 100 mg PO DAILY 08/19/23 Sodium Chloride 5% Ophth Oint [Jeffrey 128] 1 applic BOTH EYES QID 08/19/23 Triamcinolone 0.1% Ointment [Kenalog 0.1% Ointment] 1 applic TOPICAL HS 08/19/23 Zolpidem Tartrate [Ambien Cr] 6.25 mg PO HS PRN 08/19/23 dexAMETHasone [Decadron Elixir] 0.5 ml PO TID PRN 08/19/23 methylPREDNISolone Dose Pack [Medrol Dose Pack] See Taper PO DIRECTED 08/19/23
[2023-08-22] MEDS ORDERED: IOPAMIDOL M200 10 ML VIAL ONE (11:38)
[2023-08-22] MEDS ORDERED: methylPREDNISolone ACETATE 40 MG/ML 1 ML VIAL ONE (11:38)
[2023-08-22] MEDS ORDERED: ROPIVACAINE 5MG/ML 20ML VIAL ONE (11:38)
--- NOTE | 2023-08-22 11:49 | P.PCN ---
Date of Procedure: 08/22/23 Procedure(s) Performed: Procedure= bilateral sacroiliac joints steroid injection under fluoroscopy guidance (fluoroscopy image stored on file in the radiology Department ) Preoperative diagnosis= 1-sacroiliitis 2-lumbar degenerative disc disease Postoperative diagnosis=Same as preop Diagnosis . Complication = none Condition= stable Anesthesia= local anesthesia with ropivacaine 0.5% 4 ml only Indication for the procedure= patient complaining of low back pain , examination was positive for severe tenderness over the sacroiliac joints bilaterally and patient diagnosed with sacroiliitis, for this reason she was good candidate for sacroiliac joint steroid injection. Description of the procedure= procedure risk and benefits discussed with the patient, including but not limited, risk of infection and bleeding, and ALLERGIC reaction to the medication and not complete pain relief and patient agreed with the preceding patient taken to the operating room, placed in prone position or standard monitors applied to the patient then after induction of anesthesia back prepped with chlorhexidine 3 times , Then under strict sterile technique, first I did the right sacroiliac joint the which was identified under fluoroscopy guidance been local infiltration of the skin and subcu interstitial with lidocaine 1% then 22-gauge Quincke Needle advanced slowly under fluoroscopy and placed in the right sacroiliac joint needle placement confirmed with AP and oblique and lateral view, then after that Isovue 200 one mL injected which confirmed the correct needle placement with the appropriate arthrogram of the sacroiliac joint, and after appropriate needle placement confirmed and after negative aspiration, or heme , then Ropivacaine 0.5% 2 mL, and 20 mg of Depo-Medrol mixed together and injected in the right sacroiliac joint after negative aspiration patient tolerated the procedure well without any complication. Then the left sacroiliac joint steroid injection done under strict sterile technique local infiltration of the skin and subcu interstitial at the location of the left sacroiliac joint then a 22-gauge Quincke Needle advanced slowly under fluoroscopy time placed in the left sacroiliac joint, needle placement confirmed with AP and oblique and lateral view then after appropriate needle placement confirmed, with the AP and oblique and lateral then after negative aspiration Isovue 200 1 mL injected showed arthropathy of the left sacroiliac joint, and after negative aspiration 0.5% Ropivacaine 2 mL and 20 mg of Depo- Medrol injected in the left sacroiliac joint after negative aspiration patient tolerated the procedure well that any complications and she will follow up in clinic 3 weeks
--- NOTE | 2023-08-22 11:59 | FL ---
EXAMINATION TYPE: FL guided pain mgmt statistic Intraoperative/procedural fluoroscopic services were provided. Total fluoroscopy time is 23.3 seconds with a total of 3 submitted images to PACS. Please s ee the operative/procedural note for further details. DAP: [id number] mGym2
[2023-08-22 13:12] VITALS: BP 162/68; TEMP 98.4
--- NOTE | 2023-08-22 14:05 | P.PN ---
Subjective Progress Note Date: 08/22/23 Consult reason: chest pain History of present illness: The patient is an 83-year-old female who presented to the hospital after mechanical fall. The patient states she was closing her blinds when her legs gave out and she fell against an air conditioning unit. She states there was no prodrome prior to her fall and she has not had episodes of dizziness and lightheadedness. She states she did not lose consciousness at the time of her fall. She presented initially with hip discomfort. Her blood pressure since admission has been extremely elevated and she has had some chest tightness when her blood pressure was 200 systolic. DIAGNOSTICS: EKG shows sinus mechanism with poor R wave progression Chest x-ray shows no acute cardiopulmonary process Echocardiogram from November 2022 shows preserved LV function and no significant valvular abnormalities Lab data: WBC 5.3, hemoglobin 12.6, hematocrit 39.3, platelet 232, sodium 138, potassium 3.9, BUN 15, creatinine 0.9, AST 33, ALT 24, troponin less than 0.01 08/20 Patient continues to have pain on the right side of her body from fall. Yesterday lisinopril was increased to 20 mg and this morning blood pressure is running 142/69, 156/80, heart rates in the 60s and 70s, pulse ox 96% on 2 L nasal cannula. Patient is hoping to go home today. 08/21 Echocardiogram reveals normal LV function. Thickened mitral valve with mitral annular calcification with mild mitral stenosis. Blood pressure 137/66, heart rate in the 60s and 70s, pulse ox 96% on 2 L nasal cannula. PHYSICAL EXAMINATION: This is a 83-year-old female in no apparent distress at the time of my examination. HEENT: Head is atraumatic, normocephalic. Pupils are equal, round. There is no jugular venous distention. No carotid bruit is heard. CHEST EXAMINATION: Lungs are clear to auscultation. No chest wall tenderness is noted on palpation or with deep breathing. HEART EXAMINATION: Heart regular rate and rhythm. S1, S2 heard. No murmurs, gallops or rub. ABDOMEN: Soft, nontender. Bowel sounds are heard. No organomegaly noted. EXTREMITIES: 2+ peripheral pulses with no evidence of peripheral edema and no calf tenderness noted. NEUROLOGIC EXAMINATION: Patient is awake, alert and oriented x3. FINAL ASSESSMENT AND PLAN: Mechanical fall Hypertension History of hyperlipidemia History of chronic pancreatitis PLAN: Continue Procardia increased to 60 mg Continue increased dose of lisinopril 20 mg at bedtime Pain management per primary team Outpatient follow-up with Dr. Rosales in 2 weeks Nurse practitioner note has been reviewed, I agree with documented findings and plan of care. Patient was seen and examined. Objective - Vital Signs Vital signs: Vital Signs Temp 97.8 F 08/22/23 07:10 Pulse 64 08/22/23 07:10 Resp 16 08/22/23 07:10 BP 137/66 08/22/23 07:10 Pulse Ox 96 08/22/23 07:10 FiO2 Intake & Output 08/21/23 08/22/23 08/22/23 18:59 06:59 18:59 Output Total 800 400 Balance -800 -400 Output: Urine 800 400 Other: Voiding Method Indwelling Catheter Indwelling Catheter # Bowel Movements 1 - Labs CBC & Chem 7: 08/20/23 05:59 08/20/23 05:59
[2023-08-22 14:39] VITALS: PULSE 77
--- NOTE | 2023-08-22 15:06 | P.DS ---
Providers Date of admission: 08/19/23 00:09 Expected date of discharge: 08/22/23 Attending physician: Praveen Henry MD Consults: 08/19/23 13:19 Consult Physician Routine Consulting Provider: Jesus South Consult Reason/Comments: chest pain Do you want consulting provider notified?: Yes 08/20/23 14:42 Consult Physician Routine Consulting Provider: Khris Bhat Consult Reason/Comments: Severe right hip pain, s/p fall Do you want consulting provider notified?: Yes 08/21/23 16:14 Consult Physician Routine Consulting Provider: Terri Werner Consult Reason/Comments: pain management, acute on chronic back pain w/ radiculopathy Do you want consulting provider notified?: Yes Primary care physician: Naseem Motley [facility] Course: Discharge Diagnosis: Acute on chronic mid and lower back pain with radiculopathy. Pain management evaluated patient and took patient for bilateral sacroiliac joint steroid injection under fluoroscopic guidance. Patient to follow-up outpatient with pain management clinic in 1 week. Right hip pain following mechanical fall. CT pelvis and x-ray right hip and knee were negative for acute process showing moderate osteoarthritis.X-ray lumbar spine completed negative for acute fracture showing moderate to severe multilevel disc degeneration with mild scattered disc space narrowing. Discussed findings with orthopedic surgery PA, recommending consult to pain management. Pain management evaluated patient and took patient for bilateral sacroiliac joint steroid injection under fluoroscopic guidance. Interstitial scarring bilateral bases, concerns for restrictive lung disease. Patient requiring home oxygen with ambulation and needs to follow-up with [facility] for outpatient PFTs. Hypothyroidism. Continue daily medication regimen with levothyroxine 75 mcg daily. Hypertension. Continue daily medication regimen with lisinopril 20 mg nightly. Chronic suprapubic catheter. Hospital course: Patient is a very pleasant 83-year-old female with a past medical history of right-sided sciatica, hypertension, hyperlipidemia, GERD, hypothyroidism, large hiatal hernia, chronic suprapubic catheter. Patient presented to the hospital on 08/18/2023 after experiencing mechanical fall at independent living facility resulting in pain to her right hip. She underwent evaluation in the emergency department. Vital signs upon arrival show blood pressure 168/83, heart rate 83, respiratory rate 18, temp 98.1 F, and SpO2 of 95% on room air. EKG showing sinus rhythm at 74 bpm. X-ray right knee negative for acute fracture or dislocation. X-ray hip/pelvics showing moderate right hip osteoarthropathy but negative for acute fracture or dislocation. CT right hip negative for femoral neck or intertrochanteric hip fracture showing moderate osteoarthritis of the right hip. Chest x-ray showing cardiomegaly negative for acute cardiopulmonary process. Patient was admitted under our services with consultation to orthopedic surgery. X-ray lumbar spine completed negative for acute fracture showing moderate to severe multilevel disc degeneration with mild scattered disc space narrowing. Discussed findings with orthopedic surgery PA, recommending consult to pain management and order was placed. Pain management evaluated patient and took patient for bilateral sacroiliac joint steroid injection under fluoroscopic guidance. Patient hypoxic with ambulation. She is requiring home oxygen. Patient with interstitial scarring at bilateral bases concerning for restrictive lung disease. CT scan 12/2020 showing bibasilar atelectasis/scarring and again present on CTA completed 06/11/2021 and upon personal review of x-ray completed this admission. Patient will require home oxygen with ambulation and will need to follow-up with [employer] for completion of PFTs. Physical exam: Vital signs reviewed and stable. General: Nontoxic, no distress and appears stated age. Derm: Skin warm and dry, normal coloration for ethnicity. Head: Atraumatic, normocephalic and symmetric. Eyes: EOMs intact, no lid lag, and anicteric sclera Mouth: no lip lesions, mucus membranes moist Cardiovascular: regular rate and rhythm with normal S1S2, no murmur, positive posterior tibial pulses bilaterally, and cap refill < 2 seconds. Lungs: Respirations even, regular, and unlabored on room air. Lungs CTA bilaterally, no rhonchi, no rales, no wheezing, and no accessory muscle usage. Abdominal: soft, nontender to palpation, no guarding, no appreciable organomegaly Ext: ROM intact. No gross muscle atrophy, no edema, no contractures Neuro: Speech clear, face symmetrical and CN II-XII grossly intact with no noted focal neuro deficits Psych: Alert and oriented to person, place, time, and situation. Appropriate and pleasant affect. A total of 35 minutes of time were spent preparing this complex discharge summary. Pt was discharged on 08/22/2023 at 2:37 PM. Patient was seen independently by Nurse Practitioner. This document was prepared using [employer] dictation software. Please allow for errors in tip cementer while rare they do occur. Ever Merritt NP rendered care for this patient independently, reviewed the findings and plan as documented in the note above. I did not physically speak with or examine the patient on this date. Patient Condition at Discharge: Stable Plan - Discharge Summary Discharge Rx Participant: No New Discharge Prescriptions: New NIFEdipine XL [Procardia XL] 60 mg PO DAILY 30 Days #30 tab lisinopriL [Zestril] 20 mg PO HS 30 Days #30 tab Continue Aspirin EC [Ecotrin Low Dose] 81 mg PO DAILY Mirtazapine 30 mg PO HS Atorvastatin Calcium [Lipitor] 40 mg PO HS Mirabegron [Myrbetriq] 25 mg PO HS Sodium Chloride 5% Ophth Oint [Jeffrey 128] 1 applic BOTH EYES QID Fluticasone Nasal [place] [Flonase Nasal [place]] 1 spray EA NOSTRIL BID PRN PRN Reason: Allergy Symptoms Triamcinolone 0.1% Ointment [Kenalog 0.1% Ointment] 1 applic TOPICAL HS Ketoconazole 2% Shampoo [Nizoral] 1 applic TOPICAL DIRECTED Sertraline [Zoloft] 100 mg PO DAILY Gabapentin 300 mg PO TID Levothyroxine Sodium [Synthroid] 75 mcg PO DAILY Melatonin 20 mg PO HS Ondansetron [Zofran] 4 mg PO TID PRN PRN Reason: Nausea Fluocinolone/Shower Cap [Fluocinolone 0.01% Scalp Oil] 1 applic TOPICAL HS PRN PRN Reason: Itching Latanoprostene Bunod [Vyzulta] 1 drop RIGHT EYE Q48H Lipase/Protease/Amylase [Creon Dr 6,000 Unit Capsule] 1 cap PO TID Zolpidem Tartrate [Ambien Cr] 6.25 mg PO HS PRN PRN Reason: SLEEP Ferrous Sulfate [Iron (65 MG Elemental)] 325 mg PO DAILY methylPREDNISolone Dose Pack [Medrol Dose Pack] See Taper PO DIRECTED HYDROcodone/APAP 7.5-325MG [[place] 7.5-325] 1 tab PO Q12H dexAMETHasone [Decadron Elixir] 0.5 ml PO TID PRN PRN Reason: MOUTH PAIN Lidocaine Viscous 2% [Xylocaine Viscous] 5 ml MUCOUS MEM Q4H PRN PRN Reason: MOUTH PAIN Discontinued NIFEdipine [Procardia XL] 30 mg PO DAILY Discharge Medication List Aspirin EC [Ecotrin Low Dose] 81 mg PO DAILY 04/10/20 [History] Atorvastatin Calcium [Lipitor] 40 mg PO HS 04/10/20 [History] Mirtazapine 30 mg PO HS 04/10/20 [History] Gabapentin 300 mg PO TID 12/07/20 [History] Mirabegron [Myrbetriq] 25 mg PO HS 12/07/20 [History] Levothyroxine Sodium [Synthroid] 75 mcg PO DAILY 04/02/21 [History] Ferrous Sulfate [Iron (65 MG Elemental)] 325 mg PO DAILY 08/19/23 [History] Fluocinolone/Shower Cap [Fluocinolone 0.01% Scalp Oil] 1 applic TOPICAL HS PRN 08/19/23 [History] Fluticasone Nasal [place] [Flonase Nasal [place]] 1 spray EA NOSTRIL BID PRN 08/19/23 [History] HYDROcodone/APAP 7.5-325MG [[place] 7.5-325] 1 tab PO Q12H 08/19/23 [History] Ketoconazole 2% Shampoo [Nizoral] 1 applic TOPICAL DIRECTED 08/19/23 [History] Latanoprostene Bunod [Vyzulta] 1 drop RIGHT EYE Q48H 08/19/23 [History] Lidocaine Viscous 2% [Xylocaine Viscous] 5 ml MUCOUS MEM Q4H PRN 08/19/23 [History] Lipase/Protease/Amylase [Josué Dr 6,000 Unit Capsule] 1 cap PO TID 08/19/23 [History] Melatonin 20 mg PO HS 08/19/23 [History] Ondansetron [Zofran] 4 mg PO TID PRN 08/19/23 [History] Sertraline [Zoloft] 100 mg PO DAILY 08/19/23 [History] Sodium Chloride 5% Ophth Oint [Jeffrey 128] 1 applic BOTH EYES QID 08/19/23 [History] Triamcinolone 0.1% Ointment [Kenalog 0.1% Ointment] 1 applic TOPICAL HS 08/19/23 [History] Zolpidem Tartrate [Ambien Cr] 6.25 mg PO HS PRN 08/19/23 [History] dexAMETHasone [Decadron Elixir] 0.5 ml PO TID PRN 08/19/23 [History] methylPREDNISolone Dose Pack [Medrol Dose Pack] See Taper PO DIRECTED 08/19/23 [History] NIFEdipine XL [Procardia XL] 60 mg PO DAILY 30 Days #30 tab 08/22/23 [Rx] lisinopriL [Zestril] 20 mg PO HS 30 Days #30 tab 08/22/23 [Rx] Follow up Appointment(s)/Referral(s): Coco Bautista MD [STAFF PHYSICIAN] - 1 Week (Please call office and make appointment ) Kwaku Rosales MD [STAFF PHYSICIAN] - 2 Weeks (The office will call with a follow up appointment) Naseem Motley DO [Primary Care Provider] - 08/31/23 10:40 am Terri Werner MD [STAFF PHYSICIAN] - 09/04/23 12:45 pm (appointment at [facility]) [facility] [NON-STAFF] - 1 Week Patient Instructions/Handouts: Using Oxygen at Home (DC), Chronic Back Pain (DC) Discharge/Stand Alone Forms: [facility] Instructions Discharge Disposition: HOME WITH HOME HEALTH SERVICES
== END 2023-08-22 18:42 | disposition home health service (06) ==
LOC: EC 20:49 → 5NMEDONC 08-19 00:09
PROVIDERS: ADMIT Internal Medicine; ATTEND Internal Medicine
DX: M25.551 Pain in right hip (principal); M79.604 Pain in right leg; M54.50 Low back pain, unspecified; W07.XXXA Fall from chair, initial encounter; R07.9 Chest pain, unspecified; I16.0 Hypertensive urgency; M51.16 Intervertebral disc disorders with radiculopathy, lumbar region; M46.1 Sacroiliitis, not elsewhere classified; D69.6 Thrombocytopenia, unspecified; E03.9 Hypothyroidism, unspecified; R32 Unspecified urinary incontinence; K21.9 Gastro-esophageal reflux disease without esophagitis; E78.5 Hyperlipidemia, unspecified; I10 Essential (primary) hypertension; F32.A Depression, unspecified; K86.1 Other chronic pancreatitis; Z79.82 Long term (current) use of aspirin; Z79.899 Other long term (current) drug therapy; Z79.890 Hormone replacement therapy; Z88.2 Allergy status to sulfonamides
CPT/HCPCS: 96376 ×4; 96372 ×3; 96374; 96375; 99285; 36415; 93306; 97162; 80061; 80053; 80048; 84443; 82607; 84484; 85025 ×2; 83036; 72100; 73502; 73562; 71045; 73700; 27096; G0378 ×4; J2405; J1650 ×3; J1170 ×4; Q9966; J2795; J1010; G0260

== ENCOUNTER → 2023-09-14 | Outpatient (CLI) | payer MEDICARE ==
--- NOTE | 2023-09-14 16:42 | US ---
EXAMINATION TYPE: US venous doppler duplex LE RT DATE OF EXAM: 09/14/2023 12:34 PM COMPARISON: NONE CLINICAL INDICATION: Female, 83 years old with history of I80.9 PHLEBITIS AND THROMBOPHLEBITIS OF UNS PECIFIE; pain rt leg SIDE PERFORMED: Right TECHNIQUE: The lower extremity deep venous system is examined utilizing real time linear array sonog laurel with graded compression, doppler sonography and color-flow sonography. VESSELS IMAGED: Common Femoral Vein Deep Femoral Vein Greater Saphenous Vein * Femoral Vein Popliteal Vein Small Saphenous Vein * Proximal Calf Veins (* superficial vessels) Right Leg: Negative for DVT, Grayscale, color doppler, spectral doppler imaging performed of the ottoniel p veins of the lower extremities. There is normal flow, compressibility, vascular waveforms. 3.9 x 1.0 fluid pocket seen medial to knee. IMPRESSION: 1. No evidence for deep vein thrombosis. 2. Popliteal fossa cyst.
== END | disposition home or self-care (01) ==
LOC: RADUSWWP 11:51
PROVIDERS: ATTEND Orthopaedic Surgery
DX: M71.21 Synovial cyst of popliteal space [Baker], right knee (principal); M17.11 Unilateral primary osteoarthritis, right knee; I80.9 Phlebitis and thrombophlebitis of unspecified site

== ENCOUNTER → 2023-09-27 | Outpatient (CLI) | payer MEDICARE ==
[2023-09-27 10:40] VITALS: BP 132/72; PULSE 72; RESP 15; TEMP 98.2
--- NOTE | 2023-09-27 13:12 | P.PAINPG ---
PQRS Measure Charge Sheet Comment: HISTORY OF PRESENT ILLNESS: A 83 yr old female as a referral from Dr Motley presents today w severe and chronic LBP secondary to DDD, spondylosis, facet arthropathy without myelopathy and BL sacroiliitis for evaluation s/p BL SI injection #1. Pt states she experienced 80% pain relief x 4 wks s/p procedure. Pt states pain level is provoked at 2 /10 in intensity, constant, localized in the lower lumbar spine, predominantly axial, achy in character w occasional shooting pain towards the hips. Pain is provoked by sitting for periods > 40 min. Pain is alleviated by injections, physician guided exercises daily since Jun 2023 at the independent living facility, use of a walker for ambulatory assistance, ice, medications ([place], Tyl), repositioning and rest . Oswestry axial pain score at 30. PMH: OA, GERD, Hyperlipidemia, HTN, HYpothyroid Disorder, HH, MDD PSH: L Hip Replacement, R Shoulder Surgery, Total Hysterctomy, Parathyroid Gland Surgery SH: Resides at [facility]. Uses a walker. Negative x3 FH: Sis- AR. Mo- Pancreatic CA. Fa- Hyperlipidemia All: See list Meds: See list REVIEW OF ORGAN SYSTEMS: CONSTITUTIONAL: No fevers or chills. No recent weight loss. NEUROLOGICAL: + numbness and tingling along the distal extremities. No seizure disorders or headaches. MUSCULOSKELETAL: + pain PSYCHIATRIC: Denies current depression or suicidal thoughts. Physical Examinations : Constitutional : Cooperative , not in acute distress . Neurologic : Cranial nerve II to XII intact. No focal neurological deficits. Psychiatric : alert & oriented x 3. Matching mood & appropriate affect. Judgment & insight intact. Musculoskeletal : Cervical Spine Motor strength in the deltoid and biceps: Normal right side. Normal Left side Motor strength biceps and the wrist extensors: Normal right side . Normal left side Motor strength in the triceps muscle: Normal right side. Normal left side Deep tendon reflexes: Normal at the biceps. Normal at Brachioradialis. Normal at triceps Vertebral body tenderness to deep palpation over Cervical facet loading test: positive bilaterally Spurling test: positive bilaterally Neck distraction test: positive bilaterally Reed sign: positive bilaterally Lumbar spine Motor strength lower extremities ,thigh and legs 5/5 Right side , 5/5 Left side Deep tendon reflexes : Normal Knee Jerk. Normal Ankle Jerk Vertebral body tenderness over Carroll Test positive Lumbar facet Loading Test: positive Right / positive Left Range of motion of the lumbar spine Flexion 30 degrees, extension 10 degrees Straight Leg Raise test: Left/ Right positive at degrees Carter test: positive right / positive left. Severe tenderness over the Sacroiliac joint on the Right / Left sides Gaenslen test: positive bilaterally Seated flexion test: positive bilaterally. Sacral spine : Severe tenderness over the Sacroiliac joint: right side / left side Range of motion: Flexion of the lumbar spine <60 degrees Range of motion: Extension of the lumbar spine <20 degrees Gaenslen's Test positive Carter test: positive right side / left side Thigh Thrust Test Sacral Thrust Test Imaging: Lumbar x ray from 08/21/23 reviewed Assessment/ Plan : BL Sacroiliitis Will manage residual pain and may RTC on an as needed basis. All questions answered. I have spent greater than 30 minutes on patient care today. Dr Werner was available by phone for the evaluation of this patient. The time was used to review the medical records including relevant urine studies and Prescription history (MAPs), review of the available imaging, evaluation and examination of the patient, coordination of care with the medical staff and if applicable referring physicians, as well as creation of the medical record PQRS Narrative: Smoking Status Never smoker Home Medications: Ambulatory Orders Aspirin EC [Ecotrin Low Dose] 81 mg PO DAILY 04/10/20 Atorvastatin Calcium [Lipitor] 40 mg PO HS 04/10/20 Mirtazapine 30 mg PO HS 04/10/20 Gabapentin 300 mg PO TID 12/07/20 Mirabegron [Myrbetriq] 25 mg PO HS 12/07/20 Levothyroxine Sodium [Synthroid] 75 mcg PO DAILY 04/02/21 Ferrous Sulfate [Iron (65 MG Elemental)] 325 mg PO DAILY 08/19/23 Fluocinolone/Shower Cap [Fluocinolone 0.01% Scalp Oil] 1 applic TOPICAL HS PRN 08/19/23 Fluticasone Nasal [place] [Flonase Nasal [place]] 1 spray EA NOSTRIL BID PRN 08/19/23 HYDROcodone/APAP 7.5-325MG [[place] 7.5-325] 1 tab PO Q12H 08/19/23 Ketoconazole 2% Shampoo [Nizoral] 1 applic TOPICAL DIRECTED 08/19/23 Latanoprostene Bunod [Vyzulta] 1 drop RIGHT EYE Q48H 08/19/23 Lidocaine Viscous 2% [Xylocaine Viscous] 5 ml MUCOUS MEM Q4H PRN 08/19/23 Lipase/Protease/Amylase [Josué Mahmood 6,000 Unit Capsule] 1 cap PO TID 08/19/23 Melatonin 20 mg PO HS 08/19/23 Ondansetron [Zofran] 4 mg PO TID PRN 08/19/23 Sertraline [Zoloft] 100 mg PO DAILY 08/19/23 Sodium Chloride 5% Ophth Oint [Jeffrey 128] 1 applic BOTH EYES QID 08/19/23 Triamcinolone 0.1% Ointment [Kenalog 0.1% Ointment] 1 applic TOPICAL HS 08/19/23 Zolpidem Tartrate [Ambien Cr] 6.25 mg PO HS PRN 08/19/23 dexAMETHasone [Decadron Elixir] 0.5 ml PO TID PRN 08/19/23 methylPREDNISolone Dose Pack [Medrol Dose Pack] See Taper PO DIRECTED 08/19/23 NIFEdipine XL [Procardia XL] 60 mg PO DAILY 30 Days #30 tab 08/22/23 lisinopriL [Zestril] 20 mg PO HS 30 Days #30 tab 08/22/23 Controlled Substance Measures - Controlled Substance Measures Is patient prescribed a controlled substance at discharge?: No
== END ==
LOC: PNWHC3 09:19
PROVIDERS: ATTEND Specialist
DX: M46.1 Sacroiliitis, not elsewhere classified (principal); Z88.8 Allergy status to other drugs, medicaments and biological substances; Z88.2 Allergy status to sulfonamides
CPT/HCPCS: 99211

== ENCOUNTER 2024-01-22 11:20 | Observation (INO) | payer MEDICARE ==
--- NOTE | 2024-01-22 11:39 | ED ---
General Adult HPI - General Stated complaint: Chest pain Time Seen by Provider: 01/22/24 11:30 Source: patient, family, RN notes reviewed, old records reviewed Mode of arrival: EMS Limitations: no limitations - History of Present Illness Initial comments: This is an 83-year-old female who presents to the emergency department complaining of chest pain. Patient states it started yesterday. Patient states there is some shortness of breath as well. Patient denies any nausea or vomiting. Patient states she does have some mild epigastric abdominal pain. Patient denies any back pain. Patient denies any jaw pain. Patient denies any diarrhea. - Related Data Home Medications Medication Instructions Recorded Confirmed Aspirin EC [Ecotrin Low Dose] 81 mg PO DAILY 04/10/20 08/19/23 Atorvastatin Calcium [Lipitor] 40 mg PO HS 04/10/20 08/19/23 Mirtazapine 30 mg PO HS 04/10/20 08/19/23 Gabapentin 300 mg PO TID 12/07/20 08/19/23 Mirabegron [Myrbetriq] 25 mg PO HS 12/07/20 08/19/23 Levothyroxine Sodium [Synthroid] 75 mcg PO DAILY 04/02/21 08/19/23 Ferrous Sulfate [Iron (65 MG 325 mg PO DAILY 08/19/23 08/19/23 Elemental)] Fluocinolone/Shower Cap 1 applic TOPICAL HS PRN 08/19/23 08/19/23 [Fluocinolone 0.01% Scalp Oil] Fluticasone Nasal [place] [Flonase 1 spray EA NOSTRIL BID PRN 08/19/23 08/19/23 Nasal [place]] HYDROcodone/APAP 7.5-325MG [[place] 1 tab PO Q12H 08/19/23 08/19/23 7.5-325] Ketoconazole 2% Shampoo [Nizoral] 1 applic TOPICAL DIRECTED 08/19/23 08/19/23 Latanoprostene Bunod [Vyzulta] 1 drop RIGHT EYE Q48H 08/19/23 08/19/23 Lidocaine Viscous 2% [Xylocaine 5 ml MUCOUS MEM Q4H PRN 08/19/23 08/19/23 Viscous] Lipase/Protease/Amylase [Creon Dr 1 cap PO TID 08/19/23 08/19/23 6,000 Unit Capsule] Melatonin 20 mg PO HS 08/19/23 08/19/23 Ondansetron [Zofran] 4 mg PO TID PRN 08/19/23 08/19/23 Sertraline [Zoloft] 100 mg PO DAILY 08/19/23 08/19/23 Sodium Chloride 5% Ophth Oint 1 applic BOTH EYES QID 08/19/23 08/19/23 [Jeffrey 128] Triamcinolone 0.1% Ointment 1 applic TOPICAL HS 08/19/23 08/19/23 [Kenalog 0.1% Ointment] Zolpidem Tartrate [Ambien Cr] 6.25 mg PO HS PRN 08/19/23 08/19/23 dexAMETHasone [Decadron Elixir] 0.5 ml PO TID PRN 08/19/23 08/19/23 methylPREDNISolone Dose Pack See Taper PO DIRECTED 08/19/23 08/19/23 [Medrol Dose Pack] Previous Rx's Medication Instructions Recorded NIFEdipine XL [Procardia XL] 60 mg PO DAILY 30 Days #30 tab 08/22/23 lisinopriL [Zestril] 20 mg PO HS 30 Days #30 tab 08/22/23 Allergies Allergy/AdvReac Type Severity Reaction Status Date / Time atorvastatin [From Lipitor] Allergy Migraine Verified 08/19/23 09:11 (CAN TAKE BRAND NAME LIPITOR) brimonidine [From Combigan] Allergy Itching Verified 08/19/23 09:11 dicyclomine [From Bentyl] Allergy Swelling Verified 08/19/23 09:11 of tongue/lips/mouth Sulfa (Sulfonamide Allergy Swelling Verified 08/19/23 09:11 Antibiotics) of tongue/lips/mouth timolol [From Combigan] Allergy Itching Verified 08/19/23 09:11 Review of Systems ROS Statement: Those systems with pertinent positive or pertinent negative responses have been documented in the HPI. ROS Other: All systems not noted in ROS Statement are negative. Past Medical History Past Medical History: GERD/Reflux, Hyperlipidemia, Hypertension, Thyroid Disorder Additional Past Medical History / Comment(s): recent admission to [facility] for large hiatal hernia,hypoxia,has suprapubic catheter placed chronic pancreatitis History of Any Multi-Drug Resistant Organisms: ESBL Date of last positivie culture/infection: 12/06/20 MDRO Source:: ESBL URINE Past Surgical History: Joint Replacement Additional Past Surgical History / Comment(s): parathyroid gland, suprapubic catheter insertion, Left hip replacement, right shoulder surgery, total hysterectomy suprapubic cath Past Anesthesia/Blood Transfusion Reactions: No Reported Reaction Additional Past Anesthesia/Blood Transfusion Reaction / Comment(s): Pt has received blood in past without reaction. Past Psychological History: Depression Smoking Status: Never smoker - Past Family History Sister(s) Family Medical History: Myocardial Infarction ([place]) Mother Family Medical History: Cancer Additional Family Medical History / Comment(s): pancreatic Father History Unknown: Yes Family Medical History: Hyperlipidemia Additional Family Medical History / Comment(s): Father in the war. General Exam - General Exam Comments Initial Comments: GENERAL: Patient is well-developed and well-nourished. Patient is nontoxic and well- hydrated and is in mild distress. ENT: Neck is soft and supple. No significant lymphadenopathy is noted. Oropharynx is clear. Moist mucous membranes. Neck has full range of motion without e liciting any pain. EYES: The sclera were anicteric and conjunctiva were pink and moist. Extraocular movements were intact and pupils were equal round and reactive to light. Eyelids were unremarkable. PULMONARY: Unlabored respirations. Good breath sounds bilaterally. No audible rales rhonchi or wheezing was noted. CARDIOVASCULAR: There is a regular rate and rhythm without any murmurs gallops or rubs. ABDOMEN: Soft and nontender with normal bowel sounds. No epigastric abdominal pain on palpation SKIN: Skin is clear with no lesions or rashes and otherwise unremarkable. NEUROLOGIC: Patient is alert and oriented x3. Cranial nerves II through XII are grossly intact. Motor and sensory are also intact. Normal speech, volume and content. Symmetrical smile. MUSCULOSKELETAL: Normal extremities with adequate strength and full range of motion. LYMPHATICS: No significant lymphadenopathy is noted PSYCHIATRIC: Normal psychiatric evaluation. Limitations: no limitations Course Vital Signs 01/22/24 01/22/24 01/22/24 11:29 11:32 11:49 Temperature 98.2 F Pulse Rate 81 78 Respiratory 16 16 20 Rate Blood Pressure 155/69 155/69 O2 Sat by Pulse 98 99 Oximetry 01/22/24 12:23 Temperature Pulse Rate 79 Respiratory 20 Rate Blood Pressure 127/73 O2 Sat by Pulse 98 Oximetry Medical Decision Making - Medical Decision Making EKG is interpreted by myself. EKG shows sinus rhythm at 80 bpm W[place] 210 QRS is 10 7 QT interval is 389 QTc is 425. Patient's EKG shows no ST segment elevation or depression Was pt. sent in by a medical professional or institution (MANPREET Ohara, HEARING CONSULTANT, urgent care, hospital, or shelter...) When possible be specific @ -No Did you speak to anyone other than the patient for history (EMS, parent, family, police, friend...)? What history was obtained from this source @ -No Did you review nursing and triage notes (agree or disagree)? Why? @ -I reviewed and agree with nursing and triage notes Were old charts reviewed (outside hosp., previous admission, EMS record, old EKG, old radiological studies, urgent care reports/EKG's, shelter records)? Report findings @ -No old charts were reviewed Differential Diagnosis? @ -Differential Chest Pain: Stable Angina, Unstable Angina, STEMI, NSTEMI Aortic Dissection, Pneumothorax, Musculoskeletal, Esophageal Spasm GERD, Cholecystitis, Pancreatitis, Zoster, this is not meant to be an all-inclusive list. EKG interpreted by me (3pts min.). @ -As above X-rays interpreted by me (1pt min.). @ -Chest x-ray shows no acute abnormality CT interpreted by me (1pt min.). @ -None done U/S interpreted by me (1pt. min.). @ -None done What testing was considered but not performed or refused? (CT, X-rays, U/S, labs)? Why? @ -None What meds were considered but not given or refused? Why? @ -None Did you discuss the management of the patient with other professionals (professionals i.e. MANPREET Ohara, HEARING CONSULTANT, lab, RT, psych nurse, social work nurse, cooky packer, teacher, debt recovery officer, case loader operator)? Give summary @ -I spoke with Dr. Patel and he agreed to admit the patient Was smoking cessation discussed for >3mins.? @ -No Was critical care preformed (if so, how long)? @ -No Were there social determinants of health that impacted care today? How? (Brittnee elessness, low income, unemployed, alcoholism, drug addiction, transportation, low edu. Level, literacy, decrease access to med. care, nursing home, rehab)? @ -No Was there de-escalation of care discussed even if they declined (Discuss DNR or withdrawal of care, Hospice)? DNR status @ -No What co-morbidities impacted this encounter? (DM, HTN, Smoking, COPD, CAD, Cancer, CVA, ARF, Chemo, Hep., AIDS, mental health diagnosis, sleep apnea, morbid obesity)? @ -None Was patient admitted / discharged? Hospital course, mention meds given and route, prescriptions, significant lab abnormalities, going to OR and other pertinent info. @ -Patient's lab work came back within normal range [facility] she continued to have some chest pain I gave her 2 mg of morphine on top of the Nitropaste that she had already received earlier. I spoke with Dr. Patel he agreed to admit the patient admit the patient recommending Ortho consult cardiology Undiagnosed new problem with uncertain prognosis? @ -No Drug Therapy requiring intensive monitoring for toxicity (Heparin, Nitro, Insulin, Cardizem)? @ -No Were any procedures done? @ -No Diagnosis/symptom? @ -Chest pain Acute, or Chronic, or Acute on Chronic? @ -Acute Uncomplicated (without systemic symptoms) or Complicated (systemic symptoms)? @ -Complicated Side effects of treatment? @ -No Exacerbation, Progression, or Severe Exacerbation? @ -No Poses a threat to life or bodily function? How? (Chest pain, [place], [place], pneumonia, PE, COPD, DKA, ARF, appy, cholecystitis, CVA, Diverticulitis, Homicidal, Suicidal, threat to staff... and all critical care pts) @ -yes this could lead to an [place] and endorgan dysfunction - Lab Data Result diagrams: 01/22/24 11:26 01/22/24 11:26 Lab Results 01/22/24 01/22/24 01/22/24 Range/Units 11:26 11:26 11:26 WBC 7.3 (3.8-10.6) k/uL RBC 4.19 (3.80-5.40) m/uL Hgb 12.4 (11.4-16.0) gm/dL Hct 37.5 (34.0-46.0) % MCV 89.7 (80.0-100.0) fL MCH 29.7 (25.0-35.0) pg MCHC 33.1 (31.0-37.0) g/dL RDW 13.2 (11.5-15.5) % Plt Count 302 (150-450) k/uL MPV 7.7 Neutrophils % 74 % Lymphocytes % 14 % Monocytes % 8 % Eosinophils % 2 % Basophils % 1 % Neutrophils # 5.3 (1.3-7.7) k/uL Lymphocytes # 1.0 (1.0-4.8) k/uL Monocytes # 0.6 (0-1.0) k/uL Eosinophils # 0.1 (0-0.7) k/uL Basophils # 0.0 (0-0.2) k/uL PT 10.3 (10.0-12.5) sec INR 0.9 (<1.2) APTT 23.1 (22.0-30.0) sec Sodium 139 (137-145) mmol/L Potassium 3.8 (3.5-5.1) mmol/L Chloride 102 (98-107) mmol/L Carbon Dioxide 30 (22-30) mmol/L Anion Gap 7 mmol/L BUN 10 (7-17) mg/dL Creatinine 0.56 (0.52-1.04) mg/dL Est GFR (CKD-EPI)AfAm >90 (>60 ml/min/1.73 sqM) Est GFR (CKD-EPI)NonAf 86 (>60 ml/min/1.73 sqM) Glucose 115 H (74-99) mg/dL Calcium 9.7 (8.4-10.2) mg/dL Magnesium 2.2 (1.6-2.3) mg/dL Total Bilirubin 0.5 (0.2-1.3) mg/dL AST 26 (14-36) U/L ALT 15 (4-34) U/L Alkaline Phosphatase 96 (38-126) U/L Troponin I (0.000-0.034) ng/mL Total Protein 8.0 (6.3-8.2) g/dL Albumin 4.3 (3.5-5.0) g/dL Lipase 70 (23-300) U/L 01/22/24 Range/Units 11:26 WBC (3.8-10.6) k/uL RBC (3.80-5.40) m/uL Hgb (11.4-16.0) gm/dL Hct (34.0-46.0) % MCV (80.0-100.0) fL MCH (25.0-35.0) pg MCHC (31.0-37.0) g/dL RDW (11.5-15.5) % Plt Count (150-450) k/uL MPV Neutrophils % % Lymphocytes % % Monocytes % % Eosinophils % % Basophils % % Neutrophils # (1.3-7.7) k/uL Lymphocytes # (1.0-4.8) k/uL Monocytes # (0-1.0) k/uL Eosinophils # (0-0.7) k/uL Basophils # (0-0.2) k/uL PT (10.0-12.5) sec INR (<1.2) APTT (22.0-30.0) sec Sodium (137-145) mmol/L Potassium (3.5-5.1) mmol/L Chloride (98-107) mmol/L Carbon Dioxide (22-30) mmol/L Anion Gap mmol/L BUN (7-17) mg/dL Creatinine (0.52-1.04) mg/dL Est GFR (CKD-EPI)AfAm (>60 ml/min/1.73 sqM) Est GFR (CKD-EPI)NonAf (>60 ml/min/1.73 sqM) Glucose (74-99) mg/dL Calcium (8.4-10.2) mg/dL Magnesium (1.6-2.3) mg/dL Total Bilirubin (0.2-1.3) mg/dL AST (14-36) U/L ALT (4-34) U/L Alkaline Phosphatase (38-126) U/L Troponin I <0.012 (0.000-0.034) ng/mL Total Protein (6.3-8.2) g/dL Albumin (3.5-5.0) g/dL Lipase (23-300) U/L Disposition Clinical Impression: Chest pain Disposition: ADMITTED IP TO THIS [facility] Referrals: Naseem Motley DO [Primary Care Provider] - 1-2 days Time of Disposition: 12:55
[2024-01-22] MEDS: NITROGLYCERIN OINT 1 INCH/GM PACKET TOPICAL STA (11:42)
[2024-01-22 11:49] LABS: Basophils % (A) 1 %; Eosinophils # (A) 0.1 k/uL (0-0.7); Eosinophils % (A) 2 %; HCT 37.5 % (34.0-46.0); HGB 12.4 gm/dL (11.4-16.0); Lymphocytes % (A) 14 %; MCH 29.7 pg (25.0-35.0); MCHC 33.1 g/dL (31.0-37.0); MCV 89.7 fL (80.0-100.0); Mean Platelet Volume 7.7; Monocytes # (A) 0.6 k/uL (0-1.0); Monocytes % (A) 8 %; Neutrophils # (A) 5.3 k/uL (1.3-7.7); Neutrophils % (A) 74 %; Platelet Count 302 k/uL (150-450); RBC 4.19 m/uL (3.80-5.40); RDW 13.2 % (11.5-15.5); WBC 7.3 k/uL (3.8-10.6)
[2024-01-22 11:59] LABS: INR 0.9 (<1.2); Partial Thromboplastin Time 23.1 sec (22.0-30.0); Prothrombin Time 10.3 sec (10.0-12.5)
[2024-01-22 12:01] LABS: ALT 15 U/L (4-34); AST 26 U/L (14-36); African American GFR (CKD) >90 (>60 ml/min/1.73 sqM); Albumin 4.3 g/dL (3.5-5.0); Alkaline Phosphatase 96 U/L (38-126); Anion Gap 7 mmol/L; Blood Urea Nitrogen 10 mg/dL (7-17); Calcium 9.7 mg/dL (8.4-10.2); Carbon Dioxide 30 mmol/L (22-30); Chloride 102 mmol/L (98-107); Glucose 115 mg/dL (74-99); Lipase 70 U/L (23-300); Magnesium 2.2 mg/dL (1.6-2.3); Non-African American GFR(CKD) 86 (>60 ml/min/1.73 sqM); Potassium 3.8 mmol/L (3.5-5.1); Sodium 139 mmol/L (137-145); Total Bilirubin 0.5 mg/dL (0.2-1.3)
--- NOTE | 2024-01-22 12:31 | XR ---
EXAMINATION TYPE: XR chest 2V DATE OF EXAM: 01/22/2024 12:00 PM CLINICAL INDICATION: Female, 83 years old with history of Chest Pain; H COMPARISON: Chest radiographs from TECHNIQUE: XR chest 2V Frontal view of the chest. FINDINGS: Lungs/Pleura: There is no evidence of pleural effusion, focal consolidation, or pneumothorax. Pulmonary vascularity: Unremarkable. Heart/mediastinum: Cardiomediastinal silhouette is enlarged. Musculoskeletal: No acute osseous pathology. IMPRESSION: No acute cardiopulmonary disease/process. [facility], , 01/22/2024 12:28 PM
[2024-01-22] MEDS: HYDROmorphone 0.5 MG/0.5 ML SYRINGE IVP STA (12:50)
[2024-01-22] MEDS ORDERED: NITROGLYCERIN SL TABS 0.4 MG TAB SUBLINGUAL PRN (12:55)
--- NOTE | 2024-01-22 15:17 | P.HPIM ---
History of Present Illness H&P Date: 01/22/24 History of Presenting Illness: Patient is a very pleasant 83-year-old female with a past medical history of hypertension, hyperlipidemia, GERD, hypothyroidism, large hiatal hernia, depression with anxiety, and reports of recent right total hip arthroplasty completed 6 weeks ago. Patient presented to the emergency department with a chief complaint of chest pain. She reports chest pain began at rest yesterday and initially waxed and waned but became more persistent today accompanied by shortness of breath and worsening pain with deep inspiration. In addition patient reports intermittent episodes of dizziness and a couple of falls over the past few days. She denies having any loss of consciousness or hitting her head. She did report she hit her chin on the arm of her chair otherwise denies any injuries or pain. Patient denies having any other complaints including headache, changes in vision or hearing, palpitations, diaphoresis, fevers, chi lls, abdominal pain, nausea, vomiting, or experiencing any numbness/tingling/weakness/swelling in her extremities. Patient does report being postop total right hip arthroplasty completed 6 weeks ago and denies any DVT prophylaxis. Reports she was instructed to resume her aspirin 81 mg daily postop. Upon arrival to our facility, patient underwent evaluation in the emergency department. Vital signs upon arrival show blood pressure 155/69, heart rate 81, respiratory rate 16, temp 98.2 F, and SpO2 of 98% on room air. EKG completed showing normal sinus rhythm at 80 bpm with a sinus arrhythmia and first-degree AV block with NH interval of 210 ms no significant T wave or ST abnormalities showing no signs of acute ischemia upon personal review and interpretation. Chest x-ray was negative for acute cardiopulmonary process. Labs completed and reviewed. CBC and coagulation profile were normal findings. BMP unremarkable with exception of slightly elevated glucose of 115. Magnesium 2.2. Liver profile unremarkable. Troponin was negative at less than 0.012. Lipase also normal findings of 70. Patient admitted under our services with consultation to cardiology. Review of systems: Pertinent positives and negatives as discussed in HPI, a complete review of systems was performed and all other systems are negative. Physical exam: Vital signs reviewed and stable. General: Nontoxic, no distress and appears stated age. Derm: Skin warm and dry, normal coloration for ethnicity. Head: Atraumatic, normocephalic and symmetric. Eyes: EOM's intact, no lid lag, and anicteric sclera Mouth: no lip lesions, mucus membranes moist Cardiovascular: regular rate and rhythm with normal S1S2, no murmur, positive posterior tibial pulses bilaterally, and cap refill < 2 seconds. Lungs: Respirations even, regular, and unlabored on room air. Lungs CTA bilaterally, no rhonchi, no rales, no wheezing, and no accessory muscle usage. Abdominal: soft, nontender to palpation, no guarding, no appreciable orga nomegaly Ext: ROM intact. No gross muscle atrophy, no edema, no contractures Neuro: Speech clear, face symmetrical and CN II-XII grossly intact with no noted focal neuro deficits Psych: Alert and oriented to person, place, time, and situation. Appropriate and pleasant affect. Assessment and Plan of Care: Chest pain, rule out acute coronary event Intermittent episodes of dizziness resulting in falls at home over the past 3 days Hypertension Hyperlipidemia -Cardiology consulted, appreciate recommendations -Telemetry monitoring -Trend troponins -Cardiac diet, NPO at midnight -Continue cardiac medication regimen with aspirin 81 mg daily, atorvastatin 40 mg nightly, lisinopril 10 mg daily, and nifedipine 60 mg daily. -Order placed for orthostatic vital signs. -Order placed for CTA chest to rule out PE as Well's score is 7.5 and patient is 6 weeks postop right hip and chief complaint of chest pain worsened with deep breath. -Echocardiogram GERD Previously known large hiatal hernia GI prophylaxis with Protonix 40 mg daily. Hypothyroidism Continue daily medication regimen with levothyroxine 75 mcg daily. Anxiety and depression Continue daily medication regimen with Zoloft 100 mg nightly and Remeron 30 mg nightly. Data and imaging reviewed: As stated above in HPI. CODE STATUS: Full code DVT prophylaxis: Lovenox Anticipated discharge date: Pending clinical course Anticipated discharge place: Home Patient was seen independently by Nurse Practitioner. This document was prepared using [employer] dictation software. Please allow for errors in transmission line engineer while rare they do occur. .Ever Merritt NP rendered care for this patient independently, reviewed the findings and plan as documented in the note above. I did not physically speak with or examine the patient on this date. Past Medical History Past Medical History: GERD/Reflux, Hyperlipidemia, Hypertension, Thyroid Disorder Additional Past Medical History / Comment(s): recent admission to [facility] for large hiatal hernia,hypoxia,has suprapubic catheter placed chronic pancreatitis History of Any Multi-Drug Resistant Organisms: ESBL Date of last positivie culture/infection: 12/06/20 MDRO Source:: ESBL URINE Past Surgical History: Joint Replacement Additional Past Surgical History / Comment(s): parathyroid gland, suprapubic catheter insertion, Left hip replacement, right shoulder surgery, total hysterectomy suprapubic cath Past Anesthesia/Blood Transfusion Reactions: No Reported Reaction Additional Past Anesthesia/Blood Transfusion Reaction / Comment(s): Pt has received blood in past without reaction. Past Psychological History: Depression Smoking Status: Never smoker - Past Family History Sister(s) Family Medical History: Myocardial Infarction ([place]) Mother Family Medical History: Cancer Additional Family Medical History / Comment(s): pancreatic Father History Unknown: Yes Family Medical History: Hyperlipidemia Additional Family Medical History / Comment(s): Father in the war. Medications and Allergies Home Medications Medication Instructions Recorded Confirmed Type Aspirin EC [Ecotrin Low Dose] 81 mg PO DAILY 04/10/20 01/22/24 History Atorvastatin Calcium [Lipitor] 40 mg PO HS 04/10/20 01/22/24 History Mirtazapine 30 mg PO HS 04/10/20 01/22/24 History Gabapentin 300 mg PO TID 12/07/20 01/22/24 History Mirabegron [Myrbetriq] 25 mg PO HS 12/07/20 01/22/24 History Levothyroxine Sodium [Synthroid] 75 mcg PO DAILY 04/02/21 01/22/24 History Ferrous Sulfate [Iron (65 MG 325 mg PO DAILY 08/19/23 01/22/24 History Elemental)] Fluticasone Nasal [place] [Flonase 1 spray EA NOSTRIL BID PRN 08/19/23 01/22/24 History Nasal [place]] HYDROcodone/APAP 7.5-325MG [[place] 1 tab PO Q12H 08/19/23 01/22/24 History 7.5-325] Lidocaine Viscous 2% [Xylocaine 5 ml MUCOUS MEM Q4H PRN 08/19/23 01/22/24 History Viscous] Lipase/Protease/Amylase [Creon Dr 1 cap PO ACHS 08/19/23 01/22/24 History 6,000 Unit Capsule] Ondansetron [Zofran] 4 mg PO TID PRN 08/19/23 01/22/24 History Sertraline [Zoloft] 100 mg PO HS 08/19/23 01/22/24 History Zolpidem Tartrate [Ambien Cr] 6.25 mg PO HS PRN 08/19/23 01/22/24 History NIFEdipine XL [Procardia XL] 60 mg PO DAILY 30 Days #30 tab 08/22/23 01/22/24 Rx Ascorbic Acid [Vitamin C] 500 mg PO DAILY 01/22/24 01/22/24 History Cholecalciferol (Vitamin D3) 75 mcg PO DAILY 01/22/24 01/22/24 History [Vitamin D3 (3000 Iu)] Diclofenac Sodium [Voltaren 2 gm TOPICAL QID PRN 01/22/24 01/22/24 History Arthritis Pain 1% Gel] Ibuprofen [Motrin Ib] 400 mg PO Q6H PRN 01/22/24 01/22/24 History L.acidoph,Paracasei, B.lactis 1 cap PO DAILY 01/22/24 01/22/24 History [Probiotic] Multivitamins, Thera [Multivitamin 1 tab PO DAILY 01/22/24 01/22/24 History (formulary)] Turmeric Root Extract [Turmeric] 500 mg PO DAILY 01/22/24 01/22/24 History lisinopriL [Zestril] 10 mg PO DAILY 01/22/24 01/22/24 History Allergies Allergy/AdvReac Type Severity Reaction Status Date / Time atorvastatin [From Lipitor] Allergy Migraine Verified 01/22/24 14:52 (CAN TAKE BRAND NAME LIPITOR) brimonidine [From Combigan] Allergy Itching Verified 01/22/24 14:52 dicyclomine [From Bentyl] Allergy Swelling Verified 01/22/24 14:52 of tongue/lips/mouth Sulfa (Sulfonamide Allergy Swelling Verified 01/22/24 15:01 Antibiotics) of tongue/lips/mouth timolol [From Combigan] Allergy Itching Verified 01/22/24 14:52 Physical Exam Vitals: Vital Signs Temp Pulse Resp BP Pulse Ox 01/22/24 13:00 75 16 123/90 96 01/22/24 12:23 79 20 127/73 98 01/22/24 11:49 20 01/22/24 11:32 78 16 155/69 99 01/22/24 11:29 98.2 F 81 16 155/69 98 Intake and Output 01/21/24 01/22/24 01/22/24 22:59 06:59 14:59 Other: Weight 65.771 kg Results CBC & Chem 7: 01/23/24 04:28 01/23/24 04:28 Labs: Abnormal Lab Results - Last 24 Hours (Table) 01/22/24 Range/Units 11:26 Glucose 115 H (74-99) mg/dL
[2024-01-22] MEDS ORDERED: ONDANSETRON 4 MG TAB PO PRN (15:18)
[2024-01-22] MEDS ORDERED: FLUTICASONE NASAL 50MCG/SPRAY 16GM BTL EA NOSTRIL PRN (15:18)
[2024-01-22] MEDS: HYDROcodone/APAP 7.5-325MG 1 EACH TAB PO SCH (16:14)
[2024-01-22] MEDS: GABAPENTIN 300 MG CAP PO SCH (16:14)
[2024-01-22] MEDS: LIPASE 5,000/PROTEASE 17,000/AMYLASE 24,000 PO SCH (16:15)
--- NOTE | 2024-01-22 17:12 | CT ---
EXAMINATION TYPE: CT chest angio for PE DATE OF EXAM: 01/22/2024 COMPARISON: 03/29/2021 HISTORY: CP worse w/ deep breath s/p right hip sx [address] DLP: 317.1 mGycm Automated exposure control for dose reduction was used. CONTRAST: CT Chest for pulmonary embolism performed with with IV Contrast, patient injected with 85ml mL of Iso bassam 370. FINDINGS: There are chronic interstitial densities in the lung bases. In addition there is a focal airspace con solidation left lung base consistent with a small acute pneumonia or atelectasis. There is no pleural effusion or pneumothorax. The great vessels chest and abdomen is no mediastinal, hilar or axillary adenopathy. There are no regan ling defects within the pulmonary arterial circulation to suggest pulmonary embolus. IMPRESSION: 1. No evidence of pulmonary embolus. 2. Chronic interstitial changes in lung bases. 3. airspace consolidation in the left lung base consistent with small pneumonia or atelectasis. Short -term follow-up is suggested. [facility], Workstation: PATY 01/22/2024 5:10 PM
[2024-01-22] MEDS: NITROGLYCERIN OINT 1 INCH/GM PACKET TOPICAL SCH (17:16)
--- NOTE | 2024-01-22 19:22 | P.CRDCN ---
History of Present Illness History of present illness: This is Dr. Rosales dictating a consult on this patient The patient was interviewed and examined IMPRESSION / ASSESSMENT: Atypical chest discomfort with no ST segment abnormalities in the first EKG and 3 normal cardiac enzymes Normal 2D echo and Doppler study in September 2023 preserved systolic function History of hypertension, takes nifedipine XL 60 mg p.o. daily, lisinopril 10 mg daily History of dyslipidemia, on atorvastatin 40 mg p.o. daily On a baby aspirin No evidence for pulmonary embolism PLAN: Check lipid panel on atorvastatin 40 mg p.o. daily Watch blood pressure on Procardia XL 60 mg p.o. daily and lisinopril Start Protonix No invasive cardiac therapy HPI Patient complains of frequent epigastric discomfort and intermittent sharp lower chest discomfort at rest She uses a walker for ambulation She is also being little dizzy and she collapsed twice but without true loss of consciousness Hemoglobin 12.4 3 serial EKGs are normal Twelve-lead EKG shows sinus mechanism with a mildly prolonged WA interval but without any clear-cut ST segment abnormality CT scan did not show any evidence of pulmonary embolism. Airspace consolidation in the left lung base was noted In September 2023 she saw the pain service and has degenerative joint disease, spondylosis, facet arthropathy and bilateral sacral ileitis and received pain injections She has a history of hypertension Recent 2D echo shows preserved LV systolic function mild left atrial enlargement month of August 2023 ROS: No fever chills or rigors, no cough, phlegm or expectoration, no nausea, vomiting or diarrhea, no hematuria, dysuria, no musculoskeletal complaints, no strokes or seizures, no skin lesions. EXAMINATION: Blood pressure 144/67 mmHg pulse rate in the 70s and 80s afebrile Normal heart sounds Normal breath sounds No epigastric tenderness No murmurs No lower extremity edema Patient looks very comfortable at this time REVIEW OF LABS, ECG & MEDICAL DATA Cardiac enzymes are normal Past Medical History Past Medical History: GERD/Reflux, Hyperlipidemia, Hypertension, Thyroid Disorder Additional Past Medical History / Comment(s): recent admission to [facility] for large hiatal hernia,hypoxia,has suprapubic catheter placed chronic pancreatitis History of Any Multi-Drug Resistant Organisms: ESBL Date of last positivie culture/infection: 12/06/20 MDRO Source:: ESBL URINE Past Surgical History: Joint Replacement Additional Past Surgical History / Comment(s): parathyroid gland, suprapubic catheter insertion, Left hip replacement, right shoulder surgery, total hysterectomy suprapubic cath Past Anesthesia/Blood Transfusion Reactions: No Reported Reaction Additional Past Anesthesia/Blood Transfusion Reaction / Comment(s): Pt has received blood in past without reaction. Past Psychological History: Depression Additional Psychological History / Comment(s): Pt resides with spouse at [facility]. She manages her own medications. She uses a walker. She no longer drives, she uses the [facility] [employer]. She has home oxygen and a suprapubic cath. Smoking Status: Never smoker Past Alcohol Use History: None Reported Past Drug Use History: None Reported - Past Family History Sister(s) Family Medical History: Myocardial Infarction ([place]) Mother Family Medical History: Cancer Additional Family Medical History / Comment(s): pancreatic Father History Unknown: Yes Family Medical History: Hyperlipidemia Additional Family Medical History / Comment(s): Father in the war. Medications and Allergies Home Medications Medication Instructions Recorded Confirmed Type Aspirin EC [Ecotrin Low Dose] 81 mg PO DAILY 04/10/20 01/22/24 History Atorvastatin Calcium [Lipitor] 40 mg PO HS 04/10/20 01/22/24 History Mirtazapine 30 mg PO HS 04/10/20 01/22/24 History Gabapentin 300 mg PO TID 12/07/20 01/22/24 History Mirabegron [Myrbetriq] 25 mg PO HS 12/07/20 01/22/24 History Levothyroxine Sodium [Synthroid] 75 mcg PO DAILY 04/02/21 01/22/24 History Ferrous Sulfate [Iron (65 MG 325 mg PO DAILY 08/19/23 01/22/24 History Elemental)] Fluticasone Nasal [place] [Flonase 1 spray EA NOSTRIL BID PRN 08/19/23 01/22/24 History Nasal [place]] HYDROcodone/APAP 7.5-325MG [[place] 1 tab PO Q12H 08/19/23 01/22/24 History 7.5-325] Lidocaine Viscous 2% [Xylocaine 5 ml MUCOUS MEM Q4H PRN 08/19/23 01/22/24 History Viscous] Lipase/Protease/Amylase [Creon Dr 1 cap PO ACHS 08/19/23 01/22/24 History 6,000 Unit Capsule] Ondansetron [Zofran] 4 mg PO TID PRN 08/19/23 01/22/24 History Sertraline [Zoloft] 100 mg PO HS 08/19/23 01/22/24 History Zolpidem Tartrate [Ambien Cr] 6.25 mg PO HS PRN 08/19/23 01/22/24 History NIFEdipine XL [Procardia XL] 60 mg PO DAILY 30 Days #30 tab 08/22/23 01/22/24 Rx Ascorbic Acid [Vitamin C] 500 mg PO DAILY 01/22/24 01/22/24 History Cholecalciferol (Vitamin D3) 75 mcg PO DAILY 01/22/24 01/22/24 History [Vitamin D3 (3000 Iu)] Diclofenac Sodium [Voltaren 2 gm TOPICAL QID PRN 01/22/24 01/22/24 History Arthritis Pain 1% Gel] Ibuprofen [Motrin Ib] 400 mg PO Q6H PRN 01/22/24 01/22/24 History L.acidoph,Paracasei, B.lactis 1 cap PO DAILY 01/22/24 01/22/24 History [Probiotic] Multivitamins, Thera [Multivitamin 1 tab PO DAILY 01/22/24 01/22/24 History (formulary)] Turmeric Root Extract [Turmeric] 500 mg PO DAILY 01/22/24 01/22/24 History lisinopriL [Zestril] 10 mg PO DAILY 01/22/24 01/22/24 History Allergies Allergy/AdvReac Type Severity Reaction Status Date / Time atorvastatin [From Lipitor] Allergy Migraine Verified 01/22/24 14:52 (CAN TAKE BRAND NAME LIPITOR) brimonidine [From Combigan] Allergy Itching Verified 01/22/24 14:52 dicyclomine [From Bentyl] Allergy Swelling Verified 01/22/24 14:52 of tongue/lips/mouth Sulfa (Sulfonamide Allergy Swelling Verified 01/22/24 15:01 Antibiotics) of tongue/lips/mouth timolol [From Combigan] Allergy Itching Verified 01/22/24 14:52 Physical Exam Vitals: Vital Signs Temp Pulse Pulse Resp BP BP Pulse Ox 01/22/24 18:09 98.7 F 85 16 139/65 96 01/22/24 17:43 65 16 135/68 98 01/22/24 16:56 80 20 149/78 95 01/22/24 16:00 79 20 149/75 96 01/22/24 15:00 80 20 144/67 98 01/22/24 13:00 75 16 123/90 96 01/22/24 12:23 79 20 127/73 98 01/22/24 11:49 20 01/22/24 11:32 78 16 155/69 99 01/22/24 11:29 98.2 F 81 16 155/69 98 Intake and Output 01/22/24 01/22/24 01/22/24 06:59 14:59 22:59 Other: Weight 65.771 kg 65.771 kg Results 01/22/24 11:26 01/22/24 11:26 Cardiac Enzymes 01/22/24 01/22/24 01/22/24 Range/Units 11:26 11:26 14:24 AST 26 (14-36) U/L Troponin I <0.012 <0.012 (0.000-0.034) ng/mL 01/22/24 Range/Units 17:37 AST (14-36) U/L Troponin I <0.012 (0.000-0.034) ng/mL Coagulation 01/22/24 Range/Units 11:26 PT 10.3 (10.0-12.5) sec APTT 23.1 (22.0-30.0) sec CBC 01/22/24 Range/Units 11:26 WBC 7.3 (3.8-10.6) k/uL RBC 4.19 (3.80-5.40) m/uL Hgb 12.4 (11.4-16.0) gm/dL Hct 37.5 (34.0-46.0) % Plt Count 302 (150-450) k/uL Comprehensive Metabolic Panel 01/22/24 Range/Units 11:26 Sodium 139 (137-145) mmol/L Potassium 3.8 (3.5-5.1) mmol/L Chloride 102 (98-107) mmol/L Carbon Dioxide 30 (22-30) mmol/L BUN 10 (7-17) mg/dL Creatinine 0.56 (0.52-1.04) mg/dL Glucose 115 H (74-99) mg/dL Calcium 9.7 (8.4-10.2) mg/dL AST 26 (14-36) U/L ALT 15 (4-34) U/L Alkaline Phosphatase 96 (38-126) U/L Total Protein 8.0 (6.3-8.2) g/dL Albumin 4.3 (3.5-5.0) g/dL Current Medications Generic Name Dose Route Start Last Admin Trade Name Freq PRN Reason Stop Dose Admin Hydrocodone Bitart/Acetaminophen 1 each 01/22/24 21:00 01/22/24 16:14 Hydrocodone/Apap 7.5-325mg 1 Each Tab PO 1 each Q12H FERNANDA Administration Lipase/Protease/Amylase 1 each 01/22/24 17:30 01/22/24 16:15 Lipase 5,000/Protease 17,000/Amylase 24,000 PO 1 each ACHS FERNANDA Administration Ascorbic Acid 500 mg 01/23/24 09:00 Ascorbic Acid 500 Mg Tab PO DAILY FERNANDA Aspirin 81 mg 01/23/24 09:00 Aspirin 81 Mg PO DAILY [facility] Cholecalciferol 75 mcg 01/23/24 09:00 Cholecalciferol 25 Mcg (1000 Iu) Tablet PO DAILY FERNANDA Enoxaparin Sodium 40 mg 01/23/24 09:00 Enoxaparin 40 Mg/0.4 Ml Syringe SQ DAILY [facility] Ferrous Sulfate 325 mg 01/23/24 09:00 Ferrous Sulfate 325 Mg Tab PO DAILY [facility] Fluticasone Propionate 1 spray 01/22/24 15:18 Fluticasone Nasal 50mcg/[place] 16gm Btl EA NOSTRIL BID PRN Allergy Symptoms Gabapentin 300 mg 01/22/24 16:00 01/22/24 16:14 Gabapentin 300 Mg Cap PO 300 mg TID FERNANDA Administration Ceftriaxone Sodium 2 gm/ 50 mls @ 100 mls/hr 01/22/24 18:45 01/22/24 18:54 Sodium Chloride IVPB 100 mls/hr Q24HR FERNANDA Administration Azithromycin 500 mg/ Sodium 250 mls @ 250 mls/hr 01/22/24 18:45 Chloride IVPB 01/24/24 09:59 DAILY [facility] Ibuprofen 400 mg 01/22/24 15:18 Ibuprofen 400 Mg Tab PO Q6H PRN Pain Lactobacillus Acidophilus 1 each 01/23/24 09:00 Lactobacillus Acidophilus/Pect 1 Each Capsule PO DAILY [facility] Levothyroxine Sodium 75 mcg 01/23/24 06:30 Levothyroxine 75 Mcg Tab PO DAILY@0630 [facility] Lisinopril 10 mg 01/23/24 09:00 Lisinopril 10 Mg Tab PO DAILY [facility] Mirtazapine 30 mg 01/22/24 21:00 Mirtazapine 15 Mg Tab PO HS [facility] Multivitamins 1 each 01/23/24 09:00 Multivitamins, Thera 1 Each Tab PO DAILY [facility] Nifedipine 60 mg 01/23/24 09:00 Nifedipine Xl 60 Mg Tab.Er.24 PO DAILY [facility] Nitroglycerin 0.4 mg 01/22/24 12:55 Nitroglycerin Sl Tabs 0.4 Mg Tab SUBLINGUAL Q5M PRN Chest Pain Nitroglycerin 1 inch 01/22/24 18:00 01/22/24 17:16 Nitroglycerin Oint 1 Inch/Gm Packet TOPICAL 1 inch Q6HR [facility] Administration *Nigel* Lipitor 40 Mg 40 each 01/22/24 21:00 PO HS [facility] Non-Formulary Medication 25 mg 01/22/24 21:00 Mirabegron [Myrbetriq] PO HS [facility] Ondansetron HCl 4 mg 01/22/24 15:18 Ondansetron 4 Mg Tab PO TID PRN Nausea Pantoprazole Sodium 40 mg 01/23/24 07:30 Pantoprazole 40 Mg Tablet PO AC-BRKFST [facility] Sertraline HCl 100 mg 01/22/24 21:00 Sertraline 100 Mg Tab PO HS [facility] Zolpidem Tartrate 5 mg 01/22/24 15:18 Zolpidem 5 Mg Tab PO HS PRN SLEEP Intake and Output 01/22/24 01/22/24 01/22/24 06:59 14:59 22:59 Other: Weight 65.771 kg 65.771 kg Patient Weight 01/23/24 06:59 Weight 65.771 kg 01/22/24 11:26 01/22/24 11:26
[2024-01-22] MEDS: NON FORMULARY DRUG (Mirabegron [Myrbetriq] 25 MG Tab.Er.24h) PO SCH (19:53)
[2024-01-22] MEDS: MIRTAZAPINE 15 MG TAB PO SCH (19:53)
[2024-01-22] MEDS: SERTRALINE 100 MG TAB PO SCH (19:53)
[2024-01-22] MEDS: AZITHROMYCIN 500 MG in SODIUM CHLORIDE 0.9% 250 ML IVPB SCH (20:37)
[2024-01-22] MEDS: ZOLPIDEM 5 MG TAB PO PRN (22:18)
[2024-01-23] MEDS: LEVOTHYROXINE 75 MCG TAB PO SCH (05:30)
[2024-01-23] MEDS: PANTOPRAZOLE 40 MG TABLET PO SCH (05:30)
[2024-01-23 08:37] LABS: HCT 34.6 % (37.2-46.3); HGB 11.3 g/dL (12.0-15.0); MCH 29.7 pg (27.0-32.0); MCHC 32.7 g/dL (32.0-37.0); MCV 91.1 FL (80.0-97.0); Mean Platelet Volume 10.3 FL (9.5-12.2); NRBC Per 100 WBC 0 X 10*3/uL (0.00-0.01); Platelet Count 220 X 10*3/uL (140-440); RDW 12.5 % (11.5-14.5); WBC 4.81 X 10*3/uL (4.50-10.00)
[2024-01-23] MEDS ORDERED: guaiFENesin SYRUP 100MG/5ML 200 MG/10 ML CUP PO PRN (08:45)
[2024-01-23 08:58] LABS: BUN/Creat Ratio 13.17 Ratio (12.00-20.00); Blood Urea Nitrogen 7.9 mg/dL (9.0-27.0); Calcium 8.9 mg/dL (8.7-10.3); Carbon Dioxide 28.5 mmol/L (21.6-31.8); Chloride 103 mmol/L (96-109); Chol/HDL Ratio 2.78 Ratio; Glucose 85 mg/dL (70-110); LDL Cholesterol,Calculated 63.7 mg/dL (0.0-131.0); Magnesium 2.2 mg/dL (1.5-2.4); Potassium 3.3 mmol/L (3.5-5.5); Sodium 140 mmol/L (135-145)
[2024-01-23] MEDS: ASCORBIC ACID 500 MG TAB PO SCH (08:58)
[2024-01-23] MEDS: CHOLECALCIFEROL 25 MCG (1000 IU) TABLET PO SCH (08:58)
[2024-01-23] MEDS: FERROUS SULFATE 325 MG TAB PO SCH (08:59)
[2024-01-23] MEDS: LACTOBACILLUS ACIDOPHILUS/PECT 1 EACH CAPSULE PO SCH (08:59)
[2024-01-23] MEDS: ASPIRIN 81 MG PO SCH (08:59)
[2024-01-23] MEDS: ENOXAPARIN 40 MG/0.4 ML SYRINGE SQ SCH (08:59)
[2024-01-23] MEDS: polyethylene glycoL 3350 17 GM POWD.PACK PO SCH (08:59)
[2024-01-23] MEDS: MULTIVITAMINS, THERA 1 EACH TAB PO SCH (08:59)
[2024-01-23] MEDS ORDERED: lisinopriL 10 MG TAB PO SCH (09:00)
[2024-01-23] MEDS ORDERED: ASPIRIN 325 MG TAB PO SCH (09:00)
[2024-01-23] MEDS ORDERED: NON FORMULARY DRUG (Turmeric Root Extract [Turmeric] 500 MG Tablet) PO SCH (09:00)
--- NOTE | 2024-01-23 10:04 | CA ---
Transthoracic Echo Report Name: Carly Blas Age: 83 Gender: F : 1940 Exam Date: 01/23/2024 08:22 Exam Location: [facility] Ht (in): 61 Wt (lb): 145 Ordering Physician: Ever Merritt Attending/Referring Phys: Blanket Weaver [place] RDCS Procedure CPT: Indications: eval structure and function Cardiac Hx: Technical Quality: Fair Contrast 1: Total Dose (mL): Contrast 2: Total Dose (mL): MEASUREMENTS (Male / Female) Normal Values 2D ECHO LV Diastolic Diameter PLAX 4.6 cm 4.2 - 5.9 / 3.9 - 5.3 cm LV Systolic Diameter PLAX 3.0 cm IVS Diastolic Thickness 1.1 cm 0.6 - 1.0 / 0.6 - 0.9 cm LVPW Diastolic Thickness 1.2 cm 0.6 - 1.0 / 0.6 - 0.9 cm LV Relative Wall Thickness 0.5 RV Internal Dim ED PLAX 2.3 cm LVOT Diameter 1.6 cm LA Systolic Diameter LX 4.3 cm 3.0 - 4.0 / 2.7 - 3.8 cm LV Diastolic Volume MOD BP 50.7 cm??? 67 - 155 / 56 - 104 cm??? LV Systolic Volume MOD BP 18.8 cm??? 22 - 58 / 19 - 49 cm??? LV Ejection Fraction MOD BP 62.9 % >= 55 % LV Cardiac Index MOD BP 1403.9 cm???/min???m??? LV Diastolic Volume MOD 4C 52.7 cm??? LV Systolic Volume MOD 4C 17.5 cm??? LV Ejection Fraction MOD 4C 66.8 % LV Cardiac Index MOD 4C 1553.3 cm???/min???m??? LV Diastolic Length 4C 6.9 cm LV Systolic Length 4C 5.5 cm LV Diastolic Volume MOD 2C 46.9 cm??? LV Systolic Volume MOD 2C 19.1 cm??? LV Ejection Fraction MOD 2C 59.2 % LV Cardiac Index MOD 2C 1223.5 cm???/min???m??? LV Diastolic Length 2C 6.5 cm LV Systolic Length 2C 5.9 cm M-MODE Aortic Root Diameter MM 3.0 cm LA Systolic Diameter MM 4.4 cm LA Ao Ratio MM 1.5 AV Cusp Separation MM 1.6 cm DOPPLER AV Peak Velocity 161.5 cm/s AV Peak Gradient 10.4 mmHg AV Mean Velocity 110.8 cm/s AV Mean Gradient 5.5 mmHg AV Velocity Time Integral 42.9 cm LVOT Peak Velocity 94.8 cm/s LVOT Peak Gradient 3.6 mmHg LVOT Velocity Time Integral 25.8 cm LVOT Stroke Volume 53.6 cm??? LVOT Stroke Volume Index 32.5 ml/m??? LVOT Cardiac Index 2363.8 cm???/min???m??? AV Area Cont Eq vti 1.2 cm??? AV Area Cont Eq pk 1.2 cm??? Mitral E Point Velocity 96.1 cm/s Mitral A Point Velocity 146.2 cm/s Mitral E to A Ratio 0.7 MV Deceleration Time 313.4 ms MV E' Velocity 5.1 cm/s Mitral E to MV E' Ratio 18.7 TR Peak Velocity 274.4 cm/s TR Peak Gradient 30.1 mmHg Right Ventricular Systolic Press 35.2 mmHg FINDINGS Left Ventricle Left ventricular ejection fraction is estimated at 55-60 %. Mildly increased septal wall thickness. Mildly increased posterior wall thickness. Normal Left ventricular size, wall thickness, systolic function with no obvious regional wall motion abnormalities. Normal Left ventricular diastolic filling pattern. Left ventricular cavity size normal. Right Ventricle Normal right ventricular size and function. Mild pulmonary hypertension. Right Atrium Normal right atrial size. Left Atrium Moderately increased left atrial diameter. Mitral Valve Structurally normal mitral valve. Mitral valve thickened. Moderate mitral regurgitation. Aortic Valve Trileaflet aortic valve. Trace aortic regurgitation. No aortic stenosis. Diffuse thickening (sclerosis) of the aortic valve cusps without reduced excursion. Tricuspid Valve Structurally normal tricuspid valve. Mild tricuspid regurgitation. No tricuspid stenosis. Pulmonic Valve Structurally normal pulmonic valve. Trace pulmonic regurgitation. No pulmonic stenosis. Pericardium No pericardial or pleural effusion. Aorta Normal size aortic root and proximal ascending aorta. CONCLUSIONS Diagnosis: Hypertension, chest pain, presyncope LVH with preserved systolic function Normal RV size and function Biatrial enlargement Previewed by: Dr. Kwaku Rosales MD (Electronically Signed) Final Date: 23 January 2024 10:03
[2024-01-23] MEDS: POTASSIUM CHLORIDE ER 20 MEQ TAB.ER PO STA (10:22)
--- NOTE | 2024-01-23 14:29 | P.PN ---
Subjective Progress Note Date: 01/23/24 Hospital course: Patient is a very pleasant 83-year-old female with a past medical history of hypertension, hyperlipidemia, GERD, hypothyroidism, large hiatal hernia, depression with anxiety, and reports of recent right total hip arthroplasty completed 6 weeks ago. Patient presented to the emergency department with a chief complaint of chest pain. She reports chest pain began at rest yesterday and initially waxed and waned but became more persistent today accompanied by shortness of breath and worsening pain with deep inspiration. In addition patient reports intermittent episodes of dizziness and a couple of falls over the past few days. She denies having any loss of consciousness or hitting her head. She did report she hit her chin on the arm of her chair otherwise denies any injuries or pain. Patient denies having any other complaints including headache, changes in vision or hearing, palpitations, diaphoresis, fevers, chills, abdominal pain, nausea, vomiting, or experiencing any numbness/tingling/weakness/swelling in her extremities. Patient does report being postop total right hip arthroplasty completed 6 weeks ago and denies any DVT prophylaxis. Reports she was instructed to resume her aspirin 81 mg daily postop. Upon arrival to our facility, patient underwent evaluation in the emergency department. Vital signs upon arrival show blood pressure 155/69, heart rate 81, respiratory rate 16, temp 98.2 F, and SpO2 of 98% on room air. EKG completed showing normal sinus rhythm at 80 bpm with a sinus arrhythmia and first-degree AV block with TN interval of 210 ms no significant T wave or ST abnormalities showing no signs of acute ischemia upon personal review and interpretation. Chest x-ray was negative for acute cardiopulmonary process. Labs completed and reviewed. CBC and coagulation profile were normal findings. BMP unremarkable with exception of slightly elevated glucose of 115. Magnesium 2.2. Liver profile unremarkable. Troponin was negative at less than 0.012. Lipase also normal findings of 70. Patient admitted under our services with consultation to cardiology. Troponins were trended resulting negative at less than 0.012 x 3 draws. Lipid profile unremarkable.CTA chest completed revealing airspace consolidation in the left lung base consistent with small pneumonia or atelectasis with no evidence of pulmonary emboli. Physical exam: Patient seen and fully evaluated at bedside this morning. She reports resolution of previous reported substernal chest pain stating pain is now more in epigastric region and is slightly tender upon palpation. Patient denies feeling this pain in the past and denies previous issues with her gallbladder. We will obtain ultrasound of gallbladder. Discussed plans with patient and all questions answered at this time. Vital signs reviewed and stable. General: Nontoxic, no distress and appears stated age. Derm: Skin warm and dry, normal coloration for ethnicity. Head: Atraumatic, normocephalic and symmetric. Eyes: EOM's intact, no lid lag, and anicteric sclera Mouth: no lip lesions, mucus membranes moist Cardiovascular: regular rate and rhythm with normal S1S2, no murmur, positive posterior tibial pulses bilaterally, and cap refill < 2 seconds. Lungs: Respirations even, regular, and unlabored on room air. Lungs CTA bilaterally, no rhonchi, no rales, no wheezing, and no accessory muscle usage. Abdominal: soft, nontender to palpation, no guarding, no appreciable organomegaly Ext: ROM intact. No gross muscle atrophy, no edema, no contractures Neuro: Speech clear, face symmetrical and CN II-XII grossly intact with no noted focal neuro deficits Psych: Alert and oriented to person, place, time, and situation. Appropriate and pleasant affect. Assessment and Plan of Care: Chest pain, acute coronary event ruled out Intermittent episodes of dizziness resulting in falls at home over the past 3 days, orthostatic hypotension ruled out Community-acquired pneumonia Hypertension Hyperlipidemia -Cardiology following, reviewed documentation in chart. -Telemetry monitoring -Troponins negative at less than 0.012 x 3 draws. Lipid profile unremarkable. -CTA chest completed revealing airspace consolidation in the left lung base consistent with small pneumonia or atelectasis with no evidence of pulmonary emboli. -Patient started on antibiotics for CAP including azithromycin 500 mg IVPB daily and Rocephin 2 g daily. -Continue cardiac medication regimen with aspirin 81 mg daily, atorvastatin 40 mg nightly, lisinopril 10 mg daily, and nifedipine 60 mg daily. -Orthostatic vitals were negative. -Echocardiogram completed and currently pending results. Epigastric/abdominal pain Order placed for gallbladder ultrasound to rule out acute cholecystitis. Hypokalemia Potassium was 3.3. Orders placed for K-Dur 40 mEq p.o. x 1 dose. We will repeat potassium levels with morning labs. GERD Previously known large hiatal hernia GI prophylaxis with Protonix 40 mg daily. Hypothyroidism Continue daily medication regimen with levothyroxine 75 mcg daily. Anxiety and depression Continue daily medication regimen with Zoloft 100 mg nightly and Remeron 30 mg nightly. Data and imaging reviewed: CTA chest completed revealing airspace consolidation in the left lung base consistent with small pneumonia or atelectasis with no evidence of pulmonary emboli. Troponins were trended overnight all negative at less than 0.012 x 3 draws. Lipid profile unremarkable. Morning labs completed and reviewed. CBC showing stable normocytic anemia with hemoglobin 11.3. BMP showing mild hypokalemia with potassium of 3.3 otherwise normal findings. Magnesium 2.2. Vital signs reviewed. Blood pressure 171/71, heart rate 71, respiratory rate 16, temp 98.4 F, and SpO2 of 98% on room air. CODE STATUS: Full code DVT prophylaxis: Lovenox Anticipated discharge date: Pending clinical course Anticipated discharge place: Home Patient was seen independently by Nurse Practitioner. This document was prepared using [employer] dictation software. Please allow for errors in certified master locksmith while rare they do occur. Ever Merritt NP rendered care for this patient independently, reviewed the findings and plan as documented in the note above. I did not physically speak with or examine the patient on this date. Objective - Vital Signs Vital signs: Vital Signs Temp 98.4 F 01/23/24 07:00 Pulse 71 01/23/24 07:00 Resp 16 01/23/24 07:00 BP 171/71 01/23/24 07:00 Pulse Ox 98 01/23/24 07:00 FiO2 Intake & Output 01/22/24 01/23/24 01/23/24 18:59 06:59 18:59 Output Total 1125 Balance -1125 Weight 65.771 kg Output: Urine 1125 Other: Voiding Method Indwelling Catheter # Voids 1 - Labs CBC & Chem 7: 01/23/24 04:28 01/23/24 04:28 Labs: Abnormal Lab Results - Last 24 Hours (Table) 01/22/24 Range/Units 11:26 Glucose 115 H (74-99) mg/dL
--- NOTE | 2024-01-23 15:47 | US ---
EXAMINATION TYPE: US gallbladder DATE OF EXAM: 01/23/2024 COMPARISON: NONE CLINICAL INDICATION: Female, 83 years old with history of Epigastric tenderness; TECHNIQUE: Multiple sonographic images of the right upper quadrant are obtained. FINDINGS: EXAM MEASUREMENTS: Liver Length: 13.9 cm Gallbladder Wall: 0.3 cm CBD: 0.6 cm Right Kidney: 7.0 x 5.8 x 4.7 c Pancreas: wnl Liver: wnl Gallbladder: Limited visualization - WNL as visualized Evidence for sonographic Sanchez's sign: No CBD: wnl Right Kidney: Limited visualization - WNL as visualized IMPRESSION: Limited exam unable to view the gallbladder. Consider CT imaging as clinically required. No acute oss eous process. [facility], , 01/23/2024 3:44 PM
[2024-01-23] MEDS: lisinopriL 20 MG TAB PO SCH (16:57)
[2024-01-23] MEDS: VALSARTAN 160 MG TAB PO SCH (21:22)
--- NOTE | 2024-01-24 07:49 | P.PN ---
Subjective He is resting comfortably in bed. No fever chills cough no shortness of breath No orthopnea On examination heart sounds are normal and regular Breath sounds are clear Yesterday her blood pressure was very high and I switched from lisinopril to va lsartan Today her blood pressure is a bit better Labs normal white count, potassium 3.3 normal renal function stable LDL 60 Impression Uncontrolled hypertension, symptomatic with dizziness and lightheadedness on nifedipine and lisinopril Yesterday lisinopril was discontinued and valsartan was started while continuing nifedipine long-acting 60 mg p.o. daily H patient receiving IV antibiotics for possible pneumonitis seen on x-ray but clinically she has no fever cough expectoration Suggest Valsartan initiated Home blood pressure monitoring Continue Procardia Continue statins 1 dose of p.o. Lasix to avoid iatrogenic fluid overload from IV antibiotics for treatment of possible pneumonitis seen on xray Objective - Vital Signs Vital signs: Vital Signs Temp 97.5 F L 01/24/24 02:54 Pulse 68 01/24/24 02:54 Resp 16 01/24/24 02:54 BP 149/67 01/24/24 02:54 Pulse Ox 100 01/24/24 02:54 FiO2 Intake & Output 01/23/24 01/24/24 01/24/24 18:59 06:59 18:59 Intake Total 118 Output Total 500 800 Balance -382 -800 Intake: Oral 118 Output: Urine 500 800 Other: Voiding Method Indwelling Catheter Indwelling Catheter # Voids 1 # Bowel Movements 0 - Labs CBC & Chem 7: 01/23/24 04:28 01/23/24 04:28 Labs: Abnormal Lab Results - Last 24 Hours (Table) 01/23/24 01/23/24 Range/Units 04:28 04:28 RBC 3.80 L (4.10-5.20) X 10*6/uL Hgb 11.3 L (12.0-15.0) g/dL Hct 34.6 L (37.2-46.3) % Potassium 3.3 L (3.5-5.5) mmol/L BUN 7.9 L (9.0-27.0) mg/dL
[2024-01-24] MEDS: FUROSEMIDE 40 MG TAB PO STA (08:10)
[2024-01-24] MEDS: ARTIFICIAL TEARS-HYPROMELLOSE DROPS 15 ML BTL BOTH EYES PRN (08:14)
[2024-01-24 08:55] LABS: HCT 36.7 % (37.2-46.3); HGB 11.8 g/dL (12.0-15.0); MCH 29.6 pg (27.0-32.0); MCHC 32.2 g/dL (32.0-37.0); MCV 92.2 FL (80.0-97.0); Mean Platelet Volume 10.3 FL (9.5-12.2); NRBC Per 100 WBC 0 X 10*3/uL (0.00-0.01); Platelet Count 273 X 10*3/uL (140-440); RBC 3.98 X 10*6/uL (4.10-5.20); RDW 12.4 % (11.5-14.5); WBC 5.33 X 10*3/uL (4.50-10.00)
[2024-01-24 09:54] LABS: Magnesium 2.2 mg/dL (1.5-2.4)
[2024-01-24 10:44] LABS: ALT 12 U/L (8-44); AST 19 U/L (13-35); Albumin 3.7 g/dL (3.8-4.9); Albumin/Globulin Ratio 1.19 Ratio (1.60-3.17); Alkaline Phosphatase 82 U/L (41-126); Blood Urea Nitrogen 9.5 mg/dL (9.0-27.0); Calcium 9.5 mg/dL (8.7-10.3); Carbon Dioxide 27.2 mmol/L (21.6-31.8); Chloride 104 mmol/L (96-109); Globulin 3.1 g/dL (1.6-3.3); Glucose 87 mg/dL (70-110); Potassium 3.9 mmol/L (3.5-5.5); Sodium 141 mmol/L (135-145); Total Bilirubin <0.2 mg/dL (0.3-1.2); Total Protein 6.8 g/dL (6.2-8.2)
--- NOTE | 2024-01-24 12:02 | CT ---
EXAMINATION TYPE: CT abdomen w con CT DLP: 902 mGycm, Automated exposure control for dose reduction was used. DATE OF EXAM: 01/24/2024 11:51 AM COMPARISON: Gallbladder ultrasound 01/23/2024, CTA chest 01/22/2024, CT abdomen and pelvis 09/19/2022, M R kidneys 12/02/2022 CLINICAL INDICATION:Female, 83 years old with history of persistent epigastric pain US inconcl r/o ch olecys; persistent epigastric pain US inconcl r/o cholecys TECHNIQUE: Standard CT of the abdomen following the administration of 100 cc of Isovue 300 IV contr ast material. Coronal and sagittal reformats were performed. FINDINGS: LOWER CHEST: Linear scarring and/or atelectasis within the bilateral lower lobes. Mildly prominent he art. Aortic valvular and mitral annulus calcifications. ABDOMEN LIVER: Unremarkable GALLBLADDER AND BILE DUCTS: Linear hyperdense material within the gallbladder. No wall thickening or surrounding inflammatory changes identified. No biliary duct dilatation. PANCREAS: No inflammatory changes identified. Mild atrophy. SPLEEN: Unremarkable. ADRENAL GLANDS: Unremarkable. KIDNEYS AND URETERS: No evidence of hydronephrosis or renal calculus. The kidneys and symmetrical. Bi lateral renal cysts redemonstrated. Contrast is demonstrated within both collecting systems on the de layed phase. STOMACH AND BOWEL: Small hiatal hernia, duodenum is unremarkable. No focal bowel wall thickening or s urrounding inflammatory changes. No evidence of bowel obstruction. PERITONEUM: No evidence of pneumoperitoneum or free fluid. VASCULATURE: Moderate atherosclerotic calcifications are present throughout the abdominal aorta and i ts branches. No evidence of aortic aneurysm. 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 At least moderate stenosis at the origin of the bilateral single renal arteries. MUSCULOSKELETAL: No acute osseous abnormalities. Moderate to severe disc degeneration changes are pre sent throughout the thoracolumbar spine. Grade 1 anterolisthesis of L3 on L4. Mild retrolisthesis of T12 on L1, L1 on L2, and L2 on L3. Dextrocurvature of the lumbar spine. Multilevel degenerative disc disease. LYMPH NODES: No gross evidence for lymphadenopathy. SOFT TISSUE/ABDOMINAL WALL: Unremarkable IMPRESSION: 1. No CT evidence for an acute process. 2. Hyperdense layering material within the gallbladder which may represent cholelithiasis versus vica rious excretion of contrast from recent CT. No wall thickening or surrounding inflammatory changes on CT. 3. Small hiatal hernia. [facility], , 01/24/2024 12:00 PM
[2024-01-24] MEDS: FAMOTIDINE 20 MG/2 ML VIAL IV STA (13:39)
[2024-01-24] MEDS: LIDOCAINE VISCOUS 2% 15 ML CUP PO ONE (13:39)
[2024-01-24] MEDS: MAG HYDROX/AL HYDROX/SIMETH 30 ML CUP PO STA (13:39)
[2024-01-24] MEDS: IBUPROFEN 400 MG TAB PO PRN (17:43)
--- NOTE | 2024-01-24 17:59 | P.PN ---
Subjective Progress Note Date: 01/24/24 Hospital course: Patient is a very pleasant 83-year-old female with a past medical history of hypertension, hyperlipidemia, GERD, hypothyroidism, large hiatal hernia, depression with anxiety, and reports of recent right total hip arthroplasty completed 6 weeks ago. Patient presented to the emergency department on 01/22/2024 with a chief complaint of chest pain. Upon arrival to our facility, patient underwent evaluation in the emergency department. Vital signs upon arrival show blood pressure 155/69, heart rate 81, respiratory rate 16, temp 98.2 F, and SpO2 of 98% on room air. EKG completed showing normal sinus rhythm at 80 bpm with a sinus arrhythmia and first-degree AV block with NM interval of 210 ms no significant T wave or ST abnormalities showing no signs of acute ischemia upon personal review and interpretation. Chest x-ray was negative for acute cardiopulmonary process. Labs completed and reviewed. CBC and coagulation profile were normal findings. BMP unremarkable with exception of slightly elevated glucose of 115. Magnesium 2.2. Liver profile unremarkable. Troponin was negative at less than 0.012. Lipase also normal findings of 70. Patient admitted under our services with consultation to cardiology. Troponins were trended resulting negative at less than 0.012 x 3 draws. Lipid profile unremarkable.CTA chest completed revealing airspace consolidation in the left lung base consistent with small pneumonia or atelectasis with no evidence of pulmonary emboli. Patient was admitted under our services with consultation to cardiology. Troponins were trended and all were negative at less than 0.012. Lipid profile was unremarkable. Echocardiogram was completed revealing mild pulmonary hypertension, left ventricular hypertrophy, moderate mitral regurgitation, and a preserved EF of 55 to 60%. Automation Driver evaluated r ecommending continuation of Procardia and started patient on valsartan 160 mg twice daily. Patient continued to report persistent pain but more so epigastric region than chest and began having significant tenderness upon palpation to epigastric region. Gallbladder ultrasound was ordered and reported to be limited exam due to view of the gallbladder. Patient's pain improved and initial plan was for discharge. However patient's pain returned and patient reporting severe 8 out of 10 pain accompanied by acid reflux. Order placed for GI cocktail consisting of Maalox and lidocaine along with Pepcid. Order also place for abdominal CT which revealed hyperdense layering material within the gallbladder possibly representing cholelithiasis, but negative for gallbladder wall thickening or surrounding inflammatory changes and small hiatal hernia. Order placed for consult to general surgery for evaluation and recommendations. General surgery evaluated recommending patient undergo EGD tomorrow morning. Physical exam: Patient seen and fully evaluated at bedside this morning. Patient continues to report epigastric pain this morning accompanied by acid reflux/indigestion. Vital signs reviewed and stable. General: Nontoxic, no distress and appears stated age. Derm: Skin warm and dry, normal coloration for ethnicity. Head: Atraumatic, normocephalic and symmetric. Eyes: EOM's intact, no lid lag, and anicteric sclera Mouth: no lip lesions, mucus membranes moist Cardiovascular: regular rate and rhythm with normal S1S2, no murmur, positive posterior tibial pulses bilaterally, and cap refill < 2 seconds. Lungs: Respirations even, regular, and unlabored on room air. Lungs CTA bilaterally, no rhonchi, no rales, no wheezing, and no accessory muscle usage. Abdominal: soft, nontender to palpation, no guarding, no appreciable organomegal y Ext: ROM intact. No gross muscle atrophy, no edema, no contractures Neuro: Speech clear, face symmetrical and CN II-XII grossly intact with no noted focal neuro deficits Psych: Alert and oriented to person, place, time, and situation. Appropriate and pleasant affect. Assessment and Plan of Care: Persistant Epigastric/abdominal pain -Gallbladder ultrasound was completed and reported to be limited exam due to v iew of the gallbladder. -Patient's pain improved and initial plan was for discharge. However patient's pain returned and patient reporting severe 8 out of 10 pain accompanied by acid reflux. -Order placed for GI cocktail consisting of Maalox and lidocaine along with Pepcid. -Order also place for abdominal CT which revealed hyperdense layering material within the gallbladder possibly representing cholelithiasis, but negative for gallbladder wall thickening or surrounding inflammatory changes and small hiatal hernia. -Order placed for consult to general surgery for evaluation and recommendations. General surgery evaluated recommending patient undergo EGD tomorrow morning. Chest pain, acute coronary event ruled out Epigastric pain Intermittent episodes of dizziness resulting in falls at home over the past 3 days, orthostatic hypotension ruled out Community-acquired pneumonia Hypertension Hyperlipidemia -Troponins were trended and all were negative at less than 0.012. -Lipid profile was unremarkable. -Echocardiogram was completed revealing mild pulmonary hypertension, left ventricular hypertrophy, moderate mitral regurgitation, and a preserved EF of 55 to 60%. -Automation Driver evaluated recommending continuation of Procardia and started patient on valsartan 160 mg twice daily. -CTA chest completed revealing airspace consolidation in the left lung base consistent with small pneumonia or atelectasis with no evidence of pulmonary emboli. -Patient started on antibiotics for CAP including azithromycin 500 mg IVPB daily and Rocephin 2 g daily. -Continue cardiac medication regimen with aspirin 81 mg daily, atorvastatin 40 mg nightly, lisinopril 10 mg daily, and nifedipine 60 mg daily. -Orthostatic vitals were negative. -Echocardiogram completed and currently pending results. Hypokalemia Potassium was 3.3. Orders placed for K-Dur 40 mEq p.o. x 1 dose. We will repeat potassium levels with morning labs. GERD Previously known hiatal hernia GI prophylaxis with Protonix 40 mg daily. Hypothyroidism Continue daily medication regimen with levothyroxine 75 mcg daily. Anxiety and depression Continue daily medication regimen with Zoloft 100 mg nightly and Remeron 30 mg nightly. Data and imaging reviewed: -Gallbladder ultrasound was completed and reported to be limited exam due to view of the gallbladder. -CT abdomen and pelvis revealed hyperdense layering material within the gallbladder possibly representing cholelithiasis, but negative for gallbladder wall thickening or surrounding inflammatory changes and small hiatal hernia. -Morning labs completed and reviewed. CBC showing stable normocytic anemia with hemoglobin 11.8. BMP showing resolution of hypokalemia with potassium of 3.9 slight elevation of renal function with BUN of 9.5, creatinine 1.0, and GFR of 56.. Magnesium 2.2. -Vital signs reviewed. Blood pressure 147/69, heart rate 79, respiratory rate 16, temp 98.1 F, and SpO2 of 96% on room air. CODE STATUS: Full code DVT prophylaxis: Lovenox Anticipated discharge date: Pending clinical course. Initial plan was for discharge today however patient persistent with epigastric pain and was evaluated by general surgery recommending EGD tomorrow. Anticipated discharge place: Home Patient was seen independently by Nurse Practitioner. This document was prepared using [employer] dictation software. Please allow for errors in forest logistics manager while rare they do occur. Ever Merritt NP rendered care for this patient independently, reviewed the findings and plan as documented in the note above. I did not physically speak with or examine the patient on this date Objective - Vital Signs Vital signs: Vital Signs Temp 98.1 F 01/24/24 07:00 Pulse 78 01/24/24 07:00 Resp 16 01/24/24 07:00 BP 168/68 01/24/24 07:00 Pulse Ox 98 01/24/24 07:00 FiO2 Intake & Output 01/23/24 01/24/24 01/24/24 18:59 06:59 18:59 Intake Total 118 Output Total 500 800 Balance -382 -800 Intake: Oral 118 Output: Urine 500 800 Other: Voiding Method Indwelling Catheter Indwelling Catheter # Voids 1 # Bowel Movements 0 - Labs CBC & Chem 7: 01/24/24 02:46 01/24/24 02:46 Labs: Abnormal Lab Results - Last 24 Hours (Table) 01/23/24 01/23/24 Range/Units 04:28 04:28 RBC 3.80 L (4.10-5.20) X 10*6/uL Hgb 11.3 L (12.0-15.0) g/dL Hct 34.6 L (37.2-46.3) % Potassium 3.3 L (3.5-5.5) mmol/L BUN 7.9 L (9.0-27.0) mg/dL
--- NOTE | 2024-01-24 20:40 | P.GSCN ---
History of Present Illness History of present illness: This is an 83-year-old female who presents to the emergency department complaining of chest pain. Patient states it started yesterday. Patient states there is some shortness of breath as well. Patient denies any nausea or vomiting. Patient states she does have some mild epigastric abdominal pain. Patient denies any back pain. Patient denies any jaw pain. Patient denies any diarrhea. General Surgery was consulted for epigastric pain. Review of Systems - Constitutional Reports as per HPI Past Medical History Past Medical History: GERD/Reflux, Hyperlipidemia, Hypertension, Thyroid Di sorder Additional Past Medical History / Comment(s): recent admission to [facility] for large hiatal hernia,hypoxia,has suprapubic catheter placed chronic pancreatitis History of Any Multi-Drug Resistant Organisms: ESBL Year Discovered:: 12/06/20 MDRO Source:: ESBL URINE Past Surgical History: Joint Replacement Additional Past Surgical History / Comment(s): parathyroid gland, suprapubic catheter insertion, Left hip replacement, right shoulder surgery, total hysterectomy suprapubic cath Past Anesthesia/Blood Transfusion Reactions: No Reported Reaction Additional Past Anesthesia/Blood Transfusion Reaction / Comm: Pt has received blood in past without reaction. Past Psychological History: Depression Smoking Status: Never smoker - Past Family History Sister(s) Family Medical History: Myocardial Infarction ([place]) Mother Family Medical History: Cancer Additional Family Medical History / Comment(s): pancreatic Father History Unknown: Yes Family Medical History: Hyperlipidemia Additional Family Medical History / Comment(s): Father in the war. Medications and Allergies Home Medications Medication Instructions Recorded Confirmed Type Aspirin EC [Ecotrin Low Dose] 81 mg PO DAILY 04/10/20 01/22/24 History Atorvastatin Calcium [Lipitor] 40 mg PO HS 04/10/20 01/22/24 History Mirtazapine 30 mg PO HS 04/10/20 01/22/24 History Gabapentin 300 mg PO TID 12/07/20 01/22/24 History Mirabegron [Myrbetriq] 25 mg PO HS 12/07/20 01/22/24 History Levothyroxine Sodium [Synthroid] 75 mcg PO DAILY 04/02/21 01/22/24 History Ferrous Sulfate [Iron (65 MG 325 mg PO DAILY 08/19/23 01/22/24 History Elemental)] Fluticasone Nasal [place] [Flonase 1 spray EA NOSTRIL BID PRN 08/19/23 01/22/24 History Nasal [place]] HYDROcodone/APAP 7.5-325MG [[place] 1 tab PO Q12H 08/19/23 01/22/24 History 7.5-325] Lidocaine Viscous 2% [Xylocaine 5 ml MUCOUS MEM Q4H PRN 08/19/23 01/22/24 History Viscous] Lipase/Protease/Amylase [Jos[address] 1 cap PO ACHS 08/19/23 01/22/24 History 6,000 Unit Capsule] Ondansetron [Zofran] 4 mg PO TID PRN 08/19/23 01/22/24 History Sertraline [Zoloft] 100 mg PO HS 08/19/23 01/22/24 History Zolpidem Tartrate [Ambien Cr] 6.25 mg PO HS PRN 08/19/23 01/22/24 History NIFEdipine XL [Procardia XL] 60 mg PO DAILY 30 Days #30 tab 08/22/23 01/22/24 Rx Ascorbic Acid [Vitamin C] 500 mg PO DAILY 01/22/24 01/22/24 History Cholecalciferol (Vitamin D3) 75 mcg PO DAILY 01/22/24 01/22/24 History [Vitamin D3 (3000 Iu)] Diclofenac Sodium [Voltaren 2 gm TOPICAL QID PRN 01/22/24 01/22/24 History Arthritis Pain 1% Gel] Ibuprofen [Motrin Ib] 400 mg PO Q6H PRN 01/22/24 01/22/24 History L.acidoph,Paracasei, B.lactis 1 cap PO DAILY 01/22/24 01/22/24 History [Probiotic] Multivitamins, Thera [Multivitamin 1 tab PO DAILY 01/22/24 01/22/24 History (formulary)] Turmeric Root Extract [Turmeric] 500 mg PO DAILY 01/22/24 01/22/24 History lisinopriL [Zestril] 10 mg PO DAILY 01/22/24 01/22/24 History Allergies Allergy/AdvReac Type Severity Reaction Status Date / Time atorvastatin [From Lipitor] Allergy Migraine Verified 01/22/24 14:52 (CAN TAKE BRAND NAME LIPITOR) brimonidine [From Combigan] Allergy Itching Verified 01/22/24 14:52 dicyclomine [From Bentyl] Allergy Swelling Verified 01/22/24 14:52 of tongue/lips/mouth Sulfa (Sulfonamide Allergy Swelling Verified 01/22/24 15:01 Antibiotics) of tongue/lips/mouth timolol [From Combigan] Allergy Itching Verified 01/22/24 14:52 Surgical - Exam Osteopathic Statement: *. No significant issues noted on an osteopathic structural exam other than those noted in the History and Physical/Consult. Vital Signs Temp Pulse Resp BP Pulse Ox 98.2 F 81 16 155/69 98 01/22/24 11:29 01/22/24 11:29 01/22/24 11:29 01/22/24 11:29 01/22/24 11:29 gen: nad cv: rrr pul:non labored breathing abd: soft, non distended, tender to palpation in epigastric region, no guarding or rebound tenderness Results - Labs 01/24/24 02:46 01/24/24 02:46 Abnormal Lab Results - Last 24 Hours (Table) 01/24/24 01/24/24 Range/Units 02:46 02:46 RBC 3.98 L (4.10-5.20) X 10*6/uL Hgb 11.8 L (12.0-15.0) g/dL Hct 36.7 L (37.2-46.3) % Est GFR (CKD-EPI) 56 L (>=60) BUN/Creatinine Ratio 9.50 L (12.00-20.00) Ratio Total Bilirubin <0.2 L (0.3-1.2) mg/dL Albumin 3.7 L (3.8-4.9) g/dL Albumin/Globulin Ratio 1.19 L (1.60-3.17) Ratio Diabetes panel 01/24/24 Range/Units 02:46 Sodium 141 (135-145) mmol/L Potassium 3.9 (3.5-5.5) mmol/L Chloride 104 (96-109) mmol/L Carbon Dioxide 27.2 (21.6-31.8) mmol/L BUN 9.5 (9.0-27.0) mg/dL Creatinine 1.0 (0.6-1.5) mg/dL Glucose 87 (70-110) mg/dL Calcium 9.5 (8.7-10.3) mg/dL AST 19 (13-35) U/L ALT 12 (8-44) U/L Alkaline Phosphatase 82 (41-126) U/L Total Protein 6.8 (6.2-8.2) g/dL Albumin 3.7 L (3.8-4.9) g/dL Calcium panel 01/24/24 Range/Units 02:46 Calcium 9.5 (8.7-10.3) mg/dL Albumin 3.7 L (3.8-4.9) g/dL Pituitary panel 01/24/24 Range/Units 02:46 Sodium 141 (135-145) mmol/L Potassium 3.9 (3.5-5.5) mmol/L Chloride 104 (96-109) mmol/L Carbon Dioxide 27.2 (21.6-31.8) mmol/L BUN 9.5 (9.0-27.0) mg/dL Creatinine 1.0 (0.6-1.5) mg/dL Glucose 87 (70-110) mg/dL Calcium 9.5 (8.7-10.3) mg/dL Adrenal panel 01/24/24 Range/Units 02:46 Sodium 141 (135-145) mmol/L Potassium 3.9 (3.5-5.5) mmol/L Chloride 104 (96-109) mmol/L Carbon Dioxide 27.2 (21.6-31.8) mmol/L BUN 9.5 (9.0-27.0) mg/dL Creatinine 1.0 (0.6-1.5) mg/dL Glucose 87 (70-110) mg/dL Calcium 9.5 (8.7-10.3) mg/dL Total Bilirubin <0.2 L (0.3-1.2) mg/dL AST 19 (13-35) U/L ALT 12 (8-44) U/L Alkaline Phosphatase 82 (41-126) U/L Total Protein 6.8 (6.2-8.2) g/dL Albumin 3.7 L (3.8-4.9) g/dL Assessment and Plan Assessment: 83 yo female w/ epgiastric pain ct reviewed demonstrating gallstones, however patient not complaining of right upper quadrant pain gi cocktail given and didnt work OR tomorrow for EGD, given the results of this test will discuss possible cholecystectomy with patient Time with Patient: Less than 30
[2024-01-25 08:30] LABS: HGB 11.4 g/dL (12.0-15.0); MCH 29.5 pg (27.0-32.0); MCHC 31.7 g/dL (32.0-37.0); Mean Platelet Volume 10.1 FL (9.5-12.2); NRBC Per 100 WBC 0 X 10*3/uL (0.00-0.01); Platelet Count 281 X 10*3/uL (140-440); RBC 3.87 X 10*6/uL (4.10-5.20); RDW 12.5 % (11.5-14.5); WBC 5.45 X 10*3/uL (4.50-10.00)
[2024-01-25 09:07] LABS: ALT 11 U/L (8-44); AST 18 U/L (13-35); Albumin 3.5 g/dL (3.8-4.9); Albumin/Globulin Ratio 1.17 Ratio (1.60-3.17); Alkaline Phosphatase 78 U/L (41-126); Blood Urea Nitrogen 13.2 mg/dL (9.0-27.0); Calcium 9.1 mg/dL (8.7-10.3); Carbon Dioxide 26.7 mmol/L (21.6-31.8); Chloride 101 mmol/L (96-109); Glucose 94 mg/dL (70-110); Magnesium 2.3 mg/dL (1.5-2.4); Potassium 3.6 mmol/L (3.5-5.5); Sodium 139 mmol/L (135-145); Total Bilirubin <0.2 mg/dL (0.3-1.2); Total Protein 6.5 g/dL (6.2-8.2)
--- NOTE | 2024-01-25 09:59 | P.PN ---
Subjective Progress Note Date: 01/25/24 Hospital course: Patient is a very pleasant 83-year-old female with a past medical history of hypertension, hyperlipidemia, GERD, hypothyroidism, large hiatal hernia, depression with anxiety, and reports of recent right total hip arthroplasty completed 6 weeks ago. Patient presented to the emergency department on 01/22/2024 with a chief complaint of chest pain. Upon arrival to our facility, patient underwent evaluation in the emergency department. Vital signs upon arrival show blood pressure 155/69, heart rate 81, respiratory rate 16, temp 98.2 F, and SpO2 of 98% on room air. EKG completed showing normal sinus rhythm at 80 bpm with a sinus arrhythmia and first-degree AV block with VA interval of 210 ms no significant T wave or ST abnormalities showing no signs of acute ischemia upon personal review and interpretation. Chest x-ray was negative for acute cardiopulmonary process. Labs completed and reviewed. CBC and coagulation profile were normal findings. BMP unremarkable with exception of slightly elevated glucose of 115. Magnesium 2.2. Liver profile unremarkable. Troponin was negative at less than 0.012. Lipase also normal findings of 70. Patient admitted under our services with consultation to cardiology. Troponins were trended resulting negative at less than 0.012 x 3 draws. Lipid profile unremarkable.CTA chest completed revealing airspace consolidation in the left lung base consistent with small pneumonia or atelectasis with no evidence of pulmonary emboli. Patient was admitted under our services with consultation to cardiology. Troponins were trended and all were negative at less than 0.012. Lipid profile was unremarkable. Echocardiogram was completed revealing mild pulmonary hypertension, left ventricular hypertrophy, moderate mitral regurgitation, and a preserved EF of 55 to 60%. Dental Service Technician evaluated r ecommending continuation of Procardia and started patient on valsartan 160 mg twice daily. Patient continued to report persistent pain but more so epigastric region than chest and began having significant tenderness upon palpation to epigastric region. Gallbladder ultrasound was ordered and reported to be limited exam due to view of the gallbladder. Patient's pain improved and initial plan was for discharge. However patient's pain returned and patient reporting severe 8 out of 10 pain accompanied by acid reflux. Order placed for GI cocktail consisting of Maalox and lidocaine along with Pepcid. Order also place for abdominal CT which revealed hyperdense layering material within the gallbladder possibly representing cholelithiasis, but negative for gallbladder wall thickening or surrounding inflammatory changes and small hiatal hernia. Order placed for consult to general surgery for evaluation and recommendations. General surgery evaluated recommending patient undergo EGD later today. Physical exam: Patient seen and fully evaluated at bedside this morning. Patient continues to report epigastric pain this morning currently rated 4 out of 10 at this time. She is awaiting to be taken down for EGD later today. Patient currently denies having any other complaints including indigestion/heartburn, nausea, vomiting, palpitations, or shortness of breath. Vital signs reviewed and stable. General: Nontoxic, no distress and appears stated age. Derm: Skin warm and dry, normal coloration for ethnicity. Head: Atraumatic, normocephalic and symmetric. Eyes: EOM's intact, no lid lag, and anicteric sclera Mouth: no lip lesions, mucus membranes moist Cardiovascular: regular rate and rhythm with normal S1S2, no murmur, positive posterior tibial pulses bilaterally, and cap refill < 2 seconds. Lungs: Respirations even, regular, and unlabored on room air. Lungs CTA bilaterally, no rhonchi, no rales, no wheezing, and no accessory muscle usage. Abdominal: soft, nontender to palpation, no guarding, no appreciable organomegaly Ext: ROM intact. No gross muscle atrophy, no edema, no contractures Neuro: Speech clear, face symmetrical and CN II-XII grossly intact with no noted focal neuro deficits Psych: Alert and oriented to person, place, time, and situation. Appropriate and pleasant affect. Assessment and Plan of Care: Persistant Epigastric/abdominal pain -Gallbladder ultrasound was completed and reported to be limited exam due to view of the gallbladder. -CT abdomen and pelvis revealed hyperdense layering material within the gallbla dder possibly representing cholelithiasis, but negative for gallbladder wall thickening or surrounding inflammatory changes and small hiatal hernia. -Patient was provided with GI cocktail consisting of Maalox and lidocaine along with Pepcid IV providing no relief. -General surgery evaluated and discussed plan of care with surgeon, Dr. Palumbo taking patient for EGD later today. -Continue with symptomatic care and pain management including GI prophylaxis with Protonix 40 mg daily. Chest pain, acute coronary event ruled out Epigastric pain Intermittent episodes of dizziness resulting in falls at home over the past 3 days, orthostatic hypotension ruled out Community-acquired pneumonia Hypertension Hyperlipidemia -Troponins were trended and all were negative at less than 0.012. -Lipid profile was unremarkable. -Echocardiogram was completed revealing mild pulmonary hypertension, left ventricular hypertrophy, moderate mitral regurgitation, and a preserved EF of 55 to 60%. -Dental Service Technician evaluated recommending continuation of Procardia and started patient on valsartan 160 mg twice daily and follow-up outpatient in their office in 1 week. -CTA chest completed revealing airspace consolidation in the left lung base consistent with small pneumonia or atelectasis with no evidence of pulmonary emboli. -Patient started on antibiotics for CAP including azithromycin 500 mg IVPB daily and Rocephin 2 g daily. -Continue cardiac medication regimen with aspirin 81 mg daily, atorvastatin 40 mg nightly, lisinopril 10 mg daily, and nifedipine 60 mg daily. -Orthostatic vitals were negative. -Echocardiogram completed and currently pending results. Hypokalemia. Resolved. GERD Previously known hiatal hernia GI prophylaxis with Protonix 40 mg daily. Hypothyroidism Continue daily medication regimen with levothyroxine 75 mcg daily. Anxiety and depression Continue daily medication regimen with Zoloft 100 mg nightly and Remeron 30 mg nightly. Data and imaging reviewed: -Morning labs completed and reviewed. CBC showing stable normocytic anemia with hemoglobin of 11.4. BMP unremarkable with the exception of slightly elevated r enal function with BUN of 13.2, creatinine 1.1, GFR 50. Blood glucose 94. Liver profile unremarkable with exception of hypoalbuminemia with albumin of 3.5. -Vital signs reviewed. Blood pressure 145/75, heart rate 74, respiratory rate 16, temp 97.5 F, and SpO2 of 94% on room air. CODE STATUS: Full code DVT prophylaxis: Lovenox Anticipated discharge date: Pending clinical course. Initial plan was for discharge 01/24/2024 however patient continued to have persistent with epigastric pain and was evaluated by general surgery recommending EGD later today. Anticipated discharge place: Home Patient was seen independently by Nurse Practitioner. This document was prepared using [employer] dictation software. Please allow for errors in revenue inspector while rare they do occur. I reviewed the documentation as provided by the XIOMARA above, who is the original author of this note. I agree with the documented assessment and plan, with the following changes: none Objective - Vital Signs Vital signs: Vital Signs Temp 97.5 F L 01/25/24 07:00 Pulse 74 01/25/24 07:00 Resp 16 01/25/24 07:00 BP 145/75 01/25/24 07:00 Pulse Ox 94 L 01/25/24 01:56 FiO2 Intake & Output 01/24/24 01/25/24 01/25/24 18:59 06:59 18:59 Intake Total 354 Output Total 1000 Balance -646 Intake: Oral 354 Output: Urine 1000 Other: Voiding Method Indwelling Catheter # Voids 1 # Bowel Movements 0 - Labs CBC & Chem 7: 01/25/24 03:39 01/25/24 03:39 Labs: Abnormal Lab Results - Last 24 Hours (Table) 01/24/24 01/25/24 Range/Units 02:46 03:39 RBC 3.87 L (4.10-5.20) X 10*6/uL Hgb 11.4 L (12.0-15.0) g/dL Hct 36.0 L (37.2-46.3) % MCHC 31.7 L (32.0-37.0) g/dL Est GFR (CKD-EPI) 56 L (>=60) BUN/Creatinine Ratio 9.50 L (12.00-20.00) Ratio Total Bilirubin <0.2 L (0.3-1.2) mg/dL Albumin 3.7 L (3.8-4.9) g/dL Albumin/Globulin Ratio 1.19 L (1.60-3.17) Ratio
[2024-01-25] MEDS ORDERED: PROPOFOL 10 MG/ML 20 ML VIAL IV ONE (12:53)
[2024-01-25] MEDS: IV FLUID CONTINUATION 600 ML IV ONE (13:01)
--- NOTE | 2024-01-25 13:17 | P.OP ---
Date of Procedure: 01/25/24 Preoperative Diagnosis: Epigastric Pain Postoperative Diagnosis: Gastritis Procedure(s) Performed: EGD with Cold Biopsy Anesthesia: other (Sedation) Surgeon: Henrik Dumas Pathology: other (Antral Biopsies) Condition: stable Disposition: PACU Description of Procedure: Informed consent was obtained. The procedure, its risks, benefits, and alternatives were discussed. The patient was placed in the left lateral decubitus position and given local anesthetic to the oropharynx. The patient was sedated by anesthesia. The endoscope was inserted into the oropharynx and guided under direct vision into the esophagus, stomach, and duodenum. The duodenal bulb and second portion were unremarkable. The scope was withdrawn to the stomach and retroflexed. There was no increased fluid, food or secretions in the upper gastrointestinal tract. There was very minimal, nonspecific, patchy antral erythema. There was some gastritis. Biopsies were obtained for Helicobacter pylori. No erosions or ulcers. The scope was withdrawn to the esophagus. The Z- line and gastroesophageal junction were located at about 40 cm. No Barretts or esophagitis. The patient tolerated the procedure very well. The patient was then transferred to the recovery area in good condition. There were no apparent complications.
--- NOTE | 2024-01-25 17:33 | P.CRDCN ---
History of Present Illness History of present illness: Patient is doing well. Her blood pressure is better controlled to switching to Diovan. She remains on Procardia XL 60 mg p.o. daily She is currently being treated for pneumonitis with ceftriaxone On examination heart sounds S1-S2 are soft normal Breath sounds are clear She is lying flat in bed she looks very comfortable no respiratory distress Her white count has been normal Blood pressure 145/75 mmHg this morning pulse rate in the 70s afebrile Breath sounds are used bilaterally with there are no crackles no rhonchi Heart sounds S1-S2 normal Today she underwent an endoscopy gastritis was noted. Biopsies sent for Helicobacter pylori there was no evidence for Garcia's esophagitis Impression Patient admitted with dizziness and lightheadedness with elevated blood pressure readings on Procardia XL and lisinopril Lisinopril was discontinued and valsartan was initiated at 160 mg twice daily while continuing nifedipine Renal function is stable 2D echo shows preserved LV size and function, normal RV size and function and biatrial enlargement Telemetry does not show any arrhythmias Endoscopy shows gastritis Plan Continue current medications without any changes From a cardiac standpoint she may go home and follow-up with me in about 2 to 3 weeks Past Medical History Past Medical History: GERD/Reflux, Hyperlipidemia, Hypertension, Thyroid Disorder Additional Past Medical History / Comment(s): recent admission to [facility] for large hiatal hernia,hypoxia,has suprapubic catheter placed chronic pancreatitis History of Any Multi-Drug Resistant Organisms: ESBL Date of last positivie culture/infection: 12/06/20 MDRO Source:: ESBL URINE Past Surgical History: Joint Replacement Additional Past Surgical History / Comment(s): parathyroid gland, suprapubic catheter insertion, Left hip replacement, right shoulder surgery, total hysterectomy suprapubic cath Past Anesthesia/Blood Transfusion Reactions: No Reported Reaction Additional Past Anesthesia/Blood Transfusion Reaction / Comment(s): Pt has received blood in past without reaction. Past Psychological History: Depression Smoking Status: Never smoker - Past Family History Sister(s) Family Medical History: Myocardial Infarction (NE) Mother Family Medical History: Cancer Additional Family Medical History / Comment(s): pancreatic Father History Unknown: Yes Family Medical History: Hyperlipidemia Additional Family Medical History / Comment(s): Father in the war. Medications and Allergies Home Medications Medication Instructions Recorded Confirmed Type Aspirin EC [Ecotrin Low Dose] 81 mg PO DAILY 04/10/20 01/22/24 History Atorvastatin Calcium [Lipitor] 40 mg PO HS 04/10/20 01/22/24 History Mirtazapine 30 mg PO HS 04/10/20 01/22/24 History Gabapentin 300 mg PO TID 12/07/20 01/22/24 History Mirabegron [Myrbetriq] 25 mg PO HS 12/07/20 01/22/24 History Levothyroxine Sodium [Synthroid] 75 mcg PO DAILY 04/02/21 01/22/24 History Ferrous Sulfate [Iron (65 MG 325 mg PO DAILY 08/19/23 01/22/24 History Elemental)] Fluticasone Nasal [place] [Flonase 1 spray EA NOSTRIL BID PRN 08/19/23 01/22/24 History Nasal [place]] HYDROcodone/APAP 7.5-325MG [[place] 1 tab PO Q12H 08/19/23 01/22/24 History 7.5-325] Lidocaine Viscous 2% [Xylocaine 5 ml MUCOUS MEM Q4H PRN 08/19/23 01/22/24 History Viscous] Lipase/Protease/Amylase [Creon Dr 1 cap PO ACHS 08/19/23 01/22/24 History 6,000 Unit Capsule] Ondansetron [Zofran] 4 mg PO TID PRN 08/19/23 01/22/24 History Sertraline [Zoloft] 100 mg PO HS 08/19/23 01/22/24 History Zolpidem Tartrate [Ambien Cr] 6.25 mg PO HS PRN 08/19/23 01/22/24 History NIFEdipine XL [Procardia XL] 60 mg PO DAILY 30 Days #30 tab 08/22/23 01/22/24 Rx Ascorbic Acid [Vitamin C] 500 mg PO DAILY 01/22/24 01/22/24 History Cholecalciferol (Vitamin D3) 75 mcg PO DAILY 01/22/24 01/22/24 History [Vitamin D3 (3000 Iu)] Diclofenac Sodium [Voltaren 2 gm TOPICAL QID PRN 01/22/24 01/22/24 History Arthritis Pain 1% Gel] Ibuprofen [Motrin Ib] 400 mg PO Q6H PRN 01/22/24 01/22/24 History L.acidoph,Paracasei, B.lactis 1 cap PO DAILY 01/22/24 01/22/24 History [Probiotic] Multivitamins, Thera [Multivitamin 1 tab PO DAILY 01/22/24 01/22/24 History (formulary)] Turmeric Root Extract [Turmeric] 500 mg PO DAILY 01/22/24 01/22/24 History lisinopriL [Zestril] 10 mg PO DAILY 01/22/24 01/22/24 History Allergies Allergy/AdvReac Type Severity Reaction Status Date / Time atorvastatin [From Lipitor] Allergy Migraine Verified 01/22/24 14:52 (CAN TAKE BRAND NAME LIPITOR) brimonidine [From Combigan] Allergy Itching Verified 01/22/24 14:52 dicyclomine [From Bentyl] Allergy Swelling Verified 01/22/24 14:52 of tongue/lips/mouth Sulfa (Sulfonamide Allergy Swelling Verified 01/22/24 15:01 Antibiotics) of tongue/lips/mouth timolol [From Combigan] Allergy Itching Verified 01/22/24 14:52 Physical Exam Vitals: Vital Signs Temp Pulse Pulse Pulse Resp BP BP 01/25/24 15:04 73 178/75 01/25/24 13:34 80 159/79 01/25/24 13:17 83 153/71 01/25/24 13:15 97.8 F 81 17 161/78 01/25/24 07:00 97.5 F L 74 16 145/75 01/25/24 01:56 98.2 F 63 14 111/54 01/24/24 19:20 98.1 F 84 88 16 BP BP Pulse Ox 01/25/24 15:04 96 01/25/24 13:34 90 L 01/25/24 13:17 96 01/25/24 13:15 96 01/25/24 07:00 01/25/24 01:56 94 L 01/24/24 19:20 139/64 142/71 95 Intake and Output 01/25/24 01/25/24 01/25/24 06:59 14:59 22:59 Intake Total 318 Output Total 375 1050 Balance -57 -1050 Intake: IV 200 Oral 118 Output: Urine 375 1050 Results 01/25/24 03:39 01/25/24 03:39 Cardiac Enzymes 01/25/24 Range/Units 03:39 AST 18 (13-35) U/L CBC 01/25/24 Range/Units 03:39 WBC 5.45 (4.50-10.00) X 10*3/uL RBC 3.87 L (4.10-5.20) X 10*6/uL Hgb 11.4 L (12.0-15.0) g/dL Hct 36.0 L (37.2-46.3) % Plt Count 281 (140-440) X 10*3/uL Comprehensive Metabolic Panel 01/25/24 Range/Units 03:39 Sodium 139 (135-145) mmol/L Potassium 3.6 (3.5-5.5) mmol/L Chloride 101 (96-109) mmol/L Carbon Dioxide 26.7 (21.6-31.8) mmol/L BUN 13.2 (9.0-27.0) mg/dL Creatinine 1.1 (0.6-1.5) mg/dL Glucose 94 (70-110) mg/dL Calcium 9.1 (8.7-10.3) mg/dL AST 18 (13-35) U/L ALT 11 (8-44) U/L Alkaline Phosphatase 78 (41-126) U/L Total Protein 6.5 (6.2-8.2) g/dL Albumin 3.5 L (3.8-4.9) g/dL Current Medications Generic Name Dose Route Start Last Admin Trade Name Freq PRN Reason Stop Dose Admin Hydrocodone Bitart/Acetaminophen 1 each 01/22/24 21:00 01/25/24 08:48 Hydrocodone/Apap 7.5-325mg 1 Each Tab PO 1 each Q12H FERNANDA Administration Lipase/Protease/Amylase 1 each 01/22/24 17:30 01/25/24 17:16 Lipase 5,000/Protease 17,000/Amylase 24,000 PO 1 each ACHS FERNANDA Administration Artificial Tears 2 drops 01/23/24 22:17 01/24/24 08:14 Artificial Tears-Hypromellose Drops 15 Ml Btl BOTH EYES 2 drops QID PRN Administration Dry Eye(s) Ascorbic Acid 500 mg 01/23/24 09:00 01/25/24 08:49 Ascorbic Acid 500 Mg Tab PO 500 mg DAILY FERNANDA Administration Aspirin 81 mg 01/23/24 09:00 01/25/24 08:49 Aspirin 81 Mg PO 81 mg DAILY FERNANDA Administration Cholecalciferol 75 mcg 01/23/24 09:00 01/25/24 08:48 Cholecalciferol 25 Mcg (1000 Iu) Tablet PO 75 mcg DAILY FERNANDA Administration Enoxaparin Sodium 30 mg 01/26/24 09:00 Enoxaparin 30 Mg/0.3 Ml Syringe SQ DAILY FERNANDA Ferrous Sulfate 325 mg 01/23/24 09:00 01/25/24 08:49 Ferrous Sulfate 325 Mg Tab PO 325 mg DAILY FERNANDA Administration Fluticasone Propionate 1 spray 01/22/24 15:18 Fluticasone Nasal 50mcg/[place] 16gm Btl EA NOSTRIL BID PRN Allergy Symptoms Gabapentin 300 mg 01/22/24 16:00 01/25/24 15:51 Gabapentin 300 Mg Cap PO 300 mg TID FERNANDA Administration Guaifenesin 200 mg 01/23/24 08:45 Guaifenesin Syrup 100mg/5ml 200 Mg/10 Ml Cup PO Q6HR PRN Cough Ceftriaxone Sodium 2 gm/ 50 mls @ 100 mls/hr 01/22/24 18:45 01/25/24 08:48 Sodium Chloride IVPB 100 mls/hr Q24HR FERNANDA Administration Ibuprofen 400 mg 01/22/24 15:18 01/24/24 17:43 Ibuprofen 400 Mg Tab PO 400 mg Q6H PRN Administration Pain Lactobacillus Acidophilus 1 each 01/23/24 09:00 01/25/24 08:50 Lactobacillus Acidophilus/Pect 1 Each Capsule PO 1 each DAILY FERNANDA Administration Levothyroxine Sodium 75 mcg 01/23/24 06:30 01/25/24 06:08 Levothyroxine 75 Mcg Tab PO 75 mcg DAILY@0630 FERNANDA Administration Mirtazapine 30 mg 01/22/24 21:00 01/24/24 20:29 Mirtazapine 15 Mg Tab PO 30 mg HS FERNANDA Administration Multivitamins 1 each 01/23/24 09:00 01/25/24 08:49 Multivitamins, Thera 1 Each Tab PO 1 each DAILY FERNANDA Administration Nifedipine 60 mg 01/23/24 09:00 01/25/24 08:49 Nifedipine Xl 60 Mg Tab.Er.24 PO 60 mg DAILY FERNANDA Administration Nitroglycerin 0.4 mg 01/22/24 12:55 Nitroglycerin Sl Tabs 0.4 Mg Tab SUBLINGUAL Q5M PRN Chest Pain Nitroglycerin 1 inch 01/22/24 18:00 01/25/24 15:52 Nitroglycerin Oint 1 Inch/Gm Packet TOPICAL Not Given Q6HR FERNANDA *Nigel* Lipitor 40 Mg 40 each 01/22/24 21:00 01/24/24 20:28 PO Not Given HS FERNANDA Non-Formulary Medication 25 mg 01/22/24 21:00 01/24/24 20:18 Mirabegron [Myrbetriq] PO Not Given HS FERNANDA Ondansetron HCl 4 mg 01/22/24 15:18 Ondansetron 4 Mg Tab PO TID PRN Nausea Pantoprazole Sodium 40 mg 01/23/24 07:30 01/25/24 06:08 Pantoprazole 40 Mg Tablet PO 40 mg AC-[id number] FERNANDA Administration Polyethylene Glycol 17 gm 01/23/24 09:00 01/25/24 13:48 Polyethylene Glycol 3350 17 Gm Powd.Pack PO 17 gm DAILY FERNANDA Administration Sertraline HCl 100 mg 01/22/24 21:00 01/24/24 20:29 Sertraline 100 Mg Tab PO 100 mg HS FERNANDA Administration Valsartan 160 mg 01/23/24 21:00 01/25/24 08:49 Valsartan 160 Mg Tab PO 160 mg BID FERNANDA Administration Zolpidem Tartrate 5 mg 01/22/24 15:18 01/24/24 22:57 Zolpidem 5 Mg Tab PO 5 mg HS PRN Administration SLEEP Intake and Output 01/25/24 01/25/24 01/25/24 06:59 14:59 22:59 Intake Total 318 Output Total 375 1050 Balance -57 -1050 Intake: IV 200 Oral 118 Output: Urine 375 1050 01/25/24 03:39 01/25/24 03:39
--- NOTE | 2024-01-26 01:47 | P.PN ---
Progress Note - Text Progress Note Date: 01/26/24 Patient Seen and Examined. Still having epigastric pain. EGD performed 01/25/24 showed gastritis, no ulcer. VSS General-NAD CVS-RRR Lungs-NLB Abdomen-soft, TTP Epigastric Area, ND Ext- no Edema 83 year old female with Epigastric Pain -CLD -HIDA scan ordered -CT-AP showed gallstones -EGD showed gastritis -Pain and Nausea Control Henrik Dumas DO [facility] [phone]
[2024-01-26 09:03] LABS: Basophils # (A) 0.04 X 10*3/uL (0.00-0.10); Basophils % (A) 0.8 %; Eosinophils # (A) 0.24 X 10*3/uL (0.04-0.35); Eosinophils % (A) 4.6 %; HCT 37.9 % (37.2-46.3); HGB 12.1 g/dL (12.0-15.0); Lymphocytes # (A) 0.89 X 10*3/uL (0.90-5.00); Lymphocytes % (A) 16.9 %; MCH 29.7 pg (27.0-32.0); MCHC 31.9 g/dL (32.0-37.0); MCV 92.9 FL (80.0-97.0); Mean Platelet Volume 10.2 FL (9.5-12.2); Monocytes # (A) 0.81 X 10*3/uL (0.20-1.00); Monocytes % (A) 15.4 %; NRBC Per 100 WBC 0 X 10*3/uL (0.00-0.01); Neutrophils # (A) 3.26 X 10*3/uL (1.80-7.70); Neutrophils % (A) 61.9 %; Platelet Count 278 X 10*3/uL (140-440); RBC 4.08 X 10*6/uL (4.10-5.20); RDW 12.4 % (11.5-14.5); WBC 5.26 X 10*3/uL (4.50-10.00)
[2024-01-26 09:17] LABS: ALT 12 U/L (8-44); AST 16 U/L (13-35); Albumin 3.7 g/dL (3.8-4.9); Albumin/Globulin Ratio 1.28 Ratio (1.60-3.17); Alkaline Phosphatase 79 U/L (41-126); BUN/Creat Ratio 14.62 Ratio (12.00-20.00); Bilirubin, Conjugated <0.20 mg/dL (0.20-0.40); Blood Urea Nitrogen 11.7 mg/dL (9.0-27.0); Calcium 9.3 mg/dL (8.7-10.3); Carbon Dioxide 28.8 mmol/L (21.6-31.8); Chloride 105 mmol/L (96-109); Globulin 2.9 g/dL (1.6-3.3); Glucose 94 mg/dL (70-110); Potassium 3.6 mmol/L (3.5-5.5); Sodium 144 mmol/L (135-145); Total Bilirubin <0.2 mg/dL (0.3-1.2); Total Protein 6.6 g/dL (6.2-8.2)
[2024-01-26] MEDS: ENOXAPARIN 30 MG/0.3 ML SYRINGE SQ SCH (10:55)
--- NOTE | 2024-01-26 11:09 | NM ---
EXAMINATION TYPE: NM hepatobiliary w CCK DATE OF EXAM: 01/26/2024 10:56 AM COMPARISON: CT abdomen most recent from 01/24/2024. CLINICAL INDICATION:Female, 83 years old with history of Cholecystitis; TECHNIQUE: The patient was given 5.15 mCi of Technetium 99m-Mebrofenin as a radiotracer and multiple scintigraphic images were obtained of the abdomen. Gallbladder function was also assessed after the administration of 1.32 mcg of Kinevac and additional scintigraphic images were obtained of the abdome n. A region of interest was drawn over the gallbladder and a timing activity curve was generated. The gallbladder ejection fraction was calculated. Kinevac: 1.32 mcg FINDINGS: Normal uptake of radiotracer was identified within the liver with excretion into the hepatic and comm on biliary ducts within 20 minutes. There was normal progressive washout of the liver over the course of the study. Radiotracer uptake within the gallbladder at 58 minutes as well as small bowel activit y was identified at 48 minutes. Maximum calculated gallbladder ejection fraction is: 82% at 30 minutes (Normal gallbladder ejection fraction is > 35%) IMPRESSION: 1. Normal hepatobiliary scan. 2. Normal ejection fraction. [facility], , 01/26/2024 11:07 AM
[2024-01-26] MEDS ORDERED: bisacodyL 10 MG SUPP RECTAL STA (11:18)
[2024-01-26 13:27] VITALS: BP 146/95; PULSE 72; RESP 16; TEMP 98.9
--- NOTE | 2024-01-26 13:29 | P.DS ---
Providers Date of admission: 01/22/24 12:56 Expected date of discharge: 01/26/24 Attending physician: Juan Alberto Patel Consults: 01/22/24 12:55 Consult Physician Urgent Consulting Provider: [facility] Consult Reason/Comments: Chest pain Do you want consulting provider notified?: Yes 01/24/24 12:59 Consult Physician Routine Consulting Provider: Kb Garcias Consult Reason/Comments: eipgastic pain, abnormal CT poss cholelithiasis Do you want consulting provider notified?: Already Contacted Primary care physician: Naseem Motley [facility] Course: Discharge Diagnosis: Persistant Epigastric/abdominal pain. General surgery evaluated recommending patient undergo EGD. Patient underwent EGD which revealed mild gastritis and biopsies were obtained for Helicobacter pylori, no ulcers or erosions reported. General surgeons then recommending a HIDA scan. This was also completed showing normal hepatobiliary scan with a normal ejection fraction of 82% at 30 minutes. Patient being discharged on Protonix 40 mg daily and to follow-up outpatient with PCP in 2 to 3 days and with general surgeon in 1 week. Chest pain, acute coronary event ruled out. Biostatistics Director evaluated recommending continuation of Procardia and started patient on valsartan 160 mg twice daily and follow-up outpatient in their office in 1 week. Intermittent episodes of dizziness resulting in falls at home over the past 3 days, orthostatic hypotension ruled out. Biostatistics Director evaluated recommending continuation of Procardia and started patient on valsartan 160 mg twice daily and follow-up outpatient in their office in 1 week. Community-acquired pneumonia, Pt reeived 4 day course of antibiotics, no fevers, chills, or white count. No need for discharge home on additional abx. Hypertension. Biostatistics Director evaluated recommending continuation of Procardia and started patient on valsartan 160 mg twice daily and follow-up outpatient in their office in 1 week. Hyperlipidemia Continue atorvastatin 40 mg nightly. Hypokalemia. Resolved. GERD. GI prophylaxis with Protonix 40 mg daily. Previously known hiatal hernia. GI prophylaxis with Protonix 40 mg daily. Hypothyroidism. Continue daily medication regimen with levothyroxine 75 mcg daily. Anxiety and depression. Continue daily medication regimen with Zoloft 100 mg nightly and Remeron 30 mg nightly. Hospital course: Patient is a very pleasant 83-year-old female with a past medical history of hypertension, hyperlipidemia, GERD, hypothyroidism, large hiatal hernia, depression with anxiety, and reports of recent right total hip arthroplasty completed 6 weeks ago. Patient presented to the emergency department on 01/22/2024 with a chief complaint of chest pain. Upon arrival to our facility, patient underwent evaluation in the emergency department. Vital signs upon arrival show blood pressure 155/69, heart rate 81, respiratory rate 16, temp 98.2 F, and SpO2 of 98% on room air. EKG completed showing normal sinus rhythm at 80 bpm with a sinus arrhythmia and first-degree AV block with AZ interval of 210 ms no significant T wave or ST abnormalities showing no signs of acute ischemia upon personal review and interpretation. Chest x-ray was negative for acute cardiopulmonary process. Labs completed and reviewed. CBC and coagulat ion profile were normal findings. BMP unremarkable with exception of slightly elevated glucose of 115. Magnesium 2.2. Liver profile unremarkable. Troponin was negative at less than 0.012. Lipase also normal findings of 70. Patient admitted under our services with consultation to cardiology. Troponins were trended resulting negative at less than 0.012 x 3 draws. Lipid profile unremarkable.CTA chest completed revealing airspace consolidation in the left lung base consistent with small pneumonia or atelectasis with no evidence of pulmonary emboli. Patient was admitted under our services with consultation to cardiology. Troponins were trended and all were negative at less than 0.012. Lipid profile was unremarkable. Echocardiogram was completed revealing mild pulmonary hypertension, left ventricular hypertrophy, moderate mitral regurgitation, and a preserved EF of 55 to 60%. Biostatistics Director evaluated recommending discontinuation of lisinopril and continuation of Procardia and sta rted patient on valsartan 160 mg twice daily. Patient continued to report persistent pain but more so epigastric region than chest and began having significant tenderness upon palpation to epigastric region. Gallbladder ultrasound was ordered and reported to be limited exam due to view of the gallbladder. Patient's pain improved and initial plan was for discharge. However patient's pain returned and patient reporting severe 8 out of 10 pain accompanied by acid reflux. Order placed for GI cocktail consisting of Maalox and lidocaine along with Pepcid. Order also place for abdominal CT which revealed hyperdense layering material within the gallbladder possibly representing cholelithiasis, but negative for gallbladder wall thickening or surrounding inflammatory changes and small hiatal hernia. Order placed for consult to general surgery for evaluation and recommendations. General surgery evaluated recommending patient undergo EGD. Patient underwent EGD which revealed mild gastritis and biopsies were obtained for Helicobacter pylori, no ulcers or erosions reported. General surgeons on recommending a HIDA scan. This was also completed showing normal hepatobiliary scan with a normal ejection fraction of 82% at 30 minutes. This was discussed in detail with general surgeon, patient cleared from their perspective for discharge recommending outpatient follow-up in their office in 1 week. Medically, patient is stable for discharge at this time patient to continue Protonix 40 mg daily and follow- up outpatient with PCP in 2 to 3 days and with general surgeon in 1 week. Physical exam: Vital signs reviewed and stable. General: Nontoxic, no distress and appears stated age. Derm: Skin warm and dry, normal coloration for ethnicity. Head: Atraumatic, normocephalic and symmetric. Eyes: EOM's intact, no lid lag, and anicteric sclera Mouth: no lip lesions, mucus membranes moist Cardiovascular: regular rate and rhythm with normal S1S2, no murmur, positive posterior tibial pulses bilaterally, and cap refill < 2 seconds. Lungs: Respirations even, regular, and unlabored on room air. Lungs CTA bilaterally, no rhonchi, no rales, no wheezing, and no accessory muscle usage. Abdominal: soft, nontender to palpation, no guarding, no appreciable organomegaly Ext: ROM intact. No gross muscle atrophy, no edema, no contractures Neuro: Speech clear, face symmetrical and CN II-XII grossly intact with no noted focal neuro deficits Psych: Alert and oriented to person, place, time, and situation. Appropriate and pleasant affect. A total of 38 minutes of time were spent preparing this complex discharge summary. Pt was discharged on 01/26/2024 at 1:26 PM. Patient was seen independently by Nurse Practitioner. This document was prepared using [employer] dictation software. Please allow for errors in fire and explosion investigator while rare they do occur. I reviewed the documentation as provided by the XIOMARA above, who is the original author of this note. I agree with the documented assessment and plan, with the following changes: none Patient Condition at Discharge: Stable Plan - Discharge Summary Discharge Rx Participant: Yes New Discharge Prescriptions: New Valsartan [Diovan] 160 mg PO BID 30 Days #60 tab polyethylene glycoL 3350 [Miralax] 17 gm PO DAILY 90 Days #90 packet Pantoprazole [Protonix] 40 mg PO AC-BRKFST 90 Days #90 tab Continue Aspirin EC [Ecotrin Low Dose] 81 mg PO DAILY Mirtazapine 30 mg PO HS Atorvastatin Calcium [Lipitor] 40 mg PO HS Mirabegron [Myrbetriq] 25 mg PO HS Fluticasone Nasal [place] [Flonase Nasal [place]] 1 spray EA NOSTRIL BID PRN PRN Reason: Allergy Symptoms Sertraline [Zoloft] 100 mg PO HS NIFEdipine XL [Procardia XL] 60 mg PO DAILY 30 Days #30 tab Gabapentin 300 mg PO TID Levothyroxine Sodium [Synthroid] 75 mcg PO DAILY Ondansetron [Zofran] 4 mg PO TID PRN PRN Reason: Nausea Lipase/Protease/Amylase [Creon Dr 6,000 Unit Capsule] 1 cap PO ACHS Zolpidem Tartrate [Ambien Cr] 6.25 mg PO HS PRN PRN Reason: SLEEP Ferrous Sulfate [Iron (65 MG Elemental)] 325 mg PO DAILY HYDROcodone/APAP 7.5-325MG [[place]ving 7.5-325] 1 tab PO Q12H Lidocaine Viscous 2% [Xylocaine Viscous] 5 ml MUCOUS MEM Q4H PRN PRN Reason: MOUTH PAIN Multivitamins, Thera [Multivitamin (formulary)] 1 tab PO DAILY Ibuprofen [Motrin Ib] 400 mg PO Q6H PRN PRN Reason: Pain Diclofenac Sodium [Voltaren Arthritis Pain 1% Gel] 2 gm TOPICAL QID PRN PRN Reason: joint pain L.acidoph,Paracasei, B.lactis [Probiotic] 1 cap PO DAILY Turmeric Root Extract [Turmeric] 500 mg PO DAILY Ascorbic Acid [Vitamin C] 500 mg PO DAILY Cholecalciferol (Vitamin D3) [Vitamin D3 (3000 Iu)] 75 mcg PO DAILY Discontinued lisinopriL [Zestril] 10 mg PO DAILY Discharge Medication List Aspirin EC [Ecotrin Low Dose] 81 mg PO DAILY 04/10/20 [History] Atorvastatin Calcium [Lipitor] 40 mg PO HS 04/10/20 [History] Mirtazapine 30 mg PO HS 04/10/20 [History] Gabapentin 300 mg PO TID 12/07/20 [History] Mirabegron [Myrbetriq] 25 mg PO HS 12/07/20 [History] Levothyroxine Sodium [Synthroid] 75 mcg PO DAILY 04/02/21 [History] Ferrous Sulfate [Iron (65 MG Elemental)] 325 mg PO DAILY 08/19/23 [History] Fluticasone Nasal [place] [Flonase Nasal [place]] 1 spray EA NOSTRIL BID PRN 08/19/23 [History] HYDROcodone/APAP 7.5-325MG [[place] 7.5-325] 1 tab PO Q12H 08/19/23 [History] Lidocaine Viscous 2% [Xylocaine Viscous] 5 ml MUCOUS MEM Q4H PRN 08/19/23 [History] Lipase/Protease/Amylase [Creon Dr 6,000 Unit Capsule] 1 cap PO ACHS 08/19/23 [History] Ondansetron [Zofran] 4 mg PO TID PRN 08/19/23 [History] Sertraline [Zoloft] 100 mg PO HS 08/19/23 [History] Zolpidem Tartrate [Ambien Cr] 6.25 mg PO HS PRN 08/19/23 [History] NIFEdipine XL [Procardia XL] 60 mg PO DAILY 30 Days #30 tab 08/22/23 [Rx] Ascorbic Acid [Vitamin C] 500 mg PO DAILY 01/22/24 [History] Cholecalciferol (Vitamin D3) [Vitamin D3 (3000 Iu)] 75 mcg PO DAILY 01/22/24 [History] Diclofenac Sodium [Voltaren Arthritis Pain 1% Gel] 2 gm TOPICAL QID PRN 01/22/24 [History] Ibuprofen [Motrin Ib] 400 mg PO Q6H PRN 01/22/24 [History] L.acidoph,Paracasei, B.lactis [Probiotic] 1 cap PO DAILY 01/22/24 [History] Multivitamins, Thera [Multivitamin (formulary)] 1 tab PO DAILY 01/22/24 [History] Turmeric Root Extract [Turmeric] 500 mg PO DAILY 01/22/24 [History] Pantoprazole [Protonix] 40 mg PO AC-BRKFST 90 Days #90 tab 01/26/24 [Rx] Valsartan [Diovan] 160 mg PO BID 30 Days #60 tab 01/26/24 [Rx] polyethylene glycoL 3350 [Miralax] 17 gm PO DAILY 90 Days #90 packet 01/26/24 [Rx] Follow up Appointment(s)/Referral(s): Kwaku Rosales MD [STAFF PHYSICIAN] - 02/06/24 11:45 am [facility] [NON-STAFF] - 1 Week Naseem Motley DO [Primary Care Provider] - 1-2 days Henrik Dumas DO [Medical Doctor] - 1 Week Patient Instructions/Handouts: Chest Pain (DC) Discharge Disposition: HOME WITH HOME HEALTH SERVICES
[2024-01-27] MEDS ORDERED: ENOXAPARIN 40 MG/0.4 ML SYRINGE SQ SCH (09:00)
== END 2024-01-26 14:01 | disposition home health service (06) ==
LOC: EC 11:20 → 6NMEDSUR 12:56
PROVIDERS: ADMIT Student in an Organized Health Care Education/Training Program; ATTEND Student in an Organized Health Care Education/Training Program
DX: K29.50 Unspecified chronic gastritis without bleeding (principal); J18.9 Pneumonia, unspecified organism; R42 Dizziness and giddiness; Z91.81 History of falling; R10.13 Epigastric pain; E87.6 Hypokalemia; D64.9 Anemia, unspecified; E88.09 Other disorders of plasma-protein metabolism, not elsewhere classified; K80.20 Calculus of gallbladder without cholecystitis without obstruction; I10 Essential (primary) hypertension; K21.9 Gastro-esophageal reflux disease without esophagitis; E78.5 Hyperlipidemia, unspecified; E03.9 Hypothyroidism, unspecified; F41.8 Other specified anxiety disorders; Z79.82 Long term (current) use of aspirin; Z79.890 Hormone replacement therapy; Z79.899 Other long term (current) drug therapy; Z88.2 Allergy status to sulfonamides
CPT/HCPCS: 36415; 43239; 71046; 71275; 74160; 76705; 78227; 80048; 80053; 80061; 80076; 83036; 83690; 83735; 84484; 85025; 85027; 85610; 85730; 87636; 88305; 93005; 93306; 96365; 96366; 96367; 96372; 96375; 99285

== ENCOUNTER 2024-02-16 15:23 | Observation (INO) | payer MEDICARE ==
--- NOTE | 2024-02-16 16:24 | ED ---
General Adult HPI - General Chief complaint: Neuro Symptoms/Deficit Stated complaint: Vision issues-Sent by PCP Time Seen by Provider: 02/16/24 15:55 Source: patient, RN notes reviewed Mode of arrival: ambulatory Limitations: physical limitation - History of Present Illness Initial comments: Patient is an 83-year-old female presenting to the emergency department with diplopia. Patient had an episode this morning and a second episode at lunchtime. Each episode lasted a couple of seconds. Patient only has minimal blurry vision at this time. No headache. No confusion. No speech problems. No extremity weakness. Patient did feel a little bit fatigued this morning. No history of similar symptoms previously. - Related Data Home Medications Medication Instructions Recorded Confirmed Aspirin EC [Ecotrin Low Dose] 81 mg PO DAILY 04/10/20 01/22/24 Atorvastatin Calcium [Lipitor] 40 mg PO HS 04/10/20 01/22/24 Mirtazapine 30 mg PO HS 04/10/20 01/22/24 Gabapentin 300 mg PO TID 12/07/20 01/22/24 Mirabegron [Myrbetriq] 25 mg PO HS 12/07/20 01/22/24 Levothyroxine Sodium [Synthroid] 75 mcg PO DAILY 04/02/21 01/22/24 Ferrous Sulfate [Iron (65 MG 325 mg PO DAILY 08/19/23 01/22/24 Elemental)] Fluticasone Nasal [place] [Flonase 1 spray EA NOSTRIL BID PRN 08/19/23 01/22/24 Nasal [place]] HYDROcodone/APAP 7.5-325MG [[place] 1 tab PO Q12H 08/19/23 01/22/24 7.5-325] Lidocaine Viscous 2% [Xylocaine 5 ml MUCOUS MEM Q4H PRN 08/19/23 01/22/24 Viscous] Lipase/Protease/Amylase [Creon Dr 1 cap PO ACHS 08/19/23 01/22/24 6,000 Unit Capsule] Ondansetron [Zofran] 4 mg PO TID PRN 08/19/23 01/22/24 Sertraline [Zoloft] 100 mg PO HS 08/19/23 01/22/24 Zolpidem Tartrate [Ambien Cr] 6.25 mg PO HS PRN 08/19/23 01/22/24 Ascorbic Acid [Vitamin C] 500 mg PO DAILY 01/22/24 01/22/24 Cholecalciferol (Vitamin D3) 75 mcg PO DAILY 01/22/24 01/22/24 [Vitamin D3 (3000 Iu)] Diclofenac Sodium [Voltaren 2 gm TOPICAL QID PRN 01/22/24 01/22/24 Arthritis Pain 1% Gel] Ibuprofen [Motrin Ib] 400 mg PO Q6H PRN 01/22/24 01/22/24 L.acidoph,Paracasei, B.lactis 1 cap PO DAILY 01/22/24 01/22/24 [Probiotic] Multivitamins, Thera [Multivitamin 1 tab PO DAILY 01/22/24 01/22/24 (formulary)] Turmeric Root Extract [Turmeric] 500 mg PO DAILY 01/22/24 01/22/24 Previous Rx's Medication Instructions Recorded NIFEdipine XL [Procardia XL] 60 mg PO DAILY 30 Days #30 tab 08/22/23 Pantoprazole [Protonix] 40 mg PO AC-BRKFST 90 Days #90 tab 01/26/24 Valsartan [Diovan] 160 mg PO BID 30 Days #60 tab 01/26/24 polyethylene glycoL 3350 [Miralax] 17 gm PO DAILY 90 Days #90 packet 01/26/24 Allergies Allergy/AdvReac Type Severity Reaction Status Date / Time atorvastatin [From Lipitor] Allergy Migraine Verified 01/22/24 14:52 (CAN TAKE BRAND NAME LIPITOR) brimonidine [From Combigan] Allergy Itching Verified 01/22/24 14:52 dicyclomine [From Bentyl] Allergy Swelling Verified 01/22/24 14:52 of tongue/lips/mouth Sulfa (Sulfonamide Allergy Swelling Verified 01/22/24 15:01 Antibiotics) of tongue/lips/mouth timolol [From Combigan] Allergy Itching Verified 01/22/24 14:52 Review of Systems ROS Statement: Those systems with pertinent positive or pertinent negative responses have been documented in the HPI. ROS Other: All systems not noted in ROS Statement are negative. Constitutional: Denies: fever Eyes: Reports: as per HPI, vision change ENT: Denies: ear pain Respiratory: Denies: cough, dyspnea Cardiovascular: Denies: chest pain Endocrine: Denies: fatigue Neurological: Denies: headache, weakness, numbness, paresthesias, confusion, abnormal gait, vertigo Past Medical History Past Medical History: GERD/Reflux, Hyperlipidemia, Hypertension, Thyroid Disorder Additional Past Medical History / Comment(s): recent admission to [facility] for large hiatal hernia,hypoxia,has suprapubic catheter placed chronic pancreatitis History of Any Multi-Drug Resistant Organisms: ESBL Date of last positivie culture/infection: 12/06/20 MDRO Source:: ESBL URINE Past Surgical History: Joint Replacement Additional Past Surgical History / Comment(s): parathyroid gland, suprapubic catheter insertion, Left hip replacement, right shoulder surgery, total hysterectomy Past Anesthesia/Blood Transfusion Reactions: No Reported Reaction Additional Past Anesthesia/Blood Transfusion Reaction / Comment(s): Pt has received blood in past without reaction. Past Psychological History: Depression Smoking Status: Never smoker - Past Family History Sister(s) Family Medical History: Myocardial Infarction (CT) Mother Family Medical History: Cancer Additional Family Medical History / Comment(s): pancreatic Father History Unknown: Yes Family Medical History: Hyperlipidemia Additional Family Medical History / Comment(s): Father in the war. General Exam Limitations: no limitations General appearance: alert, in no apparent distress Head exam: Present: atraumatic, normocephalic Eye exam: Present: normal appearance, PERRL, EOMI, other (Funduscopic evaluation without acute abnormality) ENT exam: Present: normal oropharynx Neck exam: Present: normal inspection Respiratory exam: Present: normal lung sounds bilaterally Cardiovascular Exam: Present: regular rate, normal rhythm, normal heart sounds GI/Abdominal exam: Present: soft. Absent: tenderness Extremities exam: Present: normal inspection Neurological exam: Present: alert, oriented X3, CN II-XII intact. Absent: motor sensory deficit Expanded Neurological exam: Present: protecting the airway Speech: Present: fluid speech Cranial nerves: EOM's Intact: Normal Motor strength exam: RUE: 5, LUE: 5, RLE: 5, LLE: 5 Eye Response: (4) open spontaneously Motor Response: (6) obeys commands Verbal Response: (5) oriented Psychiatric exam: Present: normal affect, normal mood Skin exam: Present: normal color Course Vital Signs 02/16/24 02/16/24 02/16/24 15:49 17:38 18:36 Temperature 98.5 F 98 F 98 F Pulse Rate 75 76 80 Respiratory 18 18 18 Rate Blood Pressure 114/61 154/67 133/66 O2 Sat by Pulse 92 L 93 L Oximetry EKG Findings - EKG Results: EKG: interpreted by KELLY (1 Degree AV block. Diffuse Q waves. Nonspecific ST- T.), sinus rhythm, normal axis Medical Decision Making - Medical Decision Making Was pt. sent in by a medical professional or institution (, PA, LEVEL VIAL INSPECTOR, urgent care, hospital, or correction...) When possible be specific @ -No Did you speak to anyone other than the patient for history (EMS, parent, family, police, friend...)? What history was obtained from this source @ -No Did you review nursing and triage notes (agree or disagree)? Why? @ -I reviewed and agree with nursing and triage notes Were old charts reviewed (outside hosp., previous admission, EMS record, old EKG, old radiological studies, urgent care reports/EKG's, correction records)? Report findings @ -No old charts were reviewed Differential Diagnosis (chest pain, altered mental status, abdominal pain women, abdominal pain men, vaginal bleeding, weakness, fever, dyspnea, syncope, he adache, dizziness, GI bleed, back pain, seizure, CVA, palpatations, mental health, musculoskeletal)? @ -Differential Weakness: Hypoglycemia, shock, sepsis, hyponatremia, anemia, infection, CT, ETOH, adverse medicine reaction, overdose, stroke, this is not meant to be an all-inclusive list. EKG interpreted by me (3pts min.). @ -As above X-rays interpreted by me (1pt min.). @ -Chest x-ray shows no acute process CT interpreted by me (1pt min.). @ -Scan of the brain does not reveal acute abnormality U/S interpreted by me (1pt. min.). @ -None done What testing was considered but not performed or refused? (CT, X-rays, U/S, labs)? Why? @ -None What meds were considered but not given or refused? Why? @ -None Did you discuss the management of the patient with other professionals (professionals i.e. , MANPREET, LEVEL VIAL INSPECTOR, lab, RT, psych nurse, social insurance specialist, caul fat puller, teacher, botanical technical officer, social work case manager)? Give summary @ -Case discussed with Dr. Henry who will admit covering Dr. Kirk Was smoking cessation discussed for >3mins.? @ -No Was critical care preformed (if so, how long)? @ -No Were there social determinants of health that impacted care today? How? (Homelessness, low income, unemployed, alcoholism, drug addiction, transportation, low edu. Level, literacy, decrease access to med. care, assisted, rehab)? @ -No Was there de-escalation of care discussed even if they declined (Discuss DNR or withdrawal of care, Hospice)? DNR status @ -No What co-morbidities impacted this encounter? (DM, HTN, Smoking, COPD, CAD, Cancer, CVA, ARF, Chemo, Hep., AIDS, mental health diagnosis, sleep apnea, morbid obesity)? @ -None Was patient admitted / discharged? Hospital course, mention meds given and route, prescriptions, significant lab abnormalities, going to OR and other pertinent info. @ -Patient presents with diplopia, etiology unclear at this time. Patient will be admitted with further evaluation. Admission orders written. Consults placed. Patient revaluated and updated Undiagnosed new problem with uncertain prognosis? @ -No Drug Therapy requiring intensive monitoring for toxicity (Heparin, Nitro, Insulin, Cardizem)? @ -No Were any procedures done? @ -No Diagnosis/symptom? @ -Undifferentiated diplopia Acute, or Chronic, or Acute on Chronic? @ -Acute Uncomplicated (without systemic symptoms) or Complicated (systemic symptoms)? @ -Default Side effects of treatment? @ -No Exacerbation, Progression, or Severe Exacerbation? @ -No Poses a threat to life or bodily function? How? (Chest pain, USA, CT, pneumonia, PE, COPD, DKA, ARF, appy, cholecystitis, CVA, Diverticulitis, Homicidal, Suicidal, threat to staff... and all critical care pts) @ -Threat to neurological and ophthalmological function - Lab Data Result diagrams: 02/16/24 16:48 02/16/24 16:48 Lab Results 02/16/24 02/16/24 02/16/24 Range/Units 16:48 16:48 16:48 WBC 5.7 (3.8-10.6) k/uL RBC 4.62 (3.80-5.40) m/uL Hgb 13.6 (11.4-16.0) gm/dL Hct 40.9 (34.0-46.0) % MCV 88.4 (80.0-100.0) fL MCH 29.4 (25.0-35.0) pg MCHC 33.3 (31.0-37.0) g/dL RDW 13.1 (11.5-15.5) % Plt Count 244 (150-450) k/uL MPV 7.5 Neutrophils % 71 % Lymphocytes % 15 % Monocytes % 8 % Eosinophils % 4 % Basophils % 1 % Neutrophils # 4.0 (1.3-7.7) k/uL Lymphocytes # 0.8 L (1.0-4.8) k/uL Monocytes # 0.5 (0-1.0) k/uL Eosinophils # 0.2 (0-0.7) k/uL Basophils # 0.0 (0-0.2) k/uL PT 10.2 (10.0-12.5) sec INR 0.9 (<1.2) APTT 23.7 (22.0-30.0) sec Sodium 139 (137-145) mmol/L Potassium 3.4 L (3.5-5.1) mmol/L Chloride 104 (98-107) mmol/L Carbon Dioxide 29 (22-30) mmol/L Anion Gap 6 mmol/L BUN 15 (7-17) mg/dL Creatinine 0.69 (0.52-1.04) mg/dL Est GFR (CKD-EPI)AfAm >90 (>60 ml/min/1.73 sqM) Est GFR (CKD-EPI)NonAf 80 (>60 ml/min/1.73 sqM) Glucose 113 H (74-99) mg/dL Calcium 9.5 (8.4-10.2) mg/dL Total Bilirubin 0.5 (0.2-1.3) mg/dL AST 27 (14-36) U/L ALT 17 (4-34) U/L Alkaline Phosphatase 94 (38-126) U/L Creatine Kinase 57 (30-135) U/L Total Protein 7.7 (6.3-8.2) g/dL Albumin 4.3 (3.5-5.0) g/dL Disposition Clinical Impression: Diplopia Disposition: ADMITTED IP TO THIS [facility] Is patient prescribed a controlled substance at d/c from ED?: No Referrals: Whateley,Naseem, DO [Primary Care Provider] - 1-2 days Time of Disposition: 20:50
[2024-02-16 17:01] LABS: Basophils % (A) 1 %; Eosinophils # (A) 0.2 k/uL (0-0.7); Eosinophils % (A) 4 %; HCT 40.9 % (34.0-46.0); HGB 13.6 gm/dL (11.4-16.0); Lymphocytes # (A) 0.8 k/uL (1.0-4.8); Lymphocytes % (A) 15 %; MCH 29.4 pg (25.0-35.0); MCHC 33.3 g/dL (31.0-37.0); MCV 88.4 fL (80.0-100.0); Mean Platelet Volume 7.5; Monocytes # (A) 0.5 k/uL (0-1.0); Monocytes % (A) 8 %; Neutrophils % (A) 71 %; Platelet Count 244 k/uL (150-450); RBC 4.62 m/uL (3.80-5.40); RDW 13.1 % (11.5-15.5); WBC 5.7 k/uL (3.8-10.6)
[2024-02-16 17:19] LABS: ALT 17 U/L (4-34); AST 27 U/L (14-36); African American GFR (CKD) >90 (>60 ml/min/1.73 sqM); Albumin 4.3 g/dL (3.5-5.0); Alkaline Phosphatase 94 U/L (38-126); Anion Gap 6 mmol/L; Blood Urea Nitrogen 15 mg/dL (7-17); Calcium 9.5 mg/dL (8.4-10.2); Carbon Dioxide 29 mmol/L (22-30); Chloride 104 mmol/L (98-107); Creatine Kinase 57 U/L (30-135); Glucose 113 mg/dL (74-99); INR 0.9 (<1.2); Non-African American GFR(CKD) 80 (>60 ml/min/1.73 sqM); Partial Thromboplastin Time 23.7 sec (22.0-30.0); Potassium 3.4 mmol/L (3.5-5.1); Prothrombin Time 10.2 sec (10.0-12.5); Sodium 139 mmol/L (137-145); Total Bilirubin 0.5 mg/dL (0.2-1.3); Total Protein 7.7 g/dL (6.3-8.2)
--- NOTE | 2024-02-16 18:25 | XR ---
EXAMINATION TYPE: XR chest 2V DATE OF EXAM: 02/16/2024 6:07 PM CLINICAL INDICATION:Female, 83 years old with history of altered mental status; [facility] COMPARISON: CT 01/22/2024 and before TECHNIQUE: XR chest 2V. Frontal and lateral views of the chest.. FINDINGS: Lines/Tubes/Devices: No indwelling lines are seen. Heart/mediastinum: Heart size upper limits of normal. Mildly tortuous partially calcified aorta. Med iastinum stable. Pulmonary vascularity: Not increased, Lungs/Pleura: There is no evidence of pleural effusion, focal consolidation, or pneumothorax. Mild b ibasilar atelectasis. Musculoskeletal: No acute osseous abnormality demonstrated in the limits of the exam. Mild/moderate degenerative changes of the spine and shoulders. Other findings: None. IMPRESSION: Mild bibasilar atelectasis. Otherwise no acute cardiopulmonary abnormality. [facility], , 02/16/2024 6:23 PM
--- NOTE | 2024-02-16 19:53 | CT ---
EXAMINATION TYPE: CT brain wo con CT DLP: Combined dlp 1447.6 mGycm, Automated exposure control for dose reduction was used. DATE OF EXAM: 02/16/2024 6:43 PM COMPARISON: None.. CLINICAL INDICATION:Female, 83 years old with history of Neuro deficit, acute, stroke suspected, mult iple episodes of double vision this morning TECHNIQUE: Brain: Axial CT images of the brain were obtained with coronal and sagittal reformats created and rev iewed. Contrast used: None. Oral contrast used: None. FINDINGS: Extra-axial spaces: No abnormal extra-axial fluid collections. Basilar cisterns are patent. Ventricular system: Within normal limits. Cerebral parenchyma: No increased attenuation to suggest acute intraparenchymal hemorrhage. The gra y-white matter interface appears maintained. Mild generalized brain atrophy. White matter unremarka ble by CT. Cerebellum: No acute abnormality. Mass effect: No evidence of mass effect or midline shift. Intracranial vasculature: Atherosclerotic calcifications of the larger arteries near the skull base. Soft tissues: No acute or concerning abnormality. Visualized orbits: Orbital contents appear grossly intact. Bilateral aphakia Calvarium/osseous structures: No evidence of calvarial fracture. Paranasal sinuses and mastoid air cells: Clear. MRI is more sensitive for detecting acute processes such as infarct, and may be considered if clinica lly warranted. IMPRESSION: No acute intracranial CT abnormality. [facility], , 02/16/2024 7:51 PM
--- NOTE | 2024-02-16 20:05 | CT ---
EXAMINATION TYPE: CT angio head neck DATE OF EXAM: 02/16/2024 6:44 PM COMPARISON: Same day CT head. CLINICAL INDICATION:Female, 83 years old with history of Neuro deficit, acute, stroke suspected; PHH, multiple episodes of double vision this morning. TECHNIQUE: Axially acquired helical CT angiogram of the head and neck was obtained with contrast. Axi al images are supplemented with 3D reconstructions which were post-processed at an independent workst atcount includes the [facility]. NASCET criteria used. Contrast used: 65ml mL of Isovue 370 IV Oral contrast used: None. CT DLP: Combined dlp 1447.6 mGycm, Automated exposure control for dose reduction was used. FINDINGS: CTA Neck: A 3 vessel aortic arch is shown. Moderate atherosclerotic calcification along the arch and origins of the great vessels with mild stenoses. Right carotid system: The common carotid is patent. Moderate mostly calcified plaque at the carotid b ifurcation and proximal ICA with approximately 50% diameter stenosis of the ICA. Left carotid system: The common carotid is patent. Moderate Mostly calcified plaque at the carotid bifurcation and proximal ICA with approximately 50% diameter s tenosis of the ICA. Vertebral arteries: Artifacts limit assessment but there seems to be mild atherosclerotic disease at the origins of the vertebral bodies without significant stenosis. The left vertebral is dominant. Other: Visualized neck soft tissues show no concerning abnormality. Cervical spine shows moderate spo ndylotic changes. Imaged portions of the lung apices are unremarkable for acute process. CTA Head: There are some calcifications of the cavernous portions of the ICAs without significant stenosis. Supraclinoid ICAs, bifurcations, ACAs, MCAs appear normally patent. Anterior communicating artery is not definitely seen. The intracranial vertebral arteries enhance normally. Right vertebral appears to essentially terminat e as the PICA. Basilar artery is patent and unremarkable. Normal basilar bifurcation without evidence of aneurysm. Visualized proximal master ship are patent. A right posterior communicating artery is not definitely seen. A left posterior communicating artery appears present. No intracranial large vessel occlusion, hemodynamically significant stenosis, aneurysm, dissection, o r arteriovenous malformation is shown. The dural venous sinuses appear grossly patent without evidence of thrombosis. Other: Please refer to same-day CT head report.. IMPRESSION: CTA neck: 1. No dissection or pseudoaneurysm detected in the carotid or vertebral arteries in the neck. 2. Atherosclerotic disease is present, with predominantly calcified plaque causing approximately 50% diameter stenosis of the proximal ICAs bilaterally. CTA head: 1. Patient CTA Head. 2. No intracranial large vessel occlusion, significant stenosis, or sizable aneurysm detected in the limits of CTA. [facility], , 02/16/2024 8:02 PM
[2024-02-16] MEDS ORDERED: NALOXONE 0.4 MG/ML 1 ML VIAL IV PRN (20:51)
[2024-02-16] MEDS: SODIUM CHLORIDE 0.9% 1,000 ML IV SCH (22:20)
--- NOTE | 2024-02-16 23:34 | P.HPIM ---
History of Present Illness H&P Date: 02/16/24 Patient is a 83-year-old female with a history of hypertension, hyperlipidemia, depression, chronic pancreatitis, cataract surgery, glaucoma, ESBL infection (in urine), hypothyroid, parathyroidectomy, suprapubic catheter placement who came in for diplopia. Patient reported first episode started in the morning today and lasted for few seconds, and recurred around lunchtime. She also reported associated lightheadedness, tearing of her left eye, pain and blurry vision on the left eye. She sought care with her PCP and was advised to head to the ER to be evaluated for stroke. She denied any prior history of such symptoms. She denied headache, loss of consciousness, focal weakness, loss of vision, changes in speech, facial asymmetry, chest pain, shortness of breath, or leg pain. She was admitted last 01/21 chest pain ACS ruled out and pneumonia. In the emergency room, EKG showed heart rate of 70 with a first-degree AV block SC interval [address]-T changes QTc 452 MS. Chest x-ray showed bibasilar atelectasis with no acute process. CT of the brain showed negative for acute process. CT angio of the head was negative for occlusion, stenosis, or aneurysm. CT angio of the neck showed 50% stenosis of proximal ICA and negative for carotid dissection or aneurysm. WBC 5.7, hemoglobin 13.6 platelet 244, PT 10.2, INR 0.9, PTT 23.7, sodium 139, potassium 3.4, BUN 15, creatinine 0.69, glucose 113, calcium 9.5, creatinine kinase 57. On admission, patient was afebrile at 98.5 Fahrenheit heart rate 75 respiratory rate 18 blood pressure 114/61. ED documentation reviewed. Review of systems: Pertinent positives and negatives as discussed in HPI, a complete review of systems was performed and all other systems are negative. Family history: Mother is with pancreatic cancer. Father had no known medical history Social history: Tobacco: Denies tobacco use Alcohol denies alcohol intake Recreational drugs: Denies illicit drug use Travel: No recent travel Occupation: Retired Physical examination: Vital signs reviewed General: non toxic, no distress, appears at stated age, normal weight Derm: no unusual rashes/lesions, warm Head: atraumatic, normocephalic, symmetric Eyes: EOMI, no lid lag, anicteric sclera, pupils round reactive to light left eye constriction from 5 mm -> 3mm, right eye constriction from 4 mm -> 2 mm ENT: Nose and ears atraumatic, tympanic membrane intact with no bulging Neck: No cervical lymphadenopathy, trachea midline, supple Mouth: no lip lesion, mucus membranes moist Cardiovascular: S1S2 reg, no murmur, Lungs: CTA bilateral, no rhonchi, no rales, no accessory muscle use Abdominal: soft, nontender to palpation, no guarding Ext: muscle strength 5 out of 5 in all 4 extremities grossly, no gross muscle atrophy, no contractures, positive dorsalis pedis pulse bilateral, no edema Neuro: CN II-XI grossly intact, no gross focal neuro deficits Psych: Alert, oriented, appropriate affect and mood Assessment/Plan: #. Diplopia with anisocoria and minimal ocular pain, differentials include CVA, glaucoma, cluster headache -Fall precautions -Tylenol 650 mg p.o. every 6 hours per pain -Consult ophthalmology -Consult neurology -Neuro-checks -Initiate ASA and Lipitor #. Carotid stenosis of bilateral proximal ICA On CT angio showed 50% stenosis of bilateral proximal ICA -Aspirin 81 mg p.o. daily -Lipitor 40 mg p.o. daily -Nifedipine 60 mg p.o. daily #. Hypokalemia Potassium 3.4 -Replaced with oral 40 mEqs -BMP at a.m. Chronic: #. Hypertension #. Hyperlipidemia #. Depression #. Chronic pancreatitis #. GERD #. Hypothyroidism #. Hypoparathyroidism -Resume home medications when reconciled DVT prophylaxis: Heparin subq The patient is admitted with an anticipated greater than 2 midnight stay for evaluation of diplopia and carotid stenosis CODE STATUS: Full Discussed with: Patient Anticipated discharge place: Home Past Medical History Past Medical History: GERD/Reflux, Hyperlipidemia, Hypertension, Thyroid Disorder Additional Past Medical History / Comment(s): recent admission to [facility] for large hiatal hernia,hypoxia,has suprapubic catheter placed chronic pancreatitis History of Any Multi-Drug Resistant Organisms: ESBL Date of last positivie culture/infection: 12/06/20 MDRO Source:: ESBL URINE Past Surgical History: Joint Replacement Additional Past Surgical History / Comment(s): parathyroid gland, suprapubic catheter insertion, Left hip replacement, right shoulder surgery, total hysterectomy Past Anesthesia/Blood Transfusion Reactions: No Reported Reaction Additional Past Anesthesia/Blood Transfusion Reaction / Comment(s): Pt has recei leisa blood in past without reaction. Past Psychological History: Depression Smoking Status: Never smoker - Past Family History Sister(s) Family Medical History: Myocardial Infarction ([place]) Mother Family Medical History: Cancer Additional Family Medical History / Comment(s): pancreatic Father History Unknown: Yes Family Medical History: Hyperlipidemia Additional Family Medical History / Comment(s): Father in the war. Medications and Allergies Home Medications Medication Instructions Recorded Confirmed Type Aspirin EC [Ecotrin Low Dose] 81 mg PO DAILY 04/10/20 01/22/24 History Atorvastatin Calcium [Lipitor] 40 mg PO HS 04/10/20 01/22/24 History Mirtazapine 30 mg PO HS 04/10/20 01/22/24 History Gabapentin 300 mg PO TID 12/07/20 01/22/24 History Mirabegron [Myrbetriq] 25 mg PO HS 12/07/20 01/22/24 History Levothyroxine Sodium [Synthroid] 75 mcg PO DAILY 04/02/21 01/22/24 History Ferrous Sulfate [Iron (65 MG 325 mg PO DAILY 08/19/23 01/22/24 History Elemental)] Fluticasone Nasal [place] [Flonase 1 spray EA NOSTRIL BID PRN 08/19/23 01/22/24 History Nasal [place]] HYDROcodone/APAP 7.5-325MG [[place] 1 tab PO Q12H 08/19/23 01/22/24 History 7.5-325] Lidocaine Viscous 2% [Xylocaine 5 ml MUCOUS MEM Q4H PRN 08/19/23 01/22/24 History Viscous] Lipase/Protease/Amylase [Creon Dr 1 cap PO ACHS 08/19/23 01/22/24 History 6,000 Unit Capsule] Ondansetron [Zofran] 4 mg PO TID PRN 08/19/23 01/22/24 History Sertraline [Zoloft] 100 mg PO HS 08/19/23 01/22/24 History Zolpidem Tartrate [Ambien Cr] 6.25 mg PO HS PRN 08/19/23 01/22/24 History NIFEdipine XL [Procardia XL] 60 mg PO DAILY 30 Days #30 tab 08/22/23 01/22/24 Rx Ascorbic Acid [Vitamin C] 500 mg PO DAILY 01/22/24 01/22/24 History Cholecalciferol (Vitamin D3) 75 mcg PO DAILY 01/22/24 01/22/24 History [Vitamin D3 (3000 Iu)] Diclofenac Sodium [Voltaren 2 gm TOPICAL QID PRN 01/22/24 01/22/24 History Arthritis Pain 1% Gel] Ibuprofen [Motrin Ib] 400 mg PO Q6H PRN 01/22/24 01/22/24 History L.acidoph,Paracasei, B.lactis 1 cap PO DAILY 01/22/24 01/22/24 History [Probiotic] Multivitamins, Thera [Multivitamin 1 tab PO DAILY 01/22/24 01/22/24 History (formulary)] Turmeric Root Extract [Turmeric] 500 mg PO DAILY 01/22/24 01/22/24 History Pantoprazole [Protonix] 40 mg PO AC-BRKFST 90 Days #90 tab 01/26/24 Rx Valsartan [Diovan] 160 mg PO BID 30 Days #60 tab 01/26/24 Rx polyethylene glycoL 3350 [Miralax] 17 gm PO DAILY 90 Days #90 packet 01/26/24 Rx Allergies Allergy/AdvReac Type Severity Reaction Status Date / Time atorvastatin [From Lipitor] Allergy Migraine Verified 01/22/24 14:52 (CAN TAKE BRAND NAME LIPITOR) brimonidine [From Combigan] Allergy Itching Verified 01/22/24 14:52 dicyclomine [From Bentyl] Allergy Swelling Verified 01/22/24 14:52 of tongue/lips/mouth Sulfa (Sulfonamide Allergy Swelling Verified 01/22/24 15:01 Antibiotics) of tongue/lips/mouth timolol [From Combigan] Allergy Itching Verified 01/22/24 14:52 Physical Exam Vitals: Vital Signs Temp Pulse Resp BP Pulse Ox 02/16/24 18:36 98 F 80 18 133/66 93 L 02/16/24 17:38 98 F 76 18 154/67 92 L 02/16/24 15:49 98.5 F 75 18 114/61 Intake and Output 02/16/24 02/16/24 02/16/24 06:59 14:59 22:59 Other: Weight 62.142 kg Results CBC & Chem 7: 02/16/24 16:48 02/16/24 16:48 Labs: Abnormal Lab Results - Last 24 Hours (Table) 02/16/24 02/16/24 Range/Units 16:48 16:48 Lymphocytes # 0.8 L (1.0-4.8) k/uL Potassium 3.4 L (3.5-5.1) mmol/L Glucose 113 H (74-99) mg/dL
[2024-02-16] MEDS: ZOLPIDEM 5 MG TAB PO PRN (23:35)
[2024-02-17] MEDS: ATORVASTATIN 80 MG TAB PO STA (03:11)
[2024-02-17] MEDS: POTASSIUM CHLORIDE ER 20 MEQ TAB.ER PO STA (03:11)
[2024-02-17] MEDS: ASPIRIN 325 MG TAB PO STA (03:11)
[2024-02-17] MEDS: ASPIRIN 81 MG PO SCH (08:29)
[2024-02-17] MEDS: HEPARIN SODIUM,PORCINE 5,000 UNIT/ML 1 ML VIAL SQ SCH (08:29)
[2024-02-17] MEDS ORDERED: ENOXAPARIN 40 MG/0.4 ML SYRINGE SQ SCH (09:00)
[2024-02-17 09:11] LABS: BUN/Creat Ratio 18.33 Ratio (12.00-20.00); Calcium 8.6 mg/dL (8.7-10.3); Carbon Dioxide 29.1 mmol/L (21.6-31.8); Chloride 103 mmol/L (96-109); Glucose 87 mg/dL (70-110); Potassium 3.4 mmol/L (3.5-5.5); Sodium 140 mmol/L (135-145)
[2024-02-17] MEDS: LEVOTHYROXINE 75 MCG TAB PO SCH (11:10)
[2024-02-17] MEDS ORDERED: ARTIFICIAL TEARS-HYPROMELLOSE DROPS 15 ML BTL BOTH EYES PRN (11:44)
[2024-02-17] MEDS: PHENYLEPHRINE 2.5% OPHTH DRP 2ML BOTH EYES SCH (13:05)
[2024-02-17] MEDS: TROPICAMIDE 1% OPHTH DROPS 2 ML BTL BOTH EYES ONE (13:05)
[2024-02-17] MEDS: PROPARACAINE 0.5% OPHTH DROPS 15 ML BTL BOTH EYES STA (13:05)
--- NOTE | 2024-02-17 13:28 | P.CON ---
Consult Note - . Consult date: 02/17/24 Assessment/Plan:: This is an 83 y/o female with recent history of intermittent diplopia lasting only seconds at a time. She cannot state as to whether the diplopia was binocular or monocular in nature. She has had multiple surgeries, however, is not able to enumerate them well. the most recent of which was related to some kind of glaucoma implant surgery, performed outside of the lens implant surgery. She has been admitted for further determination of possible etiology of the problem. Noted in the ER was an anisocoria of which she was unaware and further questioned about it, she has not seen her own eyes for some time. She has has cataract surgery at least 10 years ago on the left, and more recently on the right. Additionally, has had YAG capsulotomies of each of the eyes following cataract surgery. And more recently has had an implant for glaucoma in each eye as well. She has been suing Jeffrey 128 (salt water) drops for some time, she through for dry eye, but this is often used for early corneal endothelial failure. She has been using Lumigan nightly in the right eye for additional control of the glaucoma. Her last eye exam was in October, and she is late for her typical follow up due to the hip surgery she just had undergone. Va: 20/20 OD & OS with correction Ta: 14 mm Hg and 16 mm Hg @ 1230 hrs. Ext: unremarkable, symmetrical, mild ptosis slightly greater on right than left. CF: normal OU Pupils: no APD, with moderate anisocoria of 2 mm; 3 mm OD, 5 mm OS. EOM: full D&V without any indication of diplopia, in any field of gaze Conj: white and quiet OU K: clear OU AC: D&Q OU Iris: without any surgically induced pathology or deformation Lens: pc IOL OU, probable YAG pc OU Vit: normal syneresis Optic nerve: S/F/P OU C:D 0.60 OU Post pole: quiet without obvious macular problems Vasc: normal caliber A: 1) intermittent diplopia, not present at this time. The intermittent diplopia is not likely releated to neuromuscular etiology. The most likely cause is related to some kind of surface problem, e.g., dry eye or possible endothelial failure. 2) Glaucoma most likely open angle and has undergone various treatments to control for the glaucoma. 3) pseudophakia, stable OU P: Recommend once released to return to [facility] for ongoing eye care. I have begun latanoprost for the glaucoma in the right eye, and restarted the Jeffrey 128 4 times daily for both eyes.
[2024-02-17 13:40] LABS: Magnesium 2.1 mg/dL (1.6-2.3)
[2024-02-17] MEDS: HYDROcodone/APAP 7.5-325MG 1 EACH TAB PO ONE (14:18)
--- NOTE | 2024-02-17 14:58 | P.CNNES ---
History of Present Illness Consult date: 02/17/24 Requesting physician: Sukhdev Johnston Reason for Consult: diplopia History of Present Illness: This is a 83-year-old woman with history of thoracic of both eyes as well as glaucoma surgery as a result who presented emergency department because of diplopia. She is accompanied with her son. She stated that yesterday she had 3 brief episode of diplopia over both eyes she thinks and it was [id number] and it was very brief. She denies any headache, denies any ringing in the ears, denies any difficulty with speech, denies any numbness associate with it or any jaw pain. She denies any history of stroke. She stated that with those episodes she had yesterday her left eye with watery. She denies any stroke or TIA in the past. She is on aspirin 81 mg. She has history of cataract and had correction of both eyes and the last correction was on the right eye for the cataract. She also has history of glaucoma both eyes and surgery the last surgery for glaucoma was 3 years ago. She follows up with [facility]. She also has a history of hypothyroidism and she is on Synthroid. Some of the workup during this hospital visit consisted of: Calcium, sodium, magnesium is within normal limits. CK level is within normal limits. CT of the head is reported as no acute intracranial CT abnormality. I personally reviewed the CT and I agree with the report. CT angiography of the neck is reported as no dissection or pseudoaneurysm detected in the carotid or vertebral artery in the neck. Atherosclerotic diseas e is present with predominantly calcified plaque and approximately 50% diameter stenosis of the proximal ICA bilaterally. CT angiography of the head is reported as no intracranial large vessel occlusi on, significant stenosis or sizable aneurysm detected in limits of CT angiography. Review of Systems The positive and negative as per HPI. Past Medical History Past Medical History: GERD/Reflux, Hyperlipidemia, Hypertension, Thyroid Disorder Additional Past Medical History / Comment(s): recent admission to [facility] for large hiatal hernia,hypoxia,has suprapubic catheter placed chronic pancreatitis History of Any Multi-Drug Resistant Organisms: ESBL Date of last positivie culture/infection: 12/06/20 MDRO Source:: ESBL URINE Past Surgical History: Joint Replacement Additional Past Surgical History / Comment(s): parathyroid gland, suprapubic catheter insertion, Left hip replacement, right shoulder surgery, total hysterectomy Past Anesthesia/Blood Transfusion Reactions: No Reported Reaction Additional Past Anesthesia/Blood Transfusion Reaction / Comment(s): Pt has received blood in past without reaction. Past Psychological History: Depression Smoking Status: Never smoker - Past Family History Sister(s) Family Medical History: Myocardial Infarction ([place]) Mother Family Medical History: Cancer Additional Family Medical History / Comment(s): pancreatic Father History Unknown: Yes Family Medical History: Hyperlipidemia Additional Family Medical History / Comment(s): Father in the war. Medications and Allergies Home Medications Medication Instructions Recorded Confirmed Type Aspirin EC [Ecotrin Low Dose] 81 mg PO DAILY 04/10/20 02/17/24 History Atorvastatin Calcium [Lipitor] 40 mg PO HS 04/10/20 02/17/24 History Mirtazapine 30 mg PO HS 04/10/20 02/17/24 History Gabapentin 300 mg PO TID 12/07/20 02/17/24 History Mirabegron [Myrbetriq] 25 mg PO HS 12/07/20 02/17/24 History Levothyroxine Sodium [Synthroid] 75 mcg PO DAILY 04/02/21 02/17/24 History Ferrous Sulfate [Iron (65 MG 325 mg PO DAILY 08/19/23 02/17/24 History Elemental)] Fluticasone Nasal [place] [Flonase 1 spray EA NOSTRIL BID PRN 08/19/23 02/17/24 History Nasal [place]] HYDROcodone/APAP 7.5-325MG [[place] 1 tab PO Q12H 08/19/23 02/17/24 History 7.5-325] Lidocaine Viscous 2% [Xylocaine 5 ml MUCOUS MEM Q4H PRN 08/19/23 02/17/24 His tory Viscous] Lipase/Protease/Amylase [Creon Dr 1 cap PO ACHS 08/19/23 02/17/24 History 6,000 Unit Capsule] Ondansetron [Zofran] 4 mg PO TID PRN 08/19/23 02/17/24 History Sertraline [Zoloft] 100 mg PO HS 08/19/23 02/17/24 History Zolpidem Tartrate [Ambien Cr] 6.25 mg PO HS PRN 08/19/23 02/17/24 History NIFEdipine XL [Procardia XL] 60 mg PO DAILY 30 Days #30 tab 08/22/23 02/17/24 Rx Ascorbic Acid [Vitamin C] 500 mg PO DAILY 01/22/24 02/17/24 History Cholecalciferol (Vitamin D3) 75 mcg PO DAILY 01/22/24 02/17/24 History [Vitamin D3 (3000 Iu)] Diclofenac Sodium [Voltaren 2 gm TOPICAL QID PRN 01/22/24 02/17/24 History Arthritis Pain 1% Gel] Ibuprofen [Motrin Ib] 400 mg PO Q6H PRN 01/22/24 02/17/24 History L.acidoph,Paracasei, B.lactis 1 cap PO DAILY 01/22/24 02/17/24 History [Probiotic] Multivitamins, Thera [Multivitamin 1 tab PO DAILY 01/22/24 02/17/24 History (formulary)] Turmeric Root Extract [Turmeric] 500 mg PO DAILY 01/22/24 02/17/24 History Pantoprazole [Protonix] 40 mg PO AC-BRKFST 90 Days #90 tab 01/26/24 02/17/24 Rx Valsartan [Diovan] 160 mg PO BID 30 Days #60 tab 01/26/24 02/17/24 Rx polyethylene glycoL 3350 [Miralax] 17 gm PO DAILY 90 Days #90 packet 01/26/24 02/17/24 Rx Allergies Allergy/AdvReac Type Severity Reaction Status Date / Time atorvastatin [From Lipitor] Allergy Migraine Verified 02/17/24 13:53 (CAN TAKE BRAND NAME LIPITOR) brimonidine [From Combigan] Allergy Itching Verified 02/17/24 13:53 dicyclomine [From Bentyl] Allergy Swelling Verified 02/17/24 13:53 of tongue/lips/mouth Sulfa (Sulfonamide Allergy Swelling Verified 02/17/24 13:53 Antibiotics) of tongue/lips/mouth timolol [From Combigan] Allergy Itching Verified 02/17/24 13:53 Physical Examination - Vital Signs Vital Signs: Vital Signs Temp Pulse Pulse Pulse Resp BP BP 02/17/24 07:00 98.0 F 77 16 180/73 02/17/24 02:00 97.6 F 64 16 141/67 02/16/24 23:42 72 18 151/78 02/16/24 18:36 98 F 80 18 133/66 02/16/24 17:38 98 F 76 18 154/67 02/16/24 15:49 98.5 F 75 18 114/61 Pulse Ox 02/17/24 07:00 95 02/17/24 02:00 94 L 02/16/24 23:42 97 02/16/24 18:36 93 L 02/16/24 17:38 92 L 02/16/24 15:49 Intake and Output 02/16/24 02/17/24 02/17/24 22:59 06:59 14:59 Intake Total 236 Output Total 500 950 Balance -500 714 Intake: Oral 236 Output: Urine 500 950 Other: Voiding Method Indwelling Catheter # Bowel Movements 1 1 Weight 62.142 kg 62.142 kg GENERAL: The patient is lying in bed and is not in acute distress. NEUROLOGICAL: Higher mental function: The patient is awake, alert, oriented to self, place and time. Patient is following commands. No aphasia and no neglect. Cranial nerves: The pupils are round, equal and reactive to light and accommodation. Visual núñez are full to confrontation throughout. Extraocular movement is intact no nystagmus is noted. Facial sensation is normal to touch throughout. The facial strength is normal throughout. Hearing is mildly decreased bilaterally to hand rub. Tongue is midline and moved [id number] without any difficulty. No dysarthria is noted. Shoulder shrug is normal bilaterally. Motor: The strength is 5 over 5 throughout. Normal tone and bulk. Cerebellum: Normal finger to nose bilaterally. Sensation: Sensation is normal to touch throughout. Reflexes (right/left): 2+ throughout. Plantars are downgoing bilaterally. Results - Laboratory Findings CBC and BMP: 02/16/24 16:48 02/17/24 05:45 Abnormal Lab Findings: Abnormal Labs 02/16/24 02/16/24 02/17/24 16:48 16:48 05:45 Lymphocytes # 0.8 L Potassium 3.4 L 3.4 L Glucose 113 H Calcium 8.6 L Assessment and Plan Assessment: This is an 83-year-old woman with history of bilateral cataract as well as glaucoma and had surgical resection of both eyes presented to hospital because of diplopia. She stated that she had 3 brief incident in which she had diplopia and it was [id number] but did not cover each eye when she had the episode. [place] her eye was watery with dose episode. denies any headache, speech diffi culty, focal weakness, blurred vision. Brief episode of diplopia possible ophthalmological in etiology. Cannot rule out TIA History of bilateral cataracts status post surgical correction History of bilateral glaucoma status post correction Underlying history of hypothyroidism Hypertension Plan: MRI of the brain is ordered and is pending I ordered ESR, TSH Patient is on her home dose of aspirin 81 mg daily. She is on Lipitor 40 mg nightly. Ophthamology is consulted ordered 2D echo Will defer the rest of the medical management to primary and other specialist The plan discussed with the patient and her son was at bedside. Thank you for the consultation Time with Patient: Greater than 30
--- NOTE | 2024-02-17 16:22 | P.PN ---
Subjective Progress Note Date: 02/17/24 Patient is a 83-year-old female with a history of hypertension, hyperlipidemia, depression, chronic pancreatitis, cataract surgery, glaucoma, ESBL infection (in urine), hypothyroid, parathyroidectomy, suprapubic catheter placement who came in for diplopia. Patient reported first episode started in the morning today and lasted for few seconds, and recurred around lunchtime. She also reported a ssociated lightheadedness, tearing of her left eye, pain and blurry vision on the left eye. She sought care with her PCP and was advised to head to the ER to be evaluated for stroke. She denied any prior history of such symptoms. She denied headache, loss of consciousness, focal weakness, loss of vision, changes in speech, facial asymmetry, chest pain, shortness of breath, or leg pain. She was admitted last 01/21 chest pain ACS ruled out and pneumonia. In the emergency room, EKG showed heart rate of 70 with a first-degree AV block [place] interval [address]-T changes QTc 452 MS. Chest x-ray showed bibasilar atelectasis with no acute process. CT of the brain showed negative for acute process. CT angio of the head was negative for occlusion, stenosis, or aneurysm. CT angio of the neck showed 50% stenosis of proximal ICA and negative for carotid dissection or aneurysm. WBC 5.7, hemoglobin 13.6 platelet 244, PT 10.2, INR 0.9, PTT 23.7, sodium 139, potassium 3.4, BUN 15, creatinine 0.69, glucose 113, calcium 9.5, creatinine kinase 57. On admission, patient was afebrile at 98.5 Fahrenheit heart rate 75 respiratory rate 18 blood pressure 114/61. Progress note 02/17/2024 no events overnight. Patient seen and examined at bedside. She states she has no other recurrences of diplopia. She reports no headache, blurred vision, eye pain, or LOC. She otherwise has no concerns. Review of systems: Pertinent positives and negatives as discussed in HPI, a complete review of systems was performed and all other systems are negative. Physical examination: Vital signs reviewed General: non toxic, no distress, appears at stated age, normal weight Derm: no unusual rashes/lesions, warm Head: atraumatic, normocephalic, symmetric Eyes: EOMI, no lid lag, anicteric sclera, pupils round reactive to light ENT: Nose and ears atraumatic, tympanic membrane intact with no bulging Neck: No cervical lymphadenopathy, trachea midline, supple Mouth: no lip lesion, mucus membranes moist Cardiovascular: S1S2 reg, no murmur, Lungs: CTA bilateral, no rhonchi, no rales, no accessory muscle use Abdominal: soft, nontender to palpation, no guarding Ext: muscle strength 5 out of 5 in all 4 extremities grossly, no gross muscle atrophy, no contractures, positive dorsalis pedis pulse bilateral, 2+ pitting edema Neuro: CN II-XI grossly intact, no gross focal neuro deficits Psych: Alert, oriented, appropriate affect and mood Labs reviewed today sodium 140, potassium 3.4, bicarb 29.1, BUN 11.0, creatinine 0.6, glucose 87, magnesium 2.1, TSH 0.473 Assessment/Plan: #. Diplopia with anisocoria and minimal ocular pain, differentials include CVA, glaucoma, cluster headache -Tylenol 650 mg p.o. every 6 hours per pain Ophthalmology following, note reviewed, recommending outpatient follow-up for glaucoma Continue latanoprost and Jeffrey 128, per ophthalmology Neurology following -Neuro-checks, Fall precautions - Continue ASA 81 Mg and Lipitor 40 Mg MRI brain and orbits pending #. Carotid stenosis of bilateral proximal ICA On CT angio showed 50% stenosis of bilateral proximal ICA -Aspirin 81 mg p.o. daily -Lipitor 40 mg p.o. daily -Nifedipine 60 mg p.o. daily Cardiac telemetry #. Hypokalemia Initial potassium 3.4 => 3.4 Magnesium 2.1 -Initially replaced with oral 40 mEqs -BMP at a.m. plus magnesium level Chronic: #. Hypertension #. Hyperlipidemia #. Depression #. Chronic pancreatitis #. GERD #. Hypothyroidism #. Hypoparathyroidism DVT prophylaxis: Heparin subq CODE STATUS: Full Discussed with: Patient Anticipated discharge place: Home I have seen and evaluated the patient today. Discussed with the resident and agree with the residents finding and plan as documented in the resident's note. Changes highlighted in blue font. Objective - Vital Signs Vital signs: Vital Signs Temp 99.0 F 02/17/24 15:00 Pulse 94 02/17/24 15:00 Resp 16 02/17/24 15:00 BP 180/82 02/17/24 15:00 Pulse Ox 83 L 02/17/24 15:00 FiO2 Intake & Output 02/16/24 02/17/24 02/17/24 18:59 06:59 18:59 Intake Total 236 Output Total 500 1950 Balance -500 -1714 Weight 62.142 kg 62.142 kg Intake: Oral 236 Output: Urine 500 1950 Other: Voiding Method Indwelling Catheter # Bowel Movements 1 1 - Labs CBC & Chem 7: 02/16/24 16:48 02/17/24 05:45 Labs: Abnormal Lab Results - Last 24 Hours (Table) 02/16/24 02/16/24 02/17/24 Range/Units 16:48 16:48 05:45 Lymphocytes # 0.8 L (1.0-4.8) k/uL Potassium 3.4 L 3.4 L (3.5-5.1) mmol/L Glucose 113 H (74-99) mg/dL Calcium 8.6 L (8.7-10.3) mg/dL
[2024-02-17] MEDS: GABAPENTIN 300 MG CAP PO SCH (16:53)
[2024-02-17] MEDS: SODIUM CHLORIDE 5% OPHTH DROPS 15 ML BTL BOTH EYES SCH (18:06)
[2024-02-17] MEDS: NON FORMULARY DRUG (Mirabegron [Myrbetriq] 25 MG Tab.Er.24h) PO SCH (20:06)
[2024-02-17] MEDS: MIRTAZAPINE 15 MG TAB PO SCH (20:07)
[2024-02-17] MEDS: SERTRALINE 100 MG TAB PO SCH (20:08)
[2024-02-17] MEDS: ATORVASTATIN 40 MG TAB PO SCH (20:08)
[2024-02-17] MEDS: HYDROcodone/APAP 7.5-325MG 1 EACH TAB PO SCH (20:08)
[2024-02-17] MEDS: LATANOPROST 0.005% OPHTH DROPS 2.5 ML BTL RIGHT EYE SCH (20:09)
[2024-02-18] MEDS: PANTOPRAZOLE 40 MG TABLET PO SCH (06:24)
[2024-02-18] MEDS: polyethylene glycoL 3350 17 GM POWD.PACK PO SCH (09:30)
[2024-02-18] MEDS: ASCORBIC ACID 500 MG TAB PO SCH (09:30)
[2024-02-18] MEDS: FERROUS SULFATE 325 MG TAB PO SCH (09:31)
[2024-02-18 10:12] LABS: Blood Urea Nitrogen 9.2 mg/dL (9.0-27.0); Calcium 9.3 mg/dL (8.7-10.3); Carbon Dioxide 29.1 mmol/L (21.6-31.8); Chloride 103 mmol/L (96-109); Glucose 94 mg/dL (70-110); Potassium 3.6 mmol/L (3.5-5.5); Sodium 141 mmol/L (135-145)
--- NOTE | 2024-02-18 12:32 | P.PN ---
Subjective Progress Note Date: 02/18/24 Patient is a 83-year-old female with a history of hypertension, hyperlipidemia, depression, chronic pancreatitis, cataract surgery, glaucoma, ESBL infection (in urine), hypothyroid, parathyroidectomy, suprapubic catheter placement who came in for diplopia. Patient reported first episode started in the morning today and lasted for few seconds, and recurred around lunchtime. She also reported associated lightheadedness, tearing of her left eye, pain and blurry vision on the left eye. She sought care with her PCP and was advised to head to the ER to be evaluated for stroke. She denied any prior history of such symptoms. She denied headache, loss of consciousness, focal weakness, loss of vision, changes in speech, facial asymmetry, chest pain, shortness of breath, or leg pain. She was admitted last 01/21 chest pain ACS ruled out and pneumonia. In the emergency room, EKG showed heart rate of 70 with a first-degree AV block [place] interval [address]-T changes QTc 452 MS. Chest x-ray showed bibasilar atelectasis with no acute process. CT of the brain showed negative for acute process. CT angio of the head was negative for occlusion, stenosis, or aneurysm. CT angio of the neck showed 50% stenosis of proximal ICA and negative for carotid dissection or aneurysm. WBC 5.7, hemoglobin 13.6 platelet 244, PT 10.2, INR 0.9, PTT 23.7, sodium 139, potassium 3.4, BUN 15, creatinine 0.69, glucose 113, calcium 9.5, creatinine kinase 57. On admission, patient was afebrile at 98.5 Fahrenheit heart rate 75 respiratory rate 18 blood pressure 114/61. Subjective: Patient seen and examined at bedside. No acute events overnight. Denies any further vision complaints. Review of systems: Pertinent positives and negatives as discussed in HPI, a complete review of systems was performed and all other systems are negative. Physical examination: Vital signs reviewed General: non toxic, no distress, appears at stated age, normal weight Derm: no unusual rashes/lesions, warm Head: atraumatic, normocephalic, symmetric Eyes: EOMI, no lid lag, anicteric sclera, pupils round reactive to light ENT: Nose and ears atraumatic, tympanic membrane intact with no bulging Neck: No cervical lymphadenopathy, trachea midline, supple Mouth: no lip lesion, mucus membranes moist Cardiovascular: S1S2 reg, no murmur, Lungs: CTA bilateral, no rhonchi, no rales, no accessory muscle use Abdominal: soft, nontender to palpation, no guarding Ext: muscle strength 5 out of 5 in all 4 extremities grossly, no gross muscle atrophy, no contractures, positive dorsalis pedis pulse bilateral, 2+ pitting edema Neuro: CN II-XI grossly intact, no gross focal neuro deficits Psych: Alert, oriented, appropriate affect and mood Labs reviewed today sodium 141, potassium 3.6, creatinine 0.8, TSH 0.473 Assessment/Plan: #. Diplopia with anisocoria and minimal ocular pain #Glaucoma #Suspected CVA -Tylenol 650 mg p.o. every 6 hours per pain Ophthalmology following, recommending outpatient follow-up for glaucoma Continue latanoprost and Jeffrey 128, per ophthalmology Neurology following -Neuro-checks, Fall precautions - Continue ASA 81 Mg and Lipitor 40 Mg MRI brain and orbits pending #. Carotid stenosis of bilateral proximal ICA On CT angio showed 50% stenosis of bilateral proximal ICA -Aspirin 81 mg p.o. daily -Lipitor 40 mg p.o. daily -Nifedipine 60 mg p.o. daily Cardiac telemetry #. Hypokalemia, resolved Chronic: #. Hypertension #. Hyperlipidemia #. Depression #. Chronic pancreatitis #. GERD #. Hypothyroidism #. Hypoparathyroidism DVT prophylaxis: Heparin subq CODE STATUS: Full Discussed with: Patient Anticipated discharge place: Home Objective - Vital Signs Vital signs: Vital Signs Temp 98.1 F 02/18/24 07:00 Pulse 74 02/18/24 07:00 Resp 16 02/18/24 07:00 BP 143/63 02/18/24 07:00 Pulse Ox 93 L 02/18/24 07:00 FiO2 Intake & Output 02/17/24 02/18/24 02/18/24 18:59 06:59 18:59 Intake Total 776 240 Output Total 2900 1300 Balance -4 -1300 240 Intake: Oral 776 240 Output: Urine 2900 1300 Other: Voiding Method Indwelling Catheter Indwelling Catheter # Bowel Movements 1 - Labs CBC & Chem 7: 02/16/24 16:48 02/18/24 05:34 Labs: Abnormal Lab Results - Last 24 Hours (Table) 02/17/24 02/18/24 Range/Units 13:18 05:34 ESR 46 H (0-30) mm/Hr BUN/Creatinine Ratio 11.50 L (12.00-20.00) Ratio
--- NOTE | 2024-02-18 14:24 | P.PN ---
Subjective Progress Note Date: 02/18/24 I am following-up with patient and feels she is doing well. Continues to deny any headache, focal weakness. Feels some visual disturbance. Objective - Vital Signs Vital signs: Vital Signs Temp 98.1 F 02/18/24 07:00 Pulse 74 02/18/24 07:00 Resp 16 02/18/24 07:00 BP 143/63 02/18/24 07:00 Pulse Ox 93 L 02/18/24 07:00 FiO2 Intake & Output 02/17/24 02/18/24 02/18/24 18:59 06:59 18:59 Intake Total 776 240 Output Total 2900 1300 Balance -2124 -1300 240 Intake: Oral 776 240 Output: Urine 2900 1300 Other: Voiding Method Indwelling Catheter Indwelling Catheter # Bowel Movements 1 - Exam GENERAL: The patient is lying in bed and is not in acute distress. NEUROLOGICAL: Higher mental function: The patient is awake, alert, oriented to self, place and time. Patient is following commands. No aphasia and no neglect. Cranial nerves: The pupils are round, equal and reactive to light and accommodation. Visual núñez are full to confrontation throughout. Extraocular movement is intact no nystagmus is noted. Facial sensation is normal to touch throughout. The facial strength is normal throughout. Hearing is mildly decr eased bilaterally to hand rub. Tongue is midline and moved [id number] without any difficulty. No dysarthria is noted. Shoulder shrug is normal bilaterally. Motor: The strength is 5 over 5 throughout. Normal tone and bulk. Cerebellum: Normal finger to nose bilaterally. Sensation: Sensation is normal to touch throughout. Reflexes (right/left): 2+ throughout. Plantars are downgoing bilaterally. Some of the workup during this hospital visit consisted of: Calcium, sodium, magnesium is within normal limits. CK level is within normal limits. ESR 46 TSH: 0.473 CT of the head is reported as no acute intracranial CT abnormality. I personally reviewed the CT and I agree with the report. CT angiography of the neck is reported as no dissection or pseudoaneurysm detected in the carotid or vertebral artery in the neck. Atherosclerotic disease is present with predominantly calcified plaque and approximately 50% diameter stenosis of the proximal ICA bilaterally. CT angiography of the head is reported as no intracranial large vessel occlusion, significant stenosis or sizable aneurysm detected in limits of CT angiography. - Labs CBC & Chem 7: 02/16/24 16:48 02/18/24 05:34 Labs: Abnormal Lab Results - Last 24 Hours (Table) 02/17/24 02/18/24 Range/Units 13:18 05:34 ESR 46 H (0-30) mm/Hr BUN/Creatinine Ratio 11.50 L (12.00-20.00) Ratio Assessment and Plan Assessment: This is an 83-year-old woman with history of bilateral cataract as well as glaucoma and had surgical resection of both eyes presented to hospital because of diplopia. She stated that she had 3 brief incident in which she had diplopia and it was [id number] but did not cover each eye when she had the episode. [place] her eye was watery with dose episode. denies any headache, speech difficulty, focal weakness, blurred vision. Brief episode of diplopia possible ophthalmological in etiology. Unlikely stroke. Mildly elevated ESR 46 but not significant for her age. Ophthalmology feels her diplopia is likely related to surface problem such as dry eyes or possible endothelial failure. History of bilateral cataracts status post surgical correction History of bilateral glaucoma status post correction Underlying history of hypothyroidism Hypertension Plan: MRI of the brain is ordered and is pending Patient is on her home dose of aspirin 81 mg daily. She is on Lipitor 40 mg nightly. Ophthamology is on board ordered 2D echo but it was cancelled by seating and mobility technologist team since it seems she had recent 2D echo. Will defer the rest of the medical management to primary and other specialist The plan discussed with the patient. Dr. Fleming will resume neurology service tomorrow A.M. Time with Patient: Less than 30
[2024-02-19] MEDS: ACETAMINOPHEN TAB 325 MG TAB PO PRN (06:05)
[2024-02-19 08:28] VITALS: BP 108/56; PULSE 72; RESP 17; TEMP 97.6
[2024-02-19] MEDS ORDERED: CARBAMIDE PEROXIDE 6.5% DROPS 15 ML BTL RIGHT EAR SCH (09:45)
--- NOTE | 2024-02-19 11:05 | MR ---
EXAMINATION TYPE: MR brain/orbits wo con DATE OF EXAM: 02/19/2024 10:22 AM CLINICAL INDICATION: Female, 83 years old with history of diplopia/blurred vision; PHH, DIPLOPIA/BLUR RED VISION COMPARISON: None. TECHNIQUE: Multi planar, multi sequence imaging was performed through the orbits/face and brain. FINDINGS, ORBITS: The globes appear symmetrical. Orbital contents are intact. Signal intensity of th e optic nerves are within normal limits. The intraorbital fat appears preserved. Both lacrimal glan ds are unremarkable. The extraocular muscles appear symmetric. After administration of contrast, no a bnormal enhancement is seen. FINDINGS, BRAIN: The madera-white junctions, ventricular system, and cisterns do appear unremarkable. Diffusion-weighted imaging shows no evidence of restricted diffusion. Patchy areas of high T2 signa l intensity are seen within the periventricular white matter. Cavernous sinus is within normal limit s. After administration of contrast, no abnormal enhancement is seen within the brain. The bone marrow signal is within normal limits. Paranasal sinuses and mastoid air cells: No significant paranasal sinus disease. Visualized orbits: Bilateral aphakia IMPRESSION: Limited exam without IV contrast. 1. No evidence of intraorbital mass or significant abnormality. 2. No evidence of intracranial mass nor acute/subacute CVA accident. 3. Nonspecific white matter changes are identified likely small vessel ischemic disease. [facility], , 02/19/2024 11:03 AM
--- NOTE | 2024-02-19 11:31 | P.DS ---
Providers Date of admission: 02/16/24 20:51 Expected date of discharge: 02/19/24 Attending physician: Praveen Henry MD Consults: 02/16/24 20:51 Consult Physician Routine Consulting Provider: Stefano Santiago Consult Reason/Comments: Diplopia Do you want consulting provider notified?: Yes Consult Physician Routine Consulting Provider: Holger Hernandez Consult Reason/Comments: Diplopia Do you want consulting provider notified?: Yes, Notify in am Primary care physician: Naseem Motley Hospital Course: Discharge Diagnosis: Intermittent diplopia Open-angle glaucoma Asymptomatic carotid stenosis bilaterally Hypokalemia Right otitis externa Hospital Course: Patient is a 83-year-old female with a history of hypertension, hyperlipidemia, depression, chronic pancreatitis, cataract surgery, glaucoma, ESBL infection (in urine), hypothyroid, parathyroidectomy, suprapubic catheter placement who came in for diplopia. Patient reported first episode started in the morning today and lasted for few seconds, and recurred around lunchtime. She also reported associated lightheadedness, tearing of her left eye, pain and blurry vision on the left eye. She sought care with her PCP and was advised to head to the ER to be evaluated for stroke. She denied any prior history of such symptoms. She denied headache, loss of consciousness, focal weakness, loss of vision, changes in speech, facial asymmetry, chest pain, shortness of breath, or leg pain. She was admitted last 01/21 chest pain ACS ruled out and pneumonia. In the emergency room, EKG showed heart rate of 70 with a first-degree AV block [place] interval [address]-T changes QTc 452 MS. Chest x-ray showed bibasilar atelectasis with no acute process. CT of the brain showed negative for acute process. CT angio of the head was negative for occlusion, stenosis, or aneurysm. CT angio of the neck showed 50% stenosis of proximal ICA and negative for carotid dissection or aneurysm. WBC 5.7, hemoglobin 13.6 platelet 244, PT 10.2, INR 0.9, PTT 23.7, sodium 139, potassium 3.4, BUN 15, creatinine 0.69, glucose 113, calcium 9.5, creatinine kinase 57. On admission, patient was afebrile at 98.5 Fahrenheit heart rate 75 respiratory rate 18 blood pressure 114/61. Patient was seen by ophthalmology, likely intermittent diplopia secondary to surface problem rather than neuromuscular etiology, also has open-angle glau coma. Was started on latanoprost and Jeffrey. Outpatient follow-up with ophthalmology. Intubated diplopia resolved while inpatient. Patient was also evaluated by neurology, MRI orbit and brain did not show any acute CVA. Patient seen and examined at bedside. Vital signs reviewed and stable. General: Nontoxic, no distress, appears at stated age Derm: Warm, dry Head: Atraumatic, normocephalic, symmetric, right ear otitis externa Eyes: EOMI, no lid lag, anicteric sclera Mouth: No lip lesion, mucus membranes moist Cardiovascular: S1S2 reg, no murmur Lungs: CTA bilateral, no rhonchi, no rales, no accessory muscle use Abdominal: Soft, nontender to palpation, no guarding, no appreciable organomegaly Ext: No gross muscle atrophy, no edema, no contractures Neuro: CN II-XI grossly intact, no focal neuro deficits Psych: Alert, oriented, appropriate affect A total of 33 minutes of time were spent preparing this complex discharge summary. Patient was discharged on 02/19/2024 at 1127. Patient Condition at Discharge: Stable Plan - Discharge Summary New Discharge Prescriptions: New RX: Carbamide Peroxide [Debrox Otic] 5 drops RIGHT EAR BID #30 ml RX: Sodium Chloride 5% Ophth Soln [Jeffrey 128] 1 drops BOTH EYES Q6HR #10 ml RX: Latanoprost Ophth [Xalatan 0.005%] 1 drops RIGHT EYE HS #10 ml Continue RX: Aspirin EC [Ecotrin Low Dose] 81 mg PO DAILY RX: Mirtazapine 30 mg PO HS RX: Atorvastatin Calcium [Lipitor] 40 mg PO HS RX: Mirabegron [Myrbetriq] 25 mg PO HS RX: Fluticasone Nasal [place] [Flonase Nasal [place]] 1 spray EA NOSTRIL BID PRN PRN Reason: Allergy Symptoms RX: Sertraline [Zoloft] 100 mg PO HS RX: NIFEdipine XL [Procardia XL] 60 mg PO DAILY 30 Days #30 tab RX: Valsartan [Diovan] 160 mg PO BID 30 Days #60 tab RX: polyethylene glycoL 3350 [Miralax] 17 gm PO DAILY 90 Days #90 packet RX: Pantoprazole [Protonix] 40 mg PO AC-BRKFST 90 Days #90 tab RX: Gabapentin 300 mg PO TID RX: Levothyroxine Sodium [Synthroid] 75 mcg PO DAILY RX: Ondansetron [Zofran] 4 mg PO TID PRN PRN Reason: Nausea RX: Lipase/Protease/Amylase [Creon Dr 6,000 Unit Capsule] 1 cap PO ACHS RX: Zolpidem Tartrate [Ambien Cr] 6.25 mg PO HS PRN PRN Reason: SLEEP RX: Ferrous Sulfate [Iron (65 MG Elemental)] 325 mg PO DAILY RX: HYDROcodone/APAP 7.5-325MG [[place] 7.5-325] 1 tab PO Q12H RX: Lidocaine Viscous 2% [Xylocaine Viscous] 5 ml MUCOUS MEM Q4H PRN PRN Reason: MOUTH PAIN RX: Multivitamins, Thera [Multivitamin (formulary)] 1 tab PO DAILY RX: Ibuprofen [Motrin Ib] 400 mg PO Q6H PRN PRN Reason: Pain RX: Diclofenac Sodium [Voltaren Arthritis Pain 1% Gel] 2 gm TOPICAL QID PRN PRN Reason: joint pain RX: L.acidoph,Paracasei, B.lactis [Probiotic] 1 cap PO DAILY RX: Turmeric Root Extract [Turmeric] 500 mg PO DAILY RX: Ascorbic Acid [Vitamin C] 500 mg PO DAILY RX: Cholecalciferol (Vitamin D3) [Vitamin D3 (3000 Iu)] 75 mcg PO DAILY Discharge Medication List RX: Aspirin EC [Ecotrin Low Dose] 81 mg PO DAILY 04/10/20 [History] RX: Atorvastatin Calcium [Lipitor] 40 mg PO HS 04/10/20 [History] RX: Mirtazapine 30 mg PO HS 04/10/20 [History] RX: Gabapentin 300 mg PO TID 12/07/20 [History] RX: Mirabegron [Myrbetriq] 25 mg PO HS 12/07/20 [History] RX: Levothyroxine Sodium [Synthroid] 75 mcg PO DAILY 04/02/21 [History] RX: Ferrous Sulfate [Iron (65 MG Elemental)] 325 mg PO DAILY 08/19/23 [History] RX: Fluticasone Nasal [place] [Flonase Nasal [place]] 1 spray EA NOSTRIL BID PRN [History] RX: HYDROcodone/APAP 7.5-325MG [[place] 7.5-325] 1 tab PO Q12H 08/19/23 [History] RX: Lidocaine Viscous 2% [Xylocaine Viscous] 5 ml MUCOUS MEM Q4H PRN 08/19/23 [History] RX: Lipase/Protease/Amylase [Creon Dr 6,000 Unit Capsule] 1 cap PO ACHS 08/19/23 [History] RX: Ondansetron [Zofran] 4 mg PO TID PRN 08/19/23 [History] RX: Sertraline [Zoloft] 100 mg PO HS 08/19/23 [History] RX: Zolpidem Tartrate [Ambien Cr] 6.25 mg PO HS PRN 08/19/23 [History] RX: NIFEdipine XL [Procardia XL] 60 mg PO DAILY 30 Days #30 tab 08/22/23 [Rx] RX: Ascorbic Acid [Vitamin C] 500 mg PO DAILY 01/22/24 [History] RX: Cholecalciferol (Vitamin D3) [Vitamin D3 (3000 Iu)] 75 mcg PO DAILY 01/22/24 [History] RX: Diclofenac Sodium [Voltaren Arthritis Pain 1% Gel] 2 gm TOPICAL QID PRN 01/22/24 [History] RX: Ibuprofen [Motrin Ib] 400 mg PO Q6H PRN 01/22/24 [History] RX: L.acidoph,Paracasei, B.lactis [Probiotic] 1 cap PO DAILY 01/22/24 [History] RX: Multivitamins, Thera [Multivitamin (formulary)] 1 tab PO DAILY 01/22/24 [History] RX: Turmeric Root Extract [Turmeric] 500 mg PO DAILY 01/22/24 [History] RX: Pantoprazole [Protonix] 40 mg PO AC-BRKFST 90 Days #90 tab 01/26/24 [Rx] RX: Valsartan [Diovan] 160 mg PO BID 30 Days #60 tab 01/26/24 [Rx] RX: polyethylene glycoL 3350 [Miralax] 17 gm PO DAILY 90 Days #90 packet 01/26/24 [Rx] RX: Carbamide Peroxide [Debrox Otic] 5 drops RIGHT EAR BID #30 ml 02/19/24 [Rx] RX: Latanoprost Ophth [Xalatan 0.005%] 1 drops RIGHT EYE HS #10 ml 02/19/24 [Rx] RX: Sodium Chloride 5% Ophth Soln [Jeffrey 128] 1 drops BOTH EYES Q6HR #10 ml 02/19/24 [Rx] Follow up Appointment(s)/Referral(s): Holger Hernandez MD [STAFF PHYSICIAN] - 1 Week Naseem Motley DO [Primary Care Provider] - 1-2 days Patient Instructions/Handouts: Glaucoma (DC), Diplopia (DC) Activity/Diet/Wound Care/Special Instructions: Please see your PCP and Ophthalmology. Discharge Disposition: HOME SELF-CARE
== END 2024-02-19 13:00 | disposition home or self-care (01) ==
LOC: EC 15:23 → 6NMEDSUR 20:51
PROVIDERS: ADMIT Internal Medicine; ATTEND Internal Medicine
DX: H53.2 Diplopia (principal); H40.10X0 Unspecified open-angle glaucoma, stage unspecified; H57.02 Anisocoria; I65.23 Occlusion and stenosis of bilateral carotid arteries; E87.6 Hypokalemia; H60.91 Unspecified otitis externa, right ear; I10 Essential (primary) hypertension; E78.5 Hyperlipidemia, unspecified; F32.A Depression, unspecified; K86.1 Other chronic pancreatitis; E03.9 Hypothyroidism, unspecified; E20.9 Hypoparathyroidism, unspecified; K21.9 Gastro-esophageal reflux disease without esophagitis; Z96.1 Presence of intraocular lens; Z79.899 Other long term (current) drug therapy; Z79.890 Hormone replacement therapy; Z79.82 Long term (current) use of aspirin; Z98.42 Cataract extraction status, left eye; Z98.41 Cataract extraction status, right eye; Z88.2 Allergy status to sulfonamides
CPT/HCPCS: 96361; 96372 ×3; 96360; 99285; 36415; 93005; 80053; 80048 ×2; 85652; 84443; 82550; 83735; 85025; 85610; 85730; 71046; 70496; 70450; 70498; 70540; 70551; G0378 ×4; J1644 ×3; Q9967

== ENCOUNTER 2024-04-06 13:42 | Emergency (ER) | payer MEDICARE ==
[2024-04-06 13:53] VITALS: BP 109/54; PULSE 82; RESP 20; TEMP 98
--- NOTE | 2024-04-06 14:12 | ED ---
Lower Extremity Injury HPI - General Chief Complaint: Extremity Injury, Lower Stated Complaint: Fall/R leg pain Time Seen by Provider: 04/06/24 13:50 Source: patient, family, RN notes reviewed Mode of arrival: wheelchair Limitations: no limitations - History of Present Illness Initial Comments: This is an 84-year-old female who presents to the emergency department for a right leg injury. Patient tripped this morning and fell, landing on her right leg. She has since had pain and bruising over the adames. Denies hitting her head. Not taking any blood thinners. She has been icing this and states that the swelling has improved. - Related Data Home Medications Medication Instructions Recorded Confirmed Aspirin EC [Ecotrin Low Dose] 81 mg PO DAILY 04/10/20 02/17/24 Atorvastatin Calcium [Lipitor] 40 mg PO HS 04/10/20 02/17/24 Mirtazapine 30 mg PO HS 04/10/20 02/17/24 Gabapentin 300 mg PO TID 12/07/20 02/17/24 Mirabegron [Myrbetriq] 25 mg PO HS 12/07/20 02/17/24 Levothyroxine Sodium [Synthroid] 75 mcg PO DAILY 04/02/21 02/17/24 Ferrous Sulfate [Iron (65 MG 325 mg PO DAILY 08/19/23 02/17/24 Elemental)] Fluticasone Nasal [facility] [Flonase 1 spray EA NOSTRIL BID PRN 08/19/23 02/17/24 Nasal [facility]] HYDROcodone/APAP 7.5-325MG [[place] 1 tab PO Q12H 08/19/23 02/17/24 7.5-325] Lidocaine Viscous 2% [Xylocaine 5 ml MUCOUS MEM Q4H PRN 08/19/23 02/17/24 Viscous] Lipase/Protease/Amylase [Creon Dr 1 cap PO ACHS 08/19/23 02/17/24 6,000 Unit Capsule] Ondansetron [Zofran] 4 mg PO TID PRN 08/19/23 02/17/24 Sertraline [Zoloft] 100 mg PO HS 08/19/23 02/17/24 Zolpidem Tartrate [Ambien Cr] 6.25 mg PO HS PRN 08/19/23 02/17/24 Ascorbic Acid [Vitamin C] 500 mg PO DAILY 01/22/24 02/17/24 Cholecalciferol (Vitamin D3) 75 mcg PO DAILY 01/22/24 02/17/24 [Vitamin D3 (3000 Iu)] Diclofenac Sodium [Voltaren 2 gm TOPICAL QID PRN 01/22/24 02/17/24 Arthritis Pain 1% Gel] Ibuprofen [Motrin Ib] 400 mg PO Q6H PRN 01/22/24 02/17/24 L.acidoph,Paracasei, B.lactis 1 cap PO DAILY 01/22/24 02/17/24 [Probiotic] Multivitamins, Thera [Multivitamin 1 tab PO DAILY 01/22/24 02/17/24 (formulary)] Turmeric Root Extract [Turmeric] 500 mg PO DAILY 01/22/24 02/17/24 Previous Rx's Medication Instructions Recorded NIFEdipine XL [Procardia XL] 60 mg PO DAILY 30 Days #30 tab 08/22/23 Pantoprazole [Protonix] 40 mg PO AC-[id number] 90 Days #90 tab 01/26/24 Valsartan [Diovan] 160 mg PO BID 30 Days #60 tab 01/26/24 polyethylene glycoL 3350 [Miralax] 17 gm PO DAILY 90 Days #90 packet 01/26/24 Carbamide Peroxide [Debrox Otic] 5 drops RIGHT EAR BID #30 ml 02/19/24 Latanoprost Ophth [Xalatan 0.005%] 1 drops RIGHT EYE HS #10 ml 02/19/24 Sodium Chloride 5% Ophth Soln 1 drops BOTH EYES Q6HR #10 ml 02/19/24 [Jeffrey 128] Allergies Allergy/AdvReac Type Severity Reaction Status Date / Time atorvastatin [From Lipitor] Allergy Migraine Verified 04/06/24 13:53 (CAN TAKE BRAND NAME LIPITOR) brimonidine [From Combigan] Allergy Itching Verified 04/06/24 13:53 dicyclomine [From Bentyl] Allergy Swelling Verified 04/06/24 13:53 of tongue/lips/mouth Sulfa (Sulfonamide Allergy Swelling Verified 04/06/24 13:53 Antibiotics) of tongue/lips/mouth timolol [From Combigan] Allergy Itching Verified 04/06/24 13:53 Review of Systems ROS Statement: Those systems with pertinent positive or pertinent negative responses have been documented in the HPI. ROS Other: All systems not noted in ROS Statement are negative. Past Medical History Past Medical History: GERD/Reflux, Hyperlipidemia, Hypertension, Thyroid Disorder Additional Past Medical History / Comment(s): recent admission to [facility] for large hiatal hernia,hypoxia,has suprapubic catheter placed chronic pancreatitis History of Any Multi-Drug Resistant Organisms: ESBL Date of last positivie culture/infection: 12/06/20 MDRO Source:: ESBL URINE Past Surgical History: Joint Replacement Additional Past Surgical History / Comment(s): parathyroid gland, suprapubic catheter insertion, Left hip replacement, right shoulder surgery, total hysterectomy Past Anesthesia/Blood Transfusion Reactions: No Reported Reaction Additional Past Anesthesia/Blood Transfusion Reaction / Comment(s): Pt has received blood in past without reaction. Past Psychological History: Depression Smoking Status: Never smoker Past Alcohol Use History: None Reported Past Drug Use History: None Reported - Past Family History Sister(s) Family Medical History: Myocardial Infarction ([place]) Mother Family Medical History: Cancer Additional Family Medical History / Comment(s): pancreatic Father History Unknown: Yes Family Medical History: Hyperlipidemia Additional Family Medical History / Comment(s): Father in the war. General Exam Limitations: no limitations General appearance: alert, in no apparent distress Head exam: Present: atraumatic, normocephalic, normal inspection Respiratory exam: Present: normal lung sounds bilaterally. Absent: respiratory distress, wheezes, rales, rhonchi, stridor Cardiovascular Exam: Present: regular rate, normal rhythm, normal heart sounds. Absent: systolic murmur, diastolic murmur, rubs, gallop, clicks Extremities exam: Present: other (Hematoma to the right mid adames. Minor overlying tenderness. Full range of motion. 2+ DP and PT pulses) Neurological exam: Present: alert, oriented X3, CN II-XII intact Psychiatric exam: Present: normal affect, normal mood Course Vital Signs 04/06/24 13:50 Temperature 98.0 F Pulse Rate 82 Respiratory 20 Rate Blood Pressure 109/54 O2 Sat by Pulse 95 Oximetry Medical Decision Making - Medical Decision Making This is an 84-year-old female who presents to the emergency department for a right leg injury. Was pt. sent in by a medical professional or institution? @ -No Did you speak to anyone other than the patient for history? @ -No Did you review nursing and triage notes? @ -Yes, and I agree, it is accurate with regards to the patient's symptoms. Were old charts reviewed? @ -No Differential Diagnosis? @ -Differential Musculoskeletal Muscular strain, contusion, ligament sprain, fracture, arthritis, septic arthritis, bursitis, cellulitis, muscle spasm, nerve compression, DVT, arterial occlusion, herpes zoster, electrolyte abnormality, tumor.... This is not meant to be in all inclusive list EKG interpreted by me (3pts min.)? @ -Not obtained X-rays interpreted by me (1pt min.)? @ -X-ray of the right tib-fib obtained. My interpretation identifies no acute fractures. CT interpreted by me (1pt min.)? @ -Not obtained U/S interpreted by me (1pt. min.)? @ -Not obtained What testing was considered but not performed? (CT, X-rays, U/S, labs)? Why? @ -None What meds were considered but not given? Why? @ -None Did you discuss the management of the patient with other professionals? @ -No Did you reconcile home meds? @ -No Was smoking cessation discussed for >3mins.? @ -No Was critical care preformed (if so, how long)? @ -No Were there social determinants of health that impacted care today? How? (Homelessness, low income, unemployed, alcoholism, drug addiction, transportation, low edu. Level, literacy, decrease access to med. care, senior living, rehab)? @ -No Was there de-escalation of care discussed even if they declined? (Discuss DNR or withdrawal of care, Hospice)? @ -No What co-morbidities impacted this encounter? (DM, HTN, Smoking, COPD, CAD, Cancer, CVA, Hep., AIDS, mental health diagnosis, sleep apnea, morbid obesity)? @ -None Was patient admitted / discharged? @ -Discharged. X-ray of the right tib-fib obtained revealing no acute fractures. Patient had a palpable hematoma on exam. Advised she continue with ice and elevation and take Tylenol as needed for pain relief. She is also advised to follow-up with her PCP for reevaluation to ensure this is healing. Patient discharged home in stable condition. Case discussed with ED attending Dr. Alejandro. Return precautions reviewed in depth, the patient is instructed to return to the emergency department with any new, worsening, or concerning symptoms. Patient verbalized understanding. Undiagnosed new problem with uncertain prognosis? @ -None Drug Therapy requiring intensive monitoring for toxicity (Heparin, Nitro, Insulin, Cardizem)? @ -None Were any procedures done? @ -None Diagnosis/symptom? @ -Fall, leg hematoma Acute, or Chronic, or Acute on Chronic? @ -Acute Uncomplicated (without systemic symptoms) or Complicated (systemic symptoms)? @ -Uncomplicated Side effects of treatment? @ -None Exacerbation, Progression, or Severe Exacerbation] @ -Not applicable Poses a threat to life or bodily function? @ -No - Radiology Data Radiology results: report reviewed, image reviewed Disposition Clinical Impression: Hematoma of right lower leg, Fall Disposition: HOME SELF-CARE Instructions (If sedation given, give patient instructions): Fall Prevention for Older Adults (ED), Hematoma (ED) Additional Instructions: Return to the emergency department with any new, worsening, or concerning symptoms. Take Tylenol as needed for pain relief. Continue to apply ice and elevate the leg. Follow up with your primary care provider in 1-2 days. Is patient prescribed a controlled substance at d/c from ED?: No Referrals: Naseem Motley DO [Primary Care Provider] - 1-2 days Time of Disposition: 15:25
--- NOTE | 2024-04-06 14:32 | XR ---
EXAMINATION TYPE: XR tibia fibula RT DATE OF EXAM: 04/06/2024 2:19 PM COMPARISON: None CLINICAL INDICATION: Female, 84 years old with history of Fall; pain TECHNIQUE: XR tibia fibula RT; examined in AP and lateral projections. FINDINGS: No evidence of any acute osseous pathology, joint dislocation, or soft tissue swelling is n oted. Pitting soft tissue edema. IMPRESSION: 1. No evidence of acute fracture. 2. Pitting edema of the lower extremities correlate for congestive heart failure. [facility], , 04/06/2024 2:30 PM
== END 2024-04-06 15:30 | disposition home or self-care (01) ==
LOC: EC 13:42
DX: S80.11XA Contusion of right lower leg, initial encounter (principal); Z88.2 Allergy status to sulfonamides; Z88.1 Allergy status to other antibiotic agents; Z88.8 Allergy status to other drugs, medicaments and biological substances; W01.0XXA Fall on same level from slipping, tripping and stumbling without subsequent striking against object, initial encounter
CPT/HCPCS: 99283

== ENCOUNTER → 2024-08-06 | Outpatient (CLI) | payer MEDICARE ==
--- NOTE | 2024-08-06 10:52 | US ---
EXAMINATION TYPE: US kidneys/renal and bladder DATE OF EXAM: 08/06/2024 COMPARISON: CT: 01/24/24 CLINICAL INDICATION: Female, 84 years old with history of N28.9 RENAL INSUFFICIENCY; renal insufficie ncy TECHNIQUE: Grayscale imaging of the bilateral kidneys and urinary bladder: FINDINGS: EXAM MEASUREMENTS: Right Kidney: 9.4 x 4.5 x 3.7 cm Left Kidney: 10.0 x 4.2 x 4.3 cm Right Kidney: 2 cystic areas seen. Larger one is mid pole measuring 2.9 x 2.2 x 2.0cm Left Kidney: cystic area seen mid pole measuring 3.1 x 3.4 x 2.6cm Bladder: appears wnl. Suprapubic catheter seen Bilateral Jets seen: No There is no evidence for hydronephrosis at this point in time. No nephrolithiasis is seen. Increased cortical echogenicity bilaterally with thin-walled cysts of varying size and shape redemonstrated. The urinary bladder is decompressed by suprapubic Oliver catheter. IMPRESSION: Evidence of chronic medical renal disease bilaterally redemonstrated. No hydronephrosis seen galen soto [facility], , 08/06/2024 10:50 AM
== END | disposition home or self-care (01) ==
LOC: RADUSWWP 10:14
PROVIDERS: ATTEND Internal Medicine
DX: N18.9 Chronic kidney disease, unspecified (principal); N28.1 Cyst of kidney, acquired
CPT/HCPCS: 76770